=== PATIENT | male | born 1955 | race African-American/Black ===

== ENCOUNTER 2018-05-15 11:29 | Observation (INO) | payer OTHER, SELFPAY ==
--- NOTE | 2018-05-15 12:19 | RAD REPORT ---
EXAM DESCRIPTION: CT - Head C Spine Cap Wo Con - 05/15/2018 11:51 am CLINICAL HISTORY: Trauma, head and neck injury. Chest, abdomen and pelvis pain. fall from ladder, head/back/abd pain COMPARISON: No comparisons TECHNIQUE: CT head without contrast. CT cervical spine without contrast with coronal and sagittal reformatted images. CT chest, abdomen and pelvis without contrast with coronal and sagittal reformatted images of the [facility]. All CT scans are performed using dose optimization technique as appropriate and may include automated exposure control or mA/KV adjustment according to patient size. FINDINGS: CT HEAD WITHOUT CONTRAST: No intracranial hemorrhage, hydrocephalus or extra-axial fluid collection. No areas of brain edema o r midline shift. The paranasal sinuses and mastoids are clear. The calvarium is intact. Large right-sided scalp hemato ma. CT CERVICAL SPINE WITHOUT CONTRAST: No fracture or subluxation. Prominent lower cervical degenerative changes. The prevertebral soft tiss ues are normal in thickness. CT CHEST, ABDOMEN, PELVIS WITHOUT CONTRAST: NOTE: Lack of contrast is a significant limitation in the assessment of trauma related findings. Spec ifically, solid organ, vascular and bowel evaluation is significantly limited. The lungs are mildly emphysematous but clear.No pneumothorax or pericardial/pleural fluid. No evidence of intra-abdominal visceral injury, free fluid or free air is seen within the above detai led limitations. An area of diminished density is noted in the pancreatic head without evidence of ductal dilatation. The region diminished density measures 3.4 x 2.3 cm. There is a small adjacent lymph node measuring 6 mm noted. This finding warrants further assessment with contrast-enhanced CT or MR imaging of the pa ncreas. Small focal ventral hernias are seen containing portions of the anterior wall colon. Postsurgical gabe nges are present about the sigmoid colon. No fractures. Small fat containing right inguinal hernia. IMPRESSION: Negative for acute traumatic findings within the above detailed limitations. Area of diminished density is seen in the pancreatic head as detailed warranting follow-up CT or MR i maging of the pancreas with contrast. Findings were discussed Dr. Hubbard in the emergency room 12:13 p.m. 05/15/2018 by telephone.
[2018-05-15] MEDS ORDERED: MORPHINE 4 MG/ML SYR ONE (12:23)
[2018-05-15] MEDS ORDERED: TETANUS & DIPHTHERIA TOX,ADULT 0.5 ML VIAL ONE (12:23)
[2018-05-15] MEDS ORDERED: ONDANSETRON 4 MG/2 ML VIAL ONE (12:23)
[2018-05-15 12:28] LABS: Absolute Lymphocytes (CBC) 1.8 K/uL (0.7-4.9); Absolute Monocytes 0.7 K/uL (0.1-1.3); Absolute Neutrophil 2.4 K/uL (1.8-8.0); Basophils % 0.6 % (0-1.3); Eosinophils % 1.2 % (0-4.4); Lymphocytes % 36.7 % (15.3-44.8); MCH 32.2 pg (27.0-35.0); MCV 94.5 fL (80-100); MPV 10.4 fL (7.6-11.3); Monocytes % 13.6 % (3.3-12.3); RBC Red Blood Cell Count 4.66 M/uL (4.33-5.43)
[2018-05-15 12:41] LABS: Potassium 4.4 mmol/L (3.5-5.1)
--- NOTE | 2018-05-15 13:45 | RAD REPORT ---
EXAM DESCRIPTION: RAD - Femur Right - 05/15/2018 1:36 pm CLINICAL HISTORY: PAIN Trauma COMPARISON: No comparisons FINDINGS: Mild osteoarthritic changes are present involving the right hip. No acute fracture or disl ocation seen.
--- NOTE | 2018-05-15 13:46 | RAD REPORT ---
EXAM DESCRIPTION: RAD - Femur Left - 05/15/2018 1:36 pm CLINICAL HISTORY: PAIN COMPARISON: No comparisons FINDINGS: Mild osteoarthritic changes noted. No acute fracture or dislocation
[2018-05-15 14:34] LABS: Urine Blood TRACE (NEG); Urine Glucose NEGATIVE (NEG); Urine Protein NEGATIVE (NEG)
[2018-05-15] MEDS ORDERED: LIDOCAINE 1% W/EPI 1:100,000 MDV 50 ML VIAL ONE (15:16)
--- NOTE | 2018-05-15 16:15 | ER ---
Nurse's Notes [facility] Unit Name: Yash Garcia Age: 62 yrs Sex: Male : 1955 Arrival Date: 05/15/2018 Time: 11:31 Bed 4 Private MD: Diagnosis: Concussion;Laceration without foreign body of scalp;Contusion of right back wall of thorax Presentation: 05/15 11:36 Presenting complaint: EMS states: pt fell approx 7 ft off a ladder while at work, pt iw hit head on beam on the way down, +LOC, large hematoma to right occipital area, with laceration, pain to right side of chest, right flank tenderness, left thigh pain, A\T\OX3 upon arrival to ER, pressure dressing applied by ER staff. Care prior to arrival: Cervical collar in place. Placed on backboard. Mechanism of Injury: Fall from ladder approximately 7 feet. 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 11:42 Transition of care: patient was not received from another setting of care. Onset of iw symptoms was May 15, 2018. Risk Assessment: Do you want to hurt yourself or someone else? Patient reports no desire to harm self or others. Initial Sepsis Screen: Does the patient meet any 2 criteria? No. Patient's initial sepsis screen is negative. Does the patient have a suspected source of infection? No. Patient's initial sepsis screen is negative. Trauma Activation: Alert Physician: ED Physician; Name: Dr. Hubbard; Notified At: 11:21; Arrived At: 11:21 Physician: General Surgeon; Name: N/A; Notified At: 11:21; Arrived At: N/A Physician: Radiology; Name: Felipe; Notified At: 11:21; Arrived At: 11:21 Physician: Respiratory; Name: N/A; Notified At: 11:21; Arrived At: N/A Physician: Lab; Name: N/A; Notified At: 11:21; Arrived At: N/A Historical: - Allergies: 11:43 Iodinated Contrast Media - IV Dye; iw - PMHx: 11:43 Hypertension; iw - Immunization history:: Last tetanus immunization: unknown. - Family history:: not pertinent. - Ebola Screening: : Patient negative for fever greater than or equal to 101.5 degrees Fahrenheit, and additional compatible Ebola Virus Disease symptoms Patient denies exposure to infectious person Patient denies travel to an Ebola-affected area in the 21 days before illness onset No symptoms or risks identified at this time. - Social history:: Smoking status: . - Hospitalizations: : No recent hospitalization is reported. Screenin:48 Abuse screen: Denies threats or abuse. Denies injuries from another. Tuberculosis iw screening: No symptoms or risk factors identified. 12:22 Nutritional screening: No deficits noted. Fall Risk None identified. tw2 Primary Survey: 11:36 A: Airway: patent, No supplemental oxygen in use on arrival. Breathing/Chest: iw Respiratory pattern: regular, Respiratory effort: spontaneous, unlabored, Breath sounds: clear, bilaterally. Chest inspection: symmetrical rise and fall of the chest. Circulation: Cardiac rhythm: sinus rhythm Heart tones present. Pulses: palpable right radial artery, right femoral artery, left radial artery, left femoral artery, left carotid pulse and right carotid pulse. Skin color: pink, Skin temperature: dry. Disability Alert. 11:42 Reassessment Airway Airway Patent Breathing/Chest Respiratory pattern Regular iw Respiratory effort Spontaneous Unlabored Breath sounds Clear Chest inspection Symmetrical Circulation Heart rhythm Sinus rhythm Heart tones Present Pulses Palpable Color [place] Temperature Warm Dry Disability Alert. Secondary Survey: 11:42 HEENT: Head Other large hematoma to back of head, right side, bleeding moderately, iw pressure dressing applied Face No injury/deformity Eyes: No injury or deformity noted. to bilateral eyes. Ears: clear bilaterally. Nose: clear to bilateral nares. Gastrointestinal: Abdomen is soft. Musculoskeletal: Range of motion: intact in all extremities, Reports pain in right subscapular area and right mid back. Assessment: 11:36 General: Appears in no apparent distress. Behavior is calm, cooperative. Pain: iw Complains of pain in head. Pain: Complains of pain in right lateral anterior chest. Pain: Complains of pain in left quadriceps. Neuro: Level of Consciousness is awake, alert, obeys commands, Moves all extremities. Cardiovascular: Patient's skin is warm and dry. Respiratory: Airway is patent Respiratory effort is even, unlabored. GI: Abdomen is flat, non-distended. Musculoskeletal: Range of motion: intact in all extremities. Injury Description: Head injury Laceration sustained to right parietal area is full thickness, 2.6 to 7.5 cm long, was sustained moderate bleeding noted at this time. 11:41 Reassessment: pt transported to Ct via stretcher, with YUMIKO Burnette. iw 11:53 Reassessment: transported pt back from CT, pt alert during scan and transport. Pain dm5 report in right side of face and left hip. quarter sized raised hematoma noted to left hand. 12:09 Reassessment: Patient appears in no apparent distress at this time. pt c/o throbbing iw headache, VSS. 12:30 Reassessment: Patient appears in no apparent distress at this time. Patient and/or iw family updated on plan of care and expected duration. Pain level reassessed. Patient is alert, oriented x 3, equal unlabored respirations, skin warm/dry/pink. pt medicated for pain, family at bedside. 14:44 Reassessment: Patient appears in no apparent distress at this time. Patient and/or tw2 family updated on plan of care and expected duration. Pain level reassessed. Patient is alert, oriented x 3, equal unlabored respirations, skin warm/dry/pink. 15:34 Reassessment: Patient appears in no apparent distress at this time. Patient and/or tw2 family updated on plan of care and expected duration. Pain level reassessed. Patient is alert, oriented x 3, equal unlabored respirations, skin warm/dry/pink. pt tolerated sutures well. 16:40 Reassessment: Patient appears in no apparent distress at this time. Patient and/or tw2 family updated on plan of care and expected duration. Pain level reassessed. Patient is alert, oriented x 3, equal unlabored respirations, skin warm/dry/pink. pt and pts spouse and family are requesting pt stay over night for observation, explained that this is not medically necessary and insurance may or may not cover this visit, pt and family educated as to s/s of when to return to the ER or call 911, family still requesting to speak with Dr. Hubbard, provider notified. 17:15 Reassessment: Patient appears in no apparent distress at this time. No changes from tw2 previously documented assessment. Patient and/or family updated on plan of care and expected duration. Pain level reassessed. Patient is alert, oriented x 3, equal unlabored respirations, skin warm/dry/pink. 18:12 Reassessment: Patient appears in no apparent distress at this time. No changes from tw2 previously documented assessment. Patient and/or family updated on plan of care and expected duration. Pain level reassessed. Patient is alert, oriented x 3, equal unlabored respirations, skin warm/dry/pink. 18:15 Reassessment: Dr. Scruggs at bedside at this time. tw2 18:54 Reassessment: [place] 5mg 2 tabs PO given at this time per [employer] orders, the orders tw2 are not processed, nurse note in [employer] chart at this time. 19:10 General: Appears in no apparent distress. comfortable, Behavior is calm, cooperative, tl2 appropriate for age. Pain: Complains of pain in right parietal area. Neuro: Level of Consciousness is awake, alert, obeys commands. Cardiovascular: Denies chest pain. Respiratory: Airway is patent Respiratory effort is even, unlabored, Respiratory pattern is regular, symmetrical. GI: No signs and/or symptoms were reported involving the gastrointestinal system. : No signs and/or symptoms were reported regarding the genitourinary system. Derm: Skin is pink, warm \T\ dry. Injury Description: laceration to right occipital area repaired and dressing is dry and in place. Vital Signs: 11:35 BP 164 / 100; Pulse 65; Resp 16; Temp 97.5(TE); Pulse Ox 95% on R/A; Weight 113.4 kg; iw Height 6 ft. 2 in. (187.96 cm) (R); Pain 8/10; 12:14 BP 167 / 88; Pulse 64; Resp 16; Temp 97.6; Pulse Ox 96% on R/A; Pain 8/10; iw 12:31 BP 173 / 94; Pulse 62; Resp 16; Pulse Ox 97% on R/A; iw 13:35 BP 151 / 85; Pulse 58; Resp 13; Pulse Ox 95% on R/A; tw2 14:43 BP 151 / 83; Pulse 64; Resp 14; Pulse Ox 95% on R/A; tw2 15:34 BP 137 / 82; Pulse 66; Resp 12; Pulse Ox 96% on R/A; tw2 16:30 BP 150 / 88; Pulse 81; Resp 17; Pulse Ox 95% on R/A; tw2 17:13 BP 151 / 86; Pulse 58; Resp 16; Pulse Ox 99% on R/A; dh3 18:11 BP 161 / 99; Pulse 73; Resp 18; Pulse Ox 95% on R/A; tw2 19:00 BP 152 / 93; Pulse 70; Resp 11; Pulse Ox 99% on R/A; tl2 11:35 Body Mass Index 32.10 (113.40 kg, 187.96 cm) iw Jossue Coma Score: 11:35 Eye Response: spontaneous(4). Verbal Response: oriented(5). Motor Response: obeys iw commands(6). Total: 15. 13:36 Eye Response: spontaneous(4). Verbal Response: oriented(5). Motor Response: obeys tw2 commands(6). Total: 15. Trauma Score (Adult): 11:35 Eye Response: spontaneous(1); Verbal Response: oriented(1); Motor Response: obeys iw commands(2); Systolic BP: > 89 mm Hg(4); Respiratory Rate: 10 to 29 per min(4); Guston Score: 15; Trauma Score: 12 12:15 Eye Response: spontaneous(1); Verbal Response: oriented(1); Motor Response: obeys iw commands(2); Systolic BP: > 89 mm Hg(4); Respiratory Rate: 10 to 29 per min(4); Jossue Score: 15; Trauma Score: 12 12:31 Eye Response: spontaneous(1); Verbal Response: oriented(1); Motor Response: obeys iw commands(2); Systolic BP: > 89 mm Hg(4); Respiratory Rate: 10 to 29 per min(4); Jossue Score: 15; Trauma Score: 12 13:36 Eye Response: spontaneous(1); Verbal Response: oriented(1); Motor Response: obeys tw2 commands(2); Systolic BP: > 89 mm Hg(4); Respiratory Rate: 10 to 29 per min(4); Jossue Score: 15; Trauma Score: 12 ED Course: 11:31 Patient arrived in ED. bd 11:34 Rafa Hubbard MD is Attending Physician. rn 11:36 Patient has correct armband on for positive identification. Bed in low position. Side iw rails up X2. Patient maintains SpO2 saturation greater than 95% on room air. 11:38 Triage completed. iw 11:40 Arm band placed on. iw 11:42 Thermoregulation: warm blanket given to patient. iw 11:43 Missed attempt(s): 20 gauge in right upper arm. Bleeding controlled, band aid applied, dh3 catheter tip intact. 11:50 Kerry Richards RN is Primary Nurse. iw 11:51 CT Traumagram (Head C Spine CAP wo con) In Process Unspecified. EDMS 11:54 CT completed. Patient tolerated procedure well. Patient moved to CT via stretcher. Patient moved back from CT. 11:57 Missed attempt(s): 20 gauge in right hand. Bleeding controlled, band aid applied, dh3 catheter tip intact. 12:00 Missed attempt(s): 22 gauge in right hand. 24 gauge in right antecubital area. Bleeding iw controlled, band aid applied, catheter tip intact. 12:08 Inserted saline lock: 24 gauge in left wrist, using aseptic technique. Blood collected. iw IV inserted by YUMIKO Torres. 12:26 Urine collected: urinal, clear. dh3 13:05 Patient moved to radiology via stretcher. jb2 13:29 Primary Nurse role handed off by Kerry Richards RN tw2 13:29 Richelle Perkins, YUMIKO is Primary Nurse. tw2 13:35 X-ray completed. Patient tolerated procedure well. Patient moved back from radiology. jb2 13:37 XRAY Femur LEFT In Process Unspecified. EDMS 13:37 XRAY Femur RIGHT In Process Unspecified. EDMS 15:15 Assist provider with laceration repair on right parietal area using sutures. Set up tw2 tray. Performed by Rafa Hubbard MD Dressed with 4X4s, Kerlix, non adherent with 2 law wraps. 16:54 Adrian Scruggs MD is Hospitalizing Provider. rn 18:55 Report given to Kristofer RN. tw2 19:26 Primary Nurse role handed off by Richelle Perkins, YUMIKO rg2 20:00 Patient admitted, IV remains in place. tl2 Administered Medications: 12:25 Drug: morphine 4 mg Route: IVP; Site: left wrist; iw 13:07 Follow up: Response: No adverse reaction; Pain is decreased iw 12:25 Drug: Zofran 4 mg Route: IVP; Site: left wrist; iw 13:07 Follow up: Response: No adverse reaction iw 12:30 Drug: Tetanus-Diphtheria Toxoid Adult 0.5 ml {Horticultural Therapist: [employer]. Exp: iw 06/01/2020. Lot #: [id number]. } Route: IM; Site: right deltoid; 13:07 Follow up: Response: No adverse reaction iw 15:15 Drug: Lidocaine-Epinephrine -2 % (1:100,000) 10 ml {Note: 5ml administered by Dr. christiano Hubbard.} Route: Infiltration; Intake: 12:23 PO: 0ml; Total: 0ml. tw2 Outcome: 13:36 Patient's length of stay in the Emergency Department was greater than 2 hours. d/t tw2 imagingPatient's length of stay extended due to 16:13 Discharge ordered by . rn 16:55 Decision to Hospitalize by Provider. rn 19:59 Admitted to Med/surg accompanied by tech, family with patient, via wheelchair, room tl2 209, with chart, Report called to YUMIKO Sharpe 19:59 Condition: stable 19:59 Discharge instructions given to patient, family, Instructed on the need for admit. 20:02 Patient left the ED. tl2 Signatures: Dispatcher [employer] EDMS Mavis Moss [place] 2 Yomaira Willams RN RN dm5 Serafin Blevins 2 Kerry Richards RN RN Rafa Hubbard MD MD rn Warren, Shannon sw Wise, Tara, RN RN 2 Aiyana Gtz RN RN 2 Margie Lr 3 Corrections: (The following items were deleted from the chart) 11:49 11:48 HEENT: Head Other large hematoma to back of head, right side, bleeding iw moderately, pressure dressing applied Face No injury/deformity Eyes: No injury or deformity noted. to bilateral eyes. Ears: clear bilaterally. Nose: clear to bilateral nares. iw 11:49 11:48 Gastrointestinal: Abdomen is soft, iw 11:49 11:48 Musculoskeletal: Range of motion: intact in all extremities, Reports pain in iw right subscapular area and right mid back iw 11:50 11:35 BP 164 / 100; Pulse 65bpm; Resp 16bpm; Pulse Ox 95% RA; iw iw 12:11 12:08 Inserted saline lock: 24 gauge in left antecubital area, using aseptic technique. iw Blood collected. IV inserted by YUMIKO Torres iw 12:15 11:35 BP 164 / 100; Pulse 65bpm; Resp 16bpm; Pulse Ox 95% RA; Temp 97.5F Temporal; iw 99.79 kg; Height 6 ft. 1 in.; BMI: 29.0; Pain 8/10; iw
--- NOTE | 2018-05-15 16:15 | EDPHYS ---
Physician Documentation [facility] Name: Yash Garcia Age: 62 yrs Sex: Male : 1955 Arrival Date: 05/15/2018 Time: 11:31 Bed 4 Private MD: ED Physician Rafa Hubbard HPI: 05/15 11:36 This 62 yrs old Black Male presents to ER via Unassigned with complaints of Fall Injury.rn 11:36 Trauma demographics: Location of Injury: The injury occurred at work. Mechanism of rn injury: Fall:. Associated injuries: The patient sustained injury to the head, upper back injury, injury to the chest, injury to the abdomen. Onset: The symptoms/episode began/occurred just prior to arrival. The patient has not experienced similar symptoms in the past. Wet outside, on fixed ladder, approx 7-10 feet, slipped and fell onto back, hit head, thinks lost consciousness, unknown tetanus, reports head/lower chest/abd/righ flank/left thigh pain. No blood thinners.. Historical: - Allergies: 11:43 Iodinated Contrast Media - IV Dye; iw - PMHx: 11:43 Hypertension; iw - Immunization history:: Last tetanus immunization: unknown. - Family history:: not pertinent. - Ebola Screening: : Patient negative for fever greater than or equal to 101.5 degrees Fahrenheit, and additional compatible Ebola Virus Disease symptoms Patient denies exposure to infectious person Patient denies travel to an Ebola-affected area in the 21 days before illness onset No symptoms or risks identified at this time. - Social history:: Smoking status: . - Hospitalizations: : No recent hospitalization is reported. ROS: 11:36 Constitutional: Negative for fever, chills, and weight loss, Eyes: Negative for injury, rn pain, redness, and discharge, ENT: no facial injury Neck: Negative for injury, pain, and swelling, Cardiovascular: + chest pain right anterior/inferior Respiratory: Negative for shortness of breath, cough, wheezing, and pleuritic chest pain, Abdomen/GI: + mild abd pain, right sided Back: + right flank/back pain MS/Extremity: Negative for injury and deformity, Neuro: Negative for weakness, numbness, tingling, and seizure. Exam: 11:36 Constitutional: This is a well developed, well nourished patient who is awake, alert, rn and in no acute distress. Head/Face: Moderate posterior scalp hematoma with 3cm linear laceration, slow venous bleeding noted Eyes: Pupils equal round and reactive to light, extra-ocular motions intact. Lids and lashes normal. Conjunctiva and sclera are non-icteric and not injected. Cornea within normal limits. Periorbital areas with no swelling, redness, or edema. Neck: In ccollar, no midline tenderness Chest/axilla: + contusion right lateral inferior chest wall, no crepitus Cardiovascular: Regular rate and rhythm with a normal S1 and S2. No gallops, murmurs, or rubs. Normal PMI, no JVD. No pulse deficits. Respiratory: Lungs have equal breath sounds bilaterally, clear to auscultation and percussion. No rales, rhonchi or wheezes noted. No increased work of breathing, no retractions or nasal flaring. Abdomen/GI: soft, mild right lateral abd/flank tenderness, no ecchymosis Back: No spinal tenderness or stepoff, + right flank tenderness without crepitus or open wounds MS/ Extremity: Pulses equal, no cyanosis. Neurovascular intact. Full, normal range of motion. Equal circumference. Mild painful ROM left thigh/hip, + abrasions to elbows and lower extremities without lacerations Neuro: Awake and alert, GCS 15, oriented to person, place, time, and situation. Cranial nerves II-XII grossly intact. Motor strength 5/5 in all extremities. Sensory grossly intact. Vital Signs: 11:35 BP 164 / 100; Pulse 65; Resp 16; Temp 97.5(TE); Pulse Ox 95% on R/A; Weight 113.4 kg; iw Height 6 ft. 2 in. (187.96 cm) (R); Pain 8/10; 12:14 BP 167 / 88; Pulse 64; Resp 16; Temp 97.6; Pulse Ox 96% on R/A; Pain 8/10; iw 12:31 BP 173 / 94; Pulse 62; Resp 16; Pulse Ox 97% on R/A; iw 13:35 BP 151 / 85; Pulse 58; Resp 13; Pulse Ox 95% on R/A; tw2 14:43 BP 151 / 83; Pulse 64; Resp 14; Pulse Ox 95% on R/A; tw2 15:34 BP 137 / 82; Pulse 66; Resp 12; Pulse Ox 96% on R/A; tw2 16:30 BP 150 / 88; Pulse 81; Resp 17; Pulse Ox 95% on R/A; tw2 17:13 BP 151 / 86; Pulse 58; Resp 16; Pulse Ox 99% on R/A; dh3 18:11 BP 161 / 99; Pulse 73; Resp 18; Pulse Ox 95% on R/A; tw2 19:00 BP 152 / 93; Pulse 70; Resp 11; Pulse Ox 99% on R/A; tl2 11:35 Body Mass Index 32.10 (113.40 kg, 187.96 cm) iw Jossue Coma Score: 11:35 Eye Response: spontaneous(4). Verbal Response: oriented(5). Motor Response: obeys iw commands(6). Total: 15. 13:36 Eye Response: spontaneous(4). Verbal Response: oriented(5). Motor Response: obeys tw2 commands(6). Total: 15. Trauma Score (Adult): 11:35 Eye Response: spontaneous(1); Verbal Response: oriented(1); Motor Response: obeys iw commands(2); Systolic BP: > 89 mm Hg(4); Respiratory Rate: 10 to 29 per min(4); [place] Score: 15; Trauma Score: 12 12:15 Eye Response: spontaneous(1); Verbal Response: oriented(1); Motor Response: obeys iw commands(2); Systolic BP: > 89 mm Hg(4); Respiratory Rate: 10 to 29 per min(4); [place] Score: 15; Trauma Score: 12 12:31 Eye Response: spontaneous(1); Verbal Response: oriented(1); Motor Response: obeys iw commands(2); Systolic BP: > 89 mm Hg(4); Respiratory Rate: 10 to 29 per min(4); [place] Score: 15; Trauma Score: 12 13:36 Eye Response: spontaneous(1); Verbal Response: oriented(1); Motor Response: obeys tw2 commands(2); Systolic BP: > 89 mm Hg(4); Respiratory Rate: 10 to 29 per min(4); [place] Score: 15; Trauma Score: 12 MDM: 11:34 Patient medically screened. rn 12:13 ED course: Ct no acute findings per Dr. Davey, sees irregularity of pancreatic head, rn will have pt followup for repeat pancreas imaging.. 16:12 Differential diagnosis: intra-abdominal injury, closed head injury, C spine fracture, T government property inspector fracture, L spine fracture. Data reviewed: vital signs, nurses notes, lab test result(s), radiologic studies, CT scan, plain films, and as a result, I will discharge patient. Counseling: I had a detailed discussion with the patient and/or guardian regarding: the historical points, exam findings, and any diagnostic results supporting the discharge/admit diagnosis, lab results, radiology results, the need for outpatient follow up, to return to the emergency department if symptoms worsen or persist or if there are any questions or concerns that arise at home. Response to treatment: the patient's condition has returned to base line, the patient is now symptom free, and as a result, I will discharge patient. Special discussion: Based on the patient's history, exam and DX evaluation, there is no indication for emergent intervention or inpatient TX. It is understood by the patient/guardian that if the SXs persist or worsen they need to return immediately for re-evaluation. I discussed with the patient/guardian in detail that at this point there is no indication for admission to the hospital. It is understood, however, that if the symptoms persist or worsen the patient needs to return immediately for re-evaluation. 05/15 11:35 Order name: Basic Metabolic Panel; Complete Time: 13:56 rn 05/15 11:35 Order name: CBC with Diff; Complete Time: 13:56 rn 05/15 11:35 Order name: CT Traumagram (Head C Spine CAP wo con); Complete Time: 13:56 rn 05/15 11:35 Order name: Type And Screen; Complete Time: 13:56 rn 05/15 12:41 Order name: Urine Dipstick--Ancillary (enter results); Complete Time: 16:54 bd 05/15 13:18 Order name: ABO/RH no charge; Complete Time: 13:56 EDMS 05/15 11:35 Order name: Labs collected and sent; Complete Time: 12:12 rn 05/15 11:35 Order name: Urine Dipstick-Ancillary (obtain specimen); Complete Time: 12:15 rn 05/15 11:35 Order name: XRAY Femur LEFT; Complete Time: 13:56 rn 05/15 11:35 Order name: XRAY Femur RIGHT; Complete Time: 13:56 rn Administered Medications: 12:25 Drug: morphine 4 mg Route: IVP; Site: left wrist; iw 13:07 Follow up: Response: No adverse reaction; Pain is decreased iw 12:25 Drug: Zofran 4 mg Route: IVP; Site: left wrist; iw 13:07 Follow up: Response: No adverse reaction iw 12:30 Drug: Tetanus-Diphtheria Toxoid Adult 0.5 ml {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 Exp: iw 06/01/2020. Lot #: [id number]. } Route: IM; Site: right deltoid; 13:07 Follow up: Response: No adverse reaction iw 15:15 Drug: Lidocaine-Epinephrine -2 % (1:100,000) 10 ml {Note: 5ml administered by Dr. christiano Hubbard.} Route: Infiltration; Disposition: 05/15/18 16:55 Hospitalization ordered by Adrian Scruggs for Observation. Preliminary diagnosis are Concussion, Laceration without foreign body of scalp, Contusion of right back wall of thorax. - Bed requested for Telemetry/MedSurg (observation). - Status is Observation. tl2 - Condition is Stable. - Problem is new. - Symptoms have improved. UTI on Admission? No Signatures: Dispatcher [employer] EDMS Mavis Moss Irene, RN RN iw Nieto, Roman, MD MD rn Wise, Tara, RN RN 2 Aiyana Gtz RN RN tl2 Corrections: (The following items were deleted from the chart) 16:13 16:13 05/15/2018 16:13 Discharged to Home. Impression: Superficial injury of head; rn Laceration without foreign body of scalp; Contusion of right back wall of thorax. Condition is Stable. Forms are Medication Reconciliation Form, Thank You Letter, Antibiotic Education, Prescription Opioid Use. Follow up: Private Physician; When: As needed; Reason: Recheck today's complaints, Re-evaluation by your physician. Problem is new. Symptoms have improved. rn 16:54 16:13 05/15/2018 16:13 Discharged to Home. Impression: Superficial injury of head; rn Laceration without foreign body of scalp; Contusion of right back wall of thorax; Concussion. Condition is Stable. Forms are Medication Reconciliation Form, Thank You Letter, Antibiotic Education, Prescription Opioid Use. Follow up: Private Physician; When: As needed; Reason: Recheck today's complaints, Re-evaluation by your physician. Problem is new. Symptoms have improved. rn 18:03 16:55 Hospitalization Ordered by Adrian Scruggs MD for Observation. Preliminary diagnosis bd is Concussion; Laceration without foreign body of scalp; Contusion of right back wall of thorax. Bed requested for Telemetry/MedSurg (observation). Status is Observation. Condition is Stable. Problem is new. Symptoms have improved. UTI on Admission? No. rn 20:02 18:03 05/15/2018 16:55 Hospitalization Ordered by Adrian Scruggs MD for Observation. tl2 Preliminary diagnosis is Concussion; Laceration without foreign body of scalp; Contusion of right back wall of thorax. Bed requested for Telemetry/MedSurg (observation). Status is Observation. Condition is Stable. Problem is new. Symptoms have improved. UTI on Admission? No. bd
[2018-05-15] MEDS ORDERED: HYDROCODONE/APAP 5/325 MG TAB PO PRN (18:28)
[2018-05-15] MEDS ORDERED: ONDANSETRON 4 MG (ODT) TAB PO PRN (18:28)
[2018-05-15] MEDS ORDERED: HYDROCODONE/APAP 5/325 MG TAB ONE (18:56)
[2018-05-15] MEDS ORDERED: MORPHINE 4 MG/ML SYR IV PRN (19:39)
[2018-05-15] MEDS ORDERED: ONDANSETRON 4 MG/2 ML VIAL IV PRN (19:39)
[2018-05-15] MEDS ORDERED: ACETAMINOPHEN 500 MG TAB PO PRN (19:39)
[2018-05-15] MEDS: Ringers Lactate 1,000 ML IV SCH (21:25)
[2018-05-16] MEDS: Ringers Lactate 1,000 ML IV SCH ×2 (04:31→11:00)
[2018-05-16 05:44] LABS: Absolute Lymphocytes (CBC) 1.7 K/uL (0.7-4.9); Absolute Monocytes 0.9 K/uL (0.1-1.3); Basophils % 0.5 % (0-1.3); Eosinophils % 2.2 % (0-4.4); Hematocrit 37.8 % (39.6-49.0); Lymphocytes % 35.7 % (15.3-44.8); MCH 32.5 pg (27.0-35.0); MCV 94.5 fL (80-100); MPV 10.3 fL (7.6-11.3)
[2018-05-16 05:52] LABS: BUN Blood Urea Nitrogen 15 mg/dL (7-18); Bicarbonate 32 mmol/L (21-32); Glucose Level 105 mg/dL (74-106); HDL Cholesterol 29 mg/dL (40-60); LDL Cholesterol, Calculated 32 (<130); Potassium 4.1 mmol/L (3.5-5.1); Sodium Level 143 mmol/L (136-145)
[2018-05-16 06:34] LABS: Blood Morphology Comment NOT SEEN (NOT SEEN); Platelet Estimate ADEQ
== END 2018-05-16 12:20 | disposition home or self-care (01) ==
LOC: ER 11:29 → ERHOLD 17:12 → 2ND 19:19
PROVIDERS: ADMIT Surgery; ATTEND Surgery
DX: S00.03XA Contusion of scalp, initial encounter (principal); S06.9X9A Unspecified intracranial injury with loss of consciousness of unspecified duration, initial encounter; W11.XXXA Fall on and from ladder, initial encounter; I10 Essential (primary) hypertension; Y92.009 Unspecified place in unspecified non-institutional (private) residence as the place of occurrence of the external cause; Z23 Encounter for immunization
CPT/HCPCS: 36415; 70450; 71250; 72125; 80048; 80061; 81003; 85025; 86850; 86900; 86901; 90714; 96374; 96375; 99285; G0378; J2405

== ENCOUNTER 2018-05-19 10:52 | Emergency (ER) | payer SELFPAY ==
[2018-05-19 12:48] LABS: Absolute Lymphocytes (CBC) 1.7 K/uL (0.7-4.9); Absolute Monocytes 0.8 K/uL (0.1-1.3); Absolute Neutrophil 1.7 K/uL (1.8-8.0); Basophils % 0.8 % (0-1.3); Eosinophils % 1.9 % (0-4.4); Hematocrit 44.3 % (39.6-49.0); Lymphocytes % 39.6 % (15.3-44.8); MCH 32.5 pg (27.0-35.0); MCV 93.9 fL (80-100); MPV 10.6 fL (7.6-11.3); Monocytes % 18.4 % (3.3-12.3); RBC Red Blood Cell Count 4.72 M/uL (4.33-5.43)
[2018-05-19] MEDS ORDERED: NA CHLORIDE 0.9% 1,000 ML ONE (12:54)
[2018-05-19 12:55] LABS: Protime INR 0.97
--- NOTE | 2018-05-19 12:55 | RAD REPORT ---
EXAM DESCRIPTION: CT - Head Brain Wo Cont - 05/19/2018 12:44 pm CLINICAL HISTORY: Headache and dizziness status post head injury COMPARISON: 05/15/2018 TECHNIQUE: Computed axial tomography of the head was obtained. IV contrast was not requested. All CT scans are performed using dose optimization technique as appropriate and may include automated exposure control or mA/KV adjustment according to patient size. FINDINGS: Right parietal scalp hematoma is present without an underlying skull fracture An intracranial bleed is not seen . The ventricles are normal in caliber. No extra-axial fluid collection is noted. Fluid within the sinuses/ mastoids is not seen. IMPRESSION: No acute intracranial abnormality is seen. If patient's symptoms persist MRI of the bra in would be recommended.
--- NOTE | 2018-05-19 13:50 | EDPHYS ---
Physician Documentation [facility] Name: Yash Garcia Age: 62 yrs Sex: Male : 1955 Arrival Date: 05/19/2018 Time: 10:56 Bed 8 Private MD: Molina Garcia R ED Physician Hema Lares HPI: 05/19 13:43 This 62 yrs old Black Male presents to ER via Wheelchair with complaints of Headache. gabe 13:43 The patient complains of pain to the left side of the back of head and right side of gabe the back of head. The patient describes the headache as a pressure. Onset: The symptoms/episode began/occurred 5 day(s) ago. Associated signs and symptoms: The patient has no apparent associated signs or symptoms. Severity of symptoms: At its worst the pain was mild, moderate, in the emergency department the pain has improved, moderately. Headache History: Denies prior headaches. The symptoms are alleviated by quiet, remaining still, the symptoms are aggravated by lights, movement. The patient has not experienced similar symptoms in the past. Historical: - Allergies: 11:35 Iodinated Contrast Media - IV Dye; aj - Home Meds: 11:35 valsartan oral oral [Active]; aj - PMHx: 11:35 Hypertension; Diverticulitis; aj - PSHx: 11:35 colon resection; aj - Immunization history:: Adult Immunizations up to date. - Social history:: Smoking status: Patient/guardian denies using tobacco. - Ebola Screening: : Patient negative for fever greater than or equal to 101.5 degrees Fahrenheit, and additional compatible Ebola Virus Disease symptoms Patient denies exposure to infectious person Patient denies travel to an Ebola-affected area in the 21 days before illness onset No symptoms or risks identified at this time. - Family history:: not pertinent. ROS: 13:43 Constitutional: Negative for fever, chills, and weight loss, Eyes: Negative for injury, gabe pain, redness, and discharge, ENT: Negative for injury, pain, and discharge, Neck: Negative for injury, pain, and swelling, Cardiovascular: Negative for chest pain, palpitations, and edema, Respiratory: Negative for shortness of breath, cough, wheezing, and pleuritic chest pain, Abdomen/GI: Negative for abdominal pain, nausea, vomiting, diarrhea, and constipation, Back: Negative for injury and pain, : Negative for injury, bleeding, discharge, and swelling, MS/Extremity: Negative for injury and deformity, Skin: Negative for injury, rash, and discoloration, Psych: Negative for depression, anxiety, suicide ideation, homicidal ideation, and hallucinations, Allergy/Immunology: Negative for hives, rash, and allergies, Endocrine: Negative for neck swelling, polydipsia, polyuria, polyphagia, and marked weight changes, Hematologic/Lymphatic: Negative for swollen nodes, abnormal bleeding, and unusual bruising. 13:43 Neuro: Positive for headache. Exam: 13:43 Constitutional: This is a well developed, well nourished patient who is awake, alert, gabe and in no acute distress. Head/Face: Normocephalic, atraumatic. Eyes: Pupils equal round and reactive to light, extra-ocular motions intact. Lids and lashes normal. Conjunctiva and sclera are non-icteric and not injected. Cornea within normal limits. Periorbital areas with no swelling, redness, or edema. ENT: Nares patent. No nasal discharge, no septal abnormalities noted. Tympanic membranes are normal and external auditory canals are clear. Oropharynx with no redness, swelling, or masses, exudates, or evidence of obstruction, uvula midline. Mucous membranes moist. Neck: Trachea midline, no thyromegaly or masses palpated, and no cervical lymphadenopathy. Supple, full range of motion without nuchal rigidity, or vertebral point tenderness. No Meningismus. Chest/axilla: Normal chest wall appearance and motion. Nontender with no deformity. No lesions are appreciated. Cardiovascular: Regular rate and rhythm with a normal S1 and S2. No gallops, murmurs, or rubs. Normal PMI, no JVD. No pulse deficits. Respiratory: Lungs have equal breath sounds bilaterally, clear to auscultation and percussion. No rales, rhonchi or wheezes noted. No increased work of breathing, no retractions or nasal flaring. Abdomen/GI: Soft, non-tender, with normal bowel sounds. No distension or tympany. No guarding or rebound. No evidence of tenderness throughout. Back: No spinal tenderness. No costovertebral tenderness. Full range of motion. Male : Normal genitalia with no discharge or lesions. Skin: Warm, dry with normal turgor. Normal color with no rashes, no lesions, and no evidence of cellulitis. MS/ Extremity: Pulses equal, no cyanosis. Neurovascular intact. Full, normal range of motion. Neuro: Awake and alert, GCS 15, oriented to person, place, time, and situation. Cranial nerves II-XII grossly intact. Motor strength 5/5 in all extremities. Sensory grossly intact. Cerebellar exam normal. Normal gait. Psych: Awake, alert, with orientation to person, place and time. Behavior, mood, and affect are within normal limits. 13:43 Neuro: Orientation: is normal, appropriate for stated age, no acute changes, Mentation: is normal, appropriate for stated age, no acute changes, Memory: is normal, appropriate for stated age, no acute changes, Motor: is normal, Gait: not applicable Deep tendon reflexes are 2+ (normal) in the bilateral brachioradialis, bicep, tricep and patellar and Achilles tendons, seizure activity, is not displayed by the patient. Vital Signs: 11:35 BP 149 / 98; Pulse 88; Resp 17; Temp 98.3; Pulse Ox 98% on R/A; Weight 105.23 kg; aj Height 5 ft. 2 in. (157.48 cm); 12:57 BP 136 / 88; Pulse 79; Resp 15; Pulse Ox 98% on R/A; Pain 8/10; ch 13:59 BP 140 / 78; Pulse 70; Resp 14; Temp 98.3; Pulse Ox 99% on R/A; Pain 7/10; ch 14:44 BP 138 / 73; Pulse 72; Resp 14; Temp 98.6; Pulse Ox 99% on R/A; Pain 3/10; ch 11:35 Body Mass Index 42.43 (105.23 kg, 157.48 cm) aj MDM: 11:53 Patient medically screened. [facility] 13:46 Data reviewed: vital signs, nurses notes, lab test result(s), EKG, radiologic studies, [facility] CT scan, plain films. 05/19 12:42 Order name: Urine Dipstick--Ancillary (enter results) eb 05/19 12:52 Order name: CBC with Automated Diff; Complete Time: 13:21 EDMS 05/19 12:56 Order name: Protime (+INR); Complete Time: 13:21 EDMI 05/19 11:54 Order name: XRAY Chest (1 view) [facility] 05/19 11:54 Order name: CT Head Brain wo Cont [facility] 05/19 12:56 Order name: CT; Complete Time: 13:21 [facility] 05/19 12:56 Order name: PTT, Activated Partial Thromb; Complete Time: 13:21 EDMI 05/19 14:01 Order name: Urine Culture [facility] 05/19 14:01 Order name: Chest Single View [facility] 05/19 11:54 Order name: EKG; Complete Time: 13:34 [facility] 05/19 11:54 Order name: Cardiac monitoring; Complete Time: 14:01 [facility] 05/19 11:54 Order name: EKG - Nurse/Tech; Complete Time: 14:01 [facility] 05/19 11:54 Order name: IV Saline Lock; Complete Time: 14:01 [facility] 05/19 11:54 Order name: Labs collected and sent; Complete Time: 14:01 [facility] 05/19 11:54 Order name: O2 Per Protocol; Complete Time: 14:02 [facility] 05/19 11:54 Order name: O2 Sat Monitoring; Complete Time: 14:02 [facility] 05/19 11:54 Order name: Urine Dipstick-Ancillary (obtain specimen); Complete Time: 14:02 [facility] 05/19 14:01 Order name: EKG Electrocardiogram EDMS Administered Medications: 12:51 Drug: NS 0.9% 1000 ml Route: IV; Rate: 125 ml/hr; Site: right hand; [facility] 14:47 Follow up: IV Status: Order to discontinue infusion; IV Intake: 250ml 14:00 Drug: fentaNYL (PF) 25 mcg Route: IVP; Site: right hand; ch 14:46 Follow up: Response: No adverse reaction; Marked relief of symptoms 14:00 Drug: Zofran 4 mg Route: IVP; Site: right hand; ch 14:46 Follow up: Response: No adverse reaction; Marked relief of symptoms 14:20 Drug: fentaNYL (PF) 25 mcg Route: IVP; Site: right hand; ch 14:47 Follow up: Response: No adverse reaction; Marked relief of symptoms Disposition: 05/19/18 13:49 Discharged to Home. Impression: Headache, Strain of muscle, fascia and tendon at neck level. - Condition is Stable. - Discharge Instructions: Concussion, Adult, Fall Prevention in the Home, Post-Concussion Syndrome, Post-Concussion Syndrome, [id number], Fall Prevention in the Home, [id number], Concussion, Adult, [id number]. - Prescriptions for Restoril 30 mg Oral capsule - take 1 capsule by ORAL route once daily at bedtime as needed; 15 capsule. Tylenol- Codeine #3 300-30 mg Oral Tablet - take 2 tablets by ORAL route every 6 hours As needed; 20 tablet. Zofran 4 mg Oral Tablet - take 1 tablet by ORAL route every 12 hours As needed; 20 tablet. - Medication Reconciliation Form, Thank You Letter, Antibiotic Education, Prescription Opioid Use form. - Follow up: Molina Garcia MD; When: 2 - 3 days; Reason: Recheck today's complaints, Continuance of care, Re-evaluation by your physician. - Problem is new. - Symptoms are resolved. Signatures: Dispatcher [employer] EDMS Janie Jones RN RN ch Myers, Amanda, RN RN aj Anderson, Corey, MD MD cha Leal, Jahala, RN RN jlDelores Rainey Corrections: (The following items were deleted from the chart) 14:44 14:11 Labs - recollect needed ordered. [facility] 14:48 13:49 05/19/2018 13:49 Discharged to Home. Impression: Headache; Strain of muscle, ch fascia and tendon at neck level. Condition is Stable. Forms are Medication Reconciliation Form, Thank You Letter, Antibiotic Education, Prescription Opioid Use. Follow up: Molina Garcia; When: 2 - 3 days; Reason: Recheck today's complaints, Continuance of care, Re-evaluation by your physician. Problem is new. Symptoms are resolved. gabe
--- NOTE | 2018-05-19 13:50 | ER ---
Nurse's Notes [facility] Name: Yash Garcia Age: 62 yrs Sex: Male : 1955 Arrival Date: 05/19/2018 Time: 10:56 Bed 8 Private MD: Molina Garcia R Diagnosis: Headache;Strain of muscle, fascia and tendon at neck level Presentation: 05/19 11:33 Presenting complaint: Patient states: Lingering headache and dizziness when moving or aj standing since head injury on Tuesday. Transition of care: patient was not received from another setting of care. Onset of symptoms was May 14, 2018. Risk Assessment: Do you want to hurt yourself or someone else? Patient reports no desire to harm self or others. Initial Sepsis Screen: Does the patient meet any 2 criteria? No. Patient's initial sepsis screen is negative. Does the patient have a suspected source of infection? No. Patient's initial sepsis screen is negative. Care prior to arrival: None. 11:33 Method Of Arrival: Wheelchair aj 11:33 Acuity: PARISH 3 aj Triage Assessment: 11:35 Headache History: Denies prior headaches. General: Appears in no apparent distress. aj comfortable, Behavior is calm, cooperative, appropriate for age. Pain: Complains of pain in face and scalp. Neuro: Level of Consciousness is awake, alert, obeys commands, Oriented to person, place, time, situation, Appropriate for age Tricot Knitting Machine Operator are equal bilaterally Speech is normal, Reports dizziness, headache. Respiratory: Airway is patent Respiratory effort is even, unlabored, Respiratory pattern is regular, symmetrical. Derm: Skin is intact, is healthy with good turgor, Skin is pink, warm \T\ dry. normal. Historical: - Allergies: 11:35 Iodinated Contrast Media - IV Dye; aj - Home Meds: 11:35 valsartan oral oral [Active]; aj - PMHx: 11:35 Hypertension; Diverticulitis; aj - PSHx: 11:35 colon resection; aj - Immunization history:: Adult Immunizations up to date. - Social history:: Smoking status: Patient/guardian denies using tobacco. - Ebola Screening: : Patient negative for fever greater than or equal to 101.5 degrees Fahrenheit, and additional compatible Ebola Virus Disease symptoms Patient denies exposure to infectious person Patient denies travel to an Ebola-affected area in the 21 days before illness onset No symptoms or risks identified at this time. - Family history:: not pertinent. Screenin:57 Abuse screen: Denies threats or abuse. Denies injuries from another. Nutritional ch screening: No deficits noted. Tuberculosis screening: No symptoms or risk factors identified. Fall Risk None identified. Assessment: 12:57 Reassessment: I speak markell Strickland, pt renal case manager, she give approval for testing. General: Appears in no apparent distress. comfortable, Behavior is cooperative, appropriate for age. Pain: Complains of pain in right parietal area, right frontal area, right side of the back of head, right temporal area and right occipital area Pain currently is 8 out of 10 on a pain scale. Pain began gradually, on Tuesday, not improved. Neuro: Level of Consciousness is awake, alert, obeys commands, Oriented to person, place, time, situation, Tricot Knitting Machine Operator are equal bilaterally Moves all extremities. Full function Speech is normal, Facial symmetry appears normal, Facial symmetry: tongue is midline, Pupils are PERRLA, Reports dizziness, headache. Cardiovascular: Heart tones S1 S2 present Capillary refill < 3 seconds in bilateral fingers toes. Respiratory: No deficits noted. GI: Reports nausea. Derm: Skin is normal, brown. Injury Description: Laceration sustained to scalp is clean, not bleeding, sutured, well healing. laceration does have a moderate amount of swelling was sustained 5 days no active bleeding noted at this time. 13:32 Reassessment: Patient appears in no apparent distress at this time. No changes from previously documented assessment. Patient and/or family updated on plan of care and expected duration. Pain level reassessed. Patient is alert, oriented x 3, equal unlabored respirations, skin warm/dry/pink. 13:59 Reassessment: Patient appears in no apparent distress at this time. Patient and/or ch family updated on plan of care and expected duration. Pain level reassessed. Patient is alert, oriented x 3, equal unlabored respirations, skin warm/dry/pink. Patient states feeling better. 14:44 Reassessment: Patient appears in no apparent distress at this time. Patient and/or ch family updated on plan of care and expected duration. Pain level reassessed. Patient is alert, oriented x 3, equal unlabored respirations, skin warm/dry/pink. Patient states feeling better. Patient states symptoms have improved. Vital Signs: 11:35 BP 149 / 98; Pulse 88; Resp 17; Temp 98.3; Pulse Ox 98% on R/A; Weight 105.23 kg; aj Height 5 ft. 2 in. (157.48 cm); 12:57 BP 136 / 88; Pulse 79; Resp 15; Pulse Ox 98% on R/A; Pain 8/10; ch 13:59 BP 140 / 78; Pulse 70; Resp 14; Temp 98.3; Pulse Ox 99% on R/A; Pain 7/10; ch 14:44 BP 138 / 73; Pulse 72; Resp 14; Temp 98.6; Pulse Ox 99% on R/A; Pain 3/10; ch 11:35 Body Mass Index 42.43 (105.23 kg, 157.48 cm) aj ED Course: 10:56 Patient arrived in ED. mr 10:56 Molina Garcia MD is Private Physician. mr 11:35 Triage completed. aj 11:35 Arm band placed on left wrist. Patient placed in waiting room, Patient notified of wait aj time. 11:46 Janie Jones, RN is Primary Nurse. ch 11:53 Hema Lares MD is Attending Physician. gabe 12:09 EKG done, by eligibility technician. reviewed by Hema Lares MD. at1 12:57 No apparent distress. Resting quietly. ch 12:57 Patient has correct armband on for positive identification. Placed in gown. Bed in low ch position. Call light in reach. Side rails up X 1. Adult w/ patient. Pulse ox on. NIBP on. desk monitor on. Door closed. Noise minimized. Warm blanket given. 12:57 No provider procedures requiring assistance completed. Inserted saline lock: 20 gauge ch in right hand, using aseptic technique. Blood collected. 13:47 Molina Garcia MD is Referral Physician. gabe 14:01 Chest Single View In Process Unspecified. EDMS 14:04 Primary Nurse role handed off by Janie Jones, RN ch 14:43 Janie Jones, RN is Primary Nurse. ch 14:44 IV discontinued, intact, bleeding controlled, No redness/swelling at site. Pressure ch dressing applied. Administered Medications: 12:51 Drug: NS 0.9% 1000 ml Route: IV; Rate: 125 ml/hr; Site: right hand; jl7 14:47 Follow up: IV Status: Order to discontinue infusion; IV Intake: 250ml 14:00 Drug: fentaNYL (PF) 25 mcg Route: IVP; Site: right hand; 14:46 Follow up: Response: No adverse reaction; Marked relief of symptoms 14:00 Drug: Zofran 4 mg Route: IVP; Site: right hand; 14:46 Follow up: Response: No adverse reaction; Marked relief of symptoms 14:20 Drug: fentaNYL (PF) 25 mcg Route: IVP; Site: right hand; 14:47 Follow up: Response: No adverse reaction; Marked relief of symptoms ch Intake: 14:47 IV: 250ml; Total: 250ml. Outcome: 13:49 Discharge ordered by . [facility] 14:44 Discharged to home via wheelchair, with family. 14:44 Condition: stable 14:44 Discharge instructions given to patient, family, Instructed on discharge instructions, follow up and referral plans. medication usage, Demonstrated understanding of instructions, follow-up care, medications, Prescriptions given X 3. 14:48 Patient left the ED. Signatures: Dispatcher [employer] EDMS Janie Jones RN RN ch Myers, Amanda, RN Hema Nelson MD MD cha Rivera, Maria mr Gonzales, Amanda, nursery attendant EKG Tat1 Gris Nava RN RN jl7
[2018-05-19] MEDS ORDERED: FENTANYL CITR 100 MCG/2 ML ONE ×2 (13:55→14:30)
[2018-05-19] MEDS ORDERED: ONDANSETRON 4 MG/2 ML VIAL ONE (13:56)
--- NOTE | 2018-05-19 14:44 | RAD REPORT ---
EXAM DESCRIPTION: RAD - Chest Single View - 05/19/2018 1:42 pm CLINICAL HISTORY: Shortness of breath, pneumonia COMPARISON: CT trauma study May 15 TECHNIQUE: AP portable chest image was obtained 1319 hours . FINDINGS: Lungs are clear. Heart and vasculature are normal. No measurable pleural effusion and no p neumothorax. No gross bony abnormality seen. Aorta is tortuous but otherwise unremarkable. Tortuosity causes widening of the mediastinum. No mediastinal or hilar mass on the recent CT study. IMPRESSION: No acute cardiopulmonary process.
[2018-05-19 14:47] LABS: Urine Blood TRACE (NEG); Urine Glucose NEGATIVE (NEG); Urine Protein NEGATIVE (NEG); Urine Specific Gravity 1.015 (1.005-1.030)
--- NOTE | 2018-05-20 12:13 | EKG ---
Test Date: 2018-05-19 Test Time: 12:03:48 Supervisor [employer] Accounts: MYKE MEASUREMENT RESULTS: Intervals: Rate: 78 MA: 156 QRSD: 98 QT: 410 QTc: 467 Randolph: P: 47 MA: 156 QRS: -59 T: 45 INTERPRETIVE STATEMENTS: Normal sinus rhythm Incomplete right bundle branch block Left anterior fascicular block Minimal voltage criteria for LVH, may be normal variant Abnormal ECG Compared to ECG 09/17/1994 13:17:00 Incomplete right bundle-branch block now present Left anterior fascicular block now present Left ventricular hypertrophy now present Electronically Signed On 05-20-18 12:07:54 CDT by Garrison Bone
== END 2018-05-19 14:48 | disposition home or self-care (01) ==
LOC: ER 10:52
DX: S16.1XXA Strain of muscle, fascia and tendon at neck level, initial encounter (principal); W19.XXXA Unspecified fall, initial encounter; Y93.9 Activity, unspecified; Y92.009 Unspecified place in unspecified non-institutional (private) residence as the place of occurrence of the external cause; Z91.041 Radiographic dye allergy status; I10 Essential (primary) hypertension
CPT/HCPCS: 36415; 70450; 71045; 81003; 85025; 85610; 85730; 87086; 87088; 93005; 96361; 96374; 96375; 99285; J2405; J3010; J7030

== ENCOUNTER 2018-05-25 00:33 | Emergency (ER) | payer SELFPAY ==
--- NOTE | 2018-05-25 01:17 | ER ---
Nurse's Notes [facility] Name: Yash Garcia Age: 62 yrs Sex: Male : 1955 Arrival Date: 05/25/2018 Time: 00:34 Bed 17 Private MD: Molina Garcia R Diagnosis: Hematoma of scalp;Open wound of head Presentation: 05/25 00:50 Presenting complaint: Patient states: he had wound to scalp sutured Tuesday 05/15 and the bb sutures were taken out yesterday but wound has opened. Transition of care: patient was not received from another setting of care. Onset of symptoms was May 25, 2018. Risk Assessment: Do you want to hurt yourself or someone else? Patient reports no desire to harm self or others. Initial Sepsis Screen: Does the patient meet any 2 criteria? No. Patient's initial sepsis screen is negative. Does the patient have a suspected source of infection? No. Patient's initial sepsis screen is negative. Care prior to arrival: None. 00:50 Method Of Arrival: Wheelchair bb 00:50 Acuity: PARISH 5 bb Historical: - Allergies: 00:52 Iodinated Contrast Media - IV Dye; bb - Immunization history:: Adult Immunizations up to date. - Social history:: Smoking status: Patient/guardian denies using tobacco, Patient/guardian denies using alcohol, street drugs. - Ebola Screening: : No symptoms or risks identified at this time. Screenin:01 Abuse screen: Denies threats or abuse. Nutritional screening: No deficits noted. jd3 Tuberculosis screening: No symptoms or risk factors identified. Fall Risk Ambulatory Aid- Crutches/Cane/Walker (15 pts). Gait- Weak (10 pts.). Mental Status- Oriented to own ability (0 pts). Total Powell Fall Scale indicates Low Risk Score (25-44 pts). Fall prevention measures have been instituted. Side Rails Up X 2 Placed close to Nursing Station Frequent Obs/Assesments occuring Family Present and informed to notify staff if they need to leave bedside. Assessment: 00:57 General: Appears in no apparent distress. uncomfortable, Behavior is calm, cooperative, jd3 appropriate for age. Pain: Complains of pain in back of head Pain currently is 8.5 out of 10 on a pain scale. Quality of pain is described as aching. Neuro: Level of Consciousness is awake, alert, obeys commands, Oriented to person, place, time, situation, Appropriate for age. Cardiovascular: Capillary refill < 3 seconds Patient's skin is warm and dry. Respiratory: Airway is patent Respiratory effort is even, unlabored, Respiratory pattern is regular, symmetrical. GI: No signs and/or symptoms were reported involving the gastrointestinal system. : No signs and/or symptoms were reported regarding the genitourinary system. EENT: No signs and/or symptoms were reported regarding the EENT system. Derm: Skin is intact, Skin is dry, Skin is normal, Skin temperature is warm Wound noted back of head Wound is courter sized surgical wound to back of head in the healing process with scab forming. no redness or swelling noted. Musculoskeletal: Circulation, motion, and sensation intact. Range of motion: intact in all extremities. 01:49 Reassessment: Patient appears in no apparent distress at this time. Patient and/or jd3 family updated on plan of care and expected duration. Pain level reassessed. Patient is alert, oriented x 3, equal unlabored respirations, skin warm/dry/pink. Vital Signs: 00:52 BP 159 / 102; Pulse 69; Resp 16 S; Temp 98.4(O); Pulse Ox 97% on R/A; Weight 105.23 kg bb (R); Height 6 ft. 2 in. (187.96 cm) (R); Pain 9/10; 01:49 BP 123 / 93; Pulse 84; Resp 18 S; Pulse Ox 96% on R/A; jd3 00:52 Body Mass Index 29.79 (105.23 kg, 187.96 cm) bb ED Course: 00:34 Patient arrived in ED. ds1 00:34 Molina Garcia MD is Private Physician. ds1 00:51 Triage completed. bb 00:52 Arm band placed on Patient placed in an exam room, on a stretcher, on pulse oximetry. bb Family accompanied patient. 00:56 Vishnu Schuster, YUMIKO is Primary Nurse. jd3 01:01 Patient has correct armband on for positive identification. Bed in low position. Call jd3 light in reach. Side rails up X 1. Adult w/ patient. 01:08 Purvi Sorenson FNP-C [facility]. snw 01:08 Hema Lares MD is Attending Physician. snw 01:14 Molina Garcia MD is Referral Physician. snw 01:29 No provider procedures requiring assistance completed. Patient did not have IV access jd3 during this emergency room visit. 01:30 Dressings: non-adherent dressing x 1 back of head. jd3 Administered Medications: 01:21 Drug: Clindamycin 300 mg Route: PO; jd3 01:31 Follow up: Response: No adverse reaction jd3 01:21 Drug: fentaNYL (PF) 50 mcg Route: IM; Site: right deltoid; jd3 01:41 Follow up: Response: No adverse reaction jd3 01:27 Drug: Hibiclens 4 % 1 application Route: Topical; Site: wound; jd3 01:31 Follow up: Response: No adverse reaction jd3 Outcome: 01:16 Discharge ordered by MD. snw 01:48 Discharged to home via wheelchair, with family. jd3 01:48 Condition: stable 01:48 Discharge instructions given to patient, family, Instructed on discharge instructions, follow up and referral plans. medication usage, Demonstrated understanding of instructions, follow-up care, medications, Prescriptions given X 1. 01:50 Patient left the ED. jd3 Signatures: Purvi Sorenson, SCRIPT GIRL-C SCRIPT GIRL-Betty Keenan ds1 Ceci Lovelace, RN RN Vishnu Pena RN RN jd3 Corrections: (The following items were deleted from the chart) 01:01 00:57 Derm: Skin is intact, Skin is dry, Skin is normal, Skin temperature is warm Wound jd3 noted back of head jd3
--- NOTE | 2018-05-25 01:17 | EDPHYS ---
Physician Documentation [facility] Name: Yash Garcia Age: 62 yrs Sex: Male : 1955 Arrival Date: 05/25/2018 Time: 00:34 Bed 17 Private MD: Molina Garcia R ED Physician Hema Lares HPI: 05/25 01:13 This 62 yrs old Black Male presents to ER via Wheelchair with complaints of Suture snw Recheck - Re-Opened. 01:13 Patient presents to ED for recheck of: laceration. The affected area is on the right snw lateral occiput. Previous treatment: The patient was initially treated 10 day(s) ago, Previous recheck: the patient's last recheck was 5 day(s) ago. Progress: The patient reports no change in noted some chills today and area opened a little more than yesterday post cleaning.. The patient has experienced a previous episode. The patient has been recently seen by a physician: 5 day(s) ago, with similar presenting complaints. no noted fever. Historical: - Allergies: 00:52 Iodinated Contrast Media - IV Dye; bb - Immunization history:: Adult Immunizations up to date. - Social history:: Smoking status: Patient/guardian denies using tobacco, Patient/guardian denies using alcohol, street drugs. - Ebola Screening: : No symptoms or risks identified at this time. ROS: 01:12 Constitutional: Negative for fever, chills, and weight loss, Eyes: Negative for injury, snw pain, redness, and discharge, ENT: Negative for injury, pain, and discharge, Neck: Negative for injury, pain, and swelling, Cardiovascular: Negative for chest pain, palpitations, and edema, Respiratory: Negative for shortness of breath, cough, wheezing, and pleuritic chest pain, Abdomen/GI: Negative for abdominal pain, nausea, vomiting, diarrhea, and constipation, Back: Negative for injury and pain, : Negative for injury, bleeding, discharge, and swelling, MS/Extremity: Negative for injury and deformity, Neuro: Negative for headache, weakness, numbness, tingling, and seizure. 01:12 Skin: Positive for when changing dressing today pt felt wound was opening, no excess bleeding. Pt notes some chills today. Exam: 01:11 Constitutional: This is a well developed, well nourished patient who is awake, alert, snw and in no acute distress. Eyes: Pupils equal round and reactive to light, extra-ocular motions intact. Lids and lashes normal. Conjunctiva and sclera are non-icteric and not injected. Cornea within normal limits. Periorbital areas with no swelling, redness, or edema. ENT: Nares patent. No nasal discharge, no septal abnormalities noted. Tympanic membranes are normal and external auditory canals are clear. Oropharynx with no redness, swelling, or masses, exudates, or evidence of obstruction, uvula midline. Mucous membranes moist. Neck: Trachea midline, no thyromegaly or masses palpated, and no cervical lymphadenopathy. Supple, full range of motion without nuchal rigidity, or vertebral point tenderness. No Meningismus. Chest/axilla: Normal chest wall appearance and motion. Nontender with no deformity. No lesions are appreciated. Cardiovascular: Regular rate and rhythm with a normal S1 and S2. No gallops, murmurs, or rubs. Normal PMI, no JVD. No pulse deficits. Respiratory: Lungs have equal breath sounds bilaterally, clear to auscultation and percussion. No rales, rhonchi or wheezes noted. No increased work of breathing, no retractions or nasal flaring. Abdomen/GI: Soft, non-tender, with normal bowel sounds. No distension or tympany. No guarding or rebound. No evidence of tenderness throughout. Back: No spinal tenderness. No costovertebral tenderness. Full range of motion. Skin: Warm, dry with normal turgor. Normal color with no rashes, no lesions, and no evidence of cellulitis. MS/ Extremity: Pulses equal, no cyanosis. Neurovascular intact. Full, normal range of motion. Neuro: Awake and alert, GCS 15, oriented to person, place, time, and situation. Cranial nerves II-XII grossly intact. Motor strength 5/5 in all extremities. Sensory grossly intact. Cerebellar exam normal. Normal gait. 01:11 Head/face: Noted is swelling, that is moderate, starred healing wound to right lateral occiput, no active bleeding. Vital Signs: 00:52 BP 159 / 102; Pulse 69; Resp 16 S; Temp 98.4(O); Pulse Ox 97% on R/A; Weight 105.23 kg bb (R); Height 6 ft. 2 in. (187.96 cm) (R); Pain 9/10; 01:49 BP 123 / 93; Pulse 84; Resp 18 S; Pulse Ox 96% on R/A; jd3 00:52 Body Mass Index 29.79 (105.23 kg, 187.96 cm) bb MDM: 01:08 Patient medically screened. snw 01:17 Data reviewed: vital signs, nurses notes. Data interpreted: Pulse oximetry: on room air snw is 97 %. Interpretation: normal. Counseling: I had a detailed discussion with the patient and/or guardian regarding: the historical points, exam findings, and any diagnostic results supporting the discharge/admit diagnosis, the presence of at least one elevated blood pressure reading (>120/80) during this emergency department visit, the need for outpatient follow up, to return to the emergency department if symptoms worsen or persist or if there are any questions or concerns that arise at home. Special discussion: I have referred the patient to see his PCP for further evaluation of high blood pressure. I discussed in detail with the patient the higher chance of wound infection based on his presenting history. Based on the history and exam findings, there is no indication for further emergent testing or inpatient evaluation. I discussed with the patient/guardian the need to see the primary care provider for further evaluation of the symptoms. Administered Medications: 01:21 Drug: Clindamycin 300 mg Route: PO; jd3 01:31 Follow up: Response: No adverse reaction jd3 01:21 Drug: fentaNYL (PF) 50 mcg Route: IM; Site: right deltoid; jd3 01:41 Follow up: Response: No adverse reaction jd3 01:27 Drug: Hibiclens 4 % 1 application Route: Topical; Site: wound; jd3 01:31 Follow up: Response: No adverse reaction jd3 Disposition: 07:12 Co-signature as Attending Physician, Hema Lares MD I agree with the assessment and gabe plan of care. Disposition: 05/25/18 01:16 Discharged to Home. Impression: Hematoma of scalp, Open wound of head. - Condition is Stable. - Discharge Instructions: Delayed Wound Closure, Fever, Adult, Head Injury, Adult, Wound Infection. - Prescriptions for Clindamycin HCl 300 mg Oral Capsule - take 1 capsule by ORAL route every 8 hours for 10 days; 30 capsule. - Medication Reconciliation Form, Thank You Letter, Antibiotic Education, Prescription Opioid Use form. - Follow up: Molina Garcia MD; When: 2 - 3 days; Reason: Recheck today's complaints, Continuance of care, Re-evaluation by your physician. Follow up: Emergency Department; When: As needed; Reason: Worsening of condition. Signatures: Hema Lares MD MD cha Therrien, Shelly, DEDICATED OWNER OPERATOR-C DEDICATED OWNER OPERATOR-Csnw Ceci Lovelace RN RN bb Vishnu Schuster RN RN jd3 Corrections: (The following items were deleted from the chart) 01:50 01:16 05/25/2018 01:16 Discharged to Home. Impression: Hematoma of scalp; Open wound of jd3 head. Condition is Stable. Forms are Medication Reconciliation Form, Thank You Letter, Antibiotic Education, Prescription Opioid Use. Follow up: Molina Garcia; When: 2 - 3 days; Reason: Recheck today's complaints, Continuance of care, Re-evaluation by your physician. Follow up: Emergency Department; When: As needed; Reason: Worsening of condition. snw
[2018-05-25] MEDS ORDERED: CLINDAMYCIN HCL 150 MG CAP ONE (01:20)
[2018-05-25] MEDS ORDERED: FENTANYL CITR 100 MCG/2 ML ONE (01:20)
== END 2018-05-25 01:50 | disposition home or self-care (01) ==
LOC: ER 00:33
DX: S01.81XD Laceration without foreign body of other part of head, subsequent encounter (principal); Z91.041 Radiographic dye allergy status
CPT/HCPCS: 96372; 99283; J3010

== ENCOUNTER 2018-10-22 15:06 | Emergency (ER) | payer OTHER, SELFPAY ==
[2018-10-22] MEDS ORDERED: HYDROCODONE/APAP 7.5/325 MG TAB ONE (16:11)
[2018-10-22] MEDS ORDERED: KETOROLAC 30 MG/ML INJ ONE (16:11)
[2018-10-22 16:15] LABS: Urine Blood TRACE (NEG); Urine Glucose NEGATIVE (NEG); Urine Protein NEGATIVE (NEG); Urine Specific Gravity 1.015 (1.005-1.030)
[2018-10-22 16:19] LABS: Absolute Neutrophil 3.9 K/uL (1.8-8.0); Basophils % 0.5 % (0-1.3); Hematocrit 43.3 % (39.6-49.0); MPV 9.5 fL (7.6-11.3); Monocytes % 14.5 % (3.3-12.3); RBC Red Blood Cell Count 4.59 M/uL (4.33-5.43)
[2018-10-22 16:37] LABS: ALT/SGPT 40 U/L (12-78); AST/SGOT 32 U/L (15-37); Albumin 3.2 g/dL (3.4-5.0); Alkaline Phosphatase 64 U/L (45-117); BUN Blood Urea Nitrogen 14 mg/dL (7-18); Bicarbonate 29 mmol/L (21-32); Bilirubin Direct 0.3 mg/dL (0-0.2); Bilirubin Total 1.4 mg/dL (0.2-1.0); Glucose Level 95 mg/dL (74-106); Lipase 56 U/L (73-393); Protein, Total 7.2 g/dL (6.4-8.2); Sodium Level 139 mmol/L (136-145)
[2018-10-22 16:39] LABS: Urine Bacteria LOADED /HPF (NONE SEEN); Urine Culture Reflex Order REFLEXED; Urine RBC <5 /HPF (NONE SEEN)
--- NOTE | 2018-10-22 17:06 | RAD REPORT ---
EXAM DESCRIPTION: CT - Abdomen Pelvis Wo Contrast - 10/22/2018 4:40 pm CLINICAL HISTORY: Abdominal pain COMPARISON: May 2018 TECHNIQUE: Computed axial tomography of the abdomen and pelvis was obtained. IV and oral contrast we re not requested. All CT scans are performed using dose optimization technique as appropriate and may include automated exposure control or mA/KV adjustment according to patient size. FINDINGS: The evaluation of solid organs, vessels and bowel is limited secondary to the lack of con trast administration. The liver, spleen, adrenals and left kidney appear grossly normal. A 5 centimeter area of mildly diminished attenuation present within the pancreatic head and neck A 2 millimeter nonobstructing right renal calculus. The appendix is normal. Postsurgical changes involve the colon. Diverticula stem from the colon without diverticulitis. A cou ple of jejunal diverticula are suspected Prostate gland is mildly enlarged. Small inguinal hernias contain fat Small ventral hernia. 6 centimeter duodenum diverticulum. IMPRESSION: A 5 centimeter area of mildly diminished attenuation within the pancreatic head and neck is equivocally increased in size from the prior exam. MRI pancreas with contrast is recommended
[2018-10-22] MEDS ORDERED: CEFTRIAXONE/SWI 1gm 1 GM/10 ML SYR ONE (17:10)
--- NOTE | 2018-10-22 17:24 | ER ---
Nurse's Notes [facility] Name: Yash Garcia Sr Age: 63 yrs Sex: Male : 1955 Arrival Date: 10/22/2018 Time: 15:12 Bed 28 Private MD: Molina Garcia R Diagnosis: Intercostal neuropathy;Intercostal pain;Urinary tract infection, site not specified Presentation: 10/22 15:16 Presenting complaint: Patient states: I have been having right sided abd pain since la1 Tuesday. Denies vomiting/diarrhea. Transition of care: patient was not received from another setting of care. Onset of symptoms was October 22, 2018. Risk Assessment: Do you want to hurt yourself or someone else? Patient reports no desire to harm self or others. Initial Sepsis Screen: Does the patient meet any 2 criteria? No. Patient's initial sepsis screen is negative. Does the patient have a suspected source of infection? No. Patient's initial sepsis screen is negative. Care prior to arrival: None. 15:16 Acuity: PARISH 3 la1 15:16 Method Of Arrival: Ambulatory la1 Historical: - Allergies: 15:16 Iodinated Contrast Media - IV Dye; la1 - Home Meds: 15:45 valsartan Oral [Active]; mg2 - PMHx: 15:16 Diverticulitis; Hypertension; la1 - PSHx: 15:23 Hernia repair; Perforated colon; ankle, knee, jaw sx; la1 - Immunization history:: Adult Immunizations up to date. - Social history:: Smoking status: Patient/guardian denies using tobacco. - Ebola Screening: : No symptoms or risks identified at this time. Screenin:44 Abuse screen: Denies threats or abuse. Denies injuries from another. Nutritional mg2 screening: No deficits noted. Tuberculosis screening: No symptoms or risk factors identified. Fall Risk IV access (20 points). Assessment: 16:33 General: Appears in no apparent distress. comfortable, Behavior is calm, cooperative. mg2 Pain: Complains of pain in right rib area and back Pain does not radiate. Pain currently is 5 out of 10 on a pain scale. Quality of pain is described as aching, Pain began gradually, Is intermittent. Neuro: Level of Consciousness is awake, alert, obeys commands, Oriented to person, place, time, situation. Cardiovascular: Capillary refill < 3 seconds Patient's skin is warm and dry. Respiratory: Airway is patent Respiratory effort is even, unlabored, Respiratory pattern is regular, symmetrical. GI: Reports RUQ. : Urine is cloudy. EENT: No signs and/or symptoms were reported regarding the EENT system. Derm: Skin is intact, is healthy with good turgor, Skin is pink, warm \T\ dry. normal. Musculoskeletal: Circulation, motion, and sensation intact. Capillary refill < 3 seconds. 16:35 Reassessment: patient sent to ct scan via wheelchair. mg2 Vital Signs: 15:25 Pulse 80; Resp 16; Temp 97.1; Pulse Ox 98% on R/A; Weight 107.05 kg; Height 6 ft. 1 in. la1 (185.42 cm); 15:26 BP 152 / 91; la1 16:33 BP 131 / 66; Pulse 68; Resp 18; Pulse Ox 100% on R/A; mg2 17:05 BP 124 / 80; Pulse 62; Resp 18; Pulse Ox 96% on R/A; mg2 17:48 BP 130 / 78; Pulse 68; Resp 18; Pulse Ox 100% on R/A; Pain 0/10; mg2 15:25 Body Mass Index 31.14 (107.05 kg, 185.42 cm) la1 ED Course: 15:12 Patient arrived in ED. rg4 15:12 Molina Garcia MD is Private Physician. rg4 15:18 Triage completed. la1 15:18 Arm band placed on left wrist. la1 15:32 Michael Diggs PA is PHCP. jr8 15:32 Chun Russo MD is Attending Physician. jr8 15:44 Binh Daugherty, YUMIKO is Primary Nurse. mg2 15:45 Patient has correct armband on for positive identification. mg2 15:56 Pulse ox on. NIBP on. Warm blanket given. Pillow given. mg2 16:00 Urine collected: clean catch specimen, clear, ericka colored, Amount Voided: 100mL. jp3 16:10 Initial lab(s) drawn, by me, sent to lab. Inserted saline lock: 24 gauge in right hand, jp3 using aseptic technique. Blood collected. 16:17 Urine Microscopic Only Sent. jp3 16:35 No provider procedures requiring assistance completed. mg2 16:41 CT Abd/Pelvis - Without Cont In Process Unspecified. EDMS 16:46 Urine Culture Sent. mg2 16:47 CT completed. Patient tolerated procedure well. Patient moved back from CT. mw3 17:23 Molina Garcia MD is Referral Physician. jr8 17:48 IV discontinued, intact, bleeding controlled, No redness/swelling at site. Pressure mg2 dressing applied. Administered Medications: 15:58 Not Given (Physician Discretion): TORadol 60 mg IM once jr8 16:07 Drug: [place] (7.5 mg-325 mg) 1 tabs Route: PO; mg2 17:04 Follow up: Response: No adverse reaction mg2 16:14 Drug: TORadol 30 mg Route: IVP; Site: right hand; mg2 17:05 Follow up: BP 124 / 80; Pulse 62 bpm; Resp 18 bpm; Pulse Ox 96% RA mg2 17:04 Drug: Rocephin 1 grams Route: IV; Rate: calculated rate; Site: right hand; mg2 17:47 Follow up: Response: No adverse reaction; IV Status: Completed infusion mg2 Outcome: 17:23 Discharge ordered by . jr8 17:48 Discharged to home ambulatory, with family. mg2 17:48 Condition: stable 17:48 Discharge instructions given to patient, family, Instructed on discharge instructions, follow up and referral plans. medication usage, Demonstrated understanding of instructions, follow-up care, medications, Prescriptions given X 3. 17:49 Patient left the ED. mg2 Addendum: 10/25/2018 07:49 Addendum: Culture Results: Positive urine culture. No further action required. Bacteria i w sensitive to prescribed antibiotic. Signatures: Dispatcher [employer] EDMS Kerry Richards RN RN iw Roszak, Josh, PA PA jr8 Marcial Alvarez RN RN grace1 Nemo Ewing4 Binh Daugherty RN RN mg2 Kayleigh Benito mw3 Gustabo Marte jp3
--- NOTE | 2018-10-22 17:25 | EDPHYS ---
Physician Documentation [facility] Name: Yash Garcia Sr Age: 63 yrs Sex: Male : 1955 Arrival Date: 10/22/2018 Time: 15:12 Bed 28 Private MD: Molina Garcia R ED Physician Chun Russo HPI: 10/22 15:59 This 63 yrs old Black Male presents to ER via Ambulatory with complaints of Side pain. jr8 15:59 Patient stated that he started to have pain to right lower anterior ribs. Denies recent jr8 trauma but about a year ago had significant trauma from work accident. Does not know if he aggravated something or not. Denies fevers, n/v/d, or abdominal pain . Severity of symptoms: At their worst the symptoms were moderate in the emergency department the symptoms are unchanged. The patient has not experienced similar symptoms in the past. The patient has not recently seen a physician. Historical: - Allergies: 15:16 Iodinated Contrast Media - IV Dye; la1 - Home Meds: 15:45 valsartan Oral [Active]; mg2 - PMHx: 15:16 Diverticulitis; Hypertension; la1 - PSHx: 15:23 Hernia repair; Perforated colon; ankle, knee, jaw sx; la1 - Immunization history:: Adult Immunizations up to date. - Social history:: Smoking status: Patient/guardian denies using tobacco. - Ebola Screening: : No symptoms or risks identified at this time. ROS: 15:59 Eyes: Negative for injury, pain, redness, and discharge, ENT: Negative for injury, jr8 pain, and discharge, Neck: Negative for injury, pain, and swelling, Respiratory: Negative for shortness of breath, cough, wheezing, and pleuritic chest pain, Abdomen/GI: Negative for abdominal pain, nausea, vomiting, diarrhea, and constipation, Back: Negative for injury and pain, MS/Extremity: Negative for injury and deformity, Skin: Negative for injury, rash, and discoloration, Neuro: Negative for headache, weakness, numbness, tingling, and seizure. 15:59 Cardiovascular: Positive for chest pain, with movement, of the right anterior lower ribs. Exam: 15:59 Eyes: Pupils equal round and reactive to light, extra-ocular motions intact. Lids and jr8 lashes normal. Conjunctiva and sclera are non-icteric and not injected. Cornea within normal limits. Periorbital areas with no swelling, redness, or edema. ENT: Nares patent. No nasal discharge, no septal abnormalities noted. Tympanic membranes are normal and external auditory canals are clear. Oropharynx with no redness, swelling, or masses, exudates, or evidence of obstruction, uvula midline. Mucous membranes moist. Neck: Trachea midline, no thyromegaly or masses palpated, and no cervical lymphadenopathy. Supple, full range of motion without nuchal rigidity, or vertebral point tenderness. No Meningismus. Cardiovascular: Regular rate and rhythm with a normal S1 and S2. No gallops, murmurs, or rubs. Normal PMI, no JVD. No pulse deficits. Respiratory: Lungs have equal breath sounds bilaterally, clear to auscultation and percussion. No rales, rhonchi or wheezes noted. No increased work of breathing, no retractions or nasal flaring. Abdomen/GI: Soft, non-tender, with normal bowel sounds. No distension or tympany. No guarding or rebound. No evidence of tenderness throughout. Back: No spinal tenderness. No costovertebral tenderness. Full range of motion. Skin: Warm, dry with normal turgor. Normal color with no rashes, no lesions, and no evidence of cellulitis. MS/ Extremity: Pulses equal, no cyanosis. Neurovascular intact. Full, normal range of motion. Neuro: Awake and alert, GCS 15, oriented to person, place, time, and situation. Cranial nerves II-XII grossly intact. Motor strength 5/5 in all extremities. Sensory grossly intact. Cerebellar exam normal. Normal gait. 15:59 Chest/axilla: Inspection: normal, Palpation: tenderness, that is moderate, of the right anterior lower ribs over liver region, that totally reproduces the patient's complaints, Axilla: are normal, Lymph nodes: lymphadenopathy is not appreciated. Vital Signs: 15:25 Pulse 80; Resp 16; Temp 97.1; Pulse Ox 98% on R/A; Weight 107.05 kg; Height 6 ft. 1 in. la1 (185.42 cm); 15:26 BP 152 / 91; la1 16:33 BP 131 / 66; Pulse 68; Resp 18; Pulse Ox 100% on R/A; mg2 17:05 BP 124 / 80; Pulse 62; Resp 18; Pulse Ox 96% on R/A; mg2 17:48 BP 130 / 78; Pulse 68; Resp 18; Pulse Ox 100% on R/A; Pain 0/10; mg2 15:25 Body Mass Index 31.14 (107.05 kg, 185.42 cm) la1 MDM: 15:33 Patient medically screened. jr8 17:22 Data reviewed: vital signs, nurses notes, lab test result(s), radiologic studies, CT jr8 scan. Data interpreted: Pulse oximetry: on room air is 96 %. Interpretation: normal. Counseling: I had a detailed discussion with the patient and/or guardian regarding: the historical points, exam findings, and any diagnostic results supporting the discharge/admit diagnosis, lab results, radiology results, the need for outpatient follow up, a family practitioner, to return to the emergency department if symptoms worsen or persist or if there are any questions or concerns that arise at home. Response to treatment: the patient's symptoms have mildly improved after treatment. Special discussion: I discussed with the patient the need to follow-up with the PCP/specialist for the noted incidental finding on X-ray/CT scanning. 10/22 15:33 Order name: Basic Metabolic Panel; Complete Time: 16:43 10/22 15:33 Order name: CBC with Diff; Complete Time: 16:25 10/22 15:33 Order name: Creatinine for Radiology; Complete Time: 16:36 10/22 15:33 Order name: Hepatic Function; Complete Time: 16:43 10/22 15:33 Order name: Lipase; Complete Time: 16:43 10/22 15:57 Order name: Urine Microscopic Only; Complete Time: 16:43 10/22 15:58 Order name: CT Abd/Pelvis - Without Cont; Complete Time: 17:08 10/22 16:01 Order name: Urine Dipstick--Ancillary (enter results); Complete Time: 16:19 ms 10/22 16:41 Order name: Urine Culture EDMS 10/22 15:33 Order name: IV Saline Lock; Complete Time: 16:08 10/22 15:33 Order name: Labs collected and sent; Complete Time: 16:08 Administered Medications: 15:58 Not Given (Physician Discretion): TORadol 60 mg IM once jr8 16:07 Drug: [place] (7.5 mg-325 mg) 1 tabs Route: PO; mg2 17:04 Follow up: Response: No adverse reaction mg2 16:14 Drug: TORadol 30 mg Route: IVP; Site: right hand; mg2 17:05 Follow up: BP 124 / 80; Pulse 62 bpm; Resp 18 bpm; Pulse Ox 96% RA mg2 17:04 Drug: Rocephin 1 grams Route: IV; Rate: calculated rate; Site: right hand; mg2 17:47 Follow up: Response: No adverse reaction; IV Status: Completed infusion mg2 Disposition: 17:51 Co-signature as Attending Physician, Chun Russo MD. Disposition: 10/22/18 17:23 Discharged to Home. Impression: Intercostal neuropathy, Intercostal pain, Urinary tract infection, site not specified. - Condition is Stable. - Discharge Instructions: Bacteremia, Urinary Tract Infection, Adult. - Prescriptions for Cipro 500 mg Oral Tablet - take 1 tablet by ORAL route every 12 hours for 10 days; 20 tablet. Mobic 7.5 mg Oral Tablet - take 1 tablet by ORAL route once daily take with food; 20 tablet. Cyclobenzaprine 10 mg Oral Tablet - take 1 tablet by ORAL route every 8 hours As needed; 30 tablet. - Medication Reconciliation Form, Thank You Letter, Antibiotic Education, Prescription Opioid Use form. - Follow up: Molina Garcia MD; When: 2 - 3 days; Reason: Recheck today's complaints, Continuance of care, Re-evaluation by your physician. - Problem is new. - Symptoms have improved. Signatures: Dispatcher [employer] EDMI Michael Diggs PA PA jr8 Marcial Alvarez RN RN la1 Chun Russo MD MD Binh Daugherty RN RN mg2 Corrections: (The following items were deleted from the chart) 16:18 15:53 [place] Wo Con+CT.RAD.BRZ ordered. EDMI EDMI 17:49 17:23 10/22/2018 17:23 Discharged to Home. Impression: Intercostal neuropathy; mg2 Intercostal pain; Urinary tract infection, site not specified. Condition is Stable. Forms are Medication Reconciliation Form, Thank You Letter, Antibiotic Education, Prescription Opioid Use. Follow up: Molina Garcia; When: 2 - 3 days; Reason: Recheck today's complaints, Continuance of care, Re-evaluation by your physician. Problem is new. Symptoms have improved. jr8
== END 2018-10-22 17:49 | disposition home or self-care (01) ==
LOC: ER 15:06
DX: G58.0 Intercostal neuropathy (principal); N39.0 Urinary tract infection, site not specified; I10 Essential (primary) hypertension; Z91.041 Radiographic dye allergy status
CPT/HCPCS: 36415; 74176; 80048; 80076; 81003; 81015; 83690; 85025; 87077; 87086; 87088; 87186; 96365; 96375; 99284; J0696

== ENCOUNTER 2019-06-30 06:42 | Emergency (ER) | payer OTHER ==
[2019-06-30 07:30] LABS: Urine Blood 2+ (NEG); Urine Glucose NEGATIVE (NEG); Urine Protein 2+ (NEG); Urine pH 5.5 (5.0-7.0)
--- NOTE | 2019-06-30 07:55 | RAD REPORT ---
EXAM DESCRIPTION: CT - Stone Protocol - 06/30/2019 7:41 am CLINICAL HISTORY: Abdominal pain. Hematuria COMPARISON: October 2018 TECHNIQUE: Computed axial tomography of the abdomen pelvis was obtained without oral or IV contrast. Lack of IV and oral contrast limits evaluation of solid organs, bowel, and vessels. Coronal reformat mary images were obtained and reviewed. All CT scans are performed using dose optimization technique as appropriate and may include automated exposure control or mA/KV adjustment according to patient size. FINDINGS: Small nonobstructing right renal calculi. No hydronephrosis. No left renal calculus. A ure teral calculus is not seen. No bladder calculus. The liver, spleen, and adrenals appear grossly normal Approximately 5 centimeter mildly diminished density within the pancreatic head and neck. There is no evidence of diverticulitis. The appendix appears normal Postsurgical changes involve the colon. Diverticula stem from the colon without diverticulitis. A couple of jejunal diverticula are suspected Prostate gland is mildly to moderately enlarged. Small inguinal hernias contain fat Small ventral hernia. 6 centimeter duodenum diverticulum. IMPRESSION: Small nonobstructing right renal calculi Approximately 5 centimeter mildly diminished density pancreatic head and neck. MRI pancreas recommend ed for further evaluation
[2019-06-30 07:57] LABS: Absolute Lymphocytes (CBC) 0.8 K/uL (0.7-4.9); Basophils % 0.2 % (0-1.3); Hematocrit 40.7 % (39.6-49.0); Lymphocytes % 10.8 % (15.3-44.8); MPV 10.4 fL (7.6-11.3); RBC Red Blood Cell Count 4.38 M/uL (4.33-5.43)
[2019-06-30 08:02] LABS: Urine Bacteria >50 /HPF (NONE SEEN); Urine Culture Reflex Order NOT NEEDED; Urine RBC >50 /HPF (NONE SEEN)
[2019-06-30 08:19] LABS: ALT/SGPT 23 U/L (12-78); AST/SGOT 22 U/L (15-37); Albumin 3.2 g/dL (3.4-5.0); Alkaline Phosphatase 53 U/L (45-117); BUN Blood Urea Nitrogen 12 mg/dL (7-18); Bicarbonate 26 mmol/L (21-32); Bilirubin Direct 0.4 mg/dL (0-0.2); Bilirubin Total 2.2 mg/dL (0.2-1.0); Glucose Level 113 mg/dL (74-106); Lipase 49 U/L (73-393); Potassium 3.9 mmol/L (3.5-5.1); Protein, Total 7.4 g/dL (6.4-8.2); Sodium Level 134 mmol/L (136-145)
[2019-06-30] MEDS ORDERED: MEPERIDINE HCL 25 MG/0.5 ML ONE (08:25)
[2019-06-30] MEDS ORDERED: CIPROFLOXACIN 400mg IV 400 MG/200 ML BAG IV ONE (08:25)
--- NOTE | 2019-06-30 09:08 | ER ---
Nurse's Notes [facility] Name: Yash Garcia Sr Age: 63 yrs Sex: Male : 1955 Arrival Date: 06/30/2019 Time: 06:53 Bed 5 Private MD: Diagnosis: Acute prostatitis;Urinary tract infection, site not specified Presentation: 06/30 07:00 Presenting complaint: Patient states: "I've been having trouble controlling my bladder aa5 since Tuesday, sometimes I can't make it to the restroom and I just pee, sometimes a lot of pee comes out and sometimes a little comes out with some blood sometimes and it estrada". Pt also c/o lower back pain. Denies vomiting. Reports chills. Pt also states "I've also been having very small bowel movements". 07:00 Transition of care: patient was not received from another setting of care. Onset of aa5 symptoms was June 2019. Risk Assessment: Do you want to hurt yourself or someone else? Patient reports no desire to harm self or others. Initial Sepsis Screen: Does the patient meet any 2 criteria? No. Patient's initial sepsis screen is negative. Does the patient have a suspected source of infection? No. Patient's initial sepsis screen is negative. Care prior to arrival: None. 07:00 Acuity: PARISH 3 aa5 07:00 Method Of Arrival: Ambulatory bp Triage Assessment: 07:00 General: Appears in no apparent distress. uncomfortable, Behavior is cooperative, jd3 appropriate for age, anxious. Pain: Complains of pain in back. EENT: No deficits noted. Neuro: No deficits noted. Cardiovascular: No deficits noted. Respiratory: No deficits noted. GI: No signs and/or symptoms were reported involving the gastrointestinal system. : Reports burning with urination, incontinence. Derm: No deficits noted. Musculoskeletal: No deficits noted. Historical: - Allergies: 07:00 Iodinated Contrast Media - IV Dye; aa5 - PMHx: 07:00 Diverticulitis; Hypertension; aa5 - PSHx: 07:00 Hernia repair; Perforated colon; ankle, knee, jaw sx; aa5 - Immunization history:: Adult Immunizations up to date. - Family history:: not pertinent. - Ebola Screening: : No symptoms or risks identified at this time. - Social history:: Smoking status: Patient/guardian denies using tobacco. - Hospitalizations: : No recent hospitalization is reported. Screenin:39 Abuse screen: Denies threats or abuse. Denies injuries from another. Nutritional jd3 screening: No deficits noted. Tuberculosis screening: No symptoms or risk factors identified. Fall Risk None identified. Assessment: 07:00 General: SEE TRIAGE NOTE. jd3 07:30 Reassessment: PT TO CT. jd3 07:48 Reassessment: PT RETURNED FROM CT. bp 09:39 Reassessment: PT D/C HOME AMBULATORY WITH FAMILY, DX WITH PROSTATITIS. bp Vital Signs: 07:00 BP 154 / 93; Pulse 93; Resp 18 S; Temp 99.3(O); Pulse Ox 98% on R/A; aa5 07:58 BP 135 / 79; Pulse 87; Resp 16; Pulse Ox 95% ; bp 09:30 BP 131 / 75; Pulse 75; Resp 16; Temp 98.5; Pulse Ox 95% ; bp ED Course: 06:53 Patient arrived in ED. ag3 06:58 Arm band placed on. aa5 07:00 Rafa Hubbard MD is Attending Physician. rn 07:00 Vishnu Schuster RN is Primary Nurse. jd3 07:13 Triage completed. aa5 07:18 Urine collected: clean catch specimen, ericka colored, blood tinged. sg 07:20 Inserted saline lock: 22 gauge in right forearm, using aseptic technique. Blood jd3 collected. 07:30 Inserted saline lock: 22 gauge in right wrist, using aseptic technique. Blood collected.jd3 07:39 Patient has correct armband on for positive identification. Bed in low position. Call jd3 light in reach. Side rails up X2. Adult w/ patient. 07:41 CT completed. Patient tolerated procedure well. Patient moved back from CT. mw3 07:42 CT Stone Protocol In Process Unspecified. EDMS 09:07 Brianne Goss MD is Referral Physician. rn 09:39 No provider procedures requiring assistance completed. IV discontinued, intact, bp bleeding controlled, No redness/swelling at site. Pressure dressing applied. Administered Medications: 08:20 Drug: Cipro 400 mg Volume: 200 ml; Route: IVPB; Infused Over: 60 mins; Site: right bp forearm; 09:38 Follow up: IV Status: Completed infusion; IV Intake: 200ml bp 08:20 Drug: Demerol 25 mg Route: IVP; Site: right wrist; bp 09:38 Follow up: Response: Pain is decreased bp Intake: 09:38 IV: 200ml; Total: 200ml. bp Outcome: 09:07 Discharge ordered by . rn 09:39 Discharged to home ambulatory, with family. bp 09:39 Condition: stable 09:39 Discharge instructions given to patient, Instructed on discharge instructions, follow up and referral plans. medication usage, Demonstrated understanding of instructions, follow-up care, medications, Prescriptions given X 1. 09:40 Patient left the ED. bp Addendum: 07/03/2019 08:48 Addendum: Culture Results: Positive urine culture. No further action required. Bacteria s s sensitive to prescribed antibiotic. Signatures: Dispatcher [employer] EDMS Ben Fajardo, RN RN Rafa Rausch MD MD rn Calderon, Audri, RN RN aa5 Addie Perez RN RN ss Davies, Jonathon, RN RN jd3 Peltier, Brian, RN RN bp Willis, Michelle mw3 Mary Hyatt ag3 Corrections: (The following items were deleted from the chart) 06/30 07:14 07:00 Presenting complaint: Patient states: "I've been having trouble controlling my aa5 bladder since Tuesday, sometimes I can't make it to the restroom and I just pee, sometimes a lot of pee comes out and sometimes a little comes out with some blood sometimes and it estrada". Pt also c/o lower back pain. Denies vomiting. Reports chills. aa5
--- NOTE | 2019-06-30 09:08 | EDPHYS ---
Physician Documentation [facility] Name: Yash Garcia Sr Age: 63 yrs Sex: Male : 1955 Arrival Date: 06/30/2019 Time: 06:53 Bed 5 Private MD: ED Physician Rafa Hubbard HPI: 06/30 07:10 This 63 yrs old Black Male presents to ER via Unassigned with complaints of Urinary rn Problem. 07:10 The patient presents with urinary symptoms, dysuria, urinary frequency. Onset: The rn symptoms/episode began/occurred 3 day(s) ago. Modifying factors: The symptoms are alleviated by nothing, the symptoms are aggravated by urinating. Associated signs and symptoms: Pertinent positives: abdominal pain, dysuria, hematuria, Pertinent negatives: nausea, vomiting. Severity of symptoms: At their worst the symptoms were moderate, in the emergency department the symptoms are unchanged. The patient has experienced a previous episode. The patient has not recently seen a physician. Reports 3 days of "trouble controlling bladder", reports hematuria, dysuria, frequency and urgency. Also having trouble with bowel movements, reports constipation, is passing stool and gas but small amounts. Has had urinary infection before and feels similar. No recent trauma or back injury. No weakness to legs. . Historical: - Allergies: 07:00 Iodinated Contrast Media - IV Dye; aa5 - PMHx: 07:00 Diverticulitis; Hypertension; aa5 - PSHx: 07:00 Hernia repair; Perforated colon; ankle, knee, jaw sx; aa5 - Immunization history:: Adult Immunizations up to date. - Family history:: not pertinent. - Ebola Screening: : No symptoms or risks identified at this time. - Social history:: Smoking status: Patient/guardian denies using tobacco. - Hospitalizations: : No recent hospitalization is reported. ROS: 07:10 Constitutional: subjective fever and chills Eyes: Negative for injury, pain, redness, rn and discharge, ENT: Negative for injury, pain, and discharge, Neck: Negative for injury, pain, and swelling, Cardiovascular: Negative for chest pain, palpitations, and edema, Respiratory: Negative for shortness of breath, cough, wheezing, and pleuritic chest pain, Abdomen/GI: Negative for nausea, vomiting, diarrhea Back: Negative for injury and pain, : + hematuria and dysuria MS/Extremity: Negative for injury and deformity, Skin: Negative for injury, rash, and discoloration, Neuro: Negative for headache, weakness, numbness, tingling, and seizure. Exam: 07:10 Constitutional: This is a well developed, well nourished patient who is awake, alert, rn and in no acute distress. Ambulatory to bathroom without assistance or difficulty. Head/Face: Normocephalic, atraumatic. ENT: MMM Cardiovascular: Regular rate and rhythm. No pulse deficits. Respiratory: No increased work of breathing, no retractions or nasal flaring. Abdomen/GI: soft, mild bilateral lower quadrant tenderness, no rebound or masses Back: No spinal tenderness. No costovertebral tenderness. Full range of motion. MS/ Extremity: Pulses equal, no cyanosis. Neurovascular intact. Full, normal range of motion. Equal circumference. Neuro: Awake and alert, GCS 15, oriented to person, place, time, and situation. Cranial nerves II-XII grossly intact. Motor strength 5/5 in all extremities. Sensory grossly intact. Cerebellar exam normal. Normal gait. Vital Signs: 07:00 BP 154 / 93; Pulse 93; Resp 18 S; Temp 99.3(O); Pulse Ox 98% on R/A; aa5 07:58 BP 135 / 79; Pulse 87; Resp 16; Pulse Ox 95% ; bp 09:30 BP 131 / 75; Pulse 75; Resp 16; Temp 98.5; Pulse Ox 95% ; bp MDM: 07:00 Patient medically screened. rn 08:16 ED course: Discussed nonspecific pancreas finding with patient, states knows about rn finding, has had MRI to evaluate and was not mass/cancerous.. 09:06 Differential diagnosis: UTI, urinary retention, prostatitis, urethritis. Data reviewed: rn vital signs, nurses notes, lab test result(s), radiologic studies, CT scan, and as a result, I will discharge patient. Counseling: I had a detailed discussion with the patient and/or guardian regarding: the historical points, exam findings, and any diagnostic results supporting the discharge/admit diagnosis, lab results, radiology results, the need for outpatient follow up, to return to the emergency department if symptoms worsen or persist or if there are any questions or concerns that arise at home. Response to treatment: the patient's symptoms have mildly improved after treatment, and as a result, I will discharge patient. Special discussion: I discussed with the patient/guardian in detail that at this point there is no indication for admission to the hospital. It is understood, however, that if the symptoms persist or worsen the patient needs to return immediately for re-evaluation. ED course: Normal vitals/WBC/procal, will dc home with abx for UTI/prostatitis, return precautions given and understood. . 06/30 07:10 Order name: Basic Metabolic Panel; Complete Time: 08:40 06/30 07:10 Order name: CBC with Diff; Complete Time: 08:04 06/30 07:10 Order name: Creatinine for Radiology; Complete Time: 08:40 06/30 07:10 Order name: Hepatic Function; Complete Time: 08:40 06/30 07:10 Order name: Lipase; Complete Time: 08:40 06/30 07:10 Order name: Urine Culture 06/30 07:10 Order name: IV Saline Lock; Complete Time: 07:40 06/30 07:10 Order name: Urine Microscopic Only; Complete Time: 08:04 06/30 07:10 Order name: CT Stone Protocol; Complete Time: 08:04 06/30 07:10 Order name: Blood Culture Adult (2) 06/30 07:10 Order name: Procalcitonin; Complete Time: 08:40 06/30 07:21 Order name: Urine Dipstick--Ancillary (enter results); Complete Time: 08:04 la 06/30 07:10 Order name: Labs collected and sent; Complete Time: 07:40 06/30 07:10 Order name: Urine Dipstick-Ancillary (obtain specimen); Complete Time: 07:40 rn Administered Medications: 08:20 Drug: Cipro 400 mg Volume: 200 ml; Route: IVPB; Infused Over: 60 mins; Site: right bp forearm; 09:38 Follow up: IV Status: Completed infusion; IV Intake: 200ml bp 08:20 Drug: Demerol 25 mg Route: IVP; Site: right wrist; bp 09:38 Follow up: Response: Pain is decreased bp Disposition: 06/30/19 09:07 Discharged to Home. Impression: Acute prostatitis, Urinary tract infection, site not specified. - Condition is Stable. - Discharge Instructions: Prostatitis, Urinary Tract Infection, Adult. - Prescriptions for Cipro 500 mg Oral Tablet - take 1 tablet by ORAL route every 12 hours for 14 days; 28 tablet. - Medication Reconciliation Form, Thank You Letter, Antibiotic Education, Prescription Opioid Use form. - SBAR form (06/30/19 14:07). aa5 - Follow up: Brianne Goss MD; When: As needed; Reason: Recheck today's complaints, Re-evaluation by your physician. - Problem is new. - Symptoms have improved. Signatures: Dispatcher [employer] EDMS Rafa Hubbard MD MD rn Melissa Sanchez RN RN aa5 Linus Spann RN RN bp Corrections: (The following items were deleted from the chart) 09:40 09:07 06/30/2019 09:07 Discharged to Home. Impression: Acute prostatitis; Urinary tract bp infection, site not specified. Condition is Stable. Forms are Medication Reconciliation Form, Thank You Letter, Antibiotic Education, Prescription Opioid Use. Follow up: Brianne Goss; When: As needed; Reason: Recheck today's complaints, Re-evaluation by your physician. Problem is new. Symptoms have improved. rn
[2019-06-30 09:50] VITALS: O2SAT 95
[2019-06-30 09:52] VITALS: BP 131/75; TEMP 98.5
[2019-06-30] MEDS ORDERED: NA CHLORIDE 0.9% 1,000 ML ONE (11:25)
[2019-06-30] MEDS ORDERED: ACETAMINOPHEN 500 MG TAB ONE (11:25)
== END 2019-06-30 09:40 | disposition home or self-care (01) ==
LOC: ER 06:42
DX: N39.0 Urinary tract infection, site not specified (principal); N41.0 Acute prostatitis; Z91.09 Other allergy status, other than to drugs and biological substances
CPT/HCPCS: 96365; 87040 ×2; 87088; 85025; 87086; 80048; 36415; 80076; 87077; 87186; 83690; 84145; 76377; 74176; 96375; 99284; J2175; J7030; J0744; 81003; 81015

== ENCOUNTER 2019-06-30 10:58 | Emergency (ER) | payer OTHER ==
--- NOTE | 2019-06-30 11:31 | RAD REPORT ---
EXAM DESCRIPTION: CT - Head Brain Wo Cont - 06/30/2019 11:17 am CLINICAL HISTORY: Alteration of awareness/confusion COMPARISON: 2018 TECHNIQUE: Computed axial tomography of the head was obtained. IV contrast was not requested. All CT scans are performed using dose optimization technique as appropriate and may include automated exposure control or mA/KV adjustment according to patient size. FINDINGS: An intracranial bleed is not seen . The ventricles are normal in caliber. No extra-axial fluid collection is noted. Fluid within the sinuses/ mastoids is not seen. IMPRESSION: No acute intracranial abnormality is seen. If patient's symptoms persist MRI of the bra in would be recommended.
--- NOTE | 2019-06-30 12:58 | ER ---
Nurse's Notes [facility] Name: Yash Garcia Sr Age: 63 yrs Sex: Male : 1955 Arrival Date: 06/30/2019 Time: 10:59 Bed 4 Private MD: Diagnosis: Fever, unspecified;Urinary tract infection, site not specified;Altered mental status, unspecified Presentation: 06/30 11:00 Presenting complaint: EMS states: AMS AT [facility] 2 HR S/P D/C WITH ACUTE PROSTATITIS bp AND UTI. Transition of care: patient was not received from another setting of care. Onset of symptoms was June 30, 2019 at 10:00. Risk Assessment: Do you want to hurt yourself or someone else? Patient reports no desire to harm self or others. Initial Sepsis Screen: Does the patient meet any 2 criteria? No. Patient's initial sepsis screen is negative. Does the patient have a suspected source of infection? Yes: Dysuria/Frequency/Urgency/UTI. Care prior to arrival: None. 11:00 Method Of Arrival: EMS: [facility] bp 11:00 Acuity: [facility] 2 bp Triage Assessment: 11:02 General: Appears in no apparent distress. comfortable, Behavior is agitated, anxious, bp restless. Pain: Denies pain. EENT: No deficits noted. Neuro: Level of Consciousness is awake, confused, Oriented to person, Gait is unsteady. Cardiovascular: No deficits noted. Respiratory: No deficits noted. GI: No deficits noted. : Urine is cloudy, Reports burning with urination, incontinence. Derm: No deficits noted. Musculoskeletal: No deficits noted. Historical: - Allergies: 11:02 Iodinated Contrast Media - IV Dye; bp - Home Meds: 11:02 valsartan Oral [Active]; bp - PMHx: 11:02 Diverticulitis; Hypertension; bp - Immunization history:: Adult Immunizations up to date. - Social history:: Smoking status: Patient/guardian denies using tobacco. - Ebola Screening: : No symptoms or risks identified at this time. - Family history:: not pertinent. - Hospitalizations: : No recent hospitalization is reported. Screenin:07 Abuse screen: Denies threats or abuse. Denies injuries from another. Nutritional bp screening: No deficits noted. Tuberculosis screening: No symptoms or risk factors identified. Fall Risk None identified. Assessment: 11:07 Reassessment: pt assisted to restroom via wheelchair, no assistance required, pt back sg to exam room. 11:08 General: SEE TRIAGE NOTE. bp 11:15 Reassessment: Patient appears in no apparent distress at this time. pt currently aa\T\ox3 sg at this time, appropriately identified family member at bedside, family member reports his behavior and mentation is now back to baseline for pt at this time. 13:15 Reassessment: Patient appears in no apparent distress at this time. pt assisted to the sg restroom, reports a BMx1 that was normal and soft. 13:38 Reassessment: attempt to call patient report to receiving facility, instructed to sg please call back to give report. pt and pt family updated, will call back in 5-10 mins. 14:04 Reassessment: Patient appears in no apparent distress at this time. pt and pt family sg updated that report has been called, awaiting transport to receiving facility. 14:14 Pain: Denies pain. Neuro: Level of Consciousness is awake, alert, obeys commands, sg Oriented to person, place, time, situation, Digital Color Press Operator are equal bilaterally Moves all extremities. Full function Gait is steady, Speech is normal, Facial symmetry appears normal. Cardiovascular: Capillary refill is brisk in bilateral fingers Patient's skin is warm and dry. Chest pain is denied. Respiratory: Airway is patent Respiratory effort is even, unlabored, Respiratory pattern is regular, symmetrical. GI: Abdomen is flat, non-distended. : No signs and/or symptoms were reported regarding the genitourinary system. EENT: No signs and/or symptoms were reported regarding the EENT system. Derm: Skin is pink, warm \T\ dry. Musculoskeletal: Circulation, motion, and sensation intact. Range of motion: intact in all extremities. Vital Signs: 11:02 BP 139 / 108; Pulse 79; Resp 14; Temp 98; Pulse Ox 96% ; Weight 68.04 kg; bp 11:17 Temp 104.2(TE); sg 11:17 Pulse 113 MON; Resp 20 S; Pulse Ox 94% on R/A; sg 11:18 Temp 97.6(O); sg 11:30 Temp 105.8(R); sg 12:56 BP 148 / 90; Pulse 87; Resp 17; Temp 101.1; Pulse Ox 95% on R/A; sg 13:49 BP 132 / 92; Pulse 92; Resp 19; Temp 98.6; Pulse Ox 97% on R/A; sg 11:17 Sinus tachycardia sg 11:18 notified of pt variance in tempertature, orders to perform rectal temperature sg for confirmation 11:30 notified of pt rectal temp sg NIH Stroke Scale Scores: 11:02 NIHSS Score: 2 bp 11:46 NIHSS Score: 0 clinical appeals rn Course: 10:59 Patient arrived in ED. bp 11:01 Rafa Hubbard MD is Attending Physician. rn 11:01 Triage completed. bp 11:02 Arm band placed on. bp 11:07 Patient has correct armband on for positive identification. Bed in low position. Call bp light in reach. Side rails up X2. 11:[address] sg 11:16 Ben Fajardo, RN is Primary Nurse. sg 11:17 CT Head Brain wo Cont In Process Unspecified. EDMS 11:17 CT completed. Patient tolerated procedure well. Patient moved back from CT. mw3 11:20 Patient moved back from CT. sg 11:50 Missed attempt(s): 22 gauge in left antecubital area. Bleeding controlled, band aid sg applied, catheter tip intact. 12:26 Inserted saline lock: 20 gauge in right hand, using aseptic technique. Blood collected. bp 13:01 XRAY Chest (1 view) In Process Unspecified. EDMS Administered Medications: 11:35 Drug: Tylenol 1000 mg Route: PO; sg 12:26 Drug: NS 0.9% 1000 ml Route: IV; Rate: 1000 ml; Site: right hand; bp 13:35 Follow up: Response: No adverse reaction; IV Status: Completed infusion; IV Intake: sg 800ml 15:00 Drug: Demerol 25 mg Route: IVP; Site: right hand; sg Intake: 13:35 IV: 800ml; Total: 800ml. sg Outcome: 12:58 ER care complete, transfer ordered by . rn 15:14 Patient left the ED. sg NIH Stroke Scale - NIH Stroke Score Date: 06/30/2019 Time: 11:02 Total Score = 2 1a. Level of Consciousness (LOC) - 0(Alert) 1b. Level of Consciousness (LOC) (Year \T\ Age) - 1(One) 1c. LOC Commands (Open \T\ Closes Eyes/Compliance Aide) - 1(One) 2. Best Gaze (Lateral Gaze Paresis) - 0(Normal) 3. Visual Field Loss - 0(No visual loss) 4. Facial Palsy - 0(Normal) 5a. Left Arm: Motor (10-second hold) - 0(No drift) 5b. Right Arm: Motor (10-second hold) - 0(No drift) 6a. Left Leg: Motor (5-second hold - always test supine) - 0(No drift) 6b. Right Leg: Motor (5-second hold - always test supine) - 0(No drift) 7. Limb Ataxia (finger/nose \T\ heel/gonzalez - test with eyes open) - 0(Absent) 8. Sensory Loss (pinprick arms/legs/face) - 0(Normal) 9. Best Language: Aphasia (description/naming/reading) - 0(No aphasia) 10. Dysarthria (speech clarity - read or repeat words) - 0(Normal) 11. Extinction and Inattention (visual/tactile/auditory/spatial/personal) - 0(No abnormality) Initials: bp NIH Stroke Scale - NIH Stroke Score Date: 06/30/2019 Time: 11:46 Total Score = 0 1a. Level of Consciousness (LOC) - 0(Alert) 1b. Level of Consciousness (LOC) (Year \T\ Age) - 0(Both) 1c. LOC Commands (Open \T\ Closes Eyes/Compliance Aide) - 0(Both) 2. Best Gaze (Lateral Gaze Paresis) - 0(Normal) 3. Visual Field Loss - 0(No visual loss) 4. Facial Palsy - 0(Normal) 5a. Left Arm: Motor (10-second hold) - 0(No drift) 5b. Right Arm: Motor (10-second hold) - 0(No drift) 6a. Left Leg: Motor (5-second hold - always test supine) - 0(No drift) 6b. Right Leg: Motor (5-second hold - always test supine) - 0(No drift) 7. Limb Ataxia (finger/nose \T\ heel/gonzalez - test with eyes open) - 0(Absent) 8. Sensory Loss (pinprick arms/legs/face) - 0(Normal) 9. Best Language: Aphasia (description/naming/reading) - 0(No aphasia) 10. Dysarthria (speech clarity - read or repeat words) - 0(Normal) 11. Extinction and Inattention (visual/tactile/auditory/spatial/personal) - 0(No abnormality) Initials: rn Signatures: Dispatcher [employer] EDBen Valencia RN RN sg Nieto, Roman, MD MD rn Peltier, Brian, RN RN bp Willis, Michelle mw3 Corrections: (The following items were deleted from the chart) 12:26 11:07 Maintain EMS IV. Dressing intact. Good blood return noted. Site clean \T\ bp dry. Gauge \T\ site: 20 G LEFT AC. bp
--- NOTE | 2019-06-30 12:58 | EDPHYS ---
Physician Documentation [facility] Name: Yash Garcia Sr Age: 63 yrs Sex: Male : 1955 Arrival Date: 06/30/2019 Time: 10:59 Bed 4 Private MD: ED Physician Rafa Hubbard HPI: 06/30 11:24 This 63 yrs old Black Male presents to ER via EMS with complaints of Altered Mental rn Status. 11:24 The patient presents with confusion, disorientation. Onset: The symptoms/episode rn began/occurred just prior to arrival. Possible causes: unknown. Current symptoms: In the emergency department the patient's symptoms have improved. The patient has not experienced similar symptoms in the past. Just seen by me a couple of hours ago, diagnosed with prostatitis, dropped off prescription, was feeling ok, reports increased chills/rigors, states confused, kept repeating that had to drop off packages, no focal neurological complaints, confusion improved, but states increased fatigue compared to earlier. Did not fall or have syncopal episode. . Historical: - Allergies: 11:02 Iodinated Contrast Media - IV Dye; bp - Home Meds: 11:02 valsartan Oral [Active]; bp - PMHx: 11:02 Diverticulitis; Hypertension; bp - Immunization history:: Adult Immunizations up to date. - Social history:: Smoking status: Patient/guardian denies using tobacco. - Ebola Screening: : No symptoms or risks identified at this time. - Family history:: not pertinent. - Hospitalizations: : No recent hospitalization is reported. ROS: 11:24 Constitutional: + fever and chills Eyes: Negative for injury, pain, redness, and frame sample and pattern supervisor, Neck: Negative for injury, pain, and swelling, Cardiovascular: Negative for chest pain, palpitations, and edema, Respiratory: Negative for shortness of breath, cough, wheezing, and pleuritic chest pain, Abdomen/GI: Negative for abdominal pain, nausea, vomiting, diarrhea, and constipation, Back: Negative for injury and pain, MS/Extremity: Negative for injury and deformity, Skin: Negative for injury, rash, and discoloration, Neuro: Negative for headache, numbness, tingling, and seizure. Exam: 11:24 Constitutional: This is a well developed, well nourished patient who is awake, alert, rn shaking Head/Face: Normocephalic, atraumatic. ENT: dry MM Neck: Trachea midline, no thyromegaly or masses palpated, and no cervical lymphadenopathy. Supple, full range of motion without nuchal rigidity, or vertebral point tenderness. No Meningismus. Cardiovascular: Regular rate and rhythm. No pulse deficits. Respiratory: No increased work of breathing, no retractions or nasal flaring. Abdomen/GI: soft, non-tender MS/ Extremity: Pulses equal, no cyanosis. Neurovascular intact. Full, normal range of motion. Equal circumference. Neuro: Awake and alert, GCS 15, oriented to person, place, time, and situation. Cranial nerves II-XII grossly intact. Motor strength 4/5 in all extremities. Sensory grossly intact. Cerebellar exam normal. Normal gait. Vital Signs: 11:02 BP 139 / 108; Pulse 79; Resp 14; Temp 98; Pulse Ox 96% ; Weight 68.04 kg; bp 11:17 Temp 104.2(TE); sg 11:17 Pulse 113 MON; Resp 20 S; Pulse Ox 94% on R/A; sg 11:18 Temp 97.6(O); sg 11:30 Temp 105.8(R); sg 12:56 BP 148 / 90; Pulse 87; Resp 17; Temp 101.1; Pulse Ox 95% on R/A; sg 13:49 BP 132 / 92; Pulse 92; Resp 19; Temp 98.6; Pulse Ox 97% on R/A; sg 11:17 Sinus tachycardia sg 11:18 notified of pt variance in tempertature, orders to perform rectal temperature sg for confirmation 11:30 notified of pt rectal temp sg NIH Stroke Scale Scores: 11:02 NIHSS Score: 2 bp 11:46 NIHSS Score: 0 rn MDM: 11:01 Patient medically screened. rn 11:41 ED course: Consulted with Dr. Garcia, regarding confusion, he is concerned of rn intracranial insult, told him we have negative ct brain. He requests transfer for neurological consultation and we do not have neurology. Not able to get MRI today or tomorrow. . 11:46 Differential Diagnosis: CVA, electrolyte abnormality, intracranial bleed, pneumonia, rn sepsis, TIA, UTI, volume depletion. Data reviewed: vital signs, nurses notes, lab test result(s), EKG, radiologic studies, CT scan, and as a result, I will admit patient. Response to treatment: the patient's symptoms have mildly improved after treatment. 12:56 Counseling: I had a detailed discussion with the patient and/or guardian regarding: the rn historical points, exam findings, and any diagnostic results supporting the discharge/admit diagnosis, lab results, radiology results, the need to transfer to another facility, for higher level of care, [facility] does not immediately have the required specialist. ED course: Some improvement in vitals, RR and BP decreasing, feels better. [facility], and will take patient for further evaluation.. 13:12 ED course: Consulted with neurology at [facility] as well \T\ 1312. Accepted as consult. . rn 06/30 11:03 Order name: CT Head Brain wo Cont; Complete Time: 11:40 rn 06/30 11:59 Order name: XRAY Chest (1 view); Complete Time: 13:56 rn 06/30 11:06 Order name: IV Start; Complete Time: 13:51 rn Administered Medications: 11:35 Drug: Tylenol 1000 mg Route: PO; sg 12:26 Drug: NS 0.9% 1000 ml Route: IV; Rate: 1000 ml; Site: right hand; bp 13:35 Follow up: Response: No adverse reaction; IV Status: Completed infusion; IV Intake: sg 800ml 15:00 Drug: Demerol 25 mg Route: IVP; Site: right hand; sg Disposition: 06/30/19 12:58 Transfer ordered to [facility]. Diagnosis are Fever, unspecified, Urinary tract infection, site not specified, Altered mental status, unspecified. - Reason for transfer: Higher level of care. - Accepting physician is . - Condition is Stable. - Problem is new. - Symptoms have improved. NIH Stroke Scale - NIH Stroke Score Date: 06/30/2019 Time: 11:02 Total Score = 2 1a. Level of Consciousness (LOC) - 0(Alert) 1b. Level of Consciousness (LOC) (Year \T\ Age) - 1(One) 1c. LOC Commands (Open \T\ Closes Eyes/Child Life Therapist) - 1(One) 2. Best Gaze (Lateral Gaze Paresis) - 0(Normal) 3. Visual Field Loss - 0(No visual loss) 4. Facial Palsy - 0(Normal) 5a. Left Arm: Motor (10-second hold) - 0(No drift) 5b. Right Arm: Motor (10-second hold) - 0(No drift) 6a. Left Leg: Motor (5-second hold - always test supine) - 0(No drift) 6b. Right Leg: Motor (5-second hold - always test supine) - 0(No drift) 7. Limb Ataxia (finger/nose \T\ heel/gonzalez - test with eyes open) - 0(Absent) 8. Sensory Loss (pinprick arms/legs/face) - 0(Normal) 9. Best Language: Aphasia (description/naming/reading) - 0(No aphasia) 10. Dysarthria (speech clarity - read or repeat words) - 0(Normal) 11. Extinction and Inattention (visual/tactile/auditory/spatial/personal) - 0(No abnormality) Initials: bp NIH Stroke Scale - NIH Stroke Score Date: 06/30/2019 Time: 11:46 Total Score = 0 1a. Level of Consciousness (LOC) - 0(Alert) 1b. Level of Consciousness (LOC) (Year \T\ Age) - 0(Both) 1c. LOC Commands (Open \T\ Closes Eyes/Child Life Therapist) - 0(Both) 2. Best Gaze (Lateral Gaze Paresis) - 0(Normal) 3. Visual Field Loss - 0(No visual loss) 4. Facial Palsy - 0(Normal) 5a. Left Arm: Motor (10-second hold) - 0(No drift) 5b. Right Arm: Motor (10-second hold) - 0(No drift) 6a. Left Leg: Motor (5-second hold - always test supine) - 0(No drift) 6b. Right Leg: Motor (5-second hold - always test supine) - 0(No drift) 7. Limb Ataxia (finger/nose \T\ heel/gonzalez - test with eyes open) - 0(Absent) 8. Sensory Loss (pinprick arms/legs/face) - 0(Normal) 9. Best Language: Aphasia (description/naming/reading) - 0(No aphasia) 10. Dysarthria (speech clarity - read or repeat words) - 0(Normal) 11. Extinction and Inattention (visual/tactile/auditory/spatial/personal) - 0(No abnormality) Initials: rn Signatures: Dispatcher [employer] Ben Harrison RN RN sg Rafa Hubbard MD MD rn Peltier, Brian RN RN bp Corrections: (The following items were deleted from the chart) 15:14 12:58 06/30/2019 12:58 Transfer ordered to [facility]. sg Diagnosis is Fever, unspecified; Urinary tract infection, site not specified; Altered mental status, unspecified. Reason for transfer: Higher level of care. Accepting physician is . Condition is Stable. Problem is new. Symptoms have improved. rn
--- NOTE | 2019-06-30 13:50 | RAD REPORT ---
EXAM DESCRIPTION: Sarah Single View06/30/2019 1:01 pm CLINICAL HISTORY: Fever COMPARISON: 2017 FINDINGS: The lungs appear clear of acute infiltrate. The heart is mildly enlarged. Aorta is tortuous/ectatic
[2019-06-30] MEDS ORDERED: MEPERIDINE HCL 25 MG/0.5 ML ONE (15:04)
[2019-06-30 15:26] VITALS: BP 132/92; TEMP 98.6; O2SAT 97
== END 2019-06-30 15:14 | disposition short-term general hospital (02) ==
LOC: ER 10:58
DX: R41.82 Altered mental status, unspecified (principal); N39.0 Urinary tract infection, site not specified; R50.9 Fever, unspecified; I10 Essential (primary) hypertension; Z91.09 Other allergy status, other than to drugs and biological substances
CPT/HCPCS: 96361; 70450; 71045; 96374; 99284; J2175

== ENCOUNTER 2019-10-12 05:20 | Emergency (ER) | payer OTHER ==
--- OUTSIDE RECORDS SUMMARY | 2019-10-12 05:23 | XMS REPORT ---
:1955 Author Organization [facility] Address [address] [place] [address] Care Team Providers Name Role Phone SHAYANJAVON Lozano Unavailable Unavailable ASHLEY MURILLO Unavailable Unavailable Problems This patient has no known problems. Allergies, Adverse Reactions, Alerts This patient has no known allergies or adverse reactions. Medications This patient has no known medications. Results Test Description Test Time Test Comments Text Results Atomic Results Result Comments HEPATITIS C PCR, QUANTITATIVE 2019-08-21 13:16:00 Test Item Value Reference Range Comments HCV NUMERIC RESULT (BEAKER) (test vncz=8290) [id number] IU/mL <15 This test uses a Real-Time Polymerase Chain Reaction (RT-PCR) methodology and was performed using ABBY Ampliprep/ABBY TaqMan HCV test kit version 2.0 ( [employer]).Reportable range for this assay is 15 - 100,000, 000 IU per mL (1.18 - 8.00 Log IU/mL).BLOOD [id number] 02:01:00 Test Item Value Reference Range Comments CULTURE (BEAKER) (test xzbe=0643) No growth in 5 days BLOOD [id number] 02:01:00 Test Item Value Reference Range Comments CULTURE (BEAKER) (test whxe=8269) No growth in 5 days CBC W/PLT COUNT & AUTO [id number] 07:11:00 Test Item Value Reference Range Comments WHITE BLOOD CELL COUNT (BEAKER) (test yazi=578) 6.0 K/ L 3.5-10.5 RED BLOOD CELL COUNT (BEAKER) (test yjue=496) 4.00 M/ L 4.63-6.08 HEMOGLOBIN (BEAKER) (test xkpw=333) 12.3 GM/DL 13.7-17.5 HEMATOCRIT (BEAKER) (test rtby=739) 38.2 % 40.1-51.0 MEAN CORPUSCULAR VOLUME (BEAKER) (test txvj=419) 95.5 fL 79.0-92.2 MEAN CORPUSCULAR HEMOGLOBIN (BEAKER) (test 30.8 pg 25.7-32.2 ixwj=154) MEAN CORPUSCULAR HEMOGLOBIN CONC (BEAKER) (test 32.2 GM/DL 32.3-36.5 cyve=113) RED CELL DISTRIBUTION WIDTH (BEAKER) (test 12.0 % 11.6-14.4 clcw=066) PLATELET COUNT (BEAKER) (test mses=368) 163 K/CU MM 150-450 MEAN PLATELET VOLUME (BEAKER) (test dsbs=308) 11.4 fL 9.4-12.4 NUCLEATED RED BLOOD CELLS (BEAKER) (test 0 /100 WBC 0-0 futp=345) (CELLAVISION MANUAL DIFF)2019-07-04 07:11:00 Test Item Value Reference Range Comments NEUTROPHILS - REL (CELLAVISION)(BEAKER) (test 60 % uber=5450) LYMPHOCYTES - REL (CELLAVISION)(BEAKER) (test 22 % msmo=8579) MONOCYTES - REL (CELLAVISION)(BEAKER) (test 13 % yonj=7136) EOSINOPHILS - REL (CELLAVISION)(BEAKER) (test 3 % ihee=9536) METAMYELOCYTES - REL (CELLAVISION)(BEAKER) (test 1 % 0-0 lvfp=2562) BANDS - REL (CELLAVISION)(BEAKER) (test ofxa=1013) 1 % 0-10 NEUTROPHILS - ABS (CELLAVISION)(BEAKER) (test 3.60 K/ul 1.78-5.38 leai=7259) LYMPHOCYTES - ABS (CELLAVISION)(BEAKER) (test 1.32 K/ul 1.32-3.57 gmou=5247) MONOCYTES - ABS (CELLAVISION)(BEAKER) (test 0.78 K/uL 0.30-0.82 kzze=8988) EOSINOPHILS - ABS (CELLAVISION)(BEAKER) (test 0.18 K/uL 0.04-0.54 ofac=7704) METAMYELOCYTES - ABS (CELLAVISION)(BEAKER) (test 0.06 K/uL 0.00-0.00 polq=0368) BANDS - ABS (CELLAVISION)(BEAKER) (test apih=9346) 0.06 K/uL 0.00-0.80 TOTAL COUNTED (BEAKER) (test qpie=8845) 100 PLT MORPHOLOGY (BEAKER) (test wkkg=155) Normal TOXIC GRANULATION (BEAKER) (test uurt=271) Present POLYCHROMATOPHILLIC RBCS(BEAKER) (test xguz=274) 1+ few HYPOCHROMIA (BEAKER) (test oieh=304) 1+ few POIKILOCYTES (BEAKER) (test ugeb=268) 1+ few OVALOCYTES (BEAKER) (test cdrs=621) 1+ few DEBI CELLS (BEAKER) (test khkb=715) 1+ few ARTIFACT (CELLAVISION)(BEAKER) (test hwik=1376) Present PLATELET CONCENTRATION (CELLAVISION)(BEAKER) (test Adequate hqtv=7725) Received comment: User comments: Slide comments:COMPREHENSIVE METABOLIC [id number] 04:22:00 Test Item Value Reference Range Comments TOTAL PROTEIN (BEAKER) 6.8 gm/dL 6.0-8.3 Specimen slightly (test spzm=169) hemolyzed ALBUMIN (BEAKER) (test 3.2 g/dL 3.5-5.0 Specimen slightly ajng=8318) hemolyzed ALKALINE PHOSPHATASE 49 U/L 40-150 (BEAKER) (test rbck=125) BILIRUBIN TOTAL (BEAKER) 1.0 mg/dL 0.2-1.2 Specimen slightly (test odud=016) hemolyzed SODIUM (BEAKER) (test 137 meq/L 136-145 szti=733) POTASSIUM (BEAKER) (test 3.8 meq/L 3.5-5.1 Specimen slightly oopu=917) hemolyzed CHLORIDE (BEAKER) (test 108 meq/L 98-107 kblj=127) CO2 (BEAKER) (test 24 meq/L 22-29 iyam=127) BLOOD UREA NITROGEN 9 mg/dL 7-21 (BEAKER) (test fbgh=116) CREATININE (BEAKER) (test 0.86 mg/dL 0.57-1.25 Specimen slightly dqff=488) hemolyzed GLUCOSE RANDOM (BEAKER) 107 mg/dL 70-105 (test vmkh=863) CALCIUM (BEAKER) (test 8.8 mg/dL 8.4-10.2 dgdo=252) AST (SGOT) (BEAKER) (test 58 U/L 5-34 Specimen slightly nhwo=770) hemolyzed ALT (SGPT) (BEAKER) (test 43 U/L 6-55 Specimen slightly scay=265) hemolyzed EGFR (BEAKER) (test 109 mL/min/1.73 sq ESTIMATED GFR IS NOT igzy=8235) m ACCURATE CREATININE CLEARANCE IN PREDICTING GLOMERULAR FILTRATION RATE. ESTIMATED GFR IS NOT APPLICABLE FOR DIALYSIS PATIENTS. [id number] 20:02:00 Test Item Value Reference Range Comments PROSTATE SPECIFIC ANTIGEN (BEAKER) (test cwmy=845) 6.1 ng/mL 0.0-4.0 COMPREHENSIVE METABOLIC [id number] 06:52:00 Test Item Value Reference Range Comments TOTAL PROTEIN (BEAKER) 6.1 gm/dL 6.0-8.3 (test dwyh=082) ALBUMIN (BEAKER) (test 3.1 g/dL 3.5-5.0 tfuq=1272) ALKALINE PHOSPHATASE 52 U/L 40-150 (BEAKER) (test gdta=854) BILIRUBIN TOTAL (BEAKER) 1.0 mg/dL 0.2-1.2 (test mmll=125) SODIUM (BEAKER) (test 140 meq/L 136-145 tnjk=755) POTASSIUM (BEAKER) (test 4.0 meq/L 3.5-5.1 liud=261) CHLORIDE (BEAKER) (test 111 meq/L 98-107 zmow=183) CO2 (BEAKER) (test 23 meq/L 22-29 zxdx=828) BLOOD UREA NITROGEN 11 mg/dL 7-21 (BEAKER) (test fcds=785) CREATININE (BEAKER) (test 0.86 mg/dL 0.57-1.25 krhj=677) GLUCOSE RANDOM (BEAKER) 99 mg/dL 70-105 (test qnxj=762) CALCIUM (BEAKER) (test 8.7 mg/dL 8.4-10.2 nzao=571) AST (SGOT) (BEAKER) (test 72 U/L 5-34 ceyc=330) ALT (SGPT) (BEAKER) (test 48 U/L 6-55 jkdg=949) EGFR (BEAKER) (test 109 mL/min/1.73 sq ESTIMATED GFR IS NOT zygy=7048) m ACCURATE CREATININE CLEARANCE IN PREDICTING GLOMERULAR FILTRATION RATE. ESTIMATED GFR IS NOT APPLICABLE FOR DIALYSIS PATIENTS. CBC W/PLT COUNT & AUTO [id number] 05:07:00 Test Item Value Reference Range Comments WHITE BLOOD CELL COUNT (BEAKER) (test pggo=990) 8.5 K/ L 3.5-10.5 RED BLOOD CELL COUNT (BEAKER) (test fofn=318) 3.88 M/ L 4.63-6.08 HEMOGLOBIN (BEAKER) (test yvwe=648) 11.8 GM/DL 13.7-17.5 HEMATOCRIT (BEAKER) (test hjgm=997) 36.5 % 40.1-51.0 MEAN CORPUSCULAR VOLUME (BEAKER) (test hxzk=347) 94.1 fL 79.0-92.2 MEAN CORPUSCULAR HEMOGLOBIN (BEAKER) (test 30.4 pg 25.7-32.2 iclo=752) MEAN CORPUSCULAR HEMOGLOBIN CONC (BEAKER) (test 32.3 GM/DL 32.3-36.5 uheo=084) RED CELL DISTRIBUTION WIDTH (BEAKER) (test 12.0 % 11.6-14.4 zmvi=923) PLATELET COUNT (BEAKER) (test extv=235) 154 K/CU MM 150-450 MEAN PLATELET VOLUME (BEAKER) (test pued=902) 12.0 fL 9.4-12.4 NUCLEATED RED BLOOD CELLS (BEAKER) (test 0 /100 WBC 0-0 abig=963) NEUTROPHILS RELATIVE PERCENT (BEAKER) (test 64 % htfj=691) LYMPHOCYTES RELATIVE PERCENT (BEAKER) (test 18 % dnbb=204) MONOCYTES RELATIVE PERCENT (BEAKER) (test 13 % ayph=916) EOSINOPHILS RELATIVE PERCENT (BEAKER) (test 2 % empy=267) BASOPHILS RELATIVE PERCENT (BEAKER) (test 1 % ndem=082) NEUTROPHILS ABSOLUTE COUNT (BEAKER) (test 5.47 K/ L 1.78-5.38 fhjj=186) LYMPHOCYTES ABSOLUTE COUNT (BEAKER) (test 1.56 K/ L 1.32-3.57 rabw=463) MONOCYTES ABSOLUTE COUNT (BEAKER) (test 1.10 K/ L 0.30-0.82 hsxu=761) EOSINOPHILS ABSOLUTE COUNT (BEAKER) (test 0.15 K/ L 0.04-0.54 gmou=610) BASOPHILS ABSOLUTE COUNT (BEAKER) (test 0.05 K/ L 0.01-0.08 nxff=598) IMMATURE GRANULOCYTES-RELATIVE PERCENT (BEAKER) 3 % 0-1 (test ckca=2886) VANCOMYCIN LEVEL, [id number] 10:20:00 Test Item Value Reference Range Comments VANCOMYCIN TROUGH (BEAKER) (test omhm=628) 12.7 ug/mL 10.0-20.0 Draw 30 min prior to scheduled dose, HOLD if level > 20 mcg/mL, inform MD.URINALYSIS W/ REFLEX URINE [id number] 10:18:00 Test Item Value Reference Range Comments COLOR (BEAKER) (test jezd=522) Yellow CLARITY (BEAKER) (test uoob=509) Clear SPECIFIC GRAVITY UA (BEAKER) (test rrho=574) 1.011 1.001-1.035 PH UA (BEAKER) (test zrdf=942) 7.0 5.0-8.0 PROTEIN UA (BEAKER) (test yrdl=694) Negative Negative GLUCOSE UA (BEAKER) (test rrwo=019) Negative Negative KETONES UA (BEAKER) (test bhot=838) Negative Negative BILIRUBIN UA (BEAKER) (test axbd=496) Negative Negative BLOOD UA (BEAKER) (test xvvs=019) Trace Negative NITRITE UA (BEAKER) (test foev=450) Negative Negative LEUKOCYTE ESTERASE UA (BEAKER) (test ibgw=263) Negative Negative UROBILINOGEN UA (BEAKER) (test xepr=023) 0.2 mg/dL 0.2-1.0 RBC UA (BEAKER) (test bwgd=056) 1 /HPF WBC UA (BEAKER) (test nymc=317) 2 /HPF SQUAMOUS EPITHELIAL (BEAKER) (test ldqa=481) < /HPF SOURCE(BEAKER) (test nfeb=8100) CBC W/PLT COUNT & AUTO [id number] 09:25:00 Test Item Value Reference Range Comments WHITE BLOOD CELL COUNT (BEAKER) (test myxc=574) 15.2 K/ L 3.5-10.5 RED BLOOD CELL COUNT (BEAKER) (test chqf=567) 3.80 M/ L 4.63-6.08 HEMOGLOBIN (BEAKER) (test ipxg=162) 11.6 GM/DL 13.7-17.5 HEMATOCRIT (BEAKER) (test qsjb=048) 37.0 % 40.1-51.0 MEAN CORPUSCULAR VOLUME (BEAKER) (test vouj=079) 97.4 fL 79.0-92.2 MEAN CORPUSCULAR HEMOGLOBIN (BEAKER) (test 30.5 pg 25.7-32.2 jhix=648) MEAN CORPUSCULAR HEMOGLOBIN CONC (BEAKER) (test 31.4 GM/DL 32.3-36.5 rvtl=636) RED CELL DISTRIBUTION WIDTH (BEAKER) (test 11.9 % 11.6-14.4 xjyg=423) PLATELET COUNT (BEAKER) (test aauz=910) 126 K/CU MM 150-450 MEAN PLATELET VOLUME (BEAKER) (test qqul=674) 12.3 fL 9.4-12.4 NUCLEATED RED BLOOD CELLS (BEAKER) (test 0 /100 WBC 0-0 tktp=701) (CELLAVISION MANUAL DIFF)2019-07-02 09:25:00 Test Item Value Reference Range Comments NEUTROPHILS - REL (CELLAVISION)(BEAKER) (test 81 % dlms=4793) LYMPHOCYTES - REL (CELLAVISION)(BEAKER) (test 7 % qscc=1444) MONOCYTES - REL (CELLAVISION)(BEAKER) (test 8 % emdf=1129) BANDS - REL (CELLAVISION)(BEAKER) (test 3 % 0-10 uejz=0747) ATYPICAL LYMPHOCYTES - REL (CELLAVISION)(BEAKER) 1 % 0-0 (test bcqb=7067) NEUTROPHILS - ABS (CELLAVISION)(BEAKER) (test 12.31 K/ul 1.78-5.38 nbmc=6940) LYMPHOCYTES - ABS (CELLAVISION)(BEAKER) (test 1.06 K/ul 1.32-3.57 kdrq=6527) MONOCYTES - ABS (CELLAVISION)(BEAKER) (test 1.22 K/uL 0.30-0.82 mnjw=3936) BANDS - ABS (CELLAVISION)(BEAKER) (test 0.46 K/uL 0.00-0.80 wknq=8503) ATYPICAL LYMPHOCYTES - ABS (CELLAVISION)(BEAKER) 0.15 K/uL 0.00-0.00 (test jher=2577) TOTAL COUNTED (BEAKER) (test dydn=2850) 100 RBC MORPHOLOGY (BEAKER) (test dccb=249) Normal WBC MORPHOLOGY (BEAKER) (test khpk=874) Normal PLT MORPHOLOGY (BEAKER) (test zgmc=674) Normal ARTIFACT (CELLAVISION)(BEAKER) (test yamz=2894) Present PLATELET CONCENTRATION (CELLAVISION)(BEAKER) Decreased (test ttwr=4933) Received comment: User comments: Slide comments:COMPREHENSIVE METABOLIC [id number] 06:30:00 Test Item Value Reference Range Comments TOTAL PROTEIN (BEAKER) 6.2 gm/dL 6.0-8.3 Specimen slightly (test gkqy=749) hemolyzed ALBUMIN (BEAKER) (test 2.9 g/dL 3.5-5.0 Specimen slightly bdcc=0676) hemolyzed ALKALINE PHOSPHATASE 71 U/L 40-150 (BEAKER) (test yzhr=985) BILIRUBIN TOTAL (BEAKER) 1.2 mg/dL 0.2-1.2 Specimen slightly (test rouy=792) hemolyzed SODIUM (BEAKER) (test 138 meq/L 136-145 usye=770) POTASSIUM (BEAKER) (test 4.9 meq/L 3.5-5.1 Specimen slightly wrkd=706) hemolyzed CHLORIDE (BEAKER) (test 111 meq/L 98-107 iwfx=900) CO2 (BEAKER) (test 21 meq/L 22-29 mgdk=065) BLOOD UREA NITROGEN 20 mg/dL 7-21 (BEAKER) (test yoxm=533) CREATININE (BEAKER) (test 0.98 mg/dL 0.57-1.25 Specimen slightly gwpd=466) hemolyzed GLUCOSE RANDOM (BEAKER) 95 mg/dL 70-105 (test guhs=064) CALCIUM (BEAKER) (test 8.3 mg/dL 8.4-10.2 fnhb=900) AST (SGOT) (BEAKER) (test 108 U/L 5-34 Specimen slightly nxfa=028) hemolyzed ALT (SGPT) (BEAKER) (test 55 U/L 6-55 Specimen slightly sxsf=659) hemolyzed EGFR (BEAKER) (test 93 mL/min/1.73 sq m ESTIMATED GFR IS NOT ezfm=5151) ACCURATE CREATININE CLEARANCE IN PREDICTING GLOMERULAR FILTRATION RATE. ESTIMATED GFR IS NOT APPLICABLE FOR DIALYSIS PATIENTS. LACTIC ACID, [id number] 04:40:00 Test Item Value Reference Range Comments LACTATE BLOOD VENOUS (2) 0.8 mmol/L 0.5-2.2 Specimen moderately hemolyzed (BEAKER) (test eowv=4414) U/S, RENAL, [id number] 01:19:00REFERRING MD: CORINA Covington for exam:->pyelonephritisFINAL REPORT U/S, RENAL, COMPLETE CLINICAL INDICATION: pyelonephritis COMPARISON: None TECHNIQUE: The kidneys and urinary bladder were evaluated using real time nixon scale and color Doppler sonography. FINDINGS:Right kidney: Size: 12.3 x 5.2 x 5.1 cm. Parenchyma: Normal echogenicity. No cysts. No stones. Hydronephrosis: None. Left kidney: Size: 12.0 x 5.8 x 4.2 cm. Parenchyma: Normal echogenicity. No cysts. No stones. Hydronephrosis: None. Renal Vasculature: Doppler interrogation reveals preserved vascular flow in the main renal arteries and veins bilaterally. Urinary bladder: Unremarkable. Ureteric jets were demonstrated bilaterally. Additional findings: None. IMPRESSION: Unremarkable renal ultrasound. Signed: [facility] Verified Date/Time: 07/02/2019 01:19:40 URINALYSIS W/ REFLEX URINE [id number] 15:47:00 Test Item Value Reference Range Comments COLOR (BEAKER) (test ctvc=330) Yellow CLARITY (BEAKER) (test tgvl=232) Clear SPECIFIC GRAVITY UA (BEAKER) (test qecr=447) 1.008 1.001-1.035 PH UA (BEAKER) (test yyit=789) 6.5 5.0-8.0 PROTEIN UA (BEAKER) (test hxoq=605) Negative Negative GLUCOSE UA (BEAKER) (test kssd=672) Negative Negative KETONES UA (BEAKER) (test rptu=810) Negative Negative BILIRUBIN UA (BEAKER) (test kfkm=178) Negative Negative BLOOD UA (BEAKER) (test ydff=641) Small Negative NITRITE UA (BEAKER) (test gqea=252) Negative Negative LEUKOCYTE ESTERASE UA (BEAKER) (test thyc=405) Trace Negative UROBILINOGEN UA (BEAKER) (test mzok=937) 3.0 mg/dL 0.2-1.0 RBC UA (BEAKER) (test mthl=321) 9 /HPF WBC UA (BEAKER) (test sfgu=443) 5 /HPF BACTERIA (BEAKER) (test ngrk=197) Occasional MUCUS (BEAKER) (test asit=7443) Rare SQUAMOUS EPITHELIAL (BEAKER) (test kvni=995) < /HPF SOURCE(BEAKER) (test nddp=1567) VITAMIN B12 AND [id number] 10:01:00 Test Item Value Reference Range Comments VITAMIN B12 (BEAKER) (test gdch=528) 202 pg/mL 213-816 FOLATE (BEAKER) (test xowp=501) 9.7 ng/mL >=7.0 CBC W/PLT COUNT & AUTO [id number] 07:08:00 Test Item Value Reference Range Comments WHITE BLOOD CELL COUNT (BEAKER) (test phcd=658) 16.1 K/ L 3.5-10.5 RED BLOOD CELL COUNT (BEAKER) (test naha=582) 3.99 M/ L 4.63-6.08 HEMOGLOBIN (BEAKER) (test rxdu=305) 12.4 GM/DL 13.7-17.5 HEMATOCRIT (BEAKER) (test txkv=017) 38.8 % 40.1-51.0 MEAN CORPUSCULAR VOLUME (BEAKER) (test cjwv=821) 97.2 fL 79.0-92.2 MEAN CORPUSCULAR HEMOGLOBIN (BEAKER) (test 31.1 pg 25.7-32.2 wiqy=033) MEAN CORPUSCULAR HEMOGLOBIN CONC (BEAKER) (test 32.0 GM/DL 32.3-36.5 rmzs=348) RED CELL DISTRIBUTION WIDTH (BEAKER) (test 11.8 % 11.6-14.4 leds=348) PLATELET COUNT (BEAKER) (test srjk=394) 122 K/CU MM 150-450 MEAN PLATELET VOLUME (BEAKER) (test xlnd=246) 12.1 fL 9.4-12.4 NUCLEATED RED BLOOD CELLS (BEAKER) (test 0 /100 WBC 0-0 dyhh=208) (CELLAVISION MANUAL DIFF)2019-07-01 07:08:00 Test Item Value Reference Range Comments NEUTROPHILS - REL (CELLAVISION)(BEAKER) (test 63 % paav=1100) LYMPHOCYTES - REL (CELLAVISION)(BEAKER) (test 8 % wsqu=5083) MONOCYTES - REL (CELLAVISION)(BEAKER) (test 4 % neqf=6688) METAMYELOCYTES - REL (CELLAVISION)(BEAKER) (test 3 % 0-0 kvvt=2383) MYELOCYTES - REL (CELLAVISION)(BEAKER) (test 1 % 0-0 jalz=4862) BANDS - REL (CELLAVISION)(BEAKER) (test 21 % 0-10 zqez=0871) NEUTROPHILS - ABS (CELLAVISION)(BEAKER) (test 10.14 K/ul 1.78-5.38 acuk=9793) LYMPHOCYTES - ABS (CELLAVISION)(BEAKER) (test 1.29 K/ul 1.32-3.57 qqdu=8537) MONOCYTES - ABS (CELLAVISION)(BEAKER) (test 0.64 K/uL 0.30-0.82 aaum=8580) METAMYELOCYTES - ABS (CELLAVISION)(BEAKER) (test 0.48 K/uL 0.00-0.00 qmdf=7857) MYELOCYTES-ABS (CELLAVISION)(BEAKER) (test 0.16 K/uL 0.00-0.00 isve=8808) BANDS - ABS (CELLAVISION)(BEAKER) (test 3.38 K/uL 0.00-0.80 ahey=6175) TOTAL COUNTED (BEAKER) (test jnpc=6475) 100 SMUDGE CELLS (BEAKER) (test qpkk=7687) Present GIANT PLATELETS (BEAKER) (test pjfv=114) Present POIKILOCYTES (BEAKER) (test lpce=935) 3+ many DEBI CELLS (BEAKER) (test wofn=148) 1+ few ARTIFACT (CELLAVISION)(BEAKER) (test tkbg=0532) Present PLATELET CONCENTRATION (CELLAVISION)(BEAKER) Decreased (test hcmj=0868) Received comment: User comments: Slide comments:TSH/FREE T4 IF [id number] 05:51:00 Test Item Value Reference Range Comments THYROID STIMULATING HORMONE (BEAKER) (test 2.11 uIU/mL 0.35-4.94 yazm=831) LACTIC ACID, [id number] 03:48:00 Test Item Value Reference Range Comments LACTATE BLOOD VENOUS (2) (BEAKER) (test 2.3 mmol/L 0.5-2.2 aihl=5984) Specimen slightly [id number] 03:39:00 Test Item Value Reference Range Comments AMMONIA (BEAKER) (test rowh=760) 38 mol/L 18-72 LACTIC ACID, [id number] 22:38:00 Test Item Value Reference Range Comments LACTATE BLOOD VENOUS (2) (BEAKER) (test 3.5 mmol/L 0.5-2.2 unum=9104) CT, BRAIN, WITHOUT [id number] 21:52:00REFERRING MD: CORINA BELTRAN REPORT CT, BRAIN, WITHOUT CONTRAST CLINICAL INDICATION: EncephalopathyCOMPARISON: None TECHNIQUE: Noncontrast axial CT imaging of the brain and skull. Coronal and sagittal reformats obtained. DOSE REDUCTION: Dose modulation, iterative reconstruction, and/or weight-basedadjustment of the mA/kV was utilized to reduce the radiation dose to as low as reasonably achievable. FINDINGS:Cerebral parenchyma: No mass, acute intracranial hemorrhage or acute cortical infarct.Cerebellum and brainstem : No acute findings.Ventricles: Ventricular size is commensurate with parenchymalvolume loss.Extra-axial spaces: Unremarkable. Calvarium and skull base: Intact.Paranasal sinuses andmastoid air cells: Imaged chambers are without acute abnormality.Orbital contents: Included portionsunremarkable. Additional findings: None. IMPRESSION: No acute intracranial abnormality. If there ispersistent clinical concern for intracranial pathology, MR examination is recommended for further characterization. Signed: [place] [facility] Verified Date/Time: 06/30/2019 21:52:13 LACTIC ACID, [id number] 20: 57:00 Test Item Value Reference Range Comments LACTATE BLOOD VENOUS (2) 3.0 mmol/L 0.5-2.2 Specimen slightly hemolyzed (BEAKER) (test gous=9952) [id number] 19:33:00 Test Item Value Reference Range Comments PROCALCITONIN (BEAKER) (test gots=8646) 60.70 ng/mL <0.05 SEPSIS RISK (ng/mL)Low: 0.05-0.50Intermediate: 0.51-2.00High: & gt;=2.01COMPREHENSIVE METABOLIC [id number] 19:20:00 Test Item Value Reference Range Comments TOTAL PROTEIN (BEAKER) 6.4 gm/dL 6.0-8.3 (test beaa=631) ALBUMIN (BEAKER) (test 3.2 g/dL 3.5-5.0 spmp=4957) ALKALINE PHOSPHATASE 68 U/L 40-150 (BEAKER) (test rfbi=442) BILIRUBIN TOTAL (BEAKER) 2.7 mg/dL 0.2-1.2 (test eens=543) SODIUM (BEAKER) (test 133 meq/L 136-145 gctx=212) POTASSIUM (BEAKER) (test 4.0 meq/L 3.5-5.1 boue=786) CHLORIDE (BEAKER) (test 99 meq/L 98-107 nmxn=424) CO2 (BEAKER) (test 22 meq/L 22-29 yfxp=087) BLOOD UREA NITROGEN 18 mg/dL 7-21 (BEAKER) (test mopm=775) CREATININE (BEAKER) (test 1.23 mg/dL 0.57-1.25 jykq=293) GLUCOSE RANDOM (BEAKER) 95 mg/dL 70-105 (test aqsl=256) CALCIUM (BEAKER) (test 8.4 mg/dL 8.4-10.2 layd=170) AST (SGOT) (BEAKER) (test 39 U/L 5-34 eqgg=247) ALT (SGPT) (BEAKER) (test 22 U/L 6-55 pxzn=298) EGFR (BEAKER) (test 72 mL/min/1.73 sq m ESTIMATED GFR IS NOT ombf=6731) ACCURATE CREATININE CLEARANCE IN PREDICTING GLOMERULAR FILTRATION RATE. ESTIMATED GFR IS NOT APPLICABLE FOR DIALYSIS PATIENTS. Specimen slightly ictericLACTIC ACID, [id number] 19:15:00 Test Item Value Reference Range Comments LACTATE BLOOD VENOUS (2) (BEAKER) (test 4.9 mmol/L 0.5-2.2 oxvs=5614) Specimen slightly ictericURINALYSIS W/ REFLEX URINE [id number] 18:07:00 Test Item Value Reference Range Comments COLOR (BEAKER) (test uuda=206) Brown CLARITY (BEAKER) (test lttx=714) Hazy SPECIFIC GRAVITY UA (BEAKER) (test qpsh=151) 1.021 1.001-1.035 PH UA (BEAKER) (test poby=362) 5.5 5.0-8.0 PROTEIN UA (BEAKER) (test gyva=420) 70 mg/dL Negative GLUCOSE UA (BEAKER) (test xgmh=343) Negative Negative KETONES UA (BEAKER) (test yhhl=072) 10 mg/dL Negative BILIRUBIN UA (BEAKER) (test xjgx=940) Positive Negative BLOOD UA (BEAKER) (test shug=663) Large Negative NITRITE UA (BEAKER) (test fene=997) Negative Negative LEUKOCYTE ESTERASE UA (BEAKER) (test tegl=314) Large Negative UROBILINOGEN UA (BEAKER) (test vkda=206) 3.0 mg/dL 0.2-1.0 RBC UA (BEAKER) (test rvyg=255) 372 /HPF WBC UA (BEAKER) (test gcig=790) 64 /HPF MUCUS (BEAKER) (test efvg=5921) Few SQUAMOUS EPITHELIAL (BEAKER) (test laks=546) < /HPF AMORPHOUS CRYSTALS (BEAKER) (test zjoq=8155) Rare SOURCE(BEAKER) (test yzgx=3440) HEPATITIS B PCR, [id number] 09:45:00 Test Item Value Reference Range Comments HBV RESULT COMPONENT (BEAKER) HBV DNA not detected HBV DNA not detected (test told=7584) This test uses a Real-Time Polymerase Chain Reaction (RT-PCR) methodology and was performed using [employer] TaqMan HBV Test, v2.0 ([employer]Reportable range for this assay is 20 - 170,000,000 IU per mL (1.30 - 8.23 Log IU/mL).This test uses a Real-Time Polymerase Chain Reaction (RT-PCR) methodology and was performed using [employer] Ampli[employer]AB[employer] TaqMan HBV Test, v2.0 ([employer]Reportable range for this assay is 20 - 170,000,000 IU per mL (1.30 - 8.23 Log IU/mL).MR, ABDOMEN, [id number] 18:00:00REFERRING MD: CORINA BELTRAN REPORT TECHNIQUE: MRI of the abdomen WITHOUT and WITH intravenous contrast. INDICATION: 63-year-old man with chronic hepatitis C. COMPARISON: None. FINDINGS: LOWER THORAX:Unremarkable. LIVER: No overt cirrhosis or hepatic steatosis. No suspicious hepatic lesions. Few scattered subcentimeter arterially enhancing foci in the liver without corresponding washout or pseudocapsule.BILIARY: Gallbladder is unremarkable. No biliary ductal dilatation or filling defect.SPLEEN: Nosplenomegaly.PANCREAS: No focal masses or ductal dilatation. ADRENALS: No adrenal nodules.KIDNEYS/URETERS: No hydronephrosis or solid mass lesions. Subcentimeter right renal cyst. PERITONEUM /RETROPERITONEUM: No free fluid.LYMPH NODES: No lymphadenopathy.VESSELS: Unremarkable. GI TRACT: No distention or wall thickening. Duodenal diverticulum measures 5.4 x 5.1 cm. BONES AND SOFT TISSUES: Degenerative changes of the visualized spine. Soft tissues are unremarkable. IMPRESSION:No overt cirrhosis or hepatic steatosis. No suspicious liver lesions. Few subcentimeter arterially enhancing foci are indeterminate and may be shunts. RECOMMENDATION:Follow-up abdomen MRI with and without intravenous contrast (liver protocol) may be obtained in 6 months for reassessment. Signed: Demetrius Velascoeport Verified Date/Time: 02/12/2019 18:00:30 Reading Location: [facility] C013Y CT Body Reading Room Electronically signed by: DEMETRIUS VELASCO MD on 2018 06:00 [id number] 17:27:00 Test Item Value Reference Range Comments FERRITIN (BEAKER) (test otdh=614) 675 ng/mL 5-275 HEPATITIS B SURFACE [id number] 15:21:00 Test Item Value Reference Range Comments HEPATITIS B SURFACE ANTIBODY (BEAKER) (test < mIU/mL <8.0 xrmt=594) HEPATITIS B CORE ANTIBODY, [id number] 15:21:00 Test Item Value Reference Range Comments HEPATITIS B CORE TOTAL ANTIBODY (BEAKER) (test Reactive Nonreactive kyph=792) [id number] 14:21:00 Test Item Value Reference Range Comments THYROID STIMULATING HORMONE (BEAKER) (test 1.29 uIU/mL 0.35-4.94 tfkd=064) HIV-1 ANTIGEN WITH HIV-1/2 [id number] 14:21:00 Test Item Value Reference Range Comments HIV-1 ANTIGEN WITH HIV 1\T\2 ANTIBODY (2) Nonreactive Nonreactive (BEAKER) (test gxzt=8212) HEPATITIS B SURFACE [id number] 14:20:00 Test Item Value Reference Range Comments HEPATITIS B SURFACE ANTIGEN (2) (BEAKER) (test Nonreactive Nonreactive byuu=3479) HEPATITIS A ANTIBODY, [id number] 14:20:00 Test Item Value Reference Range Comments HEPATITIS A IGG ANTIBODY (BEAKER) (test Nonreactive Nonreactive jqxl=8435) [id number] 14:16:00 Test Item Value Reference Range Comments POC-CREATININE (BEAKER) 0.9 mg/dL 0.6-1.3 TESTED AT [facility] [address] (test feqs=0581) [facility] [address] POC-EGFR (BEAKER) (test 103 mL/min/1.73M2 oaro=5933) CBC W/PLT COUNT & AUTO [id number] 14:16:00 Test Item Value Reference Range Comments WHITE BLOOD CELL COUNT (BEAKER) (test ykzt=777) 4.1 K/ L 3.5-10.5 RED BLOOD CELL COUNT (BEAKER) (test rayh=602) 4.88 M/ L 4.63-6.08 HEMOGLOBIN (BEAKER) (test grsr=665) 15.4 GM/DL 13.7-17.5 HEMATOCRIT (BEAKER) (test vomp=839) 47.8 % 40.1-51.0 MEAN CORPUSCULAR VOLUME (BEAKER) (test heqe=784) 98.0 fL 79.0-92.2 MEAN CORPUSCULAR HEMOGLOBIN (BEAKER) (test 31.6 pg 25.7-32.2 jthb=337) MEAN CORPUSCULAR HEMOGLOBIN CONC (BEAKER) (test 32.2 GM/DL 32.3-36.5 eypy=678) RED CELL DISTRIBUTION WIDTH (BEAKER) (test 11.6 % 11.6-14.4 dabc=839) PLATELET COUNT (BEAKER) (test znjp=048) 221 K/CU MM 150-450 MEAN PLATELET VOLUME (BEAKER) (test blor=555) 11.6 fL 9.4-12.4 NUCLEATED RED BLOOD CELLS (BEAKER) (test 0 /100 WBC 0-0 uvcw=193) NEUTROPHILS RELATIVE PERCENT (BEAKER) (test 40 % yruv=408) LYMPHOCYTES RELATIVE PERCENT (BEAKER) (test 42 % zzsi=360) MONOCYTES RELATIVE PERCENT (BEAKER) (test 16 % etrd=938) EOSINOPHILS RELATIVE PERCENT (BEAKER) (test 1 % vwip=247) BASOPHILS RELATIVE PERCENT (BEAKER) (test 1 % trqs=680) NEUTROPHILS ABSOLUTE COUNT (BEAKER) (test 1.62 K/ L 1.78-5.38 vpju=176) LYMPHOCYTES ABSOLUTE COUNT (BEAKER) (test 1.74 K/ L 1.32-3.57 yaxa=020) MONOCYTES ABSOLUTE COUNT (BEAKER) (test 0.67 K/ L 0.30-0.82 qzkp=733) EOSINOPHILS ABSOLUTE COUNT (BEAKER) (test 0.04 K/ L 0.04-0.54 fqwx=558) BASOPHILS ABSOLUTE COUNT (BEAKER) (test 0.03 K/ L 0.01-0.08 xsld=647) IRON, TIBC, % SAT. (WITHOUT FERRITIN)2019-02-12 14:14:00 Test Item Value Reference Range Comments IRON (BEAKER) (test ahxu=463) 139.0 ug/dL 40.0-160.0 TOTAL IRON BINDING CAPACITY (BEAKER) (test 368 ug/dL 250-450 xhnu=081) IRON % SATURATION (2) (BEAKER) (test ahwz=5266) 38 % 20-55 COMPREHENSIVE METABOLIC [id number] 14:10:00 Test Item Value Reference Range Comments TOTAL PROTEIN (BEAKER) 7.8 gm/dL 6.0-8.3 Specimen slightly (test vnno=784) hemolyzed ALBUMIN (BEAKER) (test 4.0 g/dL 3.5-5.0 Specimen slightly qzfi=1694) hemolyzed ALKALINE PHOSPHATASE 51 U/L 40-150 (BEAKER) (test ddhj=148) BILIRUBIN TOTAL (BEAKER) 2.3 mg/dL 0.2-1.2 Specimen slightly (test kjla=218) hemolyzed SODIUM (BEAKER) (test 138 meq/L 136-145 ngle=296) POTASSIUM (BEAKER) (test 4.8 meq/L 3.5-5.1 Specimen slightly quti=770) hemolyzed CHLORIDE (BEAKER) (test 102 meq/L 98-107 wcct=075) CO2 (BEAKER) (test 28 meq/L 22-29 jjqy=110) BLOOD UREA NITROGEN 13 mg/dL 7-21 (BEAKER) (test qouz=787) CREATININE (BEAKER) (test 0.84 mg/dL 0.57-1.25 Specimen slightly feoy=801) hemolyzed GLUCOSE RANDOM (BEAKER) 100 mg/dL 70-105 (test dhwt=801) CALCIUM (BEAKER) (test 9.4 mg/dL 8.4-10.2 wdyh=102) AST (SGOT) (BEAKER) (test 41 U/L 5-34 Specimen slightly miom=836) hemolyzed ALT (SGPT) (BEAKER) (test 41 U/L 6-55 Specimen slightly lgkw=283) hemolyzed EGFR (BEAKER) (test 111 mL/min/1.73 sq ESTIMATED GFR IS NOT mhck=7112) m ACCURATE CREATININE CLEARANCE IN PREDICTING GLOMERULAR FILTRATION RATE. ESTIMATED GFR IS NOT APPLICABLE FOR DIALYSIS PATIENTS. Specimen slightly ictericPROTHROMBIN TIME/[id number] 13:30:00 Test Item Value Reference Range Comments PROTIME (BEAKER) (test epfa=652) 12.8 seconds 11.9-14.2 INR (BEAKER) (test pqgi=801) 1.0 <=5.9 Effective 01/31/2019: PT Reference Range ChangeNew: 11.9-14.2 Previous: 11.7- 14.7RECOMMENDED COUMADIN/WARFARIN INR THERAPY RANGESSTANDARD DOSE: 2.0-3.0 Includes: PROPHYLAXIS for venous thrombosis, systemic embolization; TREATMENT for venous thrombosis and/or pulmonary embolus.HIGH RISK: Target INR is2.5-3.5 for patients wiht mechanical heart valves.
[2019-10-12] MEDS ORDERED: NA CHLORIDE 0.9% 1,000 ML ONE (06:29)
[2019-10-12] MEDS ORDERED: FENTANYL CITR 100 MCG/2 ML ONE (07:08)
[2019-10-12 07:28] LABS: Absolute Lymphocytes (CBC) 1.6 K/uL (0.7-4.9); Basophils % 0.5 % (0-1.3); Hematocrit 47.9 % (39.6-49.0); Lymphocytes % 23.7 % (15.3-44.8); MPV 10.3 fL (7.6-11.3); RBC Red Blood Cell Count 5.09 M/uL (4.33-5.43)
[2019-10-12 07:47] LABS: ALT/SGPT 25 U/L (12-78); AST/SGOT 26 U/L (15-37); Albumin 3.8 g/dL (3.4-5.0); Alkaline Phosphatase 60 U/L (45-117); BUN Blood Urea Nitrogen 12 mg/dL (7-18); Bicarbonate 30 mmol/L (21-32); Bilirubin Direct 0.2 mg/dL (0-0.2); Bilirubin Total 1.3 mg/dL (0.2-1.0); Glucose Level 129 mg/dL (74-106); Potassium 4.1 mmol/L (3.5-5.1); Protein, Total 8.2 g/dL (6.4-8.2); Sodium Level 138 mmol/L (136-145)
[2019-10-12 08:00] LABS: Urine Bacteria <20 /HPF (NONE SEEN); Urine Culture Reflex Order NOT NEEDED
[2019-10-12] MEDS ORDERED: DIAZEPAM 2 MG TABLET ONE (08:36)
[2019-10-12 08:55] LABS: Urine Blood 1+ (NEG); Urine Glucose NEGATIVE (NEG); Urine Protein TRACE (NEG); Urine pH 5.5 (5.0-7.0)
--- NOTE | 2019-10-12 08:55 | RAD REPORT ---
EXAM DESCRIPTION: CT - Stone Protocol - 10/12/2019 8:21 am CLINICAL HISTORY: back pain;Abd pain;Flank pain, history of colon surgery and hernia repair COMPARISON: Stone Protocol dated 06/30/2019; Abdomen Pelvis Wo Contrast dated 10/22/2018; Head C Sp ine Cap Wo Con dated 05/15/2018 TECHNIQUE: Axial 5 mm thick images were obtained without oral or IV contrast. The [id number]-mk-mfok span s the entirety of the system including uppermost abdomen and lung bases. All CT scans are performed using dose optimization technique as appropriate and may include automated exposure control or mA/KV adjustment according to patient size. FINDINGS: No hydronephrosis present. There is a 5 mm calcification within the parenchyma of the post erior lower right kidney similar to the comparison. There does appear to be a 1 millimeter or less si zed calcification near the right UPJ. No left-sided obstructing or nonobstructing calculi seen. Parti ally filled urinary bladder shows no calcification. No bladder wall thickening or mass. Prostate glan d is prominent in size. No suspicious renal masses. Isodense masses and pyelonephritis are not exclud ed on a stone protocol CT scan. No significant adrenal finding. The liver and spleen show no suspicious findings on noncontrast imaging. In the head of the pancreas there is an area of diminished density when compared to the body and tail attenuation. This is not sh arply demarcated. This is approximately 3 cm in size. Finding was detailed on the May 2018 stud y and has not clearly changed in size. No adjacent abnormal lymphadenopathy. No gallbladder or biliar y tree abnormality identified. No dilated bowel loops or bowel wall thickening. Moderately large stool volume is present. Sigmoid re gion anastomotic site shows no wall thickening or mass. Patient has numerous large small bowel divert icula with fecalized bowel content. No wall thickening or edema. This is a stable presentation. Patie nt has diverticulosis pattern is stable. No mass or bulky lymphadenopathy. No omental thickening. Postsurgical changes are present at the righ t inguinal canal. These findings are stable. Patient has a small fat only left inguinal hernia also u nchanged from prior imaging. No free air, free fluid or inflammatory stranding. No significant bony abnormality. Disc and bony degenerative changes are present. Central canal detail is inherently limited. No gross abnormality seen. IMPRESSION: Punctate 1 millimeter sized right UPJ calcification without dilatation. No other acute G U finding identifiable. Isodense masses and pyelonephritis are not excluded on stone protocol technique. Approximately 3 centimeter low-density area in the head of the pancreas is not clearly changed from S eptember 2018 but is unusual in appearance. Lack of growth would favor a benign etiology. Follow-up o utpatient contrast MRI study would be recommended for further evaluation.
--- NOTE | 2019-10-12 09:29 | ER ---
Nurse's Notes [facility] Name: Yash Garcia Sr Age: 64 yrs Sex: Male : 1955 Arrival Date: 10/12/2019 Time: 05:22 Bed 13 Private MD: Diagnosis: Unspecified renal colic;Diverticulosis of intestine, part unspecified, without perforation or abscess without bleeding;Lower abdominal pain, unspecified;Constipation;Radiculopathy, lumbar region Presentation: 10/12 06:11 Presenting complaint: Patient states: C/O RLQ pain that radiates to lower back and wh right leg that started 2 days ago. Pt states sharp, burning pain but denies urinary symptoms. Transition of care: patient was not received from another setting of care. Onset of symptoms was October 12, 2019. Risk Assessment: Do you want to hurt yourself or someone else? Patient reports no desire to harm self or others. Initial Sepsis Screen: Does the patient meet any 2 criteria? No. Patient's initial sepsis screen is negative. Does the patient have a suspected source of infection? No. Patient's initial sepsis screen is negative. Care prior to arrival: None. 06:11 Method Of Arrival: Ambulatory 06:11 Acuity: PARISH 3 Historical: - Allergies: 06:13 Iodinated Contrast Media - IV Dye; - PMHx: 06:13 Diverticulitis; Hypertension; - PSHx: 06:13 Hernia repair; Colon Surgery; Knee surgery; - Immunization history:: Adult Immunizations not up to date. - Coronavirus screen:: The patient has NOT traveled to [place], [place], or [place] in the past 14 days. - Social history:: Smoking status: Patient/guardian denies using. - Ebola Screening: : Patient negative for fever greater than or equal to 101.5 degrees Fahrenheit, and additional compatible Ebola Virus Disease symptoms Patient denies exposure to infectious person. Screenin:16 Abuse screen: Denies threats or abuse. Denies injuries from another. Nutritional screening: No deficits noted. Tuberculosis screening: No symptoms or risk factors identified. Fall Risk None identified. Assessment: 06:15 General: Appears in no apparent distress. Behavior is calm, cooperative, appropriate for age. Pain: Complains of pain in right lower quadrant Pain radiates to back and right leg Pain currently is 9 out of 10 on a pain scale. Quality of pain is described as burning, sharp, Pain began 2-3 days ago. Neuro: Level of Consciousness is awake, alert, obeys commands, Oriented to person, place, time, situation, Appropriate for age. Cardiovascular: Capillary refill < 3 seconds. Respiratory: Airway is patent Respiratory effort is even, unlabored, Respiratory pattern is regular, symmetrical. GI: Abdomen is flat, non-distended, Abd is soft and non tender X 4 quads. : No signs and/or symptoms were reported regarding the genitourinary system. EENT: No signs and/or symptoms were reported regarding the EENT system. Derm: Skin is intact, is healthy with good turgor, Skin is pink, warm \T\ dry. normal. Musculoskeletal: Circulation, motion, and sensation intact. 07:16 Reassessment: Patient appears in no apparent distress at this time. No changes from previously documented assessment. Patient and/or family updated on plan of care and expected duration. Pain level reassessed. Patient is alert, oriented x 3, equal unlabored respirations, skin warm/dry/pink. Vital Signs: 06:14 BP 175 / 99; Pulse 85; Resp 18; Temp 98.4; Pulse Ox 99% ; Weight 106.59 kg; Height 6 wh ft. 2 in. (187.96 cm); Pain 9/10; 07:15 BP 173 / 93; Pulse 77; Resp 18; Pulse Ox 96% on R/A; wh 06:14 Body Mass Index 30.17 (106.59 kg, 187.96 cm) ED Course: 05:22 Patient arrived in ED. cl3 06:02 Purvi Sorenson FNP-C [facility]. snw 06:02 Hema Lares MD is Attending Physician. snw 06:10 Dell Acuna is Primary Nurse. 06:12 Triage completed. 06:16 Arm band placed on left wrist. 06:16 Patient has correct armband on for positive identification. Bed in low position. Call light in reach. Side rails up X 1. Pulse ox on. NIBP on. 06:50 Initial lab(s) drawn, by nm, sent to lab. First set of blood cultures drawn by nm. bb Inserted saline lock: 20 gauge in right antecubital area, using aseptic technique. Blood collected. 07:05 Second set of blood cultures drawn. bb 08:28 CT Stone Protocol In Process Unspecified. EDMS 09:40 No provider procedures requiring assistance completed. IV discontinued, intact, sg bleeding controlled, No redness/swelling at site. Pressure dressing applied. Administered Medications: 07:15 Drug: fentaNYL (PF) 25 mcg Route: IVP; Site: right upper arm; 07:15 Drug: NS 0.9% 1000 ml Route: IV; Rate: 125 ml/hr; Site: right upper arm; 08:30 Drug: Valium 2 mg Route: PO; sg Outcome: 09:27 Discharge ordered by MD. snw 09:40 Discharged to home ambulatory, with family. sg 09:40 Condition: good 09:40 Discharge instructions given to patient, Instructed on discharge instructions, follow up and referral plans. medication usage, safety practices, Demonstrated understanding of instructions, follow-up care, medications, Prescriptions given X 2. 09:41 Patient left the ED. eb Signatures: Dispatcher [employer] EDMS Ben Fajardo, RN RN Purvi Yancey, BAG MAKING MACHINE TENDER-C BAG MAKING MACHINE TENDER-Csnw Ceci Lovelace, RN RN Dell Yao Delores Tipton Charde cl3
--- NOTE | 2019-10-12 09:29 | EDPHYS ---
Physician Documentation [facility] Name: Yash Garcia Sr Age: 64 yrs Sex: Male : 1955 Arrival Date: 10/12/2019 Time: 05:22 Bed 13 Private MD: DANA Physician Hema Lares HPI: 10/12 09:31 This 64 yrs old Black Male presents to ER via Ambulatory with complaints of Low Back snw Pain. 09:31 The patient presents with pain that is acute, with no known mechanism of injury. The snw symptoms are located in the low back, with radiation to right lateral hip and right lower quad. The pain radiates. The problem was sustained from unknown cause. Onset: The symptoms/episode began/occurred suddenly, 3 day(s) ago, and became persistent. Severity of symptoms: At their worst the symptoms were moderate. It is unknown whether or not the patient has had similar symptoms in the past. It is unknown whether or not the patient has recently seen a physician. Historical: - Allergies: 06:13 Iodinated Contrast Media - IV Dye; wh - PMHx: 06:13 Diverticulitis; Hypertension; - PSHx: 06:13 Hernia repair; Colon Surgery; Knee surgery; wh - Immunization history:: Adult Immunizations not up to date. - Coronavirus screen:: The patient has NOT traveled to [place], [place], or [place] in the past 14 days. - Social history:: Smoking status: Patient/guardian denies using. - Ebola Screening: : Patient negative for fever greater than or equal to 101.5 degrees Fahrenheit, and additional compatible Ebola Virus Disease symptoms Patient denies exposure to infectious person. ROS: 09:30 Constitutional: Negative for fever, chills, and weight loss, Eyes: Negative for injury, snw pain, redness, and discharge, ENT: Negative for injury, pain, and discharge, Neck: Negative for injury, pain, and swelling, Cardiovascular: Negative for chest pain, palpitations, and edema, Respiratory: Negative for shortness of breath, cough, wheezing, and pleuritic chest pain, : Negative for injury, bleeding, discharge, and swelling, MS/Extremity: Negative for injury and deformity, Skin: Negative for injury, rash, and discoloration, Neuro: Negative for headache, weakness, numbness, tingling, and seizure, Psych: Negative for depression, anxiety, suicide ideation, homicidal ideation, and hallucinations. 09:30 Abdomen/GI: Positive for abdominal pain, of the right lower quadrant. 09:30 Back: Positive for pain at rest, radiated pain, of the right low back with radiation to right lateral hip. Exam: 06:57 Constitutional: This is a well developed, well nourished patient who is awake, alert, snw and in no acute distress. Head/Face: Normocephalic, atraumatic. Eyes: Pupils equal round and reactive to light, extra-ocular motions intact. Lids and lashes normal. Conjunctiva and sclera are non-icteric and not injected. Cornea within normal limits. Periorbital areas with no swelling, redness, or edema. ENT: Nares patent. No nasal discharge, no septal abnormalities noted. Tympanic membranes are normal and external auditory canals are clear. Oropharynx with no redness, swelling, or masses, exudates, or evidence of obstruction, uvula midline. Mucous membranes moist. Neck: Trachea midline, no thyromegaly or masses palpated, and no cervical lymphadenopathy. Supple, full range of motion without nuchal rigidity, or vertebral point tenderness. No Meningismus. Chest/axilla: Normal chest wall appearance and motion. Nontender with no deformity. No lesions are appreciated. Cardiovascular: Regular rate and rhythm with a normal S1 and S2. No gallops, murmurs, or rubs. Normal PMI, no JVD. No pulse deficits. Respiratory: Lungs have equal breath sounds bilaterally, clear to auscultation and percussion. No rales, rhonchi or wheezes noted. No increased work of breathing, no retractions or nasal flaring. Back: No spinal tenderness. No costovertebral tenderness. Full range of motion. Skin: Warm, dry with normal turgor. Normal color with no rashes, no lesions, and no evidence of cellulitis. MS/ Extremity: Pulses equal, no cyanosis. Neurovascular intact. Full, normal range of motion. Neuro: Awake and alert, GCS 15, oriented to person, place, time, and situation. Cranial nerves II-XII grossly intact. Motor strength 5/5 in all extremities. Sensory grossly intact. Cerebellar exam normal. Normal gait. Psych: Awake, alert, with orientation to person, place and time. Behavior, mood, and affect are within normal limits. 06:57 Abdomen/GI: Inspection: scar(s), are noted in the midline , Bowel sounds: normal, Palpation: mild abdominal tenderness, in the posterior aspect of right lateral abdomen and right lower quadrant. Vital Signs: 06:14 BP 175 / 99; Pulse 85; Resp 18; Temp 98.4; Pulse Ox 99% ; Weight 106.59 kg; Height 6 wh ft. 2 in. (187.96 cm); Pain 9/10; 07:15 BP 173 / 93; Pulse 77; Resp 18; Pulse Ox 96% on R/A; wh 06:14 Body Mass Index 30.17 (106.59 kg, 187.96 cm) wh MDM: 06:02 Patient medically screened. snw 09:29 Data reviewed: vital signs, nurses notes. Data interpreted: Pulse oximetry: on room air snw is 96 %. Interpretation: acceptable. Counseling: I had a detailed discussion with the patient and/or guardian regarding: the historical points, exam findings, and any diagnostic results supporting the discharge/admit diagnosis, the presence of at least one elevated blood pressure reading (>120/80) during this emergency department visit, lab results, radiology results, the need for outpatient follow up, to return to the emergency department if symptoms worsen or persist or if there are any questions or concerns that arise at home. Special discussion: Based on the patient's Hx, exam, and Dx evaluation, there is no indication for emergent surgery or inpatient Tx. It is understood by the patient/guardian that if the Sx's persist or worsen they need to return immediately for re-evaluation. I have referred the patient to see his PCP for further evaluation of high blood pressure. Based on the history and exam findings, there is no indication for further emergent testing or inpatient evaluation. I discussed with the patient/guardian the need to see the primary care provider for further evaluation of the symptoms. 09:32 Special discussion: I discussed with the patient the need to follow-up with the [facility] PCP/specialist for the noted incidental finding on X-ray/CT scanning. pt knows of irregularity of pancreas and has had an MRI per report. Encouraged to f/u PCP. 10/12 06:19 Order name: Basic Metabolic Panel; Complete Time: 07:51 snw 10/12 06:19 Order name: CBC with Diff 10/12 06:19 Order name: Hepatic Function; Complete Time: 07:51 10/12 06:19 Order name: Blood Culture* 10/12 06:19 Order name: Urine Culture 10/12 06:19 Order name: Urine Microscopic Only; Complete Time: 08:12 10/12 06:19 Order name: CT Stone Protocol; Complete Time: 09:08 [facility] 10/12 06:19 Order name: IV Saline Lock; Complete Time: 07:05 [facility] 10/12 06:19 Order name: Labs collected and sent; Complete Time: 07:05 10/12 06:19 Order name: Urine Dipstick-Ancillary (obtain specimen); Complete Time: 07:05 [facility] 10/12 06:39 Order name: Urine Dipstick--Ancillary (enter results); Complete Time: 09:08 eb Administered Medications: 07:15 Drug: fentaNYL (PF) 25 mcg Route: IVP; Site: right upper arm; 07:15 Drug: NS 0.9% 1000 ml Route: IV; Rate: 125 ml/hr; Site: right upper arm; 08:30 Drug: Valium 2 mg Route: PO; sg Disposition: 15:58 Co-signature as Attending Physician, Hema Lares MD I agree with the assessment and gabe plan of care. Disposition: 10/12/19 09:27 Discharged to Home. Impression: Unspecified renal colic, Diverticulosis of intestine, part unspecified, without perforation or abscess without bleeding, Lower abdominal pain, unspecified, Constipation, Radiculopathy, lumbar region. - Condition is Stable. - Discharge Instructions: Abdominal Pain, Adult, Back Pain, Adult, Constipation, Adult, High-Fiber Diet, Diverticulosis, Hypertension, Kidney Stones, Dietary Guidelines to Help Prevent Kidney Stones, Rehydration, Adult. - Prescriptions for orphenadrine citrate 100 mg Oral Tablet Sustained Release - take 1 tablet by ORAL route 2 times per day As needed; 20 tablet. Miralax 17 gram/dose Oral - take 1 packet by ORAL route once daily dilute powder in 8 ounces of water or juice; 1 box. - Medication Reconciliation Form, Thank You Letter, Antibiotic Education, Prescription Opioid Use form. - Follow up: Emergency Department; When: As needed; Reason: Worsening of condition. Follow up: Private Physician; When: 2 - 3 days; Reason: Recheck today's complaints, Continuance of care, Re-evaluation by your physician. Signatures: Dispatcher [employer] Ben Harrison RN RN sg Anderson, Corey, MD MD cha Therrien, Shelly, SUPERVISOR HOME [employer]ORATION [employer]ICE-C SUPERVISOR HOME RESTORATION SERVICE-Csnw Dell Acuna Elizabeth eb Corrections: (The following items were deleted from the chart) 09:41 09:27 10/12/2019 09:27 Discharged to Home. Impression: Unspecified renal colic; eb Diverticulosis of intestine, part unspecified, without perforation or abscess without bleeding; Lower abdominal pain, unspecified; Constipation; Radiculopathy, lumbar region. Condition is Stable. Forms are Medication Reconciliation Form, Thank You Letter, Antibiotic Education, Prescription Opioid Use. Follow up: Emergency Department; When: As needed; Reason: Worsening of condition. Follow up: Private Physician; When: 2 - 3 days; Reason: Recheck today's complaints, Continuance of care, Re-evaluation by your physician. snw
[2019-10-12 09:47] VITALS: TEMP 98.4
[2019-10-12 09:48] VITALS: BP 173/93; O2SAT 96
== END 2019-10-12 09:41 | disposition home or self-care (01) ==
LOC: ER 05:20
DX: K57.90 Diverticulosis of intestine, part unspecified, without perforation or abscess without bleeding (principal); N23 Unspecified renal colic; K59.00 Constipation, unspecified; M54.16 Radiculopathy, lumbar region
CPT/HCPCS: 87040 ×2; 87088; 85025; 80048; 36415; 80076; 76377; 74176; 96374; 99284; J3010; J7030; 81003; 81015; 87086

== ENCOUNTER 2023-04-13 02:03 | Inpatient (IN) | payer OTHER ==
--- OUTSIDE RECORDS SUMMARY | 2023-04-13 02:09 | XMS REPORT | Continuity of Care Document ---
:1955 Author Organization [facility] t Address [address] [facility] [address] [place] [address] Care Team Providers Name Role Phone MOLINA HENDRICKSON Primary Care Physician Unavailable Cristobal Najera Attending Clinician Unavailable Jaycob Yang Attending Clinician Unavailable CRISTOBAL NAJERA Attending Clinician Unavailable LAB90 Attending Clinician Unavailable EDWARD DUPREE Attending Clinician Unavailable VLADIMIR HEATON Attending Clinician Unavailable Radiology Attending Clinician Unavailable RADIOLOGY Attending Clinician Unavailable UNKNOWN Attending Clinician Unavailable JAVON DOWNEY Attending Clinician Unavailable ASHLEY MURILLO Attending Clinician Unavailable Molina Hendrickson Admitting Clinician Unavailable JAYCOB YANG I Admitting Clinician Unavailable REGGIE ULLOA Admitting Clinician Unavailable Payers Payer Name Policy Type Policy Number Effective Date Expiration Date Wander avila KCDesi RAMPART HMO 7 [id number] 2021 00:00:00 MEDICARE PART A [id number] 2019 \T\ B 00:00:00 Problems Condition Condition Condition Status Onset Resolution Last Treating Co mments Source Name Details Category Date Date Treatment Clinician Date Well adult Well adult Disease Active K elsey exam exam 5-16 Seybold 00:00: - 00 Externa l Benign Benign Disease Active Priscilla prostatic prostatic 5-16 Seyb old hyperplasi hyperplasi 00:00: - a with a with 00 Externa weak weak l urinary urinary stream stream Elevated Elevated Disease Active Kelse y PSA PSA 5-16 Seybold 00:00: - 00 Externa l Class 1 Class 1 Disease Active Priscilla obesity obesity 3-07 Seybold due to due to 00:00: - excess excess 00 Externa calories calories l with with serious serious comorbidit comorbidit y and body y and body mass index mass index (BMI) of (BMI) of 32.0 to 32.0 to 32.9 in 32.9 in adult adult Other male Other male Disease Active K elsey erectile erectile 3-07 Seybol d dysfunctio dysfunctio 00:00: - n n 00 Externa l Primary Primary Disease Active Priscilla hypertensi hypertensi 3-07 Se ybold on on 00:00: - 00 Externa l Liver Liver Disease Active [facility] Sepsis Sepsis Disease Recurre 2018-[address] [facility] [address] nce 0-26 [facility] Center UTI UTI Disease Active 2018-[address] [facility] (urinary (urinary 0-26 [facility] tract tract 00:00: Medical infection) infection) 00 Ce nter Hepatitis Hepatitis Disease Active [facility] B core B core 8-08 [facility] antibody antibody 00:00: Medica l positive positive 00 Center Abnormal Abnormal Disease Active [facility] liver liver 6[facility]10 [facility] enzymes enzymes 00:00: t & Plan: Medic al 00 [facility] g of this note might be different from the original. The patient's liver test abnormali ties are likely related to chronic hepatitis Cinfectio n. . However, we also ordered comprehen sive testing for metabolic , viral, genetic, and autoimmun e liver diseases to detect alternati ve etiologie s and all comorbid condition s affecting hepatic function. Obesity Obesity Disease Active Last [facility] 00:00: t & Plan: [facility] g of this note might be different from the original. The patient's current BMI is 32. Obesity is an establish ed risk factor for vascular complicat ions (ie coronary artery disease, cerebrova scular disease, periphera l vascular disease), osteoarth ritis, pulmonary disease, as well as the developme nt of non-alcoh olic fatty liver disease and the risk for non-alcoh olic steatohep atitis. We discussed a diet and exercise for weight loss Hypertensi Hypertensi Disease Active Last [facility] on on 02-12 Assesslucia Zamora 00:00: t & Plan: Medical [address] [place] [address] g of this note might be different from the original. He is on blood pressure medicatio n well controlle d continue to follow with primary care physician Screening Screening Disease [facility], 00:00: t & Plan: Medical metabolic metabolic 00 Formattin enter and and g of this immunity immunity note disorder disorder might be different from the original. Serologic al tests will be completed to determine the presence of immunity to hepatitis A and B. If the patient does not have adequate immunity, we would recommend administr ation of appropria te vaccinati on as per CDC guideline s by the primary care provider. Abnormal Abnormal Disease Active [facility] & Plan: Medical [address] [place] [address] g of this note might be different from the original. On the CT scan revealed abnormal area of enhanceme nt in the pancreati c head and pancreas. Which needs to be further studied. I would recommend MRI of abdomen Chronic Chronic Disease Recurre Last [facility] hepatitis hepatitis nce 02-12 Assessmen L ukes C C 00:00: t & Plan: Medical [address] [place] [address] g of this note might be different from the original. Hepatitis C The patient presents with risk factors for HCV infection . He was recently noted to have positive serologie s for anti-HCV and HCV RNA positive Although we do not have histologi c proof, the combinati on of clinical findings, laborator y parameter s, and imaging do not indicate evidence of advanced fibrosis. We discussed briefly the treatment options for Hepatitis C and will be addressed more comprehen sively during follow up visit Allergies, Adverse Reactions, Alerts Allergy Allergy Status Severity Reaction(s) Onset Inactive Treating Comm ents Source Name Type Date Date Clinician Iodine Drug Active Swelling 2021-09 Priscilla Intolera 2-14 Seybold nce 00:00: - 00 Externa l iodine DA Active [facility] 02-10 [place] 00:[facility]: [facility] [address] iodine DA Active SV [facility] 02-10 [place] TONGUE 00:00: Healthc SWELLING, 00 are THROAT [facility] [facility] IODINE Allergy Active [facility] AND 6-10 [facility] IODIDE 00:00: Medical CONTAINI 00 Center NG PRODUCTS Iodine Propensi Active [facility] And ty to 6-10 [facility] Iodide adverse 00:00: Medical Containi reaction 00 Center ng s Products NO KNOWN Drug Active Univers ALLERGIE Class ity of S [facility] Family History Family Member Diagnosis Comments Start Date Stop Date Source Natural mother Dementia [facility] Natural sister Diabetes [facility] Social History Social Habit Start Date Stop Date Quantity Comments Source Gender identity Priscilla blair - External Sexual orientation Priscilla Patrick - External Exposure to Not sure University of SARS-CoV-2 (event) [facility] Education 2022-11-09 2022-11-09 16 Priscilla Paulaold - 00:00:00 00:00:00 External History of Social 2022-11-09 2022-11-09 Priscilla Patrick - function 00:00:00 00:00:00 External Tobacco use and 2022-08-18 2022-08-18 Smokeless Priscilla Maurice ybold - exposure 00:00:00 00:00:00 tobacco non-user External Alcohol intake 2019-05-17 2019-05-[address] [facility]00 non-drinker of Medical Ce nter alcohol (finding) Sex Assigned At [birth year] [facility] [address] Fatemeh kes 00:00:00 00:00:00 [facility] Smoking Status Start Date Stop Date Source Unknown if ever smoked [facility] Never smoked tobacco Priscilla Paula old - External Medications Ordered Filled Start Stop Current Ordering Indication Dosage Frequency Signature Comments Components Source Medication Medication Date Date Medication? Clinician (SIG) Name Name Irbesartan- 2022- No irbesartan Priscilla hydroCHLORO 5-16 05-16 300 Seybold thiazide 14:11: 00:00 mg-hydroch - 300-12.5 MG 58 :00 lorothiazi Ex terna oral Tablet de 12.5 mg l tablet TAKE 1 TABLET BY MOUTH EVERY MORNING Tamsulosin 0 Yes .4mg Take 1 Kelse y HCl 0.4 MG 5-16 capsule Seybol d oral 14:00: (0.4 mg - Capsule 09 total) by Externa mouth l every night at bedtime Irbesartan- 0 Yes [id number] 1{tbl} Take 1 Priscilla hydroCHLORO 5-16 tablet by Sey bold thiazide 00:00: mouth - 300-12.5 MG 00 daily Externa oral Tablet l Amlodipine Yes [id number] 10mg Take 1 K elsey Besylate 10 5-16 tablet (10 Se ybold MG oral 00:00: mg total) - Tablet 00 by mouth Externa every l morning Irbesartan- Yes irbesartan Priscilla hydroCHLORO 3-07 300 Seybold thiazide 13:21: mg-hydroch - 300-12.5 MG 10 lorothiazi Ex terna oral Tablet de 12.5 mg l tablet TAKE 1 TABLET BY MOUTH EVERY MORNING Irbesartan 2022- No irbesartan Priscilla 300 MG oral 3- 03-07 300 mg Seybo ld Tablet 13:21: 00:00 tablet - 01 :00 Externa l Ibuprofen 0 2022- No 800mg Take 800 Ke lsey 800 MG oral 3- 03-07 mg by Seybol d Tablet 13:20: 00:00 mouth - 58 :00 Externa l Ibuprofen-F 0 2022- No Duexis 800 Priscilla amotidine 3- 03-07 mg-26.6 mg Sey bold 800-26.6 MG 13:20: 00:00 tablet - oral Tablet 55 :00 Externa l HYDROcodone 2022- No hydrocodon Priscilla -Acetaminop 3- 03-07 e 10 Seybold hen 10-325 13:20: 00:00 mg-acetami - MG oral 46 :00 nophen 325 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 mg tablet l guaiFENesin 2022- No codeine 10 Priscilla -Codeine 3- 03-07 mg-guaifen Seyb old 100-10 13:20: 00:00 esin 100 - MG/5ML oral 43 :00 mg/5 mL Exter na Syrup oral l liquid Cyclobenzap 2022- No cyclobenza Priscilla rine HCl 10 11-09 luna 10 Sey bold MG oral 13:20: 00:00 mg tablet - Tablet 40 :00 TAKE 1 Externa TABLET BY l MOUTH 3 TIMES A DAY NEEDED Ciprofloxac 2022- No ciprofloxa Priscilla in HCl 500 11-09 faiza 500 mg Se ybold MG oral 13:20: 00:00 tablet - Tablet 37 :00 Externa l Amoxicillin 2022- No amoxicilli Priscilla -Pot 11-09 n 875 Seybold Clavulanate 13:20: 00:00 mg-potassi - 875-125 MG 27 :00 um Externa oral Tablet clavulanat l e 125 mg tablet ACETAMINOPH 2022- No 1{tbl} Q.25D Take 1 Priscilla EN-CAFF-BUT 11-09 tablet by Se ybold ALBITAL 13:20: 00:00 mouth - 50-325-40 24 :00 every 6 Externa MG oral hours as l Tablet needed levoFLOXaci 2022- No TAKE 1 Toni sey n 750 MG 10-2607 TABLET Seybold oral Tablet 00:00: 00:00 ORALLY - 00 :00 DAILY FOR Externa 10 DAYS l FOR URINARY TRACT INFECTION Amlodipine Yes 10mg Take 10 mg K elsey Besylate 10 2-15 by mouth Seyb old MG oral 00:00: every - Tablet 00 morning Externa l Amlodipine 2022- No 10mg Take 1 Vane ey Besylate 10 2-15 05-16 tablet (10 S eybold MG oral 00:00: 00:00 mg total) - Tablet 00 :00 by mouth Externa every l morning Amoxicillin 2021-09 Yes amoxicilli Priscilla -Pot 2-14 n 875 Seybold Clavulanate 11:34: mg-potassi - 875-125 MG 40 um Externa oral Tablet clavulanat l e 125 mg tablet ACETAMINOPH 2021-09 Yes 1{tbl} Q.25D Take 1 K elsey EN-CAFF-BUT 2-14 tablet by Sey bold ALBITAL 11:34: mouth - 50-325-40 40 every 6 Externa MG oral hours as l Tablet needed Ciprofloxac 2021-09 Yes ciprofloxa Priscilla in HCl 500 2-14 faiza 500 mg Sey bold MG oral 11:34: tablet - Tablet 40 Externa l Cyclobenzap 2021-09 Yes cyclobenza Priscilla rine HCl 10 2-14 luna 10 Seyb old MG oral 11:34: mg tablet - Tablet 40 TAKE 1 Externa TABLET BY l MOUTH 3 TIMES A DAY NEEDED guaiFENesin 2021-09 Yes codeine 10 Priscilla -Codeine 2-14 mg-guaifen Seybo ld 100-10 11:34: esin 100 - MG/5ML oral 40 mg/5 mL Exter na Syrup oral l liquid HYDROcodone 2021-09 Yes hydrocodon Priscilla -Acetaminop 2-14 e 10 Seybold hen 10-325 11:34: mg-acetami - MG oral 40 nophen 325 [employer] 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 mg tablet l Ibuprofen 2021-09 Yes 800mg Take 800 Toni sey 800 MG oral 2-14 mg by Seybold Tablet 11:34: mouth - 40 Externa l Ibuprofen-F 2021-09 Yes Duexis 800 Priscilla amotidine 2-14 mg-26.6 mg Seyb old 800-26.6 MG 11:34: tablet - oral Tablet 40 Externa l Irbesartan 2021-09 Yes irbesartan K elsey 300 MG oral 2-14 300 mg Seybol d Tablet 11:34: tablet - 40 Externa l Irbesartan- 2021-09 Yes irbesartan Priscilla hydroCHLORO 2-14 300 Seybold thiazide 11:34: mg-hydroch - 300-12.5 MG 40 lorothiazi Ex terna oral Tablet de 12.5 mg l tablet TAKE 1 TABLET BY MOUTH EVERY MORNING Azithromyci 2021-09 Yes 1 TABLET Ke lsey n 500 MG 1-28 ORALLY Seybold oral Tablet 00:00: DAILY FOR - 00 7 DAYS. Externa TAKE WITH l FOOD Cetirizine 2021-09 Yes TAKE 1 Kelse y 10 MG oral 1-28 TABLET BY Seyb old Tablet 00:00: MOUTH - 00 TWICE A Externa DAY FOR 14 l DAYS Azithromyci 2021-09- No 1 TABLET K elsey n 500 MG 10-02 ORALLY Seybold oral Tablet 00:00: 00:00 DAILY FOR - 00 :00 7 DAYS. Externa TAKE WITH l FOOD Cetirizine 2021-09- No TAKE 1 Vane ey 10 MG oral 10-02 TABLET BY Sey bold Tablet 00:00: 00:00 MOUTH - 00 :00 TWICE A Externa DAY FOR 14 l DAYS Modern2021-09 Yes Priscilla COVID-09-24 Seybold Bival 00:00: - Booster 50 00 Externa MCG/0.5ML l intramuscul ar Suspension Moderna 2021-09- No Priscilla BARAJASID-19 -11-09 Seybold Bival 00:00: 00:00 - Booster 50 00 :00 Externa MCG/0.5ML l intramuscul ar Suspension acetaminoph 2019- Yes Abdominal 1{tbl} Take [address] [facility] [facility] en-codeine 8-25 pain, tablet by Carter es (TYLENOL-CO 12:16: unspecified mouth Medical DEINE #3) 02 abdominal every 4 Ce nter 300-30 mg location (four) per tablet hours as needed for Pain. butalbital- Yes Abdominal 1{tbl} Take [address] acetaminoph 8-25 pain, tablet by Fatemeh kes en-caffeine 12:16: unspecified mouth Medical (FIORICET, 02 abdominal every 6 C enter ESGIC) location (six) 50-325-40 hours as mg per needed for tablet Headaches. traMADol Yes Abdominal 50mg Take [address] [facility] (ULTRAM) 50 8-25 pain, by mouth Carter es mg tablet 12:16: unspecified every 6 Medical 02 abdominal (six) Center location hours as needed for Pain. HARVONI Yes [facility] 90-400 mg 7-25 [facility] Tab 00:00: Medical 00 Center amLODIPine 2018- Yes 10mg QD Take [address] (NORVASC) 6-08 by mouth [facility] 10 MG 00:00: daily . Medical tablet 00 Center DUEXIS 2019-[address] [facility] 800-26.6 mg 6-06 pain, [facility] Tab 00:00: unspecified Medica l 00 abdominal Center location Vital Signs Vital Name Observation Time Observation Value Comments Source Systolic blood 2023-01-18 18:52:00 130 mm[Hg] Priscilla Seybold - pressure External Diastolic blood 2023-01-18 18:52:00 75 mm[Hg] Kelse y Seybold - pressure External Heart rate 2023-01-18 18:52:00 79 /min Priscilla S eybold - External Body temperature 2023-01-18 18:52:00 36.78 Mckenzie Vane ey Seybold - External Respiratory rate 2023-01-18 18:52:00 16 /min Vane ey Seybold - External Body height 2023-01-18 18:52:00 185.4 cm Priscilla S eybold - External Body weight 2023-01-18 18:52:00 112.038 kg Priscilla S eybold - External BMI 2023-01-18 18:52:00 32.59 kg/m2 Priscilla S eybold - External Oxygen saturation in 2023-01-18 18:52:00 99 /min Priscilla Mauriceybold - Arterial blood by External Pulse oximetry Systolic blood 2022-11-09 19:18:00 133 mm[Hg] Priscilla Seybold - pressure External Diastolic blood 2022-11-09 19:18:00 78 mm[Hg] Tonise y Seybold - pressure External Heart rate 2022-11-09 19:18:00 76 /min Priscilla S eybold - External Body temperature 2022-11-09 19:18:00 37 Mckenzie Vane ey Seybold - External Respiratory rate 2022-11-09 19:18:00 14 /min Vane ey Seybold - External Body height 2022-11-09 19:18:00 185.4 cm Priscilla S eybold - External Body weight 2022-11-09 19:18:00 105.688 kg Priscilla S eybold - External BMI 2022-11-09 19:18:00 30.74 kg/m2 Priscilla S eybold - External Oxygen saturation in 2022-11-09 19:18:00 99 /min Priscilla Seybold - Arterial blood by External Pulse oximetry Procedures Procedure Date / Time Performing Clinician Source Performed MR LUMBAR SPINE WO 2020-12-23 18:59:31 [facility]SENT[facility]REFUSAL FOR 2020-12-23 17:56:36 Doctor Unassigned, [facility] DIAGNOSIS AND TREATMENT [facility] ASSIGNMENT OF BENEFITS 2020-12-23 17:56:08 Doctor Unassigned, Un [facility] MR LUMBAR SPINE WO 2020-01-10 20:28:09 Requisition[facility] MR CERVICAL SPINE WO 2020-01-10 20:00:55 [facility] NOTICE OF BILLING 2020-01-10 18:53:05 Doctor Unassigned, [facility] PRACTICES FOR MEDICARE [facility] PATIENTS [facility] PATIENT FINANCIAL 2020-01-10 18:51:43 Doctor Unassigned, Un [facility] POLICY [facility] NO SHOW OR MISSED 2020-01-10 18:50:49 Doctor Unassigned, [facility] APPOINTMENT POLICY [facility] ACKNOWLEDGEMENT NOTICE OF PRIVACY 2020-01-10 18:50:17 Doctor Unassigned, [facility] PRACTICES [facility] CONSENT/REFUSAL FOR 2020-01-10 18:49:52 Doctor Unassigned, [facility] DIAGNOSIS AND TREATMENT [facility] ASSIGNMENT OF BENEFITS 2020-01-10 18:49:22 Doctor Unassigned, [facility] Plan of Care Planned Activity Planned Date Details Comments Source Future Scheduled 2023-05-06 Influenza Vaccine (#1) [facility] 00:00:00 [code = Influenza Medical Ce nter Vaccine (#1)] Future Scheduled 2022-09-[address] [facility] Test 00:00:00 (12+) [code = Medical Center DEPRESSION SCREENING (12+)] Future Scheduled 2022-09-05 FALLS RISK SCREENING [facility] Test 00:00:00 [code = FALLS RISK Medical C enter SCREENING] Future Scheduled 2019 PNEUMOCOCCAL 65+ YRS ([address] [facility] Test 00:00:00 - PCV) [code = Medical Cente r PNEUMOCOCCAL 65+ YRS (1 - PCV)] Future Scheduled 2004 SHINGLES VACCINES ([address] [facility] Test 00:00:00 2) [code = [facility] VACCINES (1 of 2)] Future Scheduled 1973 DTAP/TDAP/TD VACCINES [facility] 00:00:00 (1 - Tdap) [code = Medical C enter DTAP/TDAP/TD VACCINES (1 - Tdap)] Future Scheduled [address] [facility] Test 00:00:00 Counseling and Medical Cente r Screening (12+) [code = Tobacco Cessation Counseling and Screening (12+)] Future Scheduled 1956-02-14 COVID-19 VACCINE (#1) [facility] 00:00:00 [code = COVID-[address] VACCINE (#1)] Future Scheduled 1954 CT Colonography (combo) [facility] Test 00:00:00 [code = CT Colonography [facility] (combo)] Future Scheduled 1954 Screening for malignant [facility] Test 00:00:00 neoplasm of colon Medical Ce nter (procedure) [code = 011395474] Future Scheduled 1954 Screening for malignant [facility] Test 00:00:00 neoplasm of colon Medical Ce nter (procedure) [code = 789639051] Future Scheduled 1954 Screening for malignant [facility] Test 00:00:00 neoplasm of colon Medical Ce nter (procedure) [code = 363032734] Future Scheduled 1954 Screening for malignant [facility] Test 00:00:00 neoplasm of colon Medical Ce nter (procedure) [code = 550440236] Future Scheduled 1955 Sigmoidoscopy [code = [facility] 00:00:00 Sigmoidoscopy] Medical Cente r Encounters Start End Encounter Admission Attending Care Care Encounter Source Date/Time Date/Time Type Type Clinicians Facility Department ID 2022-12-22 [facility] [id number] Common 15:29:00 Cristobal [id number] [facility] 2022-11-09 Outpatient Vickeywander [facility] [id number] Common 14:33:01 Cristobal [id number] [facility] 2020-02-13 Inpatient Trey, [facility] DAYS [id number] [facility] 08:30:00 Jaycob Brand [facility] 2023-07-21 2023-07-21 Outpatient PRISCILLA NAJERA [id number] Priscilla 10:15:00 10:15:00 CRISTOBAL Seybol d 2023-01-18 2023-01-18 Outpatient LAB90 PRISCILLA CLAYTON [id number] Priscilla 14:45:00 14:45:00 Seybol d 2023-01-18 2023-01-18 Outpatient PREZASPRISCILLA [id number] Priscilla 13:45:00 13:45:00 CRISTOBAL Seybol d 2022-12-07 2022-12-07 Outpatient PREZAPRISCILLA Kerr [id number] Priscilla 09:45:00 09:45:00 CRISTOBAL Seybol d 2022-11-25 2022-11-25 Outpatient DUPREE, PRISCILLA CLAYTON [id number] Priscilla 00:00:00 00:00:00 LASUNDRA Seybo ld 2022-11-09 2022-11-09 Outpatient PREZAS, PRISCILLA CLAYTON [id number] Priscilla 13:45:00 13:45:00 CRISTOBAL Seybol d 2022-11-09 2022-11-09 Outpatient PREZASPRISCILLA [id number] Priscilla 00:00:00 00:00:00 CRISTOBAL Seybol d 2022-08-18 2022-08-18 Outpatient HEATONPRISCILLA YATES [id number] Priscilla 11:20:00 11:20:00 VLADIMIR Seybo ld 2020-12-23 2020-12-23 Hospital Radiology [facility] [id number] Univers 12:56:41 23:59:00 Nicholas Hassan [id number] ity [place] [id number] [facility] [id number] [facility] Branch 2020-12-23 2020-12-23 Outpatient R RADIOLOGY [facility] [id number] Univers 00:00:00 00:00:00 ity of [facility] 2020-04-29 2020-04-29 Outpatient [facility] [id number] [facility] 00:00:00 00:00:00 [id number] 2020-04-29 2020-04-29 Outpatient EL [facility] [id number] [facility] 00:00:00 00:00:00 2020-02-11 2020-02-11 Outpatient UNKNOWN HCACL LABO [id number] [facility] 08:57:00 08:57:00 21 [facility] 2020-02-11 2020-02-11 Outpatient Esses, HCANW REF [id number] [facility] 08:53:00 08:53:00 Jaycob Blair [facility] are [facility] 2020-01-10 2020-01-10 Hospital Radiology [facility] [id number] Univers 13:54:00 23:59:00 Encounter [place] [id number] ity of [place] [id number] [facility] [id number] [address] 2020-01-10 2020-01-10 [facility] Radiology [facility] [id number] 13:54:00 23:59:00 Encounter [place] [id number] [place] [id number] [place] [id number] 2020-01-10 2020-01-10 Outpatient R RADIOLOGY [facility] [id number] Univers 13:53:51 13:53:00 ity of [facility] 2020-01-10 2020-01-10 [facility] Radiology [facility] [id number] Univers 13:53:00 13:53:00 Encounter [place] [id number] ity of [place] [id number] [facility] [id number] [address] 2020-01-10 2020-01-10 [facility] Radiology [facility] [id number] 13:53:00 13:53:00 Encounter [place] [id number] [place] [id number] [place] [id number] 2019-11-27 2019-11-27 Outpatient SLEH [facility] [id number] [facility] 00:00:00 00:00:00 [id number] Results Test Test Test Results Result Source Description Time Comments Comments MR LUMBAR SPINE 2020-12- HISTORY: Two-year history [facility] 20 of back pain after a fall [facility] 19:08:34 with right leg pain. Bran ch TECHNIQUE: Sagittal T2 FRFSE, T1, STIR and axial T2 FRFSE T1 studies oflumbar spines are obtained. Additional coronal T2 FRFSE study is alsoobtained. FINDINGS: Comparison has been made with previous MRI study of 01/10/2020. No acute compression fracture or aggressive lesions of the bones detected.Spinal canal appears to be of adequate size and normal conus/cauda equinaare found at the level of T12. Visualized retroperitoneum is unremarkablefor aortic aneurysm or enlarged lymph nodes or hydronephrosis. T12-L1: Degenerative disc disease with prominent Schmorl's node in theanterior lower corner of T12 surrounded by degenerative marrow noted. Discspace is narrowed by up to 50-60% with diffuse bulging of the disc causingmild thecal sac compression. No significant foraminal encroachment. L1-L2: Degenerative disc disease with 2 60-70% narrowing of the disc space,prominent disc osteophyte complex along the ventral vertebral margins,degenerative marrow signal in the anterior corners of the vertebral bodies,prominent diffuse bulging of the disc noted causing thecal sac compression.Small right posterior disc herniation suspected causing slightly more focalthecal sac compression. There is minimal interval improvement in thefindings since 2019 study. L2-L3: Degenerative disc disease with small disc osteophyte complex alongthe ventral vertebral margins, small disc osteophyte complex encroachingthroughout the spinal canal with additional encroachment by slightlythickened ligamentum flavum noted causing mild circumferential thecal saccompression. Foraminal encroachment is not significant. L3-L4: Degenerative disc disease with up to 60-70% narrowing of the discspace, small disc osteophyte complex along the ventral vertebral margins,diffuse bulging of the disc and throughout the spinal canal with additionalminimal encroachment by thickened ligamentum flavum secondary to facetarthritis causing mild thecal sac compression. Small disc fragment is seenprolapsed in the migrated cephalad leak behind the left side of L3 causingslightly more focal thecal sac compression. Findings show slight intervalimprovement since 2019 study. L4-L5: Degenerative disc disease with prominent disc osteophyte complexalong the ventral vertebral margins, Schmorl's nodes in the vertebralendplates, diffuse bulging of the disc and slightly thickened ligamentumflavum from facet arthritis causing mild thecal sac compression. Foraminalencroachment noted on both sides without significant nerve rootcompression. Small amount of fluid is seen in both facet joints. L5-S1: Minimal disc desiccation without bulging of the disc. Lateral facetarthritis is noted with small amount of fluid in both facet joints andalong the inferior edge of the left facet joint, a 7 mm synovial cyst isseen protruding into the extraspinal soft tissues CONCLUSIONS:1. Degenerative disc disease at affecting all lumbar discs and T12-L1 withdisc osteophyte complex causing thecal sac compression at all the levels.2. Interval improvement in focal disc herniation into the right lateralrecess at L1-L2 as well as in the small disc fragment migrated behind leftside of L3 when compared with January 2020 study. [facility], Radiant Results Inft User - 12/23/2020 2:09 PM CDTHISTORY: Two-year history of back pain after a fall with right leg pain.TECHNIQUE: Sagittal T2 FRFSE, T1, STIR and axial T2 FRFSE T1 studies oflumbar spines are obtained. Additional coronal T2 FRFSE study is alsoobtained.FINDINGS: Comparison has been made with previous MRI study of 01/10/2020.No acute compression fracture or aggressive lesions of the bones detected.Spinal canal appears to be of adequate size and normal conus/cauda equinaare found at the level of T12. Visualized retroperitoneum is unremarkablefor aortic aneurysm or enlarged lymph nodes or hydronephrosis.T12-L1: Degenerative disc disease with prominent Schmorl's node in theanterior lower corner of T12 surrounded by degenerative marrow noted. Discspace is narrowed by up to 50-60% with diffuse bulging of the disc causingmild thecal sac compression. No significant foraminal encroachment.L1-L2: Degenerative disc disease with 2 60-70% narrowing of the disc space,prominent disc osteophyte complex along the ventral vertebral margins,degenerative marrow signal in the anterior corners of the vertebral bodies,prominent diffuse bulging of the disc noted causing thecal sac compression.Small right posterior disc herniation suspected causing slightly more focalthecal sac compression. There is minimal interval improvement in thefindings since 2019 study.L2-L3: Degenerative disc disease with small disc osteophyte complex alongthe ventral vertebral margins, small disc osteophyte complex encroachingthroughout the spinal canal with additional encroachment by slightlythickened ligamentum flavum noted causing mild circumferential thecal saccompression. Foraminal encroachment is not significant.L3-L4: Degenerative disc disease with up to 60-70% narrowing of the discspace, small disc osteophyte complex along the ventral vertebral margins,diffuse bulging of the disc and throughout the spinal canal with additionalminimal encroachment by thickened ligamentum flavum secondary to facetarthritis causing mild thecal sac compression. Small disc fragment is seenprolapsed in the migrated cephalad leak behind the left side of L3 causingslightly more focal thecal sac compression. Findings show slight intervalimprovement since 2019 study.L4-L5: Degenerative disc disease with prominent disc osteophyte complexalong the ventral vertebral margins, Schmorl's nodes in the vertebralendplates, diffuse bulging of the disc and slightly thickened ligamentumflavum from facet arthritis causing mild thecal sac compression. Foraminalencroachment noted on both sides without significant nerve rootcompression. Small amount of fluid is seen in both facet joints.L5-S1: Minimal disc desiccation without bulging of the disc. Lateral facetarthritis is noted with small amount of fluid in both facet joints andalong the inferior edge of the left facet joint, a 7 mm synovial cyst isseen protruding into the extraspinal soft tissuesCONCLUSIONS:1. Degenerative disc disease at affecting all lumbar discs and T12-L1 withdisc osteophyte complex causing thecal sac compression at all the levels.2. Interval improvement in focal disc herniation into the right lateralrecess at L1-L2 as well as in the small disc fragment migrated behind leftside of L3 when compared with January 2020 study. - XR 2020-02- Patient Name: DIAS,CECE FLUOROSCOPY 10 HO Unit No: 0-60 MIN 14:48:00 [id number] EXAMS: CPT CODE: [id number] XR FLUOROSCOPY 0-60 MIN [id number] FLUOROSCOPY LOCATION: A1 HISTORY: Cervical spine surgery. Findings: Fluoroscopic imaging was provided during cervical spine surgery. I was not present for the exam. Total Fluoroscopy time was 1 second and a radiation dose of 1 mGy was administered. FINDINGS: Submitted images show orthopedic hardware from C5 through C7 in good position. IMPRESSION: Fluoroscopic imaging during cervical spine surgery. at 0679 Reported and signed by: Jose Marai Rhodes Jr, MD CC: Jaycob Yang MD; Molina Hendrickson MD Technologist: BUCK LOVE RT(R) Fluoro Time: DAP (Gy m2): Air Kerma (mGy): Trscr Dt/Tm: 02/13/2020 (7516) by:Valerio Printed Date/Time: 02/13/2020 (2697) Name: CECE DIAS HO [facility] Phys: Jaycob Black MD [address] : 1955 Age: 64 Sex: M [place] [id number] Loc: P.SRG Exam Date: 02/13/2020 Status: [facility] [place] PH: FAX: PAGE 1 Signed Report Novel Coronavirus 2019 Inhouse 2020-02-12 07:53:00 Test Item Value Reference Range Interpretation Comme nts Novel Coronavirus 2019 Inhouse (test code = COVNONPUI) Negative Negative Testing Criteria: Preprocedure ScreeningNovel Coronavirus 2019 [id number] 07:52:00 Test Item Value Reference Range Interpretation Comments Novel Coronavirus 2019 Inhouse (test Negative Negative code = COVNONPUI) Testing Criteria: Preprocedure ScreeningCOMPREHENSIVE METABOLIC [id number] 09:44:00 Test Item Value Reference Range Interpretation Comments SODIUM (test code = 137 MMOL/L 136-143 N NA) POTASSIUM (test 4.2 MMOL/L 3.5-5.1 N code = K) CHLORIDE (test code 99 MMOL/L 98-107 N = CL) CARBON DIOXIDE 27 mmol/L 24-31 N (test code = CO2) GLUCOSE (test code 103 mg/dL 70-104 N = GLU) BLOOD UREA NITROGEN 16.0 MG/DL 7.0-21.0 N (test code = BUN) GLOMERULAR >=60 max >60 The estimated FILTRATION RATE estimate glomerular (test code = GFR) filtration rate is computed usingpatient ra ce, age (>18), sex, and serum creatinin e. If anyof the ne eded data elements a re missing the Laboratory yamilex ot compute an estimation of t he glomerular filtration rate . CREATININE (test 0.9 mg/dL 0.8-1.5 N code = CREAT) TOTAL PROTEIN (test 7.6 g/dL 6.3-8.3 N code = PROT) ALBUMIN (test code 4.3 G/DL 3.5-5.0 N = ALB) CALCIUM (test code 9.1 mg/dL 8.8-10.2 N = CA) BILIRUBIN TOTAL 1.3 mg/dL 0.2-1.0 H (test code = BILT) SGOT/AST (test code 23 IU/L 10-34 N = AST) SGPT/ALT (test code 21 U/L 10-44 N = ALT) ALKALINE 54 U/L 45-120 N PHOSPHATASE (test code = ALKP) - XR CHEST 1 [id number] 09:43:00Patient Name: CECE DIAS Unit No: [id number] EXAMS: CPT CODE: [id number] XR CHEST 1 V 12146 Single View Chest. Location: W1 Clinical Indication: 64-year-old for preoperative assessment Comparison: None Findings: 1.3 cm nodular opacity projects over the right upper lobe and a right posterior rib. Lungs are otherwise clear. Heart size is normal. No pneumothorax or pleural effusion. No acute osseous abnormality. Impression: 1.3 cm nodule projecting over the right upper lobe and a right posteriorrib. CT chest is recommended for further evaluation. at 0943 Reported and signed by: Christopher Whitt MD CC: Jaycob Yang MD; Molina Hendrickson MD Technologist: Jared Angeles Time: DAP (Gy m2): Air Kerma (mGy): Trscr Dt/Tm: 02/11/2020 (7443) by:[email or web address] Printed Date/Time: 02/11/2020 (2429) Name: CECE DIAS [facility] Phys: Jaycob Black MD [address] : 1955 Age: 64 Sex: [place] [id number] [id number] Loc: P.SRG Exam Date: 02/11/2020 Status: PRE SDC PH: FAX: PAGE 1 Signed ReportPROTHROMBIN TIME 2020-02-11 09:12:00 Test Item Value Reference Range Interpretation Comments PROTHROMBIN TIME 11.1 SECONDS 10.3-12.9 N PATIENT (test code = PTP) INTERNATIONAL 0.98 INR UNIT 0.9-1.11 N The INR is us eful only NORMAL RATIO (test for monit oring code = INR) anticoagulant therapy.It may be unreliable in t he initial phase o f antigoagulation and in unstable patien ts. Indication for Anticoagulation Recommended INR 1. Prevention of v enous thomboembolism 2.0-3.0in high- risk patients; treat ment of venousthrombosi s and pulmonary embol ism aftera course o f heparin; preven tion of systemicembolis m in a variety of cond itions, including atria l fibrillation an d prothetic tissu e heart valves, 2. Pros thetic mechanical hear t valves; 2.5-3.5recurren t systemic emboli sm. THROMBOPLASTIN TIME [id number] 09:12:00 Test Item Value Reference Range Interpretation Comments THROMBOPLASTIN TIME 29.6 SECONDS 26.0-35.9 N INTERPRE TATIVE PARTIAL (test code = DATA:Th erapeutic PTT) range: Unfractionated heparin:47 - 71 seconds Argatroban:1.5 to 3 times the basel ine PTT CBC W/AUTO [id number] 09:07:00 Test Item Value Reference Range Interpretation Comments WHITE BLOOD CELL (test code = 4.8 x10 3/uL 4.8-10.8 N WBC) RED BLOOD CELL (test code = 4.70 x10 6/uL 4.70-6.10 N RBC) HEMOGLOBIN (test code = HGB) 14.6 g/dL 14.5-20 N HEMATOCRIT (test code = HCT) 45.6 % 42.0-52.0 N MEAN CELL VOLUME (test code = 97.0 fL 80.0-94.0 H MCV) MEAN CELL HGB (test code = MCH) 31.1 pg 27-31 H MEAN CELL HGB CONCENTRATION 32.0 G/DL 33-36.5 L (test code = MCHC) RED CELL DISTRIBUTION WIDTH 11.6 % 12.9-16.9 L (test code = RDW) PLATELET COUNT (test code = 200 150-440 N PLT) MEAN PLATELET VOLUME (test code 11.6 fL 8.9-12.4 N = MPV) NEUTROPHIL % (test code = NT%) 43.2 % 42.2-75.2 N LYMPHOCYTE % (test code = LY%) 41.5 % 20.5-51.1 N MONOCYTE % (test code = MO%) 13.1 % 1.7-9.3 H EOSINOPHIL % (test code = EO%) 1.2 % 0.0-7.0 N BASOPHIL % (test code = BA%) 0.8 % 0-2.5 N NEUTROPHIL # (test code = NT#) 2.08 x10 3/uL 1.80-7.70 N LYMPHOCYTE # (test code = LY#) 2.00 x10 3/uL 1.00-4.80 N MONOCYTE # (test code = MO#) 0.63 x10 3/uL 0.00-0.80 N EOSINOPHIL # (test code = EO#) 0.06 x10 3/uL 0.00-0.45 N BASOPHIL # (test code = BA#) 0.04 x10 3/uL 0.0-0.20 N MR LUMBAR SPINE WO [id number] 20:41:20HISTORY: History of fall in 2018. Complaining of lower back pain andbilateral leg pain. TECHNIQUE: Sagittal T2 FRFSE, T1, STIR and axial T2 FRFSE T1 studies oflumbar spines are obtained. Additional coronal T2 FRFSE study is alsoobtained. FINDINGS: No acute compression fracture or aggressive lesions ofthe bonesdetected. Spinal canal appears to be of adequate size and normalconus/cauda equina are found at the level of T12. Visualizedretroperitoneum is unremarkable for aortic aneurysm or enlarged lymph nodesor hydronephrosis. T12-L1: Degenerative disc disease with prominent Schmorl's node in theanterior inferior corner of T12 surrounded by degenerative marrow, likelysecondary to remote trauma. Prominent osteophytes are seen along theventral vertebral margins. Smaller osteophytes/bulging disc complex notedminimally encroaching into the spinal canal with minimal thecal saccompression. No significantforaminal encroachment. L1-L2: Degenerative disc disease with prominent disc osteophyte complexalongthe ventral vertebral margins, degenerative marrow in the upperanterior corner of the L2 vertebral sarah dy, minimal retrolisthesis of L1 L1L2, prominent bulging of the disc with mild thecal sac compression. Small,focal disc herniation is suspected encroaching by 3 mm into right lateralrecess region causing more focal thecal sac compression and probableminimal nerve root compression. L2-L3: Degenerative disc disease, vacuum phenomenon in the disc material,small disc osteophyte complex along the ventral vertebral margins, diffusebulging of the disc along with small osteophytes into the spinal canal withmild thecal sac compression. Mild bilateral facet arthritis noted. Nosignificant foraminal encroachment. L3-L4: Degenerative disc disease with vacuum phenomenon in the discmaterial, osteophytes and bulging disc on the ventral vertebral margins.Minimal bulging of the disc throughout spinal canal, slightly more into theleft side with mild thecal sac compression. A small 3 to 4 mm size fragmentof disc appears to have extruded, migrated upward behind left side of [id number] focal thecal sac compression.Mild bilateral facet arthritis noted with minimal fluid in both facetjoints. L4-L5: Prominent disc osteophyte complex along the ventral vertebralmargins, degenerative marrow in the anterosuperior corner of L4 and L5,likely secondary to remote trauma, minimal retrolisthesis of L4 over L5,prominent bulgingof the disc and thickened ligaments secondary to facetarthritis is noted with minimal fluid in both facet joints. Minimal thecalsac compression noted. Bulging disc is more prominent into the rightlatera l recess causing lateral recess and foraminal encroachment withthecal sac and probably mild right nerve root compression. L5-S1: Minimal disc desiccation without bulging disc. Bilateral facetarthritis with thickened ligaments and small amount of fluid noted in bothfacet joints. No significant thecal sac compression or foraminalencroachment. Abnormal marrow signal in the right anterior portion of the lower [id number] benign and could be a lipoma or a small hemangioma. CONCLUSIONS: 1. Degenerative discdisease at T12- L1, L1-L2, L2-L3, L3-L4, L4-L5 withbulging disc/osteophyte complex and thickened ligaments from facetarthritis causing mild thecal sac compression at all of these levels.2. Focal disc herniation encroaching by 3 mm into the right lateral recessat L1-L2 causing focal thecal sac and possibly minimal right nerve rootcompression.3. A small 3 to 4 mm size fragment of disc has herniated, extruded at L3-L4and has migrated upward behind the left side of L3 causing focal thecal sacand possibly minimal left and nerve root compression.4. More prominent disc osteophyte complex encroaching into the rightlateral recess neural neural foramen at L4-L5 possibly causing mild rightnerve root compression. [facility], Radiant Results Inft User - 01/10/2020 3:42 PM CDTHISTORY: History of fall in 2018. Complaining of lower back pain andbilateral leg pain.TECHNIQUE: Sagittal T2 FRFSE, T1, STIR and axial T2 FRFSE T1 studies oflumbar spines are obtained. Additional coronal T2 FRFSE study is alsoobtained.FINDINGS: No acute compression fracture or aggressive lesions of the bonesdetected. Spinal canal appears bird of adequate size and normalconus/cauda equina are found at the level of T12. Visualizedretroperitoneum is unremarkable for aortic aneurysm or enlarged lymph nodesor hydronephrosis.T12-L1: Degenerative disc disease with prominent Schmorl's node in theanterior inferior corner of T12 surrounded by degenerative marrow, likelysecondary to remote trauma. Prominent osteophytes are seen along theventral vertebral margins. Smaller osteophytes/bulging disc complex notedminimally encroaching into the spinalcanal with minimal thecal saccompression. No significant foraminal encroachment.L1-L2: Degenerative disc disease with prominent disc osteophyte complexalong the ventral vertebral margins, degenerative marrow in the upperanterior corner of the L2 vertebral body, minimal retrolisthesis of L1 L1L2, prominent bulging of the disc with mild thecal sac compression. Small,focal disc herniation is suspected encroaching by 3 mm into right lateralrecess region causing more focal thecal sac compression and probableminimal nerve root compression. L2-L3: Degenerative disc disease, vacuum phenomenon in the disc material,small disc osteophyte complex along the ventral vertebral margins, diffusebulging of the discalong with small osteophytes into the spinal canal withmild thecal sac compression. Mild bilateral facet arthritis noted. Nosignificant foraminal encroachment.L3-L4: Degenerative disc disease with vacuum phenomenon in the discmaterial, osteophytes and bulging disc on the ventral vertebral margins.Minimal bulging of the disc throughout spinal canal, slightly more into theleft side with mild thecal saccompression. A small 3 to 4 mm size fragmentof disc appears to have extruded, migrated upward behindleft side of [id number] focal thecal sac compression.Mild bilateral facet arthritis noted with minimal fluid in both facetjoints.L4-L5: Prominent disc osteophyte complex along the ventral vertebralmargins, degenerative marrow in the anterosuperior corner of L4 and L5,likely secondary to remote trauma, minimal retrolisthesis of L4 over L5,prominent bulging of the disc and thickened ligaments secondary to facetarthritis is noted with minimal fluid in both facet joints. Minimal thecalsac compression noted. Bulging disc is more prominent into the rightlateral recess causing lateral recess and foraminal encroachment withthecal sac and probably mild right nerve root compression.L5-S1: Minimal disc desicca tion without bulging disc. Bilateral facetarthritis with thickened ligaments and small amount of fluid noted in bothfacet joints. No significant thecal sac compression or foraminalencroachment.Abnormalmarrow signal in the right anterior portion of the lower [id number] benign and could be a lipoma or asmall hemangioma.CONCLUSIONS: 1. Degenerative disc disease at T12- L1, L1-L2, L2-L3, L3-L4, L4-L5 withbulging disc/osteophyte complex and thickened ligaments from facetarthritis causing mild thecal saccompression at all of these levels.2. Focal disc herniation encroaching by 3 mm into the right lateral recessat L1-L2 causing focal thecal sac and possibly minimal right nerve rootcompression.3. A small 3 to 4 mm size fragment of disc has herniated, extruded at L3-L4and has migrated upward behind the left side of L3 causing focal thecal sacand possibly minimal left and nerve root compression.4. More prominent disc osteophyte complex encroaching into the rightlateral recess neural neural foramen at L4-L5 possibly causing mild rightnerve root compression.[facility] CERVICAL SPINE WO [id number] 20:12:35HISTORY: History of fall in 2018. Patient complaining of neck and lowerback pain radiating down intoboth arms and both legs. TECHNIQUE: T1/T2/STIR sagittal and T1/T2 FRFSE/2D MERGE axial studies ofcervical spines were obtained. FINDINGS: No compression fracture or abnormal marrow changes of the bonesdetected. Spinal canal is of adequate size and no intrinsic cervical cordpathology detected. The anatomy of the craniocervical junction appearsnormal. C2-C3: Probably partially fused right facet joint with mild arthritis. C3-C4: Prominent bulging of the disc in the midline and slightly to theleft the midline indenting the ventral surface of the spinal cord withoutcausing significant compression or displacement of the spinal cord.Bilateral facet arthritis, slightly more left sided hypertrophic facetart hropathy with small amount of fluid in the facet joint. Foraminalencroachment noted on the left sideby uncovertebral osteophytes and facetdisease, however, minimal left nerve root compression suspected. C4-C5: Mild degenerative disc disease with small osteophytes along theventral vertebral margins, minimal disc bulge into the spinal canal withoutcord compression. Bilateral facet arthritis with minimal foraminalencroachment without significant nerve root compression. C5-C6: Moderate degenerative disc disease with narrowing of the disc spaceby more than 50%, shallow Schmorl's nodes in the vertebral endplatessurrounded by degenerative marrow. Prominent osteophytes along the ventralvertebral margins, prominent disc osteophyte complex dorsally encroachingthroughout the spinal canal, more into right side causing right lateralrecess/foraminal narrowing causing right nerve root compression. C6-C7: Moderate degenerative disc disease with narrowing of the disc spaceby more than 50%, reactive degenerative marrow changes in the vertebralendplates, prominent disc osteophyte complex along the ventral and dorsalvertebral margins encroaching throughout the spinal canal causing mildspinal stenosis without cord compression. Uncovertebral osteophytes arecausing mild bilateral foraminal narrowing slightly moreon the left sidewithout significant nerve root compression. C7-T1, T1-T2, T2-T3, T3-T4: Unremarkableexcept for mild facet arthritis. CONCLUSIONS:1. Degenerative disc disease at C5-C6 and C6-C7 with prominent discosteophyte complex causing mild diffuse spinal stenosis at C6-C7 andright-sided lateral recess stenosis at C5-C6 without significant cordcompression.2. Multilevel facet arthritis with more left sided hypertrophic facetarthropathy at C3-C4.3. Uncovertebral osteophytes and/or facet arthritis causing foraminalencroachment with minimal left nerve root compression suspected at C3-C4and right nerve root compression at C5-C6. [facility], Radiant Results Inft User - 01/10/2020 3:13 PM CDTHISTORY: History of fall in 2018. Patient complaining of neck and lowerback pain radiating down into both arms and both legs.TECHNIQUE: T1/T2/STIR sagittal and T1/T2 FRFSE/2D MERGE axial studies ofcervical spines were obtained.FINDINGS: No compression fracture or abnormal marrow changes of the bonesdetected. Spinal canal is of adequate size and no intrinsic cervical cordpathology detected. The anatomy of the cranioc ervical junction appearsnormal.C2-C3: Probably partially fused right facet joint with mild arthritis.C3-C4: Prominent bulging of the disc in the midline and slightly to theleft the midline indenting the ventral surface of the spinal cord withoutcausing significant compression or displacement of the spinal cord.Bilateral facet arthritis, slightly more left sided hypertrophic facetarthropathy with small amount of fluid in the facet joint. Foraminalencroachment noted on the left side by uncovertebral osteophytes and facetdisease, however, minimal left nerve root compression suspected.C4-C5: Mild degenerative disc disease with small osteophytes along theventral vertebral margins, minimal disc bulge into the spinal canal withoutcord compression. Bilateral facet arthritis with minimal foraminalencroachment without significant nerve root compression.C5-C6: Moderate degenerative disc disease with narrowing of the disc spaceby more than 50%, shallow Schmorl's nodes in the vertebral endplatessurrounded by degenerative marrow. Prominent osteophytes along the ventralvertebral margins, prominent disc osteophyte complex dorsally encroachingthroughout the spinal canal, more into right side causing right late ralrecess/foraminal narrowing causing right nerve root compression.C6-C7: Moderate degenerative discdisease with narrowing of the disc spaceby more than 50%, reactive degenerative marrow changes in the vertebralendplates, prominent disc osteophyte complex along the ventral and dorsalvertebral marginsencroaching throughout the spinal canal causing mildspinal stenosis without cord compression. Uncovertebral osteophytes arecausing mild bilateral foraminal narrowing slightly more on the left sidewithout significant nerve root compression.C7-T1, T1-T2, T2-T3, T3-T4: Unremarkable except for mild facet a rthritis. CONCLUSIONS:1. Degenerative disc disease at C5-C6 and C6-C7 with prominent discosteophyte complex causing mild diffuse spinal stenosis at C6-C7 andright-sided lateral recess stenosis at C5-H4pmecstr significant cordcompression.2. Multilevel facet arthritis with more left sided hypertrophic facetarthropathy at C3-C4.3. Uncovertebral osteophytes and/or facet arthritis causing foraminalencroachment with minimal left nerve root compression suspected at C3-C4and right nerve root compression atC5-C6.[facility], [id number] 13:16:00 Test Item Value Reference Range Interpretation Comments HCV NUMERIC RESULT (BEAKER) [id number] IU/mL <15 H (test code = 2700) This test uses a Real-Time Polymerase Chain Reaction (RT-PCR) methodology and was performed using [employer]BB[employer] Ampliprep/ABBY TaqMan HCV test kit version 2.0 ([employer]Reportable range for this assay is 15 - 100,000,000 IU per mL (1.18 - 8.00 Log IU/mL).BLOOD [id number] 02:01:00 Test Item Value Reference Range Interpretation Comments CULTURE (BEAKER) (test No growth in 5 days code = 1095) BLOOD [id number] 02:01:00 Test Item Value Reference Range Interpretation Comments CULTURE (BEAKER) (test No growth in 5 days code = 1095) CBC W/PLT COUNT & AUTO [id number] 07:11:00 Test Item Value Reference Range Interpretation Comments WHITE BLOOD CELL COUNT (BEAKER) 6.0 K/ L 3.5-10.5 (test code = 775) RED BLOOD CELL COUNT (BEAKER) 4.00 M/ L 4.63-6.08 L (test code = 761) HEMOGLOBIN (BEAKER) (test code = 12.3 GM/DL 13.7-17.5 L 410) HEMATOCRIT (BEAKER) (test code = 38.2 % 40.1-51.0 L 411) MEAN CORPUSCULAR VOLUME (BEAKER) 95.5 fL 79.0-92.2 H (test code = 753) MEAN CORPUSCULAR HEMOGLOBIN 30.8 pg 25.7-32.2 (BEAKER) (test code = 751) MEAN CORPUSCULAR HEMOGLOBIN CONC 32.2 GM/DL 32.3-36.5 L (BEAKER) (test code = 752) RED CELL DISTRIBUTION WIDTH 12.0 % 11.6-14.4 (BEAKER) (test code = 412) PLATELET COUNT (BEAKER) (test 163 K/CU MM 150-450 code = 756) MEAN PLATELET VOLUME (BEAKER) 11.4 fL 9.4-12.4 (test code = 754) NUCLEATED RED BLOOD CELLS 0 /100 WBC 0-0 (BEAKER) (test code = 413) (CELLAVISION MANUAL DIFF)2019-07-04 07:11:00 Test Item Value Reference Range Interpretation Comments NEUTROPHILS - REL 60 % (CELLAVISION)(BEAKER) (test code = 2816) LYMPHOCYTES - REL 22 % (CELLAVISION)(BEAKER) (test code = 2817) MONOCYTES - REL 13 % (CELLAVISION)(BEAKER) (test code = 2818) EOSINOPHILS - REL 3 % (CELLAVISION)(BEAKER) (test code = 2819) METAMYELOCYTES - REL 1 % 0-0 H (CELLAVISION)(BEAKER) (test code = 2821) BANDS - REL (CELLAVISION)(BEAKER) 1 % 0-10 (test code = 2826) NEUTROPHILS - ABS 3.60 K/ul 1.78-5.38 (CELLAVISION)(BEAKER) (test code = 2830) LYMPHOCYTES - ABS 1.32 K/ul 1.32-3.57 (CELLAVISION)(BEAKER) (test code = 2831) MONOCYTES - ABS 0.78 K/uL 0.30-0.82 (CELLAVISION)(BEAKER) (test code = 2832) EOSINOPHILS - ABS 0.18 K/uL 0.04-0.54 (CELLAVISION)(BEAKER) (test code = 2834) METAMYELOCYTES - ABS 0.06 K/uL 0.00-0.00 H (CELLAVISION)(BEAKER) (test code = 2836) BANDS - ABS (CELLAVISION)(BEAKER) 0.06 K/uL 0.00-0.80 (test code = 2840) TOTAL COUNTED (BEAKER) (test code = 100 1351) PLT MORPHOLOGY (BEAKER) (test code Normal = 486) TOXIC GRANULATION (BEAKER) (test Present code = 771) POLYCHROMATOPHILLIC RBCS(BEAKER) 1+ few (test code = 478) HYPOCHROMIA (BEAKER) (test code = 1+ few 963) POIKILOCYTES (BEAKER) (test code = 1+ few 966) OVALOCYTES (BEAKER) (test code = 1+ few 477) DEBI CELLS (BEAKER) (test code = 1+ few 474) ARTIFACT (CELLAVISION)(BEAKER) Present (test code = 3432) PLATELET CONCENTRATION Adequate (CELLAVISION)(BEAKER) (test code = 3438) Received comment: User comments: Slide comments:COMPREHENSIVE METABOLIC PANEL 2019-07-04 04:22:00 Test Item Value Reference Range Interpretation Comments TOTAL PROTEIN 6.8 gm/dL 6.0-8.3 Specimen sligh tly (BEAKER) (test code = hemoly zed 770) ALBUMIN (BEAKER) 3.2 g/dL 3.5-5.0 L Specimen sl ightly (test code = 1145) hemolyzed ALKALINE PHOSPHATASE 49 U/L 40-150 (BEAKER) (test code = 346) BILIRUBIN TOTAL 1.0 mg/dL 0.2-1.2 Specimen sli ghtly (BEAKER) (test code = hemoly zed 377) SODIUM (BEAKER) (test 137 meq/L 136-145 code = 381) POTASSIUM (BEAKER) 3.8 meq/L 3.5-5.1 Specimen slightly (test code = 379) hemolyzed CHLORIDE (BEAKER) 108 meq/L 98-107 H (test code = 382) CO2 (BEAKER) (test 24 meq/L 22-29 code = 355) BLOOD UREA NITROGEN 9 mg/dL 7-21 (BEAKER) (test code = 354) CREATININE (BEAKER) 0.86 mg/dL 0.57-1.25 Specimen slightly (test code = 358) hemolyzed GLUCOSE RANDOM 107 mg/dL 70-105 H (BEAKER) (test code = 652) CALCIUM (BEAKER) 8.8 mg/dL 8.4-10.2 (test code = 697) AST (SGOT) (BEAKER) 58 U/L 5-34 H Specimen slightly (test code = 353) hemolyzed ALT (SGPT) (BEAKER) 43 U/L 6-55 Specimen slightly (test code = 347) hemolyzed EGFR (BEAKER) (test 109 ESTIMATE D GFR IS code = 1092) mL/min/1.73 sq NOT ACCURA TE m CREATININE CLEARANCE IN PREDICTING GLOMERULAR FILTRATION RATE . ESTIMATED GFR I S NOT APPLICABLE FOR DIALYSIS PATIEN TS. [id number] 20:02:00 Test Item Value Reference Range Interpretation Comments PROSTATE SPECIFIC ANTIGEN (BEAKER) 6.1 ng/mL 0.0-4.0 H (test code = 844) COMPREHENSIVE METABOLIC [id number] 06:52:00 Test Item Value Reference Range Interpretation Comments TOTAL PROTEIN 6.1 gm/dL 6.0-8.3 (BEAKER) (test code = 770) ALBUMIN (BEAKER) 3.1 g/dL 3.5-5.0 L (test code = 1145) ALKALINE PHOSPHATASE 52 U/L 40-150 (BEAKER) (test code = 346) BILIRUBIN TOTAL 1.0 mg/dL 0.2-1.2 (BEAKER) (test code = 377) SODIUM (BEAKER) (test 140 meq/L 136-145 code = 381) POTASSIUM (BEAKER) 4.0 meq/L 3.5-5.1 (test code = 379) CHLORIDE (BEAKER) 111 meq/L 98-107 H (test code = 382) CO2 (BEAKER) (test 23 meq/L 22-29 code = 355) BLOOD UREA NITROGEN 11 mg/dL 7-21 (BEAKER) (test code = 354) CREATININE (BEAKER) 0.86 mg/dL 0.57-1.25 (test code = 358) GLUCOSE RANDOM 99 mg/dL 70-105 (BEAKER) (test code = 652) CALCIUM (BEAKER) 8.7 mg/dL 8.4-10.2 (test code = 697) AST (SGOT) (BEAKER) 72 U/L 5-34 H (test code = 353) ALT (SGPT) (BEAKER) 48 U/L 6-55 (test code = 347) EGFR (BEAKER) (test 109 ESTIMATE D GFR IS code = 1092) mL/min/1.73 sq NOT ACCURA TE m CREATININE CLEARANCE IN PREDICTING GLOMERULAR FILTRATION RATE . ESTIMATED GFR I S NOT APPLICABLE FOR DIALYSIS PATIEN TS. CBC W/PLT COUNT & AUTO [id number] 05:07:00 Test Item Value Reference Range Interpretation Comments WHITE BLOOD CELL COUNT (BEAKER) 8.5 K/ L 3.5-10.5 (test code = 775) RED BLOOD CELL COUNT (BEAKER) 3.88 M/ L 4.63-6.08 L (test code = 761) HEMOGLOBIN (BEAKER) (test code = 11.8 GM/DL 13.7-17.5 L 410) HEMATOCRIT (BEAKER) (test code = 36.5 % 40.1-51.0 L 411) MEAN CORPUSCULAR VOLUME (BEAKER) 94.1 fL 79.0-92.2 H (test code = 753) MEAN CORPUSCULAR HEMOGLOBIN 30.4 pg 25.7-32.2 (BEAKER) (test code = 751) MEAN CORPUSCULAR HEMOGLOBIN CONC 32.3 GM/DL 32.3-36.5 (BEAKER) (test code = 752) RED CELL DISTRIBUTION WIDTH 12.0 % 11.6-14.4 (BEAKER) (test code = 412) PLATELET COUNT (BEAKER) (test 154 K/CU MM 150-450 code = 756) MEAN PLATELET VOLUME (BEAKER) 12.0 fL 9.4-12.4 (test code = 754) NUCLEATED RED BLOOD CELLS 0 /100 WBC 0-0 (BEAKER) (test code = 413) NEUTROPHILS RELATIVE PERCENT 64 % (BEAKER) (test code = 429) LYMPHOCYTES RELATIVE PERCENT 18 % (BEAKER) (test code = 430) MONOCYTES RELATIVE PERCENT 13 % (BEAKER) (test code = 431) EOSINOPHILS RELATIVE PERCENT 2 % (BEAKER) (test code = 432) BASOPHILS RELATIVE PERCENT 1 % (BEAKER) (test code = 437) NEUTROPHILS ABSOLUTE COUNT 5.47 K/ L 1.78-5.38 H (BEAKER) (test code = 670) LYMPHOCYTES ABSOLUTE COUNT 1.56 K/ L 1.32-3.57 (BEAKER) (test code = 414) MONOCYTES ABSOLUTE COUNT (BEAKER) 1.10 K/ L 0.30-0.82 H (test code = 415) EOSINOPHILS ABSOLUTE COUNT 0.15 K/ L 0.04-0.54 (BEAKER) (test code = 416) BASOPHILS ABSOLUTE COUNT (BEAKER) 0.05 K/ L 0.01-0.08 (test code = 417) IMMATURE GRANULOCYTES-RELATIVE 3 % 0-1 H PERCENT (BEAKER) (test code = 2801) VANCOMYCIN LEVEL, [id number] 10:20:00 Test Item Value Reference Range Interpretation Comments VANCOMYCIN TROUGH (BEAKER) (test 12.7 ug/mL 10.0-20.0 code = 522) Draw 30 min prior to scheduled dose, HOLD if level > 20 mcg/mL, inform MD. URINALYSIS W/ REFLEX URINE [id number] 10:18:00 Test Item Value Reference Range Interpretation Comments COLOR (BEAKER) (test code = 470) Yellow CLARITY (BEAKER) (test code = 469) Clear SPECIFIC GRAVITY UA (BEAKER) (test 1.011 1.001-1.035 code = 468) PH UA (BEAKER) (test code = 467) 7.0 5.0-8.0 PROTEIN UA (BEAKER) (test code = Negative Negative 464) GLUCOSE UA (BEAKER) (test code = Negative Negative 365) KETONES UA (BEAKER) (test code = Negative Negative 371) BILIRUBIN UA (BEAKER) (test code = Negative Negative 462) BLOOD UA (BEAKER) (test code = 461) Trace Negative A NITRITE UA (BEAKER) (test code = Negative Negative 465) LEUKOCYTE ESTERASE UA (BEAKER) Negative Negative (test code = 466) UROBILINOGEN UA (BEAKER) (test code 0.2 mg/dL 0.2-1.0 = 463) RBC UA (BEAKER) (test code = 519) 1 /HPF WBC UA (BEAKER) (test code = 520) 2 /HPF SQUAMOUS EPITHELIAL (BEAKER) (test < /HPF code = 516) SOURCE(BEAKER) (test code = 2795) CBC W/PLT COUNT & AUTO [id number] 09:25:00 Test Item Value Reference Range Interpretation Comments WHITE BLOOD CELL COUNT (BEAKER) 15.2 K/ L 3.5-10.5 H (test code = 775) RED BLOOD CELL COUNT (BEAKER) 3.80 M/ L 4.63-6.08 L (test code = 761) HEMOGLOBIN (BEAKER) (test code = 11.6 GM/DL 13.7-17.5 L 410) HEMATOCRIT (BEAKER) (test code = 37.0 % 40.1-51.0 L 411) MEAN CORPUSCULAR VOLUME (BEAKER) 97.4 fL 79.0-92.2 H (test code = 753) MEAN CORPUSCULAR HEMOGLOBIN 30.5 pg 25.7-32.2 (BEAKER) (test code = 751) MEAN CORPUSCULAR HEMOGLOBIN CONC 31.4 GM/DL 32.3-36.5 L (BEAKER) (test code = 752) RED CELL DISTRIBUTION WIDTH 11.9 % 11.6-14.4 (BEAKER) (test code = 412) PLATELET COUNT (BEAKER) (test 126 K/CU MM 150-450 L code = 756) MEAN PLATELET VOLUME (BEAKER) 12.3 fL 9.4-12.4 (test code = 754) NUCLEATED RED BLOOD CELLS 0 /100 WBC 0-0 (BEAKER) (test code = 413) (CELLAVISION MANUAL DIFF)2019-07-02 09:25:00 Test Item Value Reference Range Interpretation Comments NEUTROPHILS - REL 81 % (CELLAVISION)(BEAKER) (test code = 2816) LYMPHOCYTES - REL 7 % (CELLAVISION)(BEAKER) (test code = 2817) MONOCYTES - REL 8 % (CELLAVISION)(BEAKER) (test code = 2818) BANDS - REL (CELLAVISION)(BEAKER) 3 % 0-10 (test code = 2826) ATYPICAL LYMPHOCYTES - REL 1 % 0-0 H (CELLAVISION)(BEAKER) (test code = 2829) NEUTROPHILS - ABS 12.31 K/ul 1.78-5.38 H (CELLAVISION)(BEAKER) (test code = 2830) LYMPHOCYTES - ABS 1.06 K/ul 1.32-3.57 L (CELLAVISION)(BEAKER) (test code = 2831) MONOCYTES - ABS 1.22 K/uL 0.30-0.82 H (CELLAVISION)(BEAKER) (test code = 2832) BANDS - ABS (CELLAVISION)(BEAKER) 0.46 K/uL 0.00-0.80 (test code = 2840) ATYPICAL LYMPHOCYTES - ABS 0.15 K/uL 0.00-0.00 H (CELLAVISION)(BEAKER) (test code = 2858) TOTAL COUNTED (BEAKER) (test code 100 = 1351) RBC MORPHOLOGY (BEAKER) (test code Normal = 762) WBC MORPHOLOGY (BEAKER) (test code Normal = 487) PLT MORPHOLOGY (BEAKER) (test code Normal = 486) ARTIFACT (CELLAVISION)(BEAKER) Present (test code = 3432) PLATELET CONCENTRATION Decreased (CELLAVISION)(BEAKER) (test code = 3438) Received comment: User comments: Slide comments:COMPREHENSIVE METABOLIC PANEL 2019-07-02 06:30:00 Test Item Value Reference Range Interpretation Comments TOTAL PROTEIN 6.2 gm/dL 6.0-8.3 Specimen sligh tly (BEAKER) (test code = hemoly zed 770) ALBUMIN (BEAKER) 2.9 g/dL 3.5-5.0 L Specimen sl ightly (test code = 1145) hemolyzed ALKALINE PHOSPHATASE 71 U/L 40-150 (BEAKER) (test code = 346) BILIRUBIN TOTAL 1.2 mg/dL 0.2-1.2 Specimen sli ghtly (BEAKER) (test code = hemoly zed 377) SODIUM (BEAKER) (test 138 meq/L 136-145 code = 381) POTASSIUM (BEAKER) 4.9 meq/L 3.5-5.1 Specimen slightly (test code = 379) hemolyzed CHLORIDE (BEAKER) 111 meq/L 98-107 H (test code = 382) CO2 (BEAKER) (test 21 meq/L 22-29 L code = 355) BLOOD UREA NITROGEN 20 mg/dL 7-21 (BEAKER) (test code = 354) CREATININE (BEAKER) 0.98 mg/dL 0.57-1.25 Specimen slightly (test code = 358) hemolyzed GLUCOSE RANDOM 95 mg/dL 70-105 (BEAKER) (test code = 652) CALCIUM (BEAKER) 8.3 mg/dL 8.4-10.2 L (test code = 697) AST (SGOT) (BEAKER) 108 U/L 5-34 H Specimen slightly (test code = 353) hemolyzed ALT (SGPT) (BEAKER) 55 U/L 6-55 Specimen slightly (test code = 347) hemolyzed EGFR (BEAKER) (test 93 mL/min/1.73 ESTIMA LESVIA GFR IS code = 1092) sq m NOT ACCURATE CREATININE CLEARANCE IN PREDICTING GLOMERULAR FILTRATION RATE . ESTIMATED GFR I S NOT APPLICABLE FOR DIALYSIS PATIEN TS. LACTIC ACID, [id number] 04:40:00 Test Item Value Reference Range Interpretation Comments LACTATE BLOOD VENOUS 0.8 mmol/L 0.5-2.2 Specime n moderately (2) (BEAKER) (test hemolyzed code = 2872) U/S, RENAL, [id number] 01:19:00REFERRING MD: MOLINA KWOKeasloretta for exam:->pyelonephritisFINAL REPORT U/S, RENAL, COMPLETE CLINICAL [...] findings: None. IMPRESSION: Unremarkable renal ultrasound. Signed: Shaeffer, Thomas MDReport Verified Date/Time: 07/02/2019 01:19:40 ALYSIS W/ REFLEX URINE [id number] 15:47:00 Test Item Value Reference Range Interpretation Comments COLOR (BEAKER) (test code = 470) Yellow CLARITY (BEAKER) (test code = 469) Clear SPECIFIC GRAVITY UA (BEAKER) (test 1.008 1.001-1.035 code = 468) PH UA (BEAKER) (test code = 467) 6.5 5.0-8.0 PROTEIN UA (BEAKER) (test code = Negative Negative 464) GLUCOSE UA (BEAKER) (test code = Negative Negative 365) KETONES UA (BEAKER) (test code = Negative Negative 371) BILIRUBIN UA (BEAKER) (test code = Negative Negative 462) BLOOD UA (BEAKER) (test code = Small Negative A 461) NITRITE UA (BEAKER) (test code = Negative Negative 465) LEUKOCYTE ESTERASE UA (BEAKER) Trace Negative A (test code = 466) UROBILINOGEN UA (BEAKER) (test 3.0 mg/dL 0.2-1.0 H code = 463) RBC UA (BEAKER) (test code = 519) 9 /HPF WBC UA (BEAKER) (test code = 520) 5 /HPF BACTERIA (BEAKER) (test code = Occasional 517) MUCUS (BEAKER) (test code = 1574) Rare SQUAMOUS EPITHELIAL (BEAKER) (test < /HPF code = 516) SOURCE(BEAKER) (test code = 2795) VITAMIN B12 AND [id number] 10:01:00 Test Item Value Reference Range Interpretation Comments VITAMIN B12 (BEAKER) (test code = 202 pg/mL 213-816 L 774) FOLATE (BEAKER) (test code = 362) 9.7 ng/mL >=7.0 CBC W/PLT COUNT & AUTO [id number] 07:08:00 Test Item Value Reference Range Interpretation Comments WHITE BLOOD CELL COUNT (BEAKER) 16.1 K/ L 3.5-10.5 H (test code = 775) RED BLOOD CELL COUNT (BEAKER) 3.99 M/ L 4.63-6.08 L (test code = 761) HEMOGLOBIN (BEAKER) (test code = 12.4 GM/DL 13.7-17.5 L 410) HEMATOCRIT (BEAKER) (test code = 38.8 % 40.1-51.0 L 411) MEAN CORPUSCULAR VOLUME (BEAKER) 97.2 fL 79.0-92.2 H (test code = 753) MEAN CORPUSCULAR HEMOGLOBIN 31.1 pg 25.7-32.2 (BEAKER) (test code = 751) MEAN CORPUSCULAR HEMOGLOBIN CONC 32.0 GM/DL 32.3-36.5 L (BEAKER) (test code = 752) RED CELL DISTRIBUTION WIDTH 11.8 % 11.6-14.4 (BEAKER) (test code = 412) PLATELET COUNT (BEAKER) (test 122 K/CU MM 150-450 L code = 756) MEAN PLATELET VOLUME (BEAKER) 12.1 fL 9.4-12.4 (test code = 754) NUCLEATED RED BLOOD CELLS 0 /100 WBC 0-0 (BEAKER) (test code = 413) (CELLAVISION MANUAL DIFF)2019-07-01 07:08:00 Test Item Value Reference Range Interpretation Comments NEUTROPHILS - REL 63 % (CELLAVISION)(BEAKER) (test code = 2816) LYMPHOCYTES - REL 8 % (CELLAVISION)(BEAKER) (test code = 2817) MONOCYTES - REL 4 % (CELLAVISION)(BEAKER) (test code = 2818) METAMYELOCYTES - REL 3 % 0-0 H (CELLAVISION)(BEAKER) (test code = 2821) MYELOCYTES - REL 1 % 0-0 H (CELLAVISION)(BEAKER) (test code = 2822) BANDS - REL (CELLAVISION)(BEAKER) 21 % 0-10 H (test code = 2826) NEUTROPHILS - ABS 10.14 K/ul 1.78-5.38 H (CELLAVISION)(BEAKER) (test code = 2830) LYMPHOCYTES - ABS 1.29 K/ul 1.32-3.57 L (CELLAVISION)(BEAKER) (test code = 2831) MONOCYTES - ABS 0.64 K/uL 0.30-0.82 (CELLAVISION)(BEAKER) (test code = 2832) METAMYELOCYTES - ABS 0.48 K/uL 0.00-0.00 H (CELLAVISION)(BEAKER) (test code = 2836) MYELOCYTES-ABS 0.16 K/uL 0.00-0.00 H (CELLAVISION)(BEAKER) (test code = 2837) BANDS - ABS (CELLAVISION)(BEAKER) 3.38 K/uL 0.00-0.80 H (test code = 2840) TOTAL COUNTED (BEAKER) (test code 100 = 1351) SMUDGE CELLS (BEAKER) (test code = Present 1371) GIANT PLATELETS (BEAKER) (test Present code = 313) POIKILOCYTES (BEAKER) (test code = 3+ many 966) DEBI CELLS (BEAKER) (test code = 1+ few 474) ARTIFACT (CELLAVISION)(BEAKER) Present (test code = 3432) PLATELET CONCENTRATION Decreased (CELLAVISION)(BEAKER) (test code = 3438) Received comment: User comments: Slide comments:TSH/FREE T4 IF INDICATED 2019-07-01 05:51:00 Test Item Value Reference Range Interpretation Comments THYROID STIMULATING HORMONE 2.11 uIU/mL 0.35-4.94 (BEAKER) (test code = 772) LACTIC ACID, [id number] 03:48:00 Test Item Value Reference Range Interpretation Comments LACTATE BLOOD VENOUS (2) (BEAKER) 2.3 mmol/L 0.5-2.2 H (test code = 2872) Specimen slightly [id number] 03:39:00 Test Item Value Reference Range Interpretation Comments AMMONIA (BEAKER) (test code = 348) 38 mol/L 18-72 LACTIC ACID, [id number] 22:38:00 Test Item Value Reference Range Interpretation Comments LACTATE BLOOD VENOUS (2) (BEAKER) 3.5 mmol/L 0.5-2.2 H (test code = 2872) CT, BRAIN, WITHOUT [id number] 21:52:00REFERRING MD: MOLINA HENDRICKSON FINAL REPORT CT, BRAIN, WITHOUT CONTRAST CLINICAL INDICATION: Encephalopathy COMPARISON: None TECHNIQUE: Noncontrast axial CT imaging of the brain and skull. Coronal and sagittal reformats obtained. DOSE REDUCTION: Dose modulation, iterative reconstruction, and/or weight-based adju stment of the mA/kV was utilized to reduce the radiation dose to as low as reasonably achievable. FINDINGS:Cerebral parenchyma: No mass, acute intracranial hemorrhage or acute cortical infarct.Cerebellum and brainstem: No acute findings.Ventricles: Ventricular size is commensurate with parenchymal volume loss.Extra-axial spaces: Unremarkable. Calvarium and skull base: Intact.Paranasal sinuses and mastoid air cells: Imaged chambers are without acute abnormality.Orbital contents: Included portions unremarkable. Additional findings: None. IMPRESSION: No acute intracranial abnormality. If there is pers istent clinical concern for intracranial pathology, MR examination is recommended for further characterization. Signed: Sung Monte MDReport Verified Date/Time: 06/30/2019 21:52:13 LACTIC ACID, [id number] 20:57:00 Test Item Value Reference Range Interpretation Comments LACTATE BLOOD VENOUS 3.0 mmol/L 0.5-2.2 H Specime n slightly (2) (BEAKER) (test hemolyzed code = 2872) [id number] 19:33:00 Test Item Value Reference Range Interpretation Comments PROCALCITONIN (BEAKER) (test code 60.70 ng/mL <0.05 HH = 3036) SEPSIS RISK (ng/mL)Low: 0.05-0.50Intermediate: 0.51-2.00High: >=2.01 COMPREHENSIVE METABOLIC [id number] 19:20:00 Test Item Value Reference Range Interpretation Comments TOTAL PROTEIN 6.4 gm/dL 6.0-8.3 (BEAKER) (test code = 770) ALBUMIN (BEAKER) 3.2 g/dL 3.5-5.0 L (test code = 1145) ALKALINE PHOSPHATASE 68 U/L 40-150 (BEAKER) (test code = 346) BILIRUBIN TOTAL 2.7 mg/dL 0.2-1.2 H (BEAKER) (test code = 377) SODIUM (BEAKER) (test 133 meq/L 136-145 L code = 381) POTASSIUM (BEAKER) 4.0 meq/L 3.5-5.1 (test code = 379) CHLORIDE (BEAKER) 99 meq/L 98-107 (test code = 382) CO2 (BEAKER) (test 22 meq/L 22-29 code = 355) BLOOD UREA NITROGEN 18 mg/dL 7-21 (BEAKER) (test code = 354) CREATININE (BEAKER) 1.23 mg/dL 0.57-1.25 (test code = 358) GLUCOSE RANDOM 95 mg/dL 70-105 (BEAKER) (test code = 652) CALCIUM (BEAKER) 8.4 mg/dL 8.4-10.2 (test code = 697) AST (SGOT) (BEAKER) 39 U/L 5-34 H (test code = 353) ALT (SGPT) (BEAKER) 22 U/L 6-55 (test code = 347) EGFR (BEAKER) (test 72 mL/min/1.73 ESTIMA LESVIA GFR IS code = 1092) sq m NOT ACCURATE CREATININE CLEARANCE IN PREDICTING GLOMERULAR FILTRATION RATE . ESTIMATED GFR I S NOT APPLICABLE FOR DIALYSIS PATIEN TS. Specimen slightly ictericLACTIC ACID, [id number] 19:15:00 Test Item Value Reference Range Interpretation Comments LACTATE BLOOD VENOUS (2) (BEAKER) 4.9 mmol/L 0.5-2.2 H (test code = 3512) Specimen slightly ictericURINALYSIS W/ REFLEX URINE [id number] 18:07:00 Test Item Value Reference Range Interpretation Comments COLOR (BEAKER) (test code = 470) Brown CLARITY (BEAKER) (test code = 469) Hazy SPECIFIC GRAVITY UA (BEAKER) (test 1.021 1.001-1.035 code = 468) PH UA (BEAKER) (test code = 467) 5.5 5.0-8.0 PROTEIN UA (BEAKER) (test code = 70 mg/dL Negative A 464) GLUCOSE UA (BEAKER) (test code = Negative Negative 365) KETONES UA (BEAKER) (test code = 10 mg/dL Negative A 371) BILIRUBIN UA (BEAKER) (test code = Positive Negative A 462) BLOOD UA (BEAKER) (test code = 461) Large Negative A NITRITE UA (BEAKER) (test code = Negative Negative 465) LEUKOCYTE ESTERASE UA (BEAKER) Large Negative A (test code = 466) UROBILINOGEN UA (BEAKER) (test code 3.0 mg/dL 0.2-1.0 H = 463) RBC UA (BEAKER) (test code = 519) 372 /HPF WBC UA (BEAKER) (test code = 520) 64 /HPF MUCUS (BEAKER) (test code = 1574) Few SQUAMOUS EPITHELIAL (BEAKER) (test < /HPF code = 516) AMORPHOUS CRYSTALS (BEAKER) (test Rare code = 1584) SOURCE(BEAKER) (test code = 2795) HEPATITIS B PCR, [id number] 09:45:00 Test Item Value Reference Range Interpretation Comments HBV RESULT COMPONENT HBV DNA not detected HBV DNA not detected (BEAKER) (test code = 2701) This test uses a Real-Time Polymerase Chain Reaction (RT-PCR) methodology and was performed using [employer] TaqMan HBV Test, v2.0 ([employer]Reportable range for this assay is 20 - 170,000,000 IU per mL (1.30 - 8.23 Log IU/mL).This test uses a Real-Time Polymerase Chain Reaction (RT-PCR) methodology and was performed using [employer] TaqMan HBV Test, v2.0 ([employer]Reportable range for this assay is 20 - 170,000,000 IU per mL (1.30 - 8.23 Log IU/mL).MR, ABDOMEN, [id number] 18:00:00REFERRING MD: MOLINA BELTRAN REPORT TECHNIQUE: MRI of the abdomen WITHOUT and WITH intravenous contrast. INDICATION: 63-year-old man with chronic hepatitis C. COMPARISON: None. FINDINGS: LOWER THORAX: Unremarkable. LIVER: No overt cirrhosis or hepatic steatosis. No suspicious hepatic lesions. Few scattered subcentimeter arterially enhancing foci in the liver without corresponding washout or pseudocapsule.BILIARY: Gallbladder is unremarkable. No biliary ductal dilatation or filling defect.SPLEEN: No splenomegaly.PANCREAS: No focal masses or ductal dilatation. ADRENALS: No adrenal nodules.KIDNEYS/URETERS: No hydronephrosis or solid mass lesions. Subcentimeter right renal cyst. PERITONEUM/RETROPERITONEUM: No free fluid.LYMPH NODES: No lymphadenopathy.VESSELS: Unremarkable. GI TRACT: No distention or wall thickening. Duodenal diverticulum measures 5.4 x 5.1 cm. BONES AND SOFT TISSUES: Degenerative changes of the visualized spine. Soft tissues are unremarkable. IMPRESSION:No overt cirrhosis or hepaticsteatosis. No suspicious liver lesions. Few subcentimeter arterially enhancing foci are indeterminate and may be shunts. RECOMMENDATION:Follow-up abdomen MRI with and without intravenous contrast (liver protocol) may be obtained in 6 months for reassessment. Signed: Demetrius Vines MDReport Verified Date/Time: 02/12/2019 18:00:30 Reading Location: [facility] [place] B1 C013Y CT Body Reading Room [id number] 17:27:00 Test Item Value Reference Range Interpretation Comments FERRITIN (BEAKER) (test code = 361) 675 ng/mL 5-275 H HEPATITIS B SURFACE [id number] 15:21:00 Test Item Value Reference Range Interpretation Comments HEPATITIS B SURFACE ANTIBODY < mIU/mL <8.0 (BEAKER) (test code = 647) HEPATITIS B CORE ANTIBODY, [id number] 15:21:00 Test Item Value Reference Range Interpretation Comments HEPATITIS B CORE TOTAL ANTIBODY Reactive Nonreactive A (BEAKER) (test code = 497) [id number] 14:21:00 Test Item Value Reference Range Interpretation Comments THYROID STIMULATING HORMONE 1.29 uIU/mL 0.35-4.94 (BEAKER) (test code = 772) HIV-1 ANTIGEN WITH HIV-1/2 [id number] 14:21:00 Test Item Value Reference Range Interpretation Comments HIV-1 ANTIGEN WITH HIV 1\T\2 Nonreactive Nonreactive ANTIBODY (2) (BEAKER) (test code = 2586) HEPATITIS B SURFACE [id number] 14:20:00 Test Item Value Reference Range Interpretation Comments HEPATITIS B SURFACE ANTIGEN (2) Nonreactive Nonreactive (BEAKER) (test code = 2585) HEPATITIS A ANTIBODY, [id number] 14:20:00 Test Item Value Reference Range Interpretation Comments HEPATITIS A IGG ANTIBODY (BEAKER) Nonreactive Nonreactive (test code = 2797) [id number] 14:16:00 Test Item Value Reference Range Interpretation Comments POC-CREATININE 0.9 mg/dL 0.6-1.3 TESTED AT [facility] 6720 (BEAKER) (test [place] code = 1859) [address] POC-EGFR (BEAKER) 103 mL/min/1.73M2 (test code = 1860) CBC W/PLT COUNT & AUTO [id number] 14:16:00 Test Item Value Reference Range Interpretation Comments WHITE BLOOD CELL COUNT (BEAKER) 4.1 K/ L 3.5-10.5 (test code = 775) RED BLOOD CELL COUNT (BEAKER) 4.88 M/ L 4.63-6.08 (test code = 761) HEMOGLOBIN (BEAKER) (test code = 15.4 GM/DL 13.7-17.5 410) HEMATOCRIT (BEAKER) (test code = 47.8 % 40.1-51.0 411) MEAN CORPUSCULAR VOLUME (BEAKER) 98.0 fL 79.0-92.2 H (test code = 753) MEAN CORPUSCULAR HEMOGLOBIN 31.6 pg 25.7-32.2 (BEAKER) (test code = 751) MEAN CORPUSCULAR HEMOGLOBIN CONC 32.2 GM/DL 32.3-36.5 L (BEAKER) (test code = 752) RED CELL DISTRIBUTION WIDTH 11.6 % 11.6-14.4 (BEAKER) (test code = 412) PLATELET COUNT (BEAKER) (test 221 K/CU MM 150-450 code = 756) MEAN PLATELET VOLUME (BEAKER) 11.6 fL 9.4-12.4 (test code = 754) NUCLEATED RED BLOOD CELLS 0 /100 WBC 0-0 (BEAKER) (test code = 413) NEUTROPHILS RELATIVE PERCENT 40 % (BEAKER) (test code = 429) LYMPHOCYTES RELATIVE PERCENT 42 % (BEAKER) (test code = 430) MONOCYTES RELATIVE PERCENT 16 % (BEAKER) (test code = 431) EOSINOPHILS RELATIVE PERCENT 1 % (BEAKER) (test code = 432) BASOPHILS RELATIVE PERCENT 1 % (BEAKER) (test code = 437) NEUTROPHILS ABSOLUTE COUNT 1.62 K/ L 1.78-5.38 L (BEAKER) (test code = 670) LYMPHOCYTES ABSOLUTE COUNT 1.74 K/ L 1.32-3.57 (BEAKER) (test code = 414) MONOCYTES ABSOLUTE COUNT (BEAKER) 0.67 K/ L 0.30-0.82 (test code = 415) EOSINOPHILS ABSOLUTE COUNT 0.04 K/ L 0.04-0.54 (BEAKER) (test code = 416) BASOPHILS ABSOLUTE COUNT (BEAKER) 0.03 K/ L 0.01-0.08 (test code = 417) IRON, TIBC, % SAT. (WITHOUT FERRITIN)2019-02-12 14:14:00 Test Item Value Reference Range Interpretation Comments IRON (BEAKER) (test code = 547) 139.0 ug/dL 40.0-160.0 TOTAL IRON BINDING CAPACITY 368 ug/dL 250-450 (BEAKER) (test code = 769) IRON % SATURATION (2) (BEAKER) 38 % 20-55 (test code = 2590) COMPREHENSIVE METABOLIC [id number] 14:10:00 Test Item Value Reference Range Interpretation Comments TOTAL PROTEIN 7.8 gm/dL 6.0-8.3 Specimen sligh tly (BEAKER) (test code = hemoly zed 770) ALBUMIN (BEAKER) 4.0 g/dL 3.5-5.0 Specimen sl ightly (test code = 1145) hemolyzed ALKALINE PHOSPHATASE 51 U/L 40-150 (BEAKER) (test code = 346) BILIRUBIN TOTAL 2.3 mg/dL 0.2-1.2 H Specimen sli ghtly (BEAKER) (test code = hemoly zed 377) SODIUM (BEAKER) (test 138 meq/L 136-145 code = 381) POTASSIUM (BEAKER) 4.8 meq/L 3.5-5.1 Specimen slightly (test code = 379) hemolyzed CHLORIDE (BEAKER) 102 meq/L 98-107 (test code = 382) CO2 (BEAKER) (test 28 meq/L 22-29 code = 355) BLOOD UREA NITROGEN 13 mg/dL 7-21 (BEAKER) (test code = 354) CREATININE (BEAKER) 0.84 mg/dL 0.57-1.25 Specimen slightly (test code = 358) hemolyzed GLUCOSE RANDOM 100 mg/dL 70-105 (BEAKER) (test code = 652) CALCIUM (BEAKER) 9.4 mg/dL 8.4-10.2 (test code = 697) AST (SGOT) (BEAKER) 41 U/L 5-34 H Specimen slightly (test code = 353) hemolyzed ALT (SGPT) (BEAKER) 41 U/L 6-55 Specimen slightly (test code = 347) hemolyzed EGFR (BEAKER) (test 111 ESTIMATE D GFR IS code = 1092) mL/min/1.73 sq NOT ACCURA TE m CREATININE CLEARANCE IN PREDICTING GLOMERULAR FILTRATION RATE . ESTIMATED GFR I S NOT APPLICABLE FOR DIALYSIS PATIEN TS. Specimen slightly ictericPROTHROMBIN [id number] 13:30:00 Test Item Value Reference Range Interpretation Comments PROTIME (BEAKER) (test code = 12.8 seconds 11.9-14.2 759) INR (BEAKER) (test code = 370) 1.0 <=5.9 Effective 01/31/2019: PT Reference Range ChangeNew: 11.9-14.2 Previous: 11.7- 14.7RECOMMENDED COUMADIN/WARFARIN INR THERAPY RANGESSTANDARD DOSE: 2.0-3.0 Includes: PROPHYLAXIS for venous thrombosis, systemic embolization; TREATMENT for venous thrombosis and/or pulmonary embolus.HIGH RISK: Target INR is 2.5-3.5 for patients wiht mechanical heart valves. Notes Date/Time Note Provider Source 2020-02-13 08:15:00-00:00 [id number] [facility] [address] [place] [address] PATIENT NAME: CECE DIAS ADMIT DATE: 06/24 ACCOUNT NO: [id number] ROOM NO: AGE: 64 REPORT TYPE: OPERATIVE REPORT SEX: M ADMITTING PHYSICIAN: ATTENDING PHYSICIAN:Jaycob Yang MD OPERATION DATE: 02/13/2020 SURGEON: Jaycob Yang MD. REHEAT FURNACE OPERATOR: Claus Aviles. PREOPERATIVE DIAGNOSES: Herniated nucleus pulpos us C5-C6, herniated nucleus pulposus C6-C7, cervical radiculopathy. POSTOPERATIVE DIAGNOSES: Herniated nucleus pulpo selene C5-C6, herniated nucleus pulposus C6-C7, cervical radiculopathy. PROCEDURE: Anterior C5-C6 diskectomy, an terior C6-C7 diskectomy, decompression of neural elements C5-C6, decompression of neura l elements C6-C7, anterior interbody fusion C5-C6, ante rior interbody fusion C6-C7, use of locally obtained bone with demineralized bone matrix, PEEK interb julio cesar device, C5-C6, PEEK interbody device C6-C7, anterior Zavatio n plating with screw fixation, C5, C6, C7. ANESTHESIA: INDICATIONS: This patient presented with an increasing history of neck and arm pain. He failed nonoperative management. He had been demonstrated to have marked disk osteophyte complexes at C5-C6 and C6 -C7. He now wished to proceed with surgery. PROCEDURE IN DETAIL: With th e patient in supine, general anesthesia was induced and endotracheal intubation performed. Neck was prepped and draped. Time-out was undertaken. All participants concurr ed. Standard oblique incision was made on the left side of neck. Platysma was incised. Sternomastoid was retracted laterally and trachea and esophagus medially. I came down on prevertebral fascia. Needle markers were placed. Correct leve ls were identified. I now carried out anterior diskect omies at C5-C6 and C6-C7. At both levels, there was a very large disk osteophyte complexes. There wa s clear neural compression. Thorough decompression was accomplished. I now carried out a interbody fusion. I used a PEEK interbody device at both levels. T hese were filled with locally obtained bone and demineralized bone mat shaka. They were countersunk into place. I then selected an anterior Zavation plate. This allowed excellent screw fixation at C5, C6, and C7. Excellent position w as noted intraoperatively and on x-ray. Wound was irrigated. Final x-rays look ed excellent. There had been no change in monitoring. Blood loss was minimal. Wound was now irrigated and closed in layers. The patient was extubated and returned to recovery room in good condition. PATIENT NAME: CECE DIAS ACCOUNT #: [id number] Dictated By: Jaycob Yang MD WT: OP:PVIKA/MARLO/ALFONSO Conf#: [id number]/DID#: [id number] Authenticated by Jaycob Yang MD On 2019 08:11:22 AM at 0811 PATIENT NAME: CECE DIAS ACCOUNT #: [id number] 2020-02-11 08:51:00-00:00 [id number] [facility] [address] [place] [id number] PATIENT NAME: CECE DIAS ADMIT DATE: ACCOUNT NO: [id number] ROOM NO: AGE: 64 REPORT TYPE: eELECTROCARDIOGRAM SEX: M ADMITTING PHYSICIAN: ATTENDING PHYSICIAN: Jaycob Yang MD Order: [id number] Test Reason : SDS Test Date/Time Stamp: TueFeb 11 2020 08:51:36 Blood Pressure : / mmHG Vent. Rate : 066 BPM Atrial Rate : 066 BPM P-R Int : 178 ms QRS Dur : 096 ms QT Int : 416 ms P-R-T Axes : 042 -44 027 degree s QTc Int : 436 ms Normal sinus rhythm with sinus arrhythmia Left axis deviation Abnormal ECG No previous ECGs available Confirmed by BRITTANY LOPEZ MD ([id number]) on 02/11/2020 1:36:03 PM Referred By: Jaycob Yang Confirmed by:BRITTANY WEIR MD Electronically Signed by Brittany Lopez MD on 04/24 at 1336 PATIENT NAME: CECE DIAS ACCOUNT #: [id number]
[2023-04-13] MEDS ORDERED: ACETAMINOPHEN 325 MG TABLET ONE ×2 (05:20→11:27)
[2023-04-13] MEDS ORDERED: METRONIDAZOLE 500mg IVPB 500 MG/100 ML BAG IV ONE (05:21)
[2023-04-13] MEDS ORDERED: ONDANSETRON 4 MG/2 ML VIAL ONE (05:21)
[2023-04-13] MEDS ORDERED: MORPHINE 4 MG/ML SYR ONE (05:21)
[2023-04-13] MEDS ORDERED: CEFTRIAXONE 1000 MG/VIAL ONE (05:21)
[2023-04-13] MEDS ORDERED: KETOROLAC 30 MG/ML INJ ONE (05:21)
[2023-04-13] MEDS ORDERED: NA CHLORIDE 0.9% 2,000 ML ONE (05:22)
[2023-04-13 05:25] LABS: Renal Epithelial <5 /HPF (None Seen); Specific Gravity 1.023 (1.005-1.030); Urine Bacteria 20-50 /HPF (<20); Urine Bilirubin NEGATIVE (Negative); Urine Blood 2+ (Negative); Urine Clarity Extremely Turbid (Clear); Urine Color Yellow (Yellow); Urine Glucose NEGATIVE (Negative); Urine Mucus Slight /HPF (None Seen); Urine Protein 1+ (Negative); Urine Urobilinogen Normal (Normal); Urine pH 5.5 (5.0-7.0)
[2023-04-13 06:00] LABS: Absolute Lymphocytes (CBC) 0.7 K/uL (0.7-4.9); Hematocrit 38.2 % (39.6-49.0); Lymphocytes % 5.7 % (15.3-44.8); MCV 94.4 fL (80-100); MPV 9.4 fL (7.6-11.3); Platelets 206 thou/uL (152-406); RBC Red Blood Cell Count 4.04 M/uL (4.33-5.43)
[2023-04-13 06:10] LABS: Albumin 3.1 g/dL (3.4-5.0); Bilirubin Total 1.8 mg/dL (0.2-1.0); Potassium 4.2 mEq/L (3.5-5.1); Protein, Total 7.4 g/dL (6.4-8.2)
--- NOTE | 2023-04-13 06:31 | ER ---
Nurse's Notes [facility] Name: Yash Garcia Sr Age: 67 yrs Sex: Male : 1955 Arrival Date: 04/13/2023 Time: 02:03 Bed 20 Private MD: Diagnosis: Pyelonephritis acute Presentation: 04/13 02:11 Chief complaint: Patient states: urinary frequency with chills with lower back pain of pf1 8,onset Tuesday and bilateral hand pain,onset 1 year, worse in since Tuesday. Patient stated has been lifting weights recently. Coronavirus screen: Vaccine status: Patient reports receiving the 2nd dose of the covid vaccine. 3 doses of Moderna Client denies travel out of the [place] in the last 14 days. At this time, the client does not indicate any symptoms associated with coronavirus-19. Ebola Screen: Patient negative for fever greater than or equal to 101.5 degrees Fahrenheit, and additional compatible Ebola Virus Disease symptoms. Initial Sepsis Screen: Does the patient meet any 2 criteria? HR > 90 bpm. No. Patient's initial sepsis screen is negative. Does the patient have a suspected source of infection? No. Patient's initial sepsis screen is negative. Risk Assessment: Do you want to hurt yourself or someone else? Patient reports no desire to harm self or others. 02:11 Method Of Arrival: Ambulatory pf1 02:11 Acuity: PARISH 3 pf1 Historical: - Allergies: 02:27 Iodinated Contrast Media - IV Dye; pf1 - PMHx: 02:27 Diverticulitis; Hypertension; heard of hearing; pf1 - PSHx: 02:27 neck surgery; colon surgery from diverticulitis; right ankle surgery; right jaw; pf1 - Immunization history:: Adult Immunizations up to date, Client reports receiving the 2nd dose of the Covid vaccine, Last tetanus immunization: > 10 years ago Flu vaccine is not up to date. - Social history:: Smoking status: Patient denies any tobacco usage or history of. Patient/guardian denies using alcohol, street drugs. - Family history:: not pertinent. Screenin:30 [facility] ED Fall Risk Assessment (Adult) History of falling in the last 3 months, ha1 including since admission No falls in past 3 months (0 pts) Confusion or Disorientation No (0 pts) Intoxicated or Sedated No (0 pts) Impaired Gait No (0 pts) Mobility Assist Device Used No (0 pt) Altered Elimination No (0 pt). Abuse screen: Denies threats or abuse. Denies injuries from another. Nutritional screening: No deficits noted. Tuberculosis screening: No symptoms or risk factors identified. Assessment: 04:50 General: Appears uncomfortable, Behavior is calm, cooperative. Pain: Complains of pain ha1 in back Pain does not radiate. Pain currently is 10 out of 10 on a pain scale. Neuro: Level of Consciousness is awake, alert, obeys commands, Oriented to person, place, time. Cardiovascular: Patient's skin is warm and dry. Respiratory: Airway is patent Respiratory effort is even, unlabored, Respiratory pattern is regular, symmetrical. GI: Abdomen is round Bowel sounds present X 4 quads. Abdomen is tender to palpation in umbilical area. Musculoskeletal: Circulation, motion, and sensation intact. 05:50 Reassessment: Patient and/or family updated on plan of care and expected duration. Pain ha1 level reassessed. Patient is alert, oriented x 3, equal unlabored respirations, skin warm/dry/pink. 06:35 Reassessment: Patient and/or family updated on plan of care and expected duration. Pain ha1 level reassessed. Patient is alert, oriented x 3, equal unlabored respirations, skin warm/dry/pink. pain 7/10 Patient states feeling better. Patient states symptoms have improved. 07:00 Reassessment: Patient appears in no apparent distress at this time. Patient and/or kc6 family updated on plan of care and expected duration. Pain level reassessed. Patient is alert, oriented x 3, equal unlabored respirations, skin warm/dry/pink. 07:27 Reassessment: pt reports sudden onset chest pain. pt appears to be diaphoretic. [facility] and given to Dr. Guadarrama oral temp = 97.7. 08:27 Reassessment: Patient appears in no apparent distress at this time. Patient and/or kc6 family updated on plan of care and expected duration. Pain level reassessed. Patient is alert, oriented x 3, equal unlabored respirations, skin warm/dry/pink. Patient denies pain at this time. Patient states feeling better. Patient states symptoms have improved. 09:27 Reassessment: Patient appears in no apparent distress at this time. Patient and/or kc6 family updated on plan of care and expected duration. Pain level reassessed. Patient is alert, oriented x 3, equal unlabored respirations, skin warm/dry/pink. 10:36 Reassessment: Patient is alert/active/playful, equal unlabored respirations, skin kc6 warm/dry/pink. attempted to call report to 4th floor. nurse yanira unavailable at this time. Vital Signs: 02:11 BP 119 / 82; Pulse 102; Resp 18; Temp 98.4; Pulse Ox 97% on R/A; Weight 109.32 kg; pf1 Height 6 ft. 2 in. ; Pain 8/10; 05:30 BP 114 / 95; Pulse 102; Resp 20 S; Pulse Ox 96% ; ha1 06:35 BP 114 / 60; Pulse 98; Resp 18 S; Temp 99.9; Pulse Ox 94% on R/A; ha1 07:56 BP 125 / 69; Pulse 92; Resp 20 S; Pulse Ox 92% on R/A; kc6 09:38 BP 110 / 74; Pulse 80; Resp 21 S; Pulse Ox 96% on R/A; kc6 02:11 Body Mass Index 30.94 (109.32 kg, 187.96 cm) pf1 02:11 Pain Scale: Adult pf1 ED Course: 02:09 Patient arrived in ED. jj6 02:27 Triage completed. pf1 02:30 Arm band placed on right wrist. ha1 02:30 Patient has correct armband on for positive identification. Placed in gown. Bed in low ha1 position. Call light in reach. Side rails up X 1. 02:32 Eduardo Connors MD is Attending Physician. sp4 03:58 CT Abd/Pelvis - Without Contrast In Process Unspecified. EDMS 05:30 Inserted saline lock: 20 gauge in left antecubital area, using aseptic technique. Blood ha1 collected. IV inserted by Dr. Guadarrama 06:23 Blood Culture Adult (2) Sent. ha1 06:30 Harsha Lynch is Hospitalizing Provider. sp4 06:35 Urine Culture Sent. ha1 07:00 Report received from Leana Schaefr RN. kc6 10:50 No provider procedures requiring assistance completed. Patient admitted, IV remains in kc6 place. Administered Medications: 05:12 Drug: Ondansetron IVP 4 mg Route: IVP; Site: left antecubital; ha1 07:57 Follow up: Response: No adverse reaction kc6 05:15 Drug: morphine IVP or IV 4 mg Route: IVP; Infused Over: 4 mins; Site: left antecubital; ha1 07:57 Follow up: Response: No adverse reaction kc6 05:24 Drug: Acetaminophen PO 650 mg Route: PO; ha1 07:58 Follow up: Response: No adverse reaction; Temperature is decreased kc6 05:25 Drug: NS 0.9% IV 1000 ml Route: IV; Rate: 1 bolus; Site: left antecubital; ha1 07:57 Follow up: Response: No adverse reaction; IV Status: Completed infusion; IV Intake: kc6 1000ml 05:25 Drug: NS 0.9% IV 1000 ml Route: IV; Rate: 1 bolus; Site: left antecubital; ha1 07:58 Follow up: Response: No adverse reaction; IV Status: Completed infusion; IV Intake: kc6 1000ml 05:35 Drug: Ketorolac IVP 30 mg Route: IVP; Site: left antecubital; ha1 07:57 Follow up: Response: No adverse reaction kc6 05:50 Drug: Rocephin - Rocephin (cefTRIAXone) IVPB 1 grams Route: IVPB; Infused Over: 30 ha1 mins; Site: left antecubital; 07:57 Follow up: Response: No adverse reaction; IV Status: Completed infusion; IV Intake: 51moel0 06:20 Drug: metroNIDAZOLE IVPB 500 mg Volume: 100 ml; Route: IVPB; Rate: 200 ml/hr; Infused ha1 Over: 30 mins; Site: left antecubital; 07:58 Follow up: Response: No adverse reaction; IV Status: Completed infusion; IV Intake: kc6 100ml Medication: 10:50 VIS not applicable for this client. kc6 Intake: 07:57 IV: 50ml; Total: 50ml. kc6 07:57 IV: 1000ml; Total: 1050ml. kc6 07:58 IV: 1000ml; Total: 2050ml. kc6 07:58 IV: 100ml; Total: 2150ml. kc6 Outcome: 06:30 Decision to Hospitalize by Provider. sp4 10:50 Admitted to Med/surg accompanied by tech, via wheelchair, room 429, with chart, Report gypsy6 called to [place] 10:50 Condition: improved 10:50 Instructed on the need for admit. 12:02 Patient left the ED. kc6 Signatures: Dispatcher [employer] EDMS Cindy Ribeiro Leana Galo RN RN ha1 Jaqueline Marte RN RN kc6 Elba Mensah RN RN pf1 Eduardo Connors MD MD sp4 Corrections: (The following items were deleted from the chart) 06:40 06:35 BP 114 / 60; Pulse 98bpm; Resp 18bpm; Spontaneous; Pulse Ox 94% RA; ha1 ha1 06:58 04:50 General: Appears comfortable, Behavior is calm, cooperative, ha1 ha1
--- NOTE | 2023-04-13 06:31 | EDPHYS ---
Physician Documentation [facility] Name: Yash Garcia Sr Age: 67 yrs Sex: Male : 1955 Arrival Date: 04/13/2023 Time: 02:03 Bed 20 Private MD: ED Physician Eduardo Connors HPI: 04/13 02:32 This 67 yrs old Black Male presents to ER via Ambulatory with complaints of Urinary sp4 Incontinence, Low Back Pain, Fever, Constipation, General Weakness. 04:16 Very pleasant 67-year-old male with history of prior urinary tract infection, history sp4 of hypertension and diverticulitis, presents with acute onset of pain and burning with urination, associated with low back pain chills and reported fever at home. On presentation patient is shaking and having acute chills. Historical: - Allergies: 02:27 Iodinated Contrast Media - IV Dye; pf1 - PMHx: 02:27 Diverticulitis; Hypertension; heard of hearing; pf1 - PSHx: 02:27 neck surgery; colon surgery from diverticulitis; right ankle surgery; right jaw; pf1 - Immunization history:: Adult Immunizations up to date, Client reports receiving the 2nd dose of the Covid vaccine, Last tetanus immunization: > 10 years ago Flu vaccine is not up to date. - Social history:: Smoking status: Patient denies any tobacco usage or history of. Patient/guardian denies using alcohol, street drugs. - Family history:: not pertinent. ROS: 04:16 Constitutional: Negative for and weight loss, positive fever and chills Abdomen/GI: sp4 Negative for abdominal pain, nausea, vomiting, diarrhea, and constipation, Back: Positive for lower back pain, negative for injury : Negative for injury, bleeding, discharge, and swelling, positive for pain and burning on urination, positive for cloudy urine 04:16 All other systems are negative. Exam: 04:16 Constitutional: This is a well developed, well nourished patient who is awake, alert, sp4 ill-appearing male, acute chills, tremulous, uncomfortable appearing but nontoxic Head/Face: Normocephalic, atraumatic. Eyes: Pupils equal round and reactive to light, extra-ocular motions intact. Lids and lashes normal. Conjunctiva and sclera are not injected. Cornea within normal limits. Periorbital areas with no swelling, redness, or edema. ENT: Nares patent. No nasal discharge, no septal abnormalities noted. Tympanic membranes are normal and external auditory canals are clear. Oropharynx with no redness, swelling, or masses, exudates, or evidence of obstruction, uvula midline. Mucous membranes moist. Neck: Trachea midline, no thyromegaly or masses palpated, and no cervical lymphadenopathy. Supple, full range of motion without nuchal rigidity, or vertebral point tenderness. Chest/axilla: Normal chest wall appearance and motion. Nontender with no deformity. No lesions are appreciated. Cardiovascular: Regular rate and rhythm with a normal S1 and S2. No gallops, murmurs, or rubs. Normal PMI, no JVD. No pulse deficits. Respiratory: Lungs have equal breath sounds bilaterally, clear to auscultation and percussion. No rales, rhonchi or wheezes noted. No increased work of breathing, no retractions or nasal flaring. Abdomen/GI: Soft, non-tender, with normal bowel sounds. No distension or tympany. No guarding or rebound. No evidence of tenderness throughout. Back: No spinal tenderness. No costovertebral tenderness. Male : Normal genitalia with no discharge or lesions. Patient is uncircumcised male, no inguinal hernias, no urethral discharge, no irritation or lesions, Skin: Warm, dry with normal turgor. Normal color with no rashes, no lesions, and no evidence of cellulitis. MS/ Extremity: Pulses equal, no cyanosis. Neurovascular intact. Full, normal range of motion. Neuro: Awake and alert, GCS 15, oriented to person, place, time, and situation. Cranial nerves II-XII grossly intact. Motor strength 5/5 in all extremities. Sensory grossly intact. Psych: Awake, alert, with orientation to person, place and time. Behavior, mood, and affect are within normal limits 07:30 ECG was reviewed by the Attending Physician. EKG time 0 715 there is normal sinus sp4 rhythm at the rate of 87, incomplete right bundle branch block, no ST elevation or depression, respiratory motion artifact. Vital Signs: 02:11 BP 119 / 82; Pulse 102; Resp 18; Temp 98.4; Pulse Ox 97% on R/A; Weight 109.32 kg; pf1 Height 6 ft. 2 in. ; Pain 8/10; 05:30 BP 114 / 95; Pulse 102; Resp 20 S; Pulse Ox 96% ; ha1 06:35 BP 114 / 60; Pulse 98; Resp 18 S; Temp 99.9; Pulse Ox 94% on R/A; ha1 07:56 BP 125 / 69; Pulse 92; Resp 20 S; Pulse Ox 92% on R/A; kc6 09:38 BP 110 / 74; Pulse 80; Resp 21 S; Pulse Ox 96% on R/A; kc6 02:11 Body Mass Index 30.94 (109.32 kg, 187.96 cm) pf1 02:11 Pain Scale: Adult pf1 MDM: 02:34 Patient medically screened. sp4 04:16 Differential diagnosis: arthritis, strain, fracture, sciatica, contusion, Herniated sp4 disc UTI. Data reviewed: vital signs, nurses notes, old medical records, lab test result(s), radiologic studies, CT scan. 06:27 ED course: TECHNIQUE: Non contrast CT of the abdomen and pelvis with coronal and sp4 sagittal reformats. All CT scans at this facility use dose modulation, iterative reconstruction, and/or weight based dosing when appropriate to reduce radiation dose to as low as reasonably achievable. COMPARISON: 10/12/2019 FINDINGS: Lower chest: No focal consolidation. Liver: Unremarkable. Gallbladder: No calcified stone. Pancreas: Unchanged 3 cm low-density area in the head of the pancreas. Spleen: Within normal limits. Kidney: A 2 mm nonobstructing stone in the right kidney. Adrenal glands: Within normal limits. Vascular structures: Mild atherosclerosis of the aorta and its major branches. Bowel: Supraumbilical hernia containing small portion of the anterior wall of the transverse colon without associated bowel obstruction or inflammatory changes. Postsurgical changes in the rectum. No bowel distention. Appendix: Normal. Peritoneum: No free fluid or free air. Lymph Nodes: No lymphadenopathy. Reproductive: Unremarkable. Urinary bladder: Decompressed with diffuse wall thickening. Osseous structures: Multilevel degenerative changes. Lytic sclerotic focus in the right femoral head is unchanged. Soft tissues: Unremarkable. IMPRESSION: 1. Supraumbilical hernia containing small portion of the anterior wall of the transverse colon without associated bowel obstruction or inflammatory changes. 2. A 2 mm nonobstructing stone in the right kidney. 3. A 3 cm area of hypodensity in the pancreatic head, unchanged. Recommend multiphasic CT or MRI of the liver for further evaluation. 4. Mild diffuse urinary bladder wall thickening which is probably due to under distention, however cystitis not completely excluded. 5. Mixed lytic sclerotic changes in the right femoral head suggesting a vascular necrosis, unchanged. . 06:29 Consideration of Admission/Observation Patient was admitted/placed on observation. sp4 Escalation of care including admission/observation considered. Management of patient was discussed with the following: Hospitalist: Admitting hospitalist . 06:31 ED course: CT revealed - IMPRESSION: 1. Supraumbilical hernia containing small portion sp4 of the anterior wall of the transverse colon without associated bowel obstruction or inflammatory changes. 2. A 2 mm nonobstructing stone in the right kidney. 3. A 3 cm area of hypodensity in the pancreatic head, unchanged. Recommend multiphasic CT or MRI of the liver for further evaluation. 4. Mild diffuse urinary bladder wall thickening which is probably due to under distention, however cystitis not completely excluded. 5. Mixed lytic sclerotic changes in the right femoral head suggesting a vascular necrosis, unchanged. . ED course: Patient warrants admission for management of acute pyelonephritis associated with leukocytosis.. . 08 02:34 Order name: CBC with Diff; Complete Time: 06:26 sp4 04/13 02:34 Order name: CMP; Complete Time: 06:26 sp4 04/13 02:34 Order name: Lipase; Complete Time: 06:26 sp4 04/13 02:34 Order name: Urinalysis w/ reflexes; Complete Time: 05:28 sp4 04/13 05:05 Order name: Blood Culture Adult (2) sp4 04/13 05:05 Order name: Lactate w/ 2H reflex if indic.; Complete Time: 06:26 sp4 04/13 05:05 Order name: Procalcitonin; Complete Time: 06:55 sp4 04/13 05:13 Order name: C-Reactive Protein; Complete Time: 06:26 EDMS 04/13 05:29 Order name: Urine Culture EDKS 04/13 09:45 Order name: Hemoglobin A1c EDKS 04/13 09:45 Order name: Lipid Profile EDKS 04/13 09:45 Order name: Lipid Profile EDKS 04/13 09:49 Order name: Magnesium EDKS 04/13 09:49 Order name: Phosphorus EDMS 04/13 09:49 Order name: T4 Free EDMS 04/13 09:49 Order name: Thyroid Stimulating Hormone EDMS 04/13 09:49 Order name: Urinalysis w/ reflexes EDMS 04/13 09:49 Order name: Basic Metabolic Panel EDMS 04/13 09:49 Order name: Basic Metabolic Panel EDMS 04/13 09:49 Order name: CBC with Automated Diff EDMS 04/13 09:49 Order name: CBC with Automated Diff EDMS 04/13 03:21 Order name: CT Abd/Pelvis - Without Contrast sp4 04/13 10:02 Order name: Abdomen Wo Cont EDMS 04/13 09:49 Order name: Heart Healthy EDMS 04/13 02:34 Order name: IV Saline Lock; Complete Time: 06:44 sp4 04/13 02:34 Order name: Labs collected and sent; Complete Time: 06:44 sp4 04/13 05:21 Order name: Misc. Order: RECOLLECT ALL LABS; Complete Time: 06:44 rv1 EC:30 Rate is 87 beats/min. Rhythm is regular, Normal Sinus Rhythm. QRS Orient is Normal. CT sp4 interval is prolonged. QRS interval is normal. QT interval is normal. T waves are Normal. No ST changes noted. Clinical impression: No evidence of ischemia. Interpreted by me. Administered Medications: 05:12 Drug: Ondansetron IVP 4 mg Route: IVP; Site: left antecubital; ha1 07:57 Follow up: Response: No adverse reaction kc6 05:15 Drug: morphine IVP or IV 4 mg Route: IVP; Infused Over: 4 mins; Site: left antecubital; ha1 07:57 Follow up: Response: No adverse reaction kc6 05:24 Drug: Acetaminophen PO 650 mg Route: PO; ha1 07:58 Follow up: Response: No adverse reaction; Temperature is decreased kc6 05:25 Drug: NS 0.9% IV 1000 ml Route: IV; Rate: 1 bolus; Site: left antecubital; ha1 07:57 Follow up: Response: No adverse reaction; IV Status: Completed infusion; IV Intake: kc6 1000ml 05:25 Drug: NS 0.9% IV 1000 ml Route: IV; Rate: 1 bolus; Site: left antecubital; ha1 07:58 Follow up: Response: No adverse reaction; IV Status: Completed infusion; IV Intake: kc6 1000ml 05:35 Drug: Ketorolac IVP 30 mg Route: IVP; Site: left antecubital; ha1 07:57 Follow up: Response: No adverse reaction kc6 05:50 Drug: Rocephin - Rocephin (cefTRIAXone) IVPB 1 grams Route: IVPB; Infused Over: 30 ha1 mins; Site: left antecubital; 07:57 Follow up: Response: No adverse reaction; IV Status: Completed infusion; IV Intake: [id number] 06:20 Drug: metroNIDAZOLE IVPB 500 mg Volume: 100 ml; Route: IVPB; Rate: 200 ml/hr; Infused ha1 Over: 30 mins; Site: left antecubital; 07:58 Follow up: Response: No adverse reaction; IV Status: Completed infusion; IV Intake: kc6 100ml Disposition Summary: 04/13/23 06:30 Hospitalization Ordered Hospitalization Status: Inpatient Admission sp4 Provider: Harsha Lynch [facility] Condition: Fair sp4 Problem: new sp4 Symptoms: have improved sp4 Bed/Room Type: Standard sp4 Room Assignment: 429(04/13/23 10:28) dw Diagnosis - Pyelonephritis acute sp4 Forms: - Medication Reconciliation Form sp4 - SBAR form sp4 Signatures: Dispatcher [employer] EDMS Toyin Banks RN RN dw Leana Schafer RN RN ha1 Elba Mensah RN RN Puja Milton Eduardo Small MD MD sp4 Jaqueline Marte RN kc6 Corrections: (The following items were deleted from the chart) 03:25 03:20 Abdomen Pelvis W Con+CT.RAD.BRZ ordered. EDMS EDMS 05:13 05:06 C-REACTIVE PROTEIN+C.LAB.BRZ ordered. EDMS EDMS 10:28 06:30 sp4 dw
[2023-04-13] MEDS ORDERED: LABETALOL 20 MG/4ML SYRINGE IV PRN (09:43)
[2023-04-13] MEDS ORDERED: ONDANSETRON 4 MG/2 ML VIAL IV PRN (09:47)
--- NOTE | 2023-04-13 10:03 | P.HP ---
Certification for Inpatient Patient admitted to: Inpatient With expected LOS: >2 Midnights Patient will require the following post-hospital care: None Practitioner: I am a practitioner with admitting privileges, knowledge of patient current condition, hospital course, and medical plan of care. Services: Services provided to patient in accordance with Admission requirements found in Title 42 Section 412.3 of the Code of Federal Regulations Patient History Date of Service: 04/13/23 Reason for admission: Urinary frequency, urinary incontinence, fever and chills History of Present Illness: Patient is a 67-year-old male with a past medical history significant for hypertension, diverticulitis, hard of hearing, chronic back pain who presents wi th complaint of urinary frequency, urinary incontinence, fever and chills .that has been ongoing for the past 3 days. Patient also reports pain located in the substernal chest onset while he was in the ER. Patient rated pain as 8/10 in severity and described pain as aching in quality. Patient also reports that he has had minimal bowel movement in the last 2 days. Patient reported associated signs and symptoms of dizziness, headache, fatigue, chills and generalized weakness. Patient denies any other signs and symptoms. Symptoms are aggravated or relieved by nothing. Patient decided to present to the hospital due to worsening symptoms. Allergies Iodinated Contrast Media [Iodinated Contrast Media - IV Dye] Allergy (Verified 05/15/18 21:18) Anaphylaxis Home Medications: Amlodipine Besylate [Norvasc] 10 mg PO DAILY WITH BREAKFAST 09/29/16 Valsartan 320 mg PO DAILY 05/15/18 - Past Medical/Surgical History Diabetic: No -: HTN -: Diverticulitis -: Chronic back pain -: Hard of hearing -: Neck surgery -: Colon surgery from diverticulitis -: Right ankle surgery -: Right Jaw Surgery - Family History Father -: Cancer Mother -: Other (see notes) (Dementia) - Social History Smoking Status: Never smoker Alcohol use: No CD- Drugs: No Caffeine use: Yes Place of Residence: Home Review of Systems General: Fever, Chills, Weakness, Other (Fatigue) Eyes: Unremarkable ENT: Other (Hard of hearing) Respiratory: Unremarkable Cardiovascular: Chest Pain Gastrointestinal: Unremarkable Genitourinary: Frequency, Incontinence Musculoskeletal: Back Pain Integumentary: Unremarkable Neurological: Weakness, Other (Dizziness, headache) Lymphatics: Unremarkable Physical Examination - Physical Exam General: Alert, In no apparent distress, Oriented x3, Cooperative HEENT: Atraumatic, PERRLA, Mucous membr. moist/pink, EOMI, Sclerae nonicteric Neck: Supple, 2+ carotid pulse no bruit, No LAD, Without JVD or thyroid abnormality Respiratory: Clear to auscultation bilaterally, Normal air movement Cardiovascular: No edema, Regular rate/rhythm, Normal S1 S2 Capillary refill: <2 Seconds Gastrointestinal: Normal bowel sounds, Soft and benign, No tenderness Musculoskeletal: No clubbing, No swelling, No tenderness Integumentary: No rashes, No significant lesion Neurological: Normal speech, Normal tone, Normal affect Lymphatics: No axilla or inguinal lymphadenopathy - Studies Laboratory Data (last 24 hrs) 04/13/23 04/13/23 05:40 05:40 WBC 12.60 H Hgb 12.2 L Hct 38.2 L Plt Count 206 Sodium 133 L Potassium 4.2 BUN 16 Creatinine 1.31 H Glucose 138 H Total Bilirubin 1.8 H AST 23 ALT 21 Alkaline Phosphatase 55 Lipase 13 Assessment and Plan - Plan --Sepsis POA. Likely secondary to UTI. Blood cultures pending. Continue antibiotics. --UTI POA. Continue antibiotics. Urine cultures pending. --Chest pain. Likely atypical. Will trend serial troponins. Echocardiogram pending to assess cardiac structures and function. Telemetry to monitor for any malignant arrhythmia. Continue supportive care. -- Hypertension. Stable. Continue home medication. --Class I obesity. Likely secondary to excess calories intake. Patient counseled on weight reduction, diet and exercise therapy. --Chronic back pain. Continue current pain medication regimen. -Leukocytosis. Likely secondary to UTI.-Continue antibiotics. We will continue to monitor WBC levels. --Anemia of chronic disease. H&H stable. Will continue to monitor hemoglobin and transfuse if less than 7.0. --Constipation. Patient placed on laxatives. --Urinary incontinence. Patient has a history of mildly enlarged prostate. Incontinence likely secondary to UTI. Patient placed on Flomax. --Hard of hearing. Continue supportive care. --DVT prophylaxis with Lovenox subQ. Discharge Plan: Home Plan to discharge in: Greater than 2 days - Advance Directives Does patient have a Living Will: No Does patient have a Durable POA for Healthcare: No - Code Status/Comfort Care Code Status Assessed: Yes Physician Review: Patient Assessed, Agree with Above Assessment and Plan Critical Care: No
[2023-04-13] MEDS: POLYETHYL GLY 3350 17 GM/DOSE PO SCH (10:30)
[2023-04-13] MEDS: SENOSIDES 8.6 MG TAB PO SCH ×2 (10:30→19:25)
[2023-04-13] MEDS: HYDROCODONE/APAP 10/325 TAB PO PRN ×2 (11:05→17:51)
[2023-04-13] MEDS ORDERED: HYDROCODONE/APAP 10/325 TAB ONE (11:13)
[2023-04-13] MEDS ORDERED: NA CHLORIDE 0.9% 1,000 ML IV ONE (11:15)
[2023-04-13] MEDS: ACETAMINOPHEN 325 MG TABLET PO PRN (11:21)
[2023-04-13] MEDS ORDERED: NA CHLORIDE 0.9% 1,000 ML ONE (11:29)
[2023-04-13 12:28] LABS: Magnesium 1.8 mg/dL (1.6-2.4); Phosphorus 1.6 mg/dL (2.5-4.9); Thyroid Stimulating Hormone 1.25 uIU/mL (0.358-3.740)
--- NOTE | 2023-04-13 14:12 | RAD REPORT ---
EXAM DESCRIPTION: CT - Abdomen Pelvis Wo Contrast - 04/13/2023 7:06 am CLINICAL HISTORY: 67 years Male ABD PAIN TECHNIQUE: Non contrast CT of the abdomen and pelvis with coronal and sagittal reformats. All CT sca ns at this facility use dose modulation, iterative reconstruction, and/or weight based dosing when ap propriate to reduce radiation dose to as low as reasonably achievable. COMPARISON: 10/12/2019 FINDINGS: Lower chest: No focal consolidation. Liver: Unremarkable. Gallbladder: No calcified stone. Pancreas: Unchanged 3 cm low-density area in the head of the pancreas. Spleen: Within normal limits. Kidney: A 2 mm nonobstructing stone in the right kidney. Adrenal glands: Within normal limits. Vascular structures: Mild atherosclerosis of the aorta and its major branches. Bowel: Supraumbilical hernia containing small portion of the anterior wall of the transverse colon wi thout associated bowel obstruction or inflammatory changes. Postsurgical changes in the rectum. No sarah wel distention. Appendix: Normal. Peritoneum: No free fluid or free air. Lymph Nodes: No lymphadenopathy. Reproductive: Unremarkable. Urinary bladder: Decompressed with diffuse wall thickening. Osseous structures: Multilevel degenerative changes. Lytic sclerotic focus in the right femoral head is unchanged. Soft tissues: Unremarkable. IMPRESSION: 1. Supraumbilical hernia containing small portion of the anterior wall of the transverse colon without associated bowel obstruction or inflammatory changes. 2. A 2 mm nonobstructing stone in the right kidney. 3. A 3 cm area of hypodensity in the pancreatic head, unchanged. Recommend multiphasic CT or MRI of t he liver for further evaluation. 4. Mild diffuse urinary bladder wall thickening which is probably due to under distention, however cy stitis not completely excluded. 5. Mixed lytic sclerotic changes in the right femoral head suggesting a vascular necrosis, unchanged. Electronically signed by: Yves Orellana MD 04/13/2023 4:52 AM CDT Due to temporary technical issues with the PACS/Fluency reporting system, reports are being signed by the in house radiologist without review as a courtesy to ensure prompt reporting. The interpreting r adiologist is fully responsible for the content of the report.
[2023-04-13] MEDS: CEFEPIME 1 GM in NA CHLORIDE 0.9% 100 ML IV SCH (17:00)
[2023-04-13] MEDS: TAMSULOSIN 0.4 MG SR CAP PO SCH (19:25)
--- NOTE | 2023-04-13 19:45 | RAD REPORT ---
EXAM DESCRIPTION: MRI - Abdomen WWo Cont - 04/13/2023 6:21 pm CLINICAL HISTORY: Hypodensity in the Pancreatic Head COMPARISON: Abdomen Pelvis Wo Contrast dated 04/13/2023; Stone Protocol dated 10/12/2019; Head C Spine Cap Wo Con dated 05/15/2018 TECHNIQUE: MRI of the abdomen was obtained with without contrast using the pancreas protocol. FINDINGS: No suspicious pancreatic lesions identified. No pancreatic ductal dilatation. The area of hypoattenuation in the pancreatic head on prior CTs is favored to represent the pancreas with possibl y some increased fatty infiltration. The finding is unchanged since 2018. . There is a large duodenum diverticulum noted. No intra or extrahepatic biliary duct dilatation. No moore spicious liver masses. Benign right renal cyst noted. The spleen is unremarkable. The bowel is unrema rkable. The stomach is unremarkable. No adrenal lesions. IMPRESSION: The abnormality at the pancreatic head probably represents the patient's pancreas, perha ps with some increased fatty infiltration simulating the presence of a mass. The finding has been sta ble since 2018. No pancreatic ductal dilatation. A clinically significant pancreatic mass should have increased in size and/or led to pancreatic ductal obstruction, neither of which is seen. A large duo denal diverticulum is noted in the vicinity of the abnormality. Continued follow-up is unneccessary.
[2023-04-14] MEDS: ACETAMINOPHEN 325 MG TABLET PO PRN ×3 (00:05→17:13)
[2023-04-14] MEDS: CEFEPIME 1 GM in NA CHLORIDE 0.9% 100 ML IV SCH ×3 (00:05→17:13)
[2023-04-14 07:08] LABS: Absolute Lymphocytes (CBC) 0.3 K/uL (0.7-4.9); Lymphocytes % 3.5 % (15.3-44.8); MCV 94.5 fL (80-100); MPV 9.3 fL (7.6-11.3); Platelets 155 thou/uL (152-406); RBC Red Blood Cell Count 3.81 M/uL (4.33-5.43)
[2023-04-14 07:22] LABS: Potassium 4.1 mEq/L (3.5-5.1)
[2023-04-14 07:25] LABS: Troponin High Sensitivity 531.3 pg/mL (<58.9)
[2023-04-14] MEDS: POLYETHYL GLY 3350 17 GM/DOSE PO SCH (08:59)
[2023-04-14] MEDS: SENOSIDES 8.6 MG TAB PO SCH ×2 (08:59→21:00)
[2023-04-14] MEDS: ASPIRIN 81 MG CHEWABLE TABLET PO SCH (09:00)
[2023-04-14] MEDS ORDERED: ENOXAPARIN 40 MG/0.4 ML SQ SCH (09:00)
--- NOTE | 2023-04-14 10:32 | P.CNS ---
Date of Consult: 04/14/23 Reason for Consult: UTI and Bacteremia, Gram neg rods Chief Complaint: Urinary frequency, urinary incontinence, fever and chills History of Present Illness: Patient is a 67 yo male with a PMH of hypertension, diverticulitis and chronic back pain who presented to the ED with complaints of urinary frequency/incontinence, fever and chills. Urine and blood cultures preliminary results with gram negative rods. ID was consulted. Allergies Iodinated Contrast Media [Iodinated Contrast Media - IV Dye] Allergy (Verified 05/15/18 21:18) Anaphylaxis Home medications list reviewed: Yes Home Medications: Amlodipine Besylate [Norvasc] 10 mg PO DAILY WITH BREAKFAST 09/29/16 Valsartan 320 mg PO DAILY 05/15/18 - Past Medical/Surgical History Diabetic: No -: HTN -: Diverticulitis -: Chronic back pain -: Hard of hearing -: Neck surgery -: Colon surgery from diverticulitis -: Right ankle surgery -: Right Jaw Surgery -: hernia - Family History Father Medical History: Cancer Mother Medical History: Other (see notes) (Dementia) - Social History Alcohol use: No CD- Drugs: No Caffeine use: Yes Place of Residence: Home Review of Systems 10-point ROS is otherwise unremarkable General: Weakness Genitourinary: Incontinence Musculoskeletal: Back Pain Physical Examination Temp Pulse Resp BP Pulse Ox 102.0 F H 116 H 18 116/62 94 04/14/23 08:59 04/14/23 08:00 04/14/23 08:00 04/14/23 08:00 04/14/23 08:00 General: Alert, In no apparent distress, Oriented x3 HEENT: Atraumatic Neck: Supple, JVD not distended Respiratory: Clear to auscultation bilaterally, Normal air movement Cardiovascular: Normal pulses, Regular rate/rhythm Gastrointestinal: Normal bowel sounds, No tenderness Musculoskeletal: No clubbing, No swelling Integumentary: No rashes, No breakdown Neurological: Normal speech, Normal tone, Normal affect Laboratory Data - reviewed Microbiology Data - Reviewed Imagings Data: -- MRI abdomen 04/13: "The abnormality at the pancreatic head probably represents the patient's pancreas, perhaps with some increased fatty infiltration simulating the presence of a mass. The finding has been stable since 2018. No pancreatic ductal dilatation. A clinically significant pancreatic mass should have increased in size and/or led to pancreatic ductal obstruction, neither of which is seen. A large duodenal diverticulum is noted in the vicinity of the abnormality. Continued follow-up is unneccessary" -- CT abdomen pelvis 04/13: "1. Supraumbilical hernia containing small portion of the anterior wall of the transverse colon without associated bowel obstruction or inflammatory changes. 2. A 2 mm nonobstructing stone in the right kidney. 3. A 3 cm area of hypodensity in the pancreatic head, unchanged. Recommend multiphasic CT or MRI of the liver for further evaluation. 4. Mild diffuse urinary bladder wall thickening which is probably due to under distention, however cystitis not completely excluded. 5. 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 - Bacteremia: patient will require 14 days of antibiotics. - Monitor WBC and fever trends. Tylenol PRN. Case discussed with Lenin Tierney
--- NOTE | 2023-04-14 16:21 | CON ---
Date of Consultation: 04/14/2023 Reason For Consultation: Elevated troponin. History Of Present Illness: This is a 67-year-old male, who was admitted with significant urinary tr act infection. He has a past medical history of hypertension, diverticulitis, and chronic back pain. He also reported substernal chest pain while he was in the ER, / in the severity, but at this pr esent time, he has no further chest pain episodes. Past Medical History: As outlined above in the HPI. Medications: Refer to reconciliation sheet for detailed list. Allergies: IODINE. Family History: No premature coronary artery disease or cancer. Social History: He does not smoke or drink. Does not use any drugs. Review of Systems: All systems reviewed and they were negative except what mentioned in HPI. Physical Examination: Vital Signs: Reviewed. Head and Neck: Pupils are equal, reactive to light. Intact eye movements. No JVD. No cervical lym phadenopathy. Neck is supple. Thyroid is not enlarged. Lungs: Clear to auscultation bilaterally. No rhonchi, wheezing, or crackles. No accessory muscle u se. Heart: Regular rate and rhythm. No extra sounds. Abdomen: Soft, nontender. Bowel sounds positive. No organomegaly. No masses or hernia. No rigidi ty or rebound. Extremities: No edema, clubbing, or cyanosis. Intact pulses. Skin: No rash. Neurologic: Alert, awake, oriented x3. No acute focal deficits appreciated. Investigations: BUN 19, creatinine 1.23. Troponin so far at 531, hemoglobin is 11.6, and urine show ing more than 50 white blood cells and high leukocyte esterase. Assessment And Recommendations: 1.Chest pain with elevated troponin. This could be non-ST elevation myocardial infarction. I agree with full anticoagulation at the present time with Lovenox 1 mg/kg subcu q.12 hours, baby aspirin 81 mg daily, and trend troponins further. There are no acute changes on the EKG. Obtain an echo and b ased on the further troponin trend, if it is still in the mild range, then plan for a stress test lat er on once the urinary tract infection is completely cleared. If the troponin substantially goes up, then we will plan for coronary angiogram during this hospital stay. Further recommendations will fo llow based on his progress. 2.Hypertension. Blood pressure is controlled. Continue current management. 3.Urinary tract infection causing sepsis. He is febrile. Wide-spectrum antibiotics is recommended and the patient will definitely need further cardiac workup, which we will plan on doing while he is in the hospital. If blood pressure allows to start low-dose beta-amy, I will recommend metoprolo l 25 mg twice a day. SR/MODL Voice ID: [id number] Report ID: [id number]
--- NOTE | 2023-04-14 17:50 | P.PN ---
Subjective Date of Service: 04/14/23 Chief Complaint: Urinary frequency, urinary incontinence, fever and chills Patient reports urinary frequency, no dysuria. He denies any chest pain. His troponin trended up. Physical Examination - Vital Signs Temperature: 102.0 F Blood Pressure: 150/71 Pulse: 109 Respirations: 20 Pulse Ox (%): 92 - Studies Microbiology Data (last 24 hrs): 04/13/23 05:15 Blood - Blood Blood Culture Gram Stain - Final 04/13/23 05:15 Blood - Blood Gram Stain - Final 04/13/23 05:20 Blood - Blood Blood Culture Gram Stain - Final 04/13/23 05:20 Blood - Blood Gram Stain - Final Assessment And Plan - Plan Physical Exam General: Alert, In no apparent distress, Oriented x3, Cooperative HEENT: Atraumatic, PERRLA, Mucous membr. moist/pink, EOMI, Sclerae nonicteric Neck: Supple, no elevated JVD. Respiratory: Clear to auscultation bilaterally, Normal air movement Cardiovascular: No edema, Regular rate/rhythm, Normal S1 S2 Gastrointestinal: Normal bowel sounds, Soft and benign, No tenderness Musculoskeletal: No clubbing, No swelling, No tenderness Integumentary: No rashes, No significant lesion Neurological: Normal speech, Normal tone, Normal affect Plan Sepsis/UTI. Patient reports prior intermittent difficulty with urination and incontinence. Sepsis secondary to UTI. Blood cultures pending. Urine culture growing gram-negative rods. Continue antibiotics. Follow cultures. Added Flomax for possible BPH related urinary symptoms. Chest pain/elevated troponin. Troponin trended up. Echocardiogram is pending. Patient started on full dose lovenox, ASA. Cardiology consult. Hypertension: Stable. Continue home medication. Chronic back pain: Continue current pain medication regimen. Constipation: Patient placed on laxatives. DVT prophylaxis: Lovenox subQ. Discharge Plan: Home
[2023-04-14] MEDS: Enoxaparin 120 MG/0.8 ML SYR SQ SCH (21:01)
[2023-04-14] MEDS: TAMSULOSIN 0.4 MG SR CAP PO SCH (21:01)
[2023-04-15] MEDS: ACETAMINOPHEN 325 MG TABLET PO PRN ×2 (00:12→16:36)
[2023-04-15] MEDS: CEFEPIME 1 GM in NA CHLORIDE 0.9% 100 ML IV SCH ×2 (00:13→09:17)
[2023-04-15] MEDS: ZOLPIDEM TARTRATE 5 MG TABLET PO PRN ×2 (02:49→22:02)
[2023-04-15 06:41] LABS: Absolute Lymphocytes (CBC) 0.6 K/uL (0.7-4.9); Hematocrit 33.2 % (39.6-49.0); Lymphocytes % 7.4 % (15.3-44.8); MCV 93.6 fL (80-100); MPV 9.1 fL (7.6-11.3); Platelets 161 thou/uL (152-406); RBC Red Blood Cell Count 3.55 M/uL (4.33-5.43)
[2023-04-15] MEDS ORDERED: AMLODIPINE 10 MG TAB PO SCH (08:00)
[2023-04-15] MEDS: SENOSIDES 8.6 MG TAB PO SCH ×2 (09:00→21:00)
[2023-04-15] MEDS: POLYETHYL GLY 3350 17 GM/DOSE PO SCH (09:00)
[2023-04-15] MEDS: ASPIRIN 81 MG CHEWABLE TABLET PO SCH (09:16)
[2023-04-15] MEDS: Enoxaparin 120 MG/0.8 ML SYR SQ SCH ×2 (09:16→22:01)
--- NOTE | 2023-04-15 09:47 | P.PN ---
Date of Service: 04/15/23 Chief Complaint: Urinary frequency, urinary incontinence, fever and chills Subjective: Patient seen and examined at bedside. Reports he is feeling better. Denies any new or worsening complaints. No acute events reported overnight. Physical Examination Temp Pulse Resp BP Pulse Ox 99.3 F 92 H 22 H 149/79 H 94 04/15/23 04:00 04/15/23 04:00 04/15/23 04:00 04/15/23 04:00 04/15/23 04:00 General: Alert, In no apparent distress, Oriented x3 HEENT: Atraumatic Neck: Supple, JVD not distended Respiratory: Clear to auscultation bilaterally, Normal air movement Cardiovascular: Normal pulses, Regular rate/rhythm Gastrointestinal: Normal bowel sounds, No tenderness Musculoskeletal: No clubbing, No swelling Integumentary: No rashes, No breakdown Neurological: Normal speech, Normal tone, Normal affect Laboratory Data - reviewed Microbiology Data - Reviewed Imagings Data: -- MRI abdomen 04/13: "The abnormality at the pancreatic head probably represents the patient's pancreas, perhaps with some increased fatty infiltration simulating the presence of a mass. The finding has been stable since 2018. No pancreatic ductal dilatation. A clinically significant pancreatic mass should have increased in size and/or led to pancreatic ductal obstruction, neither of which is seen. A large duodenal diverticulum is noted in the vicinity of the abnormality. Continued follow-up is unneccessary" -- CT abdomen pelvis 04/13: "1. Supraumbilical hernia containing small portion of the anterior wall of the transverse colon without associated bowel obstruction or inflammatory changes. 2. A 2 mm nonobstructing stone in the right kidney. 3. A 3 cm area of hypodensity in the pancreatic head, unchanged. Recommend multiphasic CT or MRI of the liver for further evaluation. 4. Mild diffuse urinary bladder wall thickening which is probably due to under distention, however cystitis not completely excluded. 5. 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 - Continue antibiotic therapy x 14 days. Follow up with final urine and blood culture reports and adjust abx as needed. - Monitor WBC and fever trends. Tylenol PRN. Case discussed with Lenin Tierney
[2023-04-15 11:18] VITALS: BMI 30.7
[2023-04-15] MEDS: CEFTRIAXONE 2,000 MG in NA CHLORIDE 0.9% 100 ML IV SCH (16:29)
--- NOTE | 2023-04-15 18:58 | P.PN ---
Subjective Date of Service: 04/15/23 Chief Complaint: Urinary frequency, urinary incontinence, fever and chills Patient continues to experience intermittent fever and urinary frequency. He denies any chest pain. Physical Examination - Vital Signs Temperature: 100.0 F Blood Pressure: 129/61 Pulse: 97 Respirations: 16 Pulse Ox (%): 94 - Studies Microbiology Data (last 24 hrs): 04/13/23 04:40 Clean Catch Urine [place] Count - Final >100,000 CFU/ML. 04/13/23 04:40 Clean Catch Urine - Final Escherichia Coli Gram Neg [place] 04/13/23 05:20 Blood - Blood Blood Culture Gram Stain - Final 04/13/23 05:20 Blood - Blood Gram Stain - Final 04/13/23 05:15 Blood - Blood Blood Culture Gram Stain - Final 04/13/23 05:15 Blood - Blood Gram Stain - Final Assessment And Plan - Plan Physical Exam General: Alert, In no apparent distress, Oriented x3, Cooperative HEENT: Atraumatic, PERRLA, Mucous membr. moist/pink, EOMI, Sclerae nonicteric Neck: Supple, no elevated JVD. Respiratory: Clear to auscultation bilaterally, Normal air movement Cardiovascular: No edema, Regular rate/rhythm, Normal S1 S2 Gastrointestinal: Normal bowel sounds, Soft and benign, No tenderness Musculoskeletal: No clubbing, No swelling, No tenderness Integumentary: No rashes, No significant lesion Neurological: Normal speech, Normal tone, Normal affect Plan Sepsis/UTI/gram-negative bacteremia Patient reports prior intermittent difficulty with urination and incontinence. Sepsis secondary to UTI. Blood cultures: GNR in 4 bottles. Urine culture growing E. coli sensitive to multiple antibiotics including cephalosporin. Continue IV cefepime. Consider adding gentamicin for synergy if patient continues to experience intermittent fever. Repeat blood cultures Continue Flomax for possible BPH related urinary symptoms. Chest pain/NSTEMI Troponin trended up. Echocardiogram is pending. Cardiology input appreciated Continue full dose lovenox, ASA. Stress test once clinically stable. Hypertension: Stable. Hold home antihypertensive given sepsis and risk for h ypotension. Chronic back pain: Continue current pain medication regimen. Constipation: Patient placed on laxatives. DVT prophylaxis: Lovenox subQ. Discharge Plan: Home
[2023-04-15] MEDS: TAMSULOSIN 0.4 MG SR CAP PO SCH (22:02)
[2023-04-16] MEDS: ACETAMINOPHEN 325 MG TABLET PO PRN (00:32)
[2023-04-16] MEDS: HYDROCODONE/APAP 10/325 TAB PO PRN ×2 (06:38→12:39)
[2023-04-16] MEDS: Enoxaparin 120 MG/0.8 ML SYR SQ SCH ×2 (08:33→21:03)
[2023-04-16] MEDS: ASPIRIN 81 MG CHEWABLE TABLET PO SCH (08:33)
[2023-04-16] MEDS: POLYETHYL GLY 3350 17 GM/DOSE PO SCH (08:33)
[2023-04-16] MEDS: SENOSIDES 8.6 MG TAB PO SCH ×2 (08:35→21:00)
--- NOTE | 2023-04-16 11:51 | P.PN ---
Subjective Date of Service: 04/16/23 Chief Complaint: Urinary frequency, urinary incontinence, fever and chills Patient states he feels much better today. He states the urinary frequency is slowing down. He had intermittent low-grade fever yesterday. No fever since this morning. Physical Examination - Vital Signs Temperature: 99 F Blood Pressure: 137/73 Pulse: 83 Respirations: 18 Pulse Ox (%): 94 - Studies Microbiology Data (last 24 hrs): 04/13/23 05:20 Blood - Blood Aerobic Blood Culture - Final Gram Neg [place] Escherichia Coli 04/13/23 05:20 Blood - Blood Blood Culture Gram Stain - Final 04/13/23 05:20 Blood - Blood Anaerobic Blood Culture - Final Gram Neg [place] Escherichia Coli 04/13/23 05:20 Blood - Blood Gram Stain - Final 04/13/23 05:15 Blood - Blood Aerobic Blood Culture - Final Gram Neg [place] Escherichia Coli 04/13/23 05:15 Blood - Blood Blood Culture Gram Stain - Final 04/13/23 05:15 Blood - Blood Anaerobic Blood Culture - Final Gram Neg [place] Escherichia Coli 04/13/23 05:15 Blood - Blood Gram Stain - Final 04/13/23 04:40 Clean Catch Urine [place] Count - Final >100,000 CFU/ML. 04/13/23 04:40 Clean Catch Urine - Final Escherichia Coli Gram Neg [place] Assessment And Plan - Plan Physical Exam General: Alert, In no apparent distress, Oriented x3, Cooperative Neck: Supple, no elevated JVD. Respiratory: Clear to auscultation bilaterally, Normal air movement Cardiovascular: No edema, Regular rate/rhythm, Normal S1 S2 Gastrointestinal: Normal bowel sounds, Soft and benign, No tenderness Musculoskeletal: No swelling, No tenderness Integumentary: No rashes. Neurological: Normal speech, no focal motor deficit. Plan Sepsis/UTI/gram-negative bacteremia Patient reports prior intermittent difficulty with urination and incontinence. Urinary frequency is improving. Sepsis secondary to UTI. Blood cultures: E. coli. Urine culture growing E. coli sensitive to multiple antibiotics including cephalosporin. Continue IV cefepime. Consider adding gentamicin for synergy if patient continues to experience intermittent fever. Repeat blood cultures pending Continue Flomax for possible BPH related urinary symptoms. Chest pain/NSTEMI Troponin trended up. Echocardiogram is pending. Cardiology input appreciated Continue full dose lovenox, ASA. Stress test once clinically stable. Hypertension: Stable. Patient requested for his home antihypertensives. Resume antihypertensives. Chronic back pain: Continue current pain medication regimen. Constipation: Patient placed on laxatives. DVT prophylaxis: Lovenox subQ. Discharge Plan: Home
[2023-04-16] MEDS: AMLODIPINE 10 MG TAB PO SCH (12:30)
[2023-04-16] MEDS: HYDROCHLOROTHIAZIDE PO SCH (12:40)
[2023-04-16] MEDS: IRBESARTAN PO SCH (12:40)
[2023-04-16] MEDS ORDERED: VALSARTAN 160 MG TAB PO SCH (13:00)
[2023-04-16] MEDS ORDERED: hydroCHLOROthiazide 12.5 MG CAP PO SCH (13:00)
--- NOTE | 2023-04-16 14:38 | PN ---
Date of Progress Note: 04/16/2023 Subjective: Seen by bedside. Denies having any further chest pain. No nausea, vomiting, diarrhea. No dysuria, polyuria, or urinary urgency. All other systems reviewed, they were negative. Physical Examination: Vital Signs: Reviewed. Head and Neck: Pupils are equal, reactive to light. Intact eye movements. No JVD. No cervical lym phadenopathy. Neck: Supple. Thyroid is not enlarged. Lungs: Clear to auscultation bilaterally. No rhonchi, rales, or crackles. No accessory muscle use. Heart: Regular in rate and rhythm. No extra sounds. Abdomen: Soft, nontender. Bowel sounds positive. No organomegaly. No masses or hernia. No rigidi ty or rebound. Extremities: No edema, clubbing, or cyanosis. Intact pulses. Skin: No rashes noted. Neurologic: Alert and awake. No acute focal deficits appreciated. Investigations: Troponin peaked at 675, BUN 13, creatinine 0.89, and hemoglobin is 10.8. Assessment And Recommendation: 1.Chest pain with elevated troponin. The patient presented with urinary tract infection, but he had definitely a chest pain episode with the ER. This is likely [id number] myocardial infarction. Continue Lovenox, aspirin high-dose statin, and once condition is stable, we will plan for coronary angiogram. 2.Urinary tract infection and sepsis, on antibiotics. 3.Hypertension. Continue current management and we will obtain an echo. 4.Urinary tract infection and sepsis, on wide-spectrum antibiotics. Await when this condition is cleared. We will proceed with the cardiac workup and management. /NGOZI Voice ID: [id number] Report ID: [id number]
[2023-04-16] MEDS: CEFTRIAXONE 2,000 MG in NA CHLORIDE 0.9% 100 ML IV SCH (17:12)
[2023-04-16] MEDS: TAMSULOSIN 0.4 MG SR CAP PO SCH (21:03)
[2023-04-16] MEDS: ZOLPIDEM TARTRATE 5 MG TABLET PO PRN (22:20)
[2023-04-17] MEDS: HYDROCODONE/APAP 10/325 TAB PO PRN (02:35)
[2023-04-17] MEDS: Enoxaparin 120 MG/0.8 ML SYR SQ SCH ×2 (08:03→21:01)
[2023-04-17] MEDS: IRBESARTAN PO SCH (08:04)
[2023-04-17] MEDS: ASPIRIN 81 MG CHEWABLE TABLET PO SCH (08:04)
[2023-04-17] MEDS: AMLODIPINE 10 MG TAB PO SCH (08:04)
[2023-04-17] MEDS: HYDROCHLOROTHIAZIDE PO SCH (08:04)
[2023-04-17] MEDS: POLYETHYL GLY 3350 17 GM/DOSE PO SCH (08:04)
[2023-04-17] MEDS: SENOSIDES 8.6 MG TAB PO SCH ×2 (08:05→21:01)
[2023-04-17] MEDS ORDERED: NA CHLORIDE 0.9% 250 ML ONE (08:53)
[2023-04-17] MEDS ORDERED: HOME MED 1 EA UNK (Irbesartan/Hydrochlorothiazide [Avalide 300-12.5 Mg Tablet] 1 EACH Tabl PO SCH (09:00)
--- NOTE | 2023-04-17 15:40 | EKG ---
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
--- NOTE | 2023-04-17 15:40 | P.PN ---
Subjective Date of Service: 04/17/23 Chief Complaint: Urinary frequency, urinary incontinence, fever and chills Patient states he continues to feel better. No fever over the past 24 hours. He states the urinary frequency has significantly decreased. Physical Examination - Vital Signs Temperature: 97.9 F Blood Pressure: 133/76 Pulse: 84 Respirations: 18 Pulse Ox (%): 94 Assessment And Plan - Plan Physical Exam General: Alert, In no apparent distress, Oriented x3, Cooperative Neck: Supple, no elevated JVD. Respiratory: Clear to auscultation bilaterally, Normal air movement Cardiovascular: No edema, Regular rate/rhythm, Normal S1 S2 Gastrointestinal: Normal bowel sounds, Soft and benign, No tenderness Musculoskeletal: No swelling, No tenderness Integumentary: No rashes. Neurological: Normal speech, no focal motor deficit. Plan Sepsis/UTI/gram-negative bacteremia Patient reports prior intermittent difficulty with urination and incontinence. Urinary frequency has significantly decreased. Sepsis secondary to UTI. Blood cultures: E. coli. Urine culture growing E. coli sensitive to multiple antibiotics including cephalosporin. Continue IV cefepime. Repeat blood cultures shows no growth. Infectious disease to follow. Continue Flomax for possible BPH related urinary symptoms. Chest pain/NSTEMI Troponin trended up. Echocardiogram is pending. Seen by cardiology Continue full dose lovenox, ASA. Stress test once clinically stable. Hypertension: Stable. Patient requested for his home antihypertensives. Resume antihypertensives. Chronic back pain: Continue current pain medication regimen. Constipation: Patient placed on laxatives. DVT prophylaxis: Lovenox subQ. Discharge Plan: Home
--- NOTE | 2023-04-17 16:06 | PN ---
Date of Progress Note: 04/17/2023 Subjective: Seen by bedside. No further chest pain. Review of Systems: No further chest pain, nausea, vomiting, and diarrhea. No abdominal pain. No dysuria, polyuria, or urinary urgency. No skin rash, headache. All other systems reviewed and they were negative. Physical Examination: Vital Signs: Reviewed. Temperature is 97.9, pulse 84, breathing at 18, blood pressure 133/76, satur ating 94%. General: Pleasant middle-aged male, in no apparent distress. Head and Neck: Pupils are equal, reactive to light. Intact eye movements. No JVD. No cervical lym phadenopathy. Neck is supple. Thyroid is not enlarged. Lungs: Clear to auscultation bilaterally. No rhonchi, wheezing, or crackles. No accessory muscle u se. Heart: Regular rate and rhythm. No extra sounds. Abdomen: Soft, nontender. Bowel sounds positive. No organomegaly. No masses or hernia. No rigidi ty or rebound. Extremities: No edema, clubbing, or cyanosis. Intact pulses. Skin: No rash. Neurologic: Alert, awake, oriented x3. No acute focal deficits appreciated. Investigations: BUN is 13, creatinine 0.89, troponin peaked at 675, and hemoglobin is 10.8. Assessment And Recommendations: 1.Non-ST elevation myocardial infarction. Keep n.p.o. past midnight, plan for coronary angiogram to [place], and in the interim continue Lovenox. After tonight's dose, Lovenox to be held in anticipatio n for doing coronary angiogram tomorrow and continue baby aspirin. 2.Severe sepsis due to urinary tract infection. Appears to be controlled on ceftriaxone. 3.Hypertension. Blood pressure is controlled. Continue current medications. SR/MODL Voice ID: [id number] Report ID: [id number]
[2023-04-17] MEDS: CEFTRIAXONE 2,000 MG in NA CHLORIDE 0.9% 100 ML IV SCH (16:31)
--- NOTE | 2023-04-17 17:38 | RAD REPORT ---
EXAM DESCRIPTION: CT - Head Brain Wo Cont - 04/17/2023 5:28 pm CLINICAL HISTORY: Dizziness COMPARISON: 2019 TECHNIQUE: Computed axial tomography of the head was obtained. IV contrast was not requested. All CT scans are performed using dose optimization technique as appropriate and may include automated exposure control or mA/KV adjustment according to patient size. FINDINGS: Artifact limits evaluation portions of right cerebellum. An intracranial bleed is not seen The ventricles are normal in caliber No significant hypodense areas within the brain visualized No extra-axial fluid collection is noted. Fluid within the sinuses/ mastoids is not seen IMPRESSION: No acute intracranial abnormality is seen If patient's symptoms persist MRI of the brain would be recommended
[2023-04-17] MEDS: TAMSULOSIN 0.4 MG SR CAP PO SCH (21:01)
[2023-04-17] MEDS: ZOLPIDEM TARTRATE 5 MG TABLET PO PRN (23:13)
[2023-04-18 07:20] LABS: Potassium 3.7 mEq/L (3.5-5.1)
[2023-04-18 07:24] LABS: Absolute Lymphocytes (CBC) 1.2 K/uL (0.7-4.9); Hematocrit 35.2 % (39.6-49.0); Lymphocytes % 16.1 % (15.3-44.8); MCV 92.8 fL (80-100); MPV 8.5 fL (7.6-11.3); Platelets 257 thou/uL (152-406); RBC Red Blood Cell Count 3.79 M/uL (4.33-5.43)
--- NOTE | 2023-04-18 09:25 | P.PN ---
Date of Service: 04/18/23 Chief Complaint: Urinary frequency, urinary incontinence, fever and chills Subjective: Patient lying in bed, at bedside. Denies any new or worsening complaints. No acute events reported overnight. Physical Examination Temp Pulse Resp BP Pulse Ox 97.8 F 78 18 138/79 94 04/18/23 08:00 04/18/23 08:00 04/18/23 08:00 04/18/23 08:00 04/18/23 08:00 General: Alert, In no apparent distress, Oriented x3 HEENT: Atraumatic Neck: Supple, JVD not distended Respiratory: Clear to auscultation bilaterally, Normal air movement Cardiovascular: Normal pulses, Regular rate/rhythm Gastrointestinal: Normal bowel sounds, No tenderness Musculoskeletal: No clubbing, No swelling Integumentary: No rashes, No breakdown Neurological: Normal speech, Normal tone, Normal affect Laboratory Data - reviewed Microbiology Data - Reviewed Imagings Data: -- MRI abdomen 04/13: "The abnormality at the pancreatic head probably represents the patient's pancreas, perhaps with some increased fatty infiltration simulating the presence of a mass. The finding has been stable since 2018. No pancreatic ductal dilatation. A clinically significant pancreatic mass should have increased in size and/or led to pancreatic ductal obstruction, neither of which is seen. A large duodenal diverticulum is noted in the vicinity of the abnormality. Continued follow-up is unneccessary" -- CT abdomen pelvis 04/13: "1. Supraumbilical hernia containing small portion of the anterior wall of the transverse colon without associated bowel obstruction or inflammatory changes. 2. A 2 mm nonobstructing stone in the right kidney. 3. A 3 cm area of hypodensity in the pancreatic head, unchanged. Recommend multiphasic CT or MRI of the liver for further evaluation. 4. Mild diffuse urinary bladder wall thickening which is probably due to under distention, however cystitis not completely excluded. 5. 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 Afebrile. QTc = 462 Recommendations - UTI/Bacteremia: Continue antibiotic therapy x 14 days. Currently on Rocephin IV. - upon discharge, consider switch to Ciprofloxacin PO to complete 14 day course of antibiotics (started 04/13) - NSTEMI: cardiology following. pending heart cath. - Monitor WBC and fever trends. Tylenol PRN. Case discussed with Lenin Tierney
[2023-04-18] MEDS: POLYETHYL GLY 3350 17 GM/DOSE PO SCH (09:29)
[2023-04-18] MEDS: SENOSIDES 8.6 MG TAB PO SCH ×2 (09:30→21:46)
[2023-04-18] MEDS: AMLODIPINE 10 MG TAB PO SCH (09:30)
[2023-04-18] MEDS: HYDROCHLOROTHIAZIDE PO SCH (09:31)
[2023-04-18] MEDS: ASPIRIN 81 MG CHEWABLE TABLET PO SCH (09:31)
[2023-04-18] MEDS: IRBESARTAN PO SCH (09:31)
[2023-04-18] MEDS: Enoxaparin 120 MG/0.8 ML SYR SQ SCH ×2 (09:31→21:47)
[2023-04-18] MEDS ORDERED: POTASSIUM 25 MEQ EFFERV TAB PO ONE (09:49)
--- NOTE | 2023-04-18 15:32 | P.PN ---
Subjective Date of Service: 04/18/23 Chief Complaint: Urinary frequency, urinary incontinence, fever and chills No major changes from yesterday. Patient has been afebrile. He states she feels much better. He also states he has been ambulatory. Physical Examination - Vital Signs Temperature: 97.8 F Blood Pressure: 138/79 Pulse: 78 Respirations: 18 Pulse Ox (%): 94 Assessment And Plan - Plan Physical Exam General: Alert, In no apparent distress, Oriented x3. Respiratory: Clear to auscultation bilaterally, Normal air movement Cardiovascular: No edema, Regular rate/rhythm, Normal S1 S2 Gastrointestinal: Normal bowel sounds, Soft and benign, No tenderness Musculoskeletal: No swelling, No tenderness Integumentary: No rashes. Neurological: Normal speech, no focal motor deficit. Plan Sepsis/UTI/gram-negative bacteremia Patient was experiencing intermittent difficulty with urination and incontinence. Urinary symptoms have improved. Blood cultures: E. coli. Urine culture growing E. coli sensitive to multiple antibiotics including cephalosporin. Continue IV Rocephin Repeat blood cultures shows no growth. Infectious is following. Dr. Piña is considering oral antibiotics on discharge Continue Flomax for possible BPH related urinary symptoms. Chest pain/NSTEMI Troponin trended up. Echocardiogram is pending. Seen by cardiology Continue full dose lovenox, ASA. Dr. Max is planning cardiac catheterization. Hypertension: Stable. Continue home antihypertensives. Chronic back pain: Continue current pain medication regimen. Constipation: Patient placed on laxatives. DVT prophylaxis: Lovenox subQ. Discharge Plan: Home
[2023-04-18] MEDS: CEFTRIAXONE 2,000 MG in NA CHLORIDE 0.9% 100 ML IV SCH (16:27)
--- NOTE | 2023-04-18 19:36 | PN ---
Date of Progress Note: 04/18/2023 Subjective: Seen by bedside. No chest pain. We are planning to do a coronary angiogram on him toda y; however, he wanted a second opinion, so I decided to cancel the procedure. Review of Systems: No chest pain, shortness of breath, orthopnea, cough. No nausea, and diarrhea. All other systems re viewed and they were negative. Physical Examination: Vital Signs: Reviewed. Head and Neck: Pupils are equal, reactive to light. Intact eye movements. No JVD. No cervical lym phadenopathy. Neck is supple. Thyroid is not enlarged. Lungs: Clear to auscultation bilaterally. No rhonchi, wheezing, or crackles. No accessory muscle u se. Heart: Regular rate and rhythm. No extra sounds. Abdomen: Soft, nontender. Bowel sounds positive. No organomegaly. No masses or hernia. No rigidi ty or rebound. Extremities: No edema, clubbing, or cyanosis. Intact pulses. Skin: No rash. Neurologic: Alert, awake, oriented x3. No acute focal deficits appreciated. Investigations: Troponin peaked at 675. BUN 11, creatinine 0.8, and hemoglobin is 11. Assessment And Recommendations: 1.Non-ST elevation myocardial infarction. The patient had a chest pain with elevated troponin. Lik glenda, this is a true non-ST segment elevation myocardial infarction. Continue Lovenox. I had a long discussion with him, and his came in the afternoon and I had discussion with her, and they decid ed to proceed with angiogram. We will plan to do it tomorrow afternoon after tonight's dose of Loven ox to hold it and keep n.p.o. past midnight. 2.Acute renal failure due to sepsis, resolved. 3.Hypertension. Blood pressure is controlled. Continue current medications. SR/MODL Voice ID: [id number] Report ID: [id number]
[2023-04-18] MEDS: TAMSULOSIN 0.4 MG SR CAP PO SCH (21:47)
--- NOTE | 2023-04-19 07:29 | P.PN ---
Date of Service: 04/19/23 Subjective: ~3 episodes of diarrhea yesterday otherwise no new / worsening problems - no chest pain awaiting cath today afebrile ROS: 10 point ROS as noted above, otherwise negative Physical Exam: GEN: Alert, oriented, NAD HEENT: Normal conjunctiva, sclera anicteric CV: Regular rate and rhythm, no edema Pulm: Nonlabored respirations on room air ABD: Soft, nontender, nondistended Neuro: Normal speech, normal affect vitals reviewed Problem List: Sepsis secondary to UTI/gram-negative bacteremia NSTEMI Hypertension Chronic back pain Constipation Sepsis secondary to UTI/gram-negative bacteremia Patient was experiencing intermittent difficulty with urination and incontinence. Urinary symptoms have improved / resolved Blood cultures: E. coli. Urine culture: E. coli Repeat blood cultures: NGTD ID consulted Previously on Cefepime (04/13-04/15). Continue IV Rocephin (04/15-04/27) x2 weeks total antibiotics consider switch to Ciprofloxacin PO on DC per ID Continue Flomax for possible BPH related urinary symptoms. NSTEMI Troponin elevated x3 - peak 675 Echo (04/17): 56% EF, grade I diastolic dysfunction, mild TR, mild-mod aortic insufficiency, dilated ascending aorta at 4.6 cm Cardiology consulted NPO for tentative cardiac cath today Continue full dose lovenox (held this AM for cath), ASA. Hypertension: Stable. Continue home antihypertensives. Chronic back pain: Continue current pain medication regimen. Constipation: Patient placed on laxatives. VTE: Lovenox Code: Full Dispo: ~1 day Pending heart cath, remains afebrile, diarrhea improved
--- NOTE | 2023-04-19 08:31 | ECHO ---
HEIGHT: 6 ft 2 in WEIGHT: 239 lb 0 oz DATE OF STUDY: 04/18/[address]: Nicola García 2-DIMENSIONAL: YES M.MODE: YES DOPPLER: YES COLOR FLOW: YES TDS: PORTABLE: YES DEFINITY: BUBBLE STUDY: DIAGNOSIS: CHEST PAIN CARDIAC HISTORY: CATHERIZATION: SURGERY: PROSTHETIC VALVE: PACEMAKER: MEASUREMENTS (cm) DIASTOLIC (NORMALS) SYSTOLIC (NORMALS) IVSd 1.0 (0.6-1.2) LA Diam (1.9-4.0) LVEF 56% LVIDd 4.9 (3.5-5.7) LVIDs 3.4 (2.0-3.5) %FS 29% LVPWd 1.1 (0.6-1.2) Ao Diam 3.7 (2.0-3.7) 2 DIMENSIONAL ASSESSMENT: RIGHT ATRIUM: NORMAL LEFT ATRIUM: NORMAL RIGHT VENTRICLE: NORMAL LEFT VENTRICLE: NORMAL TRICUSPID VALVE: MILD TRICUSPID REGURGITATION MITRAL VALVE: NORMAL PULMONIC VALVE: NORMAL AORTIC VALVE: MILD AORTIC INSUFFICIENCY PERICARDIAL EFFUSION: NONE AORTIC ROOT: DILATED LEFT VENTRICULAR WALL MOTION: NORMAL DOPPLER/COLOR FLOW: 1. MILD TRICUSPID REGURGITATION 2. MILD TO MODERATE AORTIC INSUFFICIENCY COMMENTS: 1. NORMAL LEFT VENTRICULAR EJECTION FRACTION 55-60% WITH NORMAL WALL MOTION 2. GRADE I DIASTOLIC DYSFUNCTION 3. MILD TRICUSPID REGURGITATION 4. MILD TO MODERATE AORTIC INSUFFICIENCY 5. DILATED ASCENDING AORTA AT 4.6 [employer] TECHNOLOGIST: NENA RAYMOND
[2023-04-19] MEDS: HYDROCHLOROTHIAZIDE PO SCH (09:00)
[2023-04-19] MEDS: AMLODIPINE 10 MG TAB PO SCH (09:00)
[2023-04-19] MEDS: SENOSIDES 8.6 MG TAB PO SCH ×2 (09:00→20:12)
[2023-04-19] MEDS: POLYETHYL GLY 3350 17 GM/DOSE PO SCH (09:00)
[2023-04-19] MEDS: IRBESARTAN PO SCH (09:00)
[2023-04-19 09:27] LABS: Potassium 3.8 mEq/L (3.5-5.1)
[2023-04-19] MEDS: ASPIRIN 81 MG CHEWABLE TABLET PO SCH (10:04)
--- NOTE | 2023-04-19 10:23 | P.PN ---
Date of Service: 04/19/23 Chief Complaint: Urinary frequency, urinary incontinence, fever and chills Subjective: Patient seen and examined at bedside. Resting comfortably in bed, in no apparent distress, breathing comfortably on room air. Denies any chest pain or abdominal pain. No nausea, vomiting or diarrhea. No shortness of breath or cough. No acute events reported overnight. Physical Examination Temp Pulse Resp BP Pulse Ox 97.6 F 77 15 119/66 95 04/19/23 08:00 04/19/23 08:00 04/19/23 08:00 04/19/23 08:00 04/19/23 08:00 General: Alert, In no apparent distress, Oriented x3 HEENT: Atraumatic Neck: Supple, JVD not distended Respiratory: Clear to auscultation bilaterally, Normal air movement Cardiovascular: Normal pulses, Regular rate/rhythm Gastrointestinal: Normal bowel sounds, No tenderness Musculoskeletal: No clubbing, No swelling Integumentary: No rashes, No breakdown Neurological: Normal speech, Normal tone, Normal affect Laboratory Data - reviewed Microbiology Data - Reviewed Imagings Data: -- MRI abdomen 04/13: "The abnormality at the pancreatic head probably represents the patient's pancreas, perhaps with some increased fatty infiltration simulating the presence of a mass. The finding has been stable since 2018. No pancreatic ductal dilatation. A clinically significant pancreatic mass should have increased in size and/or led to pancreatic ductal obstruction, neither of which is seen. A large duodenal diverticulum is noted in the vicinity of the abnormality. Continued follow-up is unneccessary" -- CT abdomen pelvis 04/13: "1. Supraumbilical hernia containing small portion of the anterior wall of the transverse colon without associated bowel obstruction or inflammatory changes. 2. A 2 mm nonobstructing stone in the right kidney. 3. A 3 cm area of hypodensity in the pancreatic head, unchanged. Recommend multiphasic CT or MRI of the liver for further evaluation. 4. Mild diffuse urinary bladder wall thickening which is probably due to under distention, however cystitis not completely excluded. 5. 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 Afebrile. QTc = 462 Recommendations - UTI/Bacteremia: Continue antibiotic therapy x 14 days (04/13-04/27) - Currently on Rocephin IV. - upon discharge, consider switch to Ciprofloxacin PO to complete duration of antibiotics - NSTEMI: cardiology following. pending heart cath. - Monitor WBC and fever trends. Tylenol PRN. Case discussed with Lenin Tierney
[2023-04-19 11:26] LABS: Protime INR 1.04
[2023-04-19] MEDS ORDERED: HEPA 1000U/500MLS 2,000 UNIT/1,000 ML BAG IV ONE (11:27)
[2023-04-19] MEDS ORDERED: LIDOCAINE 1% 20 ML MDV ONE (11:27)
[2023-04-19] MEDS ORDERED: MIDAZOLAM HCL 2 MG/2 ML INJ ONE (15:03)
[2023-04-19] MEDS ORDERED: HEPARIN 5000 UNIT/ML 1 ML VIAL ONE (15:03)
[2023-04-19] MEDS ORDERED: FENTANYL CITR 100 MCG/2 ML ONE (15:03)
[2023-04-19] MEDS ORDERED: VERAPAMIL HCL 10 MG/4 ML VIAL IV ONE (15:04)
[2023-04-19] MEDS ORDERED: CLOPIDOGREL 75 MG TABLET ONE (15:04)
[2023-04-19] MEDS ORDERED: ASPIRIN 325 MG TAB ONE (15:04)
[2023-04-19] MEDS ORDERED: HEPARIN 10,000 UNIT/10 ML VIAL IV ONE (15:05)
[2023-04-19] MEDS ORDERED: TICAGRELOR 90 MG TABLET PO ONE (15:05)
[2023-04-19] MEDS ORDERED: ATROPINE SULF 1 MG/10 ML SYR IV ONE (15:05)
[2023-04-19] MEDS ORDERED: NA CHLORIDE 0.9% 500 ML ONE (15:10)
[2023-04-19] MEDS ORDERED: DIPHENHYDRAMINE 50 MG/ML VIAL ONE (15:35)
[2023-04-19] MEDS ORDERED: METHYLPREDNISOLONE 125 MG INJ ONE (15:36)
[2023-04-19] MEDS ORDERED: EPINEPHrine 1 MG/10 ML SYR ONE (16:31)
[2023-04-19] MEDS: CEFTRIAXONE 2,000 MG in NA CHLORIDE 0.9% 100 ML IV SCH (17:07)
--- NOTE | 2023-04-19 18:02 | PN ---
Date of Progress Note: 04/19/2023 Subjective: Seen by bedside. Review of Systems: There is no chest pain or shortness of breath, orthopnea, or cough. No nausea, vomiting, diarrhea. All other systems reviewed and they were negative. Physical Examination: Vital Signs: Reviewed. Head and Neck: Pupils are equal, reactive to light. Intact eye movements. No JVD. No cervical lym phadenopathy. Neck is supple. Thyroid is not enlarged. Lungs: Clear to auscultation bilaterally. No rhonchi, wheezing, or crackles. No accessory muscle u se. Heart: Regular rate and rhythm. No extra sounds. Abdomen: Soft, nontender. Bowel sounds positive. No organomegaly. No masses or hernia. No rigidi ty or rebound. Extremities: No edema, clubbing, or cyanosis. Intact pulses. Skin: No rash. Neurologic: Alert, awake, oriented x3. No acute focal deficits appreciated. Investigations: Labs were reviewed. Assessment And Recommendations: 1.Non-ST elevation myocardial infarction. Initially, we planned to do a left heart catheterization on him today and the fact he was brought into the cardiac catheterization laboratory, but apparently the patient is allergic to iodine and further history gathering revealed that last time he had iodine , he had an anaphylactic shock and coded despite the steroids and the Benadryl. Discussed with his w sangeetha and she confirmed. As such, the plan will be modified to cancel the cardiac catheterization and to do a Lexiscan nuclear stress test tomorrow. If there is a significant area of concern, then I ranjit l transfer him to medical center to do an angiogram using other material than the iodine. 2.Sepsis, urinary tract infection. This is resolved. SR/MODL Voice ID: [id number] Report ID: [id number]
[2023-04-19] MEDS: BENZONATATE 100 MG CAP PO PRN (20:12)
[2023-04-19] MEDS: TAMSULOSIN 0.4 MG SR CAP PO SCH (20:12)
[2023-04-20 00:01] VITALS: O2SAT 94
[2023-04-20] MEDS: BENZONATATE 100 MG CAP PO PRN (06:03)
[2023-04-20] MEDS ORDERED: REGADENOSON 0.4 MG/5 ML SYR IV ONE (07:45)
--- NOTE | 2023-04-20 07:54 | P.PN ---
Date of Service: 04/20/23 Subjective: ROS: 10 point ROS as noted above, otherwise negative Physical Exam: GEN: Alert, oriented, NAD HEENT: Normal conjunctiva, sclera anicteric CV: Regular rate and rhythm, no edema Pulm: Nonlabored respirations on room air ABD: Soft, nontender, nondistended Neuro: Normal speech, normal affect vitals reviewed Problem List: Sepsis secondary to UTI/gram-negative bacteremia NSTEMI Hypertension Chronic back pain Constipation Hyponatremia Sepsis secondary to UTI/gram-negative bacteremia Patient was experiencing intermittent difficulty with urination and incontinence. Urinary symptoms have improved / resolved Blood cultures: E. coli. Urine culture: E. coli Repeat blood cultures: NGTD ID consulted Previously on Cefepime (04/13-04/15). Continue IV Rocephin (04/15-04/27) x2 weeks total antibiotics consider switch to Ciprofloxacin PO on DC per ID Continue Flomax for possible BPH related urinary symptoms. NSTEMI Troponin elevated x3 - peak 675 Echo (04/17): 56% EF, grade I diastolic dysfunction, mild TR, mild-mod aortic insufficiency, dilated ascending aorta at 4.6 cm Cardiology consulted NPO for tentative cardiac cath today Continue full dose lovenox (held this AM for cath), ASA. Hypertension: Stable. Continue home antihypertensives. Chronic back pain: Continue current pain medication regimen. Constipation: Patient placed on laxatives. VTE: Lovenox Code: Full Dispo: ~1 day Pending heart cath, remains afebrile, diarrhea improved
--- NOTE | 2023-04-20 08:35 | RAD REPORT ---
EXAM DESCRIPTION: NM - Rest Stress Cardiac Imaging - 04/20/2023 8:24 am CLINICAL HISTORY: CP COMPARISON: Rest Stress Cardiac Imaging dated 10/31/2019 TECHNIQUE: The patient was administered approximately 10.8mCi of Tc 99m Sestamibi prior to resting S PECT imaging of the heart. The patient was then administered approximately 31.8 mCi of Tc 99m Sestami bi following exercise or pharmacologic stress. Multiplanar SPECT images were reviewed. FINDINGS: No stress induced ischemic defect is seen to suggest stress induced ischemia. Small fixed defect noted along the lateral wall apical segment, suggesting a remote infarct. The end diastolic volume is 149 ml, the end systolic volume is 66 ml, and the ejection fraction is 55 %. IMPRESSION: No evidence of stress-induced myocardial ischemia. Small fixed defect along the lateral wall apical segment suggesting a remote infarct.
[2023-04-20] MEDS: SENOSIDES 8.6 MG TAB PO SCH (09:00)
[2023-04-20] MEDS: POLYETHYL GLY 3350 17 GM/DOSE PO SCH (09:00)
[2023-04-20] MEDS: HYDROCHLOROTHIAZIDE PO SCH (09:47)
[2023-04-20] MEDS: ASPIRIN 81 MG CHEWABLE TABLET PO SCH (09:47)
[2023-04-20] MEDS: IRBESARTAN PO SCH (09:47)
[2023-04-20] MEDS: AMLODIPINE 10 MG TAB PO SCH (09:47)
[2023-04-20] MEDS ORDERED: HYDROCODONE/APAP 7.5/325 MG TAB PO PRN (10:14)
[2023-04-20 12:13] VITALS: BP 103/57; TEMP 97.8
--- NOTE | 2023-04-20 14:44 | P.DS ---
Admission Date: 04/13/23 Discharge Date: 04/20/23 Disposition: ROUTINE DISCHARGE Discharge Condition: GOOD Reason for Admission: Urinary frequency, urinary incontinence, fever and chills Consultations: Cardiology - Dr. Max Infectious Disease - Dr. Piña Brief History of Present Illness: 67 yo M, PMH: hypertension, diverticulitis, hard of hearing, chronic back pain Patient presents with complaint of urinary frequency, urinary incontinence, fever and chills .that has been ongoing for the past 3 days. Patient also reports pain located in the substernal chest onset while he was in the ER. Patient rated pain as 8/10 in severity and described pain as aching in quality. Patient also reports that he has had minimal bowel movement in the last 2 days. Patient reported associated signs and symptoms of dizziness, headache, fatigue, chills and generalized weakness. Patient denies any other signs and symptoms. Symptoms are aggravated or relieved by nothing. Hospital Course: Problem List: Sepsis secondary to UTI/gram-negative bacteremia NSTEMI Hypertension Chronic back pain Constipation Hyponatremia Patient presented with fever, difficulty urinating, chest pain. He was found to have a UTI growing pansenstive E. coli seen in both urine and blood cultures ID was consulted. Patient was initially given cefepime (04/13-04/15) and transitioned to IV Rocephin following culture results. Patient remained afebrile for > 48 hours and leukocytosis resolved. ID recommended patient to finish 2 week course of antibiotics with Ciprofloxacin PO on discharge. Patient was also found to have an NSTEMI. Cardiology was consulted for chest pain, elevated troponins (peak 675). Echo done 04/17 reported an 56% EF, grade I diastolic dysfunction, mild TR, mild-mod aortic insufficiency, dilated ascending aorta at 4.[address] Max recommended Cardiac cath however patient was noted to have an iodine allergy (patient had anaphylactic shock and coded last time given iodine) so it was deferred at this time, stress test was done instead. Stress test reported a small fixed defect along the lateral wall apical segment suggesting a remote infarct. No evidence of stress induced ischemia. Patient was deemed stable for discharge home. Continue home medications as previously prescribed. New medications Ciprofloxacin (To finish ~04/27) Follow up: PCP 3-5 days Cardiology in ~2-4 weeks. Physical Exam: GEN: Alert, oriented, NAD HEENT: Normal conjunctiva, sclera anicteric CV: Regular rate and rhythm, no edema Pulm: Nonlabored respirations on room air ABD: Soft, nontender, nondistended Neuro: Normal speech, normal affect Vital Signs/Physical Exam: Temp Pulse Resp BP Pulse Ox 97.8 F 82 16 103/57 L 97 04/20/23 12:00 04/20/23 12:00 04/20/23 12:00 04/20/23 12:00 04/20/23 12:00 Laboratory Data at Discharge: WBC 7.70 thou/uL (4.3-10.9) 04/18/23 06:44 Hgb 11.6 g/dL (13.6-17.9) L 04/18/23 06:44 Hct 35.2 % (39.6-49.0) L 04/18/23 06:44 Plt Count 257 thou/uL (152-406) 04/18/23 06:44 PT 11.4 SECONDS (9.5-12.5) 04/19/23 10:50 INR 1.04 04/19/23 10:50 APTT 27.6 SECONDS (24.3-36.9) 04/19/23 10:50 Sodium 137 mEq/L (136-145) 04/19/23 08:06 Potassium 3.8 mEq/L (3.5-5.1) 04/19/23 08:06 BUN 13 mg/dL (7-18) 04/19/23 08:06 Creatinine 0.97 mg/dL (0.70-1.30) 04/19/23 08:06 Glucose 126 mg/dL (74-106) H 04/19/23 08:06 Phosphorus 1.6 mg/dL (2.5-4.9) L 04/13/23 05:40 Magnesium 1.8 mg/dL (1.6-2.4) 04/13/23 05:40 Total Bilirubin 1.8 mg/dL (0.2-1.0) H 04/13/23 05:40 AST 23 U/L (15-37) 04/13/23 05:40 ALT 21 U/L (16-61) 04/13/23 05:40 Alkaline Phosphatase 55 U/L (45-117) 04/13/23 05:40 Triglycerides 82 mg/dL (<150) 04/14/23 06:39 Cholesterol 64 mg/dL (<200) 04/14/23 06:39 HDL Cholesterol 25 mg/dL (40-60) L 04/14/23 06:39 Cholesterol/HDL Ratio 2.56 04/14/23 06:39 Lipase 13 U/L (13-75) 04/13/23 05:40 Home Medications: Amlodipine Besylate [Norvasc] 10 mg PO DAILY WITH BREAKFAST 09/29/16 Irbesartan/Hydrochlorothiazide [Avalide 300-12.5 mg Tablet] 1 tab PO DAILY 04/14/23 Ciprofloxacin HCl 500 mg PO BID 8 Days #16 tab 04/20/23 New Medications: Ciprofloxacin HCl 500 mg PO BID 8 Days #16 tab Physician Discharge Instructions: Patient presented with fever, difficulty urinating, chest pain. He was found to have a UTI growing pansenstive E. coli seen in both urine and blood cultures ID was consulted. Patient was initially given cefepime (04/13-04/15) and transitioned to IV Rocephin following culture results. Patient remained afebrile for > 48 hours and leukocytosis resolved. ID recommended patient to finish 2 week course of antibiotics with Ciprofloxacin PO on discharge. Patient was also found to have an NSTEMI. Cardiology was consulted for chest pain, elevated troponins (peak 675). Echo done 04/17 reported an 56% EF, grade I diastolic dysfunction, mild TR, mild-mod aortic insufficiency, dilated ascending aorta at 4.[address] Max recommended Cardiac cath however patient was noted to have an iodine allergy (patient had anaphylactic shock and coded last time given iodine) so it was deferred at this time, stress test was done instead. Stress test reported a small fixed defect along the lateral wall apical segment suggesting a remote infarct. No evidence of stress induced ischemia. Patient was deemed stable for discharge home. Continue home medications as previously prescribed. New medications Ciprofloxacin (To finish ~04/27) Follow up: PCP 3-5 days Cardiology in ~2-4 weeks. Followup: Germán Najera DO [Primary Care Provider] - Time spent managing pt's care (in minutes): 45
--- NOTE | 2023-04-20 16:01 | P.PN ---
Date of Service: 04/20/23 Chief Complaint: Urinary frequency, urinary incontinence, fever and chills Subjective: Patient seen and examined at bedside. In no apparent distress. Denies any new or worsening complaints. at bedside. Physical Examination Temp Pulse Resp BP Pulse Ox 97.8 F 82 16 103/57 L 97 04/20/23 12:00 04/20/23 12:00 04/20/23 12:00 04/20/23 12:00 04/20/23 12:00 General: Alert, In no apparent distress, Oriented x3 HEENT: Atraumatic Neck: Supple, JVD not distended Respiratory: Clear to auscultation bilaterally, Normal air movement. on room air. Cardiovascular: Normal pulses, Regular rate/rhythm Gastrointestinal: Normal bowel sounds, No tenderness. Musculoskeletal: No clubbing, No swelling. Integumentary: No rashes, No breakdown Neurological: Normal speech, Normal tone, Normal affect Laboratory Data - reviewed Microbiology Data - Reviewed Imagings Data: -- MRI abdomen 04/13: "The abnormality at the pancreatic head probably represents the patient's pancreas, perhaps with some increased fatty infiltration simulating the presence of a mass. The finding has been stable since 2018. No pancreatic ductal dilatation. A clinically significant pancreatic mass should have increased in size and/or led to pancreatic ductal obstruction, neither of which is seen. A large duodenal diverticulum is noted in the vicinity of the abnormality. Continued follow-up is unneccessary" -- CT abdomen pelvis 04/13: "1. Supraumbilical hernia containing small portion of the anterior wall of the transverse colon without associated bowel obstruction or inflammatory changes. 2. A 2 mm nonobstructing stone in the right kidney. 3. A 3 cm area of hypodensity in the pancreatic head, unchanged. Recommend multiphasic CT or MRI of the liver for further evaluation. 4. Mild diffuse urinary bladder wall thickening which is probably due to under distention, however cystitis not completely excluded. 5. 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 Afebrile. NSTEMI: cardiology following Recommendations - UTI/Bacteremia: Continue antibiotic therapy x 14 days (04/13-04/27) - Currently on Rocephin IV. - upon discharge, consider switch to Ciprofloxacin PO to complete duration of antibiotic therapy - Follow up with PCP in 1-2 weeks Case discussed with Lenin Tierney
--- NOTE | 2023-04-21 07:15 | TREADPHA ---
DX: CHEST PAIN, ELEVATED TROPONIN Date of Study: 04/20/2023 Ht: 6' 2 " Wt: 239 lb 0 oz Consulting Physician: BOSSMAN MEDICATIONS: TYLENOL, NORVASC, ASPIRIN, LOVENOX, TRANDATE, ZOFRAN, GLYCOLAX, SENOKOT, AMBIEN HISTORY: HYPERTENSION PHYSICIAL EXAMINATION: RESTING B.P.: 110/77 RESTING H.R.: 86 RESTING EKG: NORMAL SINUS RHYTHM PROTOCOL: PHARMACOLOGIC EXERCISE TIME: 3:30 B.P. AT PEAK STRESS: 102/56 IMPRESSION: LEXISCAN STRESS TEST PERFORMED. CARDIOLITE INJECTED PER PROTOCOL (SEE NUCLEAR MEDICINE REPORT). NO SUPRAVENTRICULAR TACHYCARDIA, VENTRICULAR TACHYCARDIA OR ARRHYTHMIAS NOTED. NO CHEST PAINN OR SHORTNESS OF BREATH NOTED. PATIENT STATED CHEST DISCOMFORT BEFORE PROCEDURE, LEFT SIDED RATED AT A FOUR. PATIENT STATED CHEST DISCOMFORT SUBSIDED AFTER PROCEDURE, RATED AT A ONE. NO OTHER CONCERNS/ COMPLICATIONS. NO ELECTROCARDIOGRAM CHANGES OF ISCHEMIA WITH LEXISCAN.
== END 2023-04-20 15:31 | disposition home or self-care (01) | DRG 871 ==
LOC: ER 02:03 → ERHOLD 10:39 → 4TH 10:41
PROVIDERS: ADMIT Internal Medicine; ATTEND Hospitalist
PROC: 3E043XZ Introduction of Vasopressor into Central Vein, Percutaneous Approach (ICD-10-PCS; principal; 2023-04-19)
DX: A41.51 Sepsis due to Escherichia coli [E. coli] (principal); I21.4 Non-ST elevation (NSTEMI) myocardial infarction; N10 Acute pyelonephritis; N17.9 Acute kidney failure, unspecified; E44.1 Mild protein-calorie malnutrition; E87.1 Hypo-osmolality and hyponatremia; K59.00 Constipation, unspecified; I10 Essential (primary) hypertension; H91.90 Unspecified hearing loss, unspecified ear; G89.29 Other chronic pain; M54.9 Dorsalgia, unspecified; E66.09 Other obesity due to excess calories; R65.20 Severe sepsis without septic shock; Z71.3 Dietary counseling and surveillance; Z68.30 Body mass index [BMI] 30.0-30.9, adult; Z91.041 Radiographic dye allergy status; Z79.899 Other long term (current) drug therapy
CPT/HCPCS: 36415; 70450; 74176; 74183; 78452; 80048; 80053; 80061; 81001; 83036; 83605; 83690; 83735; 84100; 84145; 84439; 84443; 84484; 85025; 85610; 85730; 86140; 87040; 87077; 87086; 87088; 87186; 87205; 93005; 93017; 93306; 96365; 96375; 99285; A9500; A9577; J0171; J0461; J0692; J0696; J1200; J1644; J1650; J2001; J2250; J2405; J2785; J2930; J3010; J7030; J7040; J7050

== ENCOUNTER 2025-05-23 19:18 | Inpatient (IN) | payer MEDICAID ==
[2025-05-23] MEDS ORDERED: ONDANSETRON 4 MG/2 ML VIAL ONE (20:08)
[2025-05-23] MEDS ORDERED: FENTANYL CITR 100 MCG/2 ML ONE ×3 (20:08→23:23)
[2025-05-23] MEDS ORDERED: NA CHLORIDE 0.9% 500 ML ONE ×2 (20:09→22:45)
[2025-05-23 20:43] LABS: Absolute Lymphocytes (CBC) 0.6 K/uL (0.7-4.9); Hematocrit 36.7 % (39.6-49.0); Hemoglobin 12.1 g/dL (13.6-17.9); MCH 30.1 pg (27.0-35.0); MCHC 32.9 g/dL (32.0-36.0); MCV 91.7 fL (80-100); MPV 9.2 fL (7.6-11.3); Nucleated RBC Absolute Count 0.0 (0-0); Nucleated Red Blood Cells % 0.0 % (0-0); RBC Red Blood Cell Count 4.00 M/uL (4.33-5.43); White Blood Count 8.20 thou/uL (4.3-10.9)
[2025-05-23 20:51] LABS: ALT/SGPT 22.0 U/L (16-61); AST/SGOT 20.0 U/L (15-37); Albumin 3.1 g/dL (3.4-5.0); Albumin/Globulin Ratio 0.8 (1.1-1.8); Alkaline Phosphatase 64.0 U/L (45-117); Anion Gap 8.6 mEq/L (5.0-15.0); BUN Blood Urea Nitrogen 13.0 mg/dL (7-18); Globulin 3.8 g/dL (2.3-3.5); Glucose Level 138.0 mg/dL (74-106); Lipase 9.0 U/L (13-75); Magnesium 1.7 mg/dL (1.6-2.4); Potassium 3.6 mEq/L (3.5-5.1)
--- NOTE | 2025-05-23 21:02 | RAD REPORT ---
EXAMINATION: Abdomen Pelvis Wo Contrast CLINICAL INDICATION: Male, 69 years old.ABD PAIN TECHNIQUE: CT abdomen and pelvis was performed, without IV contrast, as per department protocol. Axia l, sagittal and coronal reconstructions were obtained. One or more of the following dose reduction techniques were used: Automated exposure control, adjustment of the mA and/or kV according to the pat ient size, and/or iterative reconstruction. Unless otherwise specified, incidental findings do not require dedicated imaging follow-up. [id number]. IV CONTRAST: Not administered. COMPARISON: 04/13/23 FINDINGS: The lack of intravenous contrast limits the sensitivity of this exam for evaluation of solid visceral organs, vascular structures, and retroperitoneum. LOWER CHEST: 5No significant pericardial effusion. Basilar scarring. Aortic valve calcifications. UPPER GI: Duodenal diverticulum. LIVER: Benign appearing low density liver lesions. No suspicious mass. GALLBLADDER/BILE DUCTS: No biliary ductal dilatation.? PANCREAS: No mass, ductal dilation, or dong-pancreatic fluid. SPLEEN: Unremarkable. ADRENALS: No adrenal masses. KIDNEYS AND URETERS: No hydronephrosis.3 mm stone in the lower pole right kidney. ABDOMINAL AORTA AND OTHER VESSELS: Normal caliber aorta and IVC. PERITONEUM: No abnormal free fluid. No free air. LYMPH NODES: No pathologic lymphadenopathy. ABDOMINAL WALL: Small fat containing umbilical hernia. SMALL BOWEL/COLON: Significant inflammatory changes and wall thickening at the hepatic flexure with m ultiple enlarged and inflamed diverticula. Possible microperforation..Normal appendix. Alvarado hernia without complicating features at the transverse colona normal appendix. There is some free flu id at the right para colic gutter but no abscess. URINARY BLADDER: Underdistended but grossly unremarkable. REPRODUCTIVE ORGANS: No changes at the prostate. MUSCULOSKELETAL: Multilevel degenerative changes in the spine. No acute fracture. ADDITIONAL FINDINGS: None. IMPRESSION: Pronounced inflammatory changes at the hepatic flexure with enlarged diverticula. This could reflect diverticulitis with possible tiny microperforation. No abscess identified. Consider follow-up colonoscopy if none has been recently performed.
--- NOTE | 2025-05-23 21:18 | RAD REPORT ---
Abdomen Exam Limited: 05/23/2025 9:03 PM CLINICAL HISTORY: gallbladder STUDY: Limited right upper quadrant ultrasound of abdomen. COMPARISON: None. FINDINGS: Liver: Within normal limits. Bile ducts: No intrahepatic or extrahepatic biliary ductal dilatation. Common bile duct measures 3 mm. Gallbladder: Normal. IMPRESSION: Unremarkable exam.
[2025-05-23 21:22] LABS: Sqamous Epithelial <5 /HPF (None Seen); Urine Culture Reflex Order NOT NEEDED; Urine Microscopic Reflex YN ORDER UMIC
--- NOTE | 2025-05-23 21:35 | RAD REPORT ---
EXAM: Chest Single View HISTORY: 69 years Male upper abdomen pain COMPARISON: 06/30/2019 FINDINGS: LUNGS/PLEURA: The lungs are clear. No pleural effusions or pneumothorax. No pulmonary edema. CARDIAC/MEDIASTINUM: Stable size and configuration. Possible thoracic aortic aneurysm. UPPER ABDOMEN: No significant abnormality. BONES: No acute abnormality. ACDF in the cervical spine. LINES/TUBES/OTHER: N/A IMPRESSION: No evidence of acute cardiopulmonary disease. Suspected thoracic aortic aneurysm. The patient had an ascending thoracic aneurysm on the CT from 2018 and may have enlarged since then. Consider dedicated chest CT.
[2025-05-23] MEDS ORDERED: NA CHLORIDE 0.9% 100 ML ONE (22:04)
[2025-05-23] MEDS ORDERED: PIPERACIL/TAZO 3.375 GM VIAL IV ONE (22:05)
--- NOTE | 2025-05-23 22:33 | RAD REPORT ---
EXAMINATION: Thorax Wo Con CLINICAL INDICATION: Male, 69 years old. pain TECHNIQUE: Routine CT scan of the chest without intravenous contrast. One or more of the following do se reduction techniques were used: Automated exposure control, adjustment of the mA and/or kV according to patient size, and/or iterative reconstruction. Unless otherwise specified, incidental fi ndings do not require dedicated imaging follow-up. [id number]. COMPARISON: 05/15/2018 FINDINGS: LOWER NECK: Visualized thyroid gland and soft tissues are normal. MEDIASTINUM AND LYMPH NODES: No mediastinal mass or fluid collection. Normal size mediastinal, hilar, and axillary lymph nodes. THORACIC AORTA: Ascending thoracic aortic aneurysm measuring up to 4.6 cm. This is not significantly changed compared with 05/15/2018. PULMONARY ARTERIES: Caliber is within normal limits. Unable to assess for pulmonary emboli without IV contrast. HEART: Mild cardiomegaly. Mild coronary artery calcifications.Trace pericardial effusion. LUNGS AND AIRWAYS: Solid nodule in the right upper lobe with adjacent calcification measuring 9 mm pr eviously measured 7 mm in 2018. This is benign. Mild centrilobular and paraseptal emphysema. Linear scarring in the lung bases. No suspicious and/or stable pulmonary nodules. PLEURA: No pleural effusions. No pneumothorax. OSSEOUS STRUCTURES AND CHEST WALL: Multilevel degenerative changes. No acute fracture. UPPER ABDOMEN: No acute abnormalities.Benign appearing low density liver lesions. Diverticulosis. IMPRESSION: Ascending thoracic aortic aneurysm measuring 4.6 cm which is not simply changed compared 05/15/2018. C onsider two-year follow-up chest CT.
--- NOTE | 2025-05-23 22:58 | EDPHYS ---
Physician Documentation [facility] Name: Yash Garcia Sr Age: 69 yrs Sex: Male : 1955 Arrival Date: 05/23/2025 Time: 19:18 Bed 6 Private MD: ED Physician Hema Lares HPI: 05/23 20:05 This 69 yrs old Black Male presents to ER via Ambulatory with complaints of Abdominal cp Cramping, Flank Pain. 20:05 The patient presents with abdominal pain mid and upper. cp 20:05 Onset: The symptoms/episode began/occurred last night. Associated signs and symptoms: cp Pertinent positives: diarrhea, nausea, Pertinent negatives: blood in stools, chest pain, fever, testicular pain. The symptoms are described as constant. 20:05 Severity of pain: in the emergency department the pain is unchanged despite home cp interventions. Historical: - Allergies: 19:39 Iodinated Contrast Media - IV Dye; dd2 - PMHx: 19:39 Diverticulitis; heard of hearing; Hypertension; PROSTATE CA (Hypertension); dd2 - PSHx: 19:39 colon surgery from diverticulitis; neck surgery; right ankle surgery; right jaw; dd2 - Immunization history:: Adult Immunizations up to date. - Infectious Disease History:: Denies. - Social history:: Smoking status: Patient denies any tobacco usage or history of. ROS: 20:10 Constitutional: Negative for body aches, chills, fever, poor PO intake, cp 20:10 Eyes: Negative for injury, pain, redness, and discharge, cp 20:10 ENT: Negative for drainage from ear(s), ear pain, difficulty swallowing, difficulty handling secretions, 20:10 Cardiovascular: Negative for chest pain, edema, 20:10 Respiratory: Negative for cough, shortness of breath, wheezing, 20:10 Abdomen/GI: Positive for abdominal pain, nausea, Negative for diarrhea, constipation, black/tarry stool, rectal bleeding, 20:10 Neuro: Negative for altered mental status, dizziness, headache, numbness, weakness, 20:10 All other systems are negative, Exam: 20:15 Constitutional: The patient appears in no acute distress, alert, awake, cp non-diaphoretic, non-toxic, well developed, well nourished, uncomfortable, 20:15 Head/Face: Normocephalic, atraumatic. cp 20:15 Eyes: Periorbital structures: appear normal, Conjunctiva: normal, no exudate, no injection, Sclera: no appreciated abnormality, Lids and lashes: appear normal, bilaterally, 20:15 ENT: External ear(s): are unremarkable, Nose: is normal, Mouth: Lips: moist, Oral mucosa: moist, Posterior pharynx: Airway: no evidence of obstruction, patent, erythema, is not appreciated, exudate, is not appreciated, 20:15 Neck: ROM/movement: is normal, is supple, without pain, no range of motions limitations, 20:15 Chest/axilla: Inspection: normal, 20:15 Cardiovascular: Rate: tachycardic, Rhythm: regular, Edema: is not appreciated, JVD: is not appreciated, 20:15 Respiratory: the patient does not display signs of respiratory distress, Respirations: normal, no use of accessory muscles, no retractions, labored breathing, is not present, Breath sounds: are clear throughout, no decreased breath sounds, no stridor, no wheezing, 20:15 Abdomen/GI: Inspection: distension, is not seen, Bowel sounds: active, all quadrants, Palpation: soft, in all quadrants, severe abdominal tenderness, in the right upper quadrant and left upper quadrant, rebound tenderness, is not appreciated, voluntary guarding, is elicited in the right upper quadrant and left upper quadrant, Hernia: noted in the paraumbilical area, tenderness, that is mild, 20:15 Back: CVA tenderness, is absent, 20:15 Skin: no rash present. 20:15 Neuro: Orientation: to person, place \T\ time. Mentation: is normal, Motor: moves all fours, strength is normal, Sensation: is normal, Vital Signs: 19:37 BP 124 / 80; Pulse 109; Resp 18; Temp 98.1; Pulse Ox 97% on R/A; Weight 107.05 kg; dd2 Height 6 ft. 2 in. ; Pain 9/10; 19:57 BP 128 / 81; Pulse 100; Resp 17; Pulse Ox 96% on R/A; Weight 107.05 kg; Height 6 ft. 2 tb4 in. ; Pain 10/10; 20:59 BP 122 / 66; Pulse 76; Resp 19; Pulse Ox 99% ; Pain 7/10; tb4 22:08 BP 106 / 62; Pulse 72; Resp 19; Pulse Ox 96% on R/A; Pain 5/10; tb4 23:00 BP 98 / 82; Pulse 69; Resp 18; Pulse Ox 97% on R/A; Pain 6/10; tb4 05/24 00:32 BP 115 / 61; Pulse 72; Resp 19; Pulse Ox 97% on R/A; Pain 3/10; tb4 01:08 BP 109 / 77; Pulse 69; Resp 19; Pulse Ox 99% on R/A; tb4 05/23 19:57 Body Mass Index 30.30 (107.05 kg, 187.96 cm) tb4 05/23 19:37 Pain Scale: Adult dd2 19:57 Pain Scale: Adult tb4 20:59 Pain Scale: Adult tb4 22:08 Pain Scale: Adult tb4 23:00 Pain Scale: Adult tb4 05/24 00:32 Pain Scale: Adult tb4 MDM: 05/23 19:28 Medical Screening Exam initiated cp 22:00 Differential diagnosis: bowel obstruction, Cholelithiasis, diverticulitis, gastritis, cp non-specific abd pain, pancreatitis, Peptic Ulcer Disease, Perf. Duodenal Ulcer, Perf. Gastric Ulcer. 05/24 23:00 Data reviewed: vital signs, nurses notes, lab test result(s), radiologic studies, CT cp scan, plain films, and as a result, I will admit patient. 23:00 Management of patient was discussed with the following: Consumer Electronics Merchandiser: DR Scruggs will cp consult after discussion. I considered the following discharge prescriptions or medication management in the emergency department Medications were administered in the Emergency Department. See MAR. Care significantly affected by the following chronic conditions: Hypertension. Counseling: I had a detailed discussion with the patient and/or guardian regarding the historical points, exam findings, and any diagnostic results supporting the discharge/admit diagnosis, lab results, radiology results, the need for further work-up and treatment in the hospital. Response to treatment: the patient's symptoms have mildly improved after treatment. ED course: consultation with hospitalist DR Vera who will admit after discussion. Discussed thoracic aneurysm stable and no change in size from 2018 CT. 05/23 20:03 Order name: CBC with Diff; Complete Time: 21:38 cp 05/23 21:39 Interpretation: Normal except: RBC 4.00; HGB 12.1; HCT 36.7; ANJUM% 81.3; LYM% 7.3; LYMA cp 0.6. 05/23 20:03 Order name: CMP; Complete Time: 21:38 05/23 21:39 Interpretation: Normal except: GLUC 138; GFR 84; BILIT 2.2; ALB 3.1; GLOB 3.8; A/G 0.8. 05/23 20:03 Order name: Lipase; Complete Time: 21:38 05/23 21:39 Interpretation: Reviewed. 05/23 20:03 Order name: Magnesium; Complete Time: 21:38 05/23 20:03 Order name: UA Rfx Ramiro Cult if indicated; Complete Time: 21:38 05/23 21:40 Interpretation: UBLD 1+; UUROB 1+; URBC 11-20. 05/23 23:41 Order name: Lactate w/ 2H reflex if indic. EDPA 05/23 23:41 Order name: Blood Culture EDPA 05/23 20:03 Order name: XRAY Chest (1 view); Complete Time: 21:38 05/23 21:43 Interpretation: Report review. 05/23 20:03 Order name: US Abdomen Limited; Complete Time: 21:38 05/23 20:29 Order name: Abdomen ; Complete Time: 21:38 EDPA 05/23 21:45 Interpretation: Report reviewed. 05/23 22:09 Order name: Thorax Wo Con; Complete Time: 22:44 EDPA 05/23 22:44 Interpretation: Report reviewed. 05/23 20:03 Order name: IV Saline Lock; Complete Time: 20:21 05/23 20:03 Order name: Labs collected and sent; Complete Time: 20:21 05/23 20:03 Order name: NPO; Complete Time: 20:19 cp Administered Medications: 05/23 20:18 Drug: fentaNYL (PF) IVP 25 mcg IVP once Route: IVP; Site: right hand; tb4 21:03 Follow up: Response: No adverse reaction; Pain is decreased; RASS: Alert and Calm (0) tb4 20:19 Drug: Ondansetron IVP 4 mg IVP once; over 2 minutes Route: IVP; Site: right hand; tb4 20:28 Follow up: Response: No adverse reaction tb4 20:19 Drug: NS 0.9% IV 500 ml 500 ml IV at 1 bolus once; to be given as a bolus over 60 tb4 minutes Volume: 500 ml; Route: IV; Rate: 1 bolus; Site: right hand; 22:03 Follow up: Response: No adverse reaction; IV Status: Completed infusion tb4 21:12 Drug: fentaNYL (PF) IVP 25 mcg IVP once Route: IVP; Site: right hand; tb4 22:03 Follow up: Response: No adverse reaction; Pain is decreased; RASS: Alert and Calm (0) tb4 23:25 Drug: NS 0.9% IV 500 ml 500 ml IV at 1 bolus once; to be given as a bolus over 60 tb4 minutes Volume: 500 ml; Route: IV; Rate: 1 bolus; Site: right hand; 05/24 01:13 Follow up: Response: No adverse reaction; IV Status: Completed infusion tb4 05/23 23:32 Drug: fentaNYL (PF) IVP 50 mcg IVP once Route: IVP; Site: right hand; tb4 05/24 01:13 Follow up: Response: No adverse reaction; Pain is decreased; RASS: Drowsy (-1) tb4 05/23 23:36 Drug: Piperacillin-Tazobactam IVPB 3.375 grams IVPB once over 60 mins; (mix in NS 100 tb4 mL) Route: IVPB; Infused Over: 60 mins; Site: right hand; 05/24 01:13 Follow up: Response: No adverse reaction; IV Status: Completed infusion tb4 Disposition Summary: 05/23/25 22:57 Hospitalization Ordered Notes: Hospitalization Status: Inpatient Admission cp Provider: Drew Vera [facility] cp Condition: Stable cp Problem: new cp Symptoms: have improved cp Bed/Room Type: Standard Room Assignment: 215(05/24/25 00:10) kl Diagnosis - Diverticulitis of large intestine with perforation and abscess cp Forms: - Medication Reconciliation Form cp - SBAR form cp - Leadership Thank You Letter cp Addendum: 05/27/2025 11:36 Co-signature as Attending Physician, Hema Lares MD I agree with the assessment and c fisher plan of care. Signatures: Dispatcher [employer] Orly Yang RN RN kl Anderson, Corey, MD MD gabe Page, Hema, PA-C PADREA OCAMPO cp, RN RN dd2 Erica Coker RN RN tb4 Corrections: (The following items were deleted from the chart) 05/23 20:29 20:03 Abdomen Pelvis W Con+CT.RAD.BRZ ordered. EDMS EDMS 21:54 21:54 Thorax Wo Con+CT.RAD.BRZ ordered. EDMS EDMS 21:54 21:54 LACTATE+C.LAB.BRZ ordered. EDMS EDMS 21:54 21:54 BLOOD CULTURE*+BA.LAB.BRZ ordered. EDMS EDMS 05/24 00:10 05/23 22:57 xavier alston
--- NOTE | 2025-05-23 22:58 | ER ---
Nurse's Notes [facility] Name: Yash Garcia Sr Age: 69 yrs Sex: Male : 1955 Arrival Date: 05/23/2025 Time: 19:18 Bed 6 Private MD: Diagnosis: Diverticulitis of large intestine with perforation and abscess Presentation: 05/23 19:37 Chief complaint: Patient states: STOMACH THAT BEGAN LAST NIGHT. PT REPORTS DIARRHEA dd2 LAST NIGHT AND NAUSEA TODAY. Coronavirus screen: At this time, the client does not indicate any symptoms associated with coronavirus-19. Ebola Screen: No symptoms or risks identified at this time. Initial Sepsis Screen: Does the patient meet any 2 criteria? No. Patient's initial sepsis screen is negative. Does the patient have a suspected source of infection? No. Patient's initial sepsis screen is negative. Risk Assessment: Do you want to hurt yourself or someone else? Patient reports no desire to harm self or others. Onset of symptoms was May 22, 2025. 19:37 Method Of Arrival: Ambulatory dd2 19:37 Acuity: PARISH 3 dd2 Triage Assessment: 19:39 General: Appears uncomfortable, Behavior is calm, cooperative, appropriate for age. dd2 Pain: Complains of pain in umbilical area, right upper quadrant and right lower quadrant. GI: Reports lower abdominal pain, upper abdominal pain, cramping, diarrhea, nausea. Historical: - Allergies: 19:39 Iodinated Contrast Media - IV Dye; dd2 - PMHx: 19:39 Diverticulitis; heard of hearing; Hypertension; PROSTATE CA (Hypertension); dd2 - PSHx: 19:39 colon surgery from diverticulitis; neck surgery; right ankle surgery; right jaw; dd2 - Immunization history:: Adult Immunizations up to date. - Infectious Disease History:: Denies. - Social history:: Smoking status: Patient denies any tobacco usage or history of. Screenin:22 [facility] ED Fall Risk Assessment (Adult) History of falling in the last 3 months, tb4 including since admission No falls in past 3 months (0 pts) Confusion or Disorientation No (0 pts) Intoxicated or Sedated No (0 pts) Impaired Gait No (0 pts) Mobility Assist Device Used No (0 pt) Altered Elimination No (0 pt) Score/Fall Risk Level 0 - 2 = Low Risk Maintained a safe environment. Abuse screen: Denies threats or abuse. Denies injuries from another. Nutritional screening: No deficits noted. Tuberculosis screening: No symptoms or risk factors identified. Assessment: 20:22 General: Appears uncomfortable, Behavior is cooperative. Pain: Complains of pain in tb4 abdomen Pain does not radiate. Pain currently is 10 out of 10 on a pain scale. Quality of pain is described as pressure, sharp, Pain began suddenly, Is continuous. Neuro: Level of Consciousness is awake, alert, obeys commands, Oriented to person, place, time, situation, Moves all extremities. Full function Gait is steady, Speech is normal, Facial symmetry appears normal. Respiratory: Airway is patent Respiratory effort is even, unlabored, Respiratory pattern is regular, symmetrical. GI: Abdomen is round Bowel sounds present X 4 quads. Abd is soft Abdomen is tender to palpation X 4 quads. : No signs and/or symptoms were reported regarding the genitourinary system. EENT: No signs and/or symptoms were reported regarding the EENT system. Derm: No signs and/or symptoms reported regarding the dermatologic system. Skin is intact, is healthy with good turgor, Skin is normal, Skin temperature is warm. Musculoskeletal: No signs and/or symptoms reported regarding the musculoskeletal system. Circulation, motion, and sensation intact. Capillary refill < 3 seconds, is brisk, in bilateral fingers. Range of motion: intact in all extremities. Vital Signs: 19:37 BP 124 / 80; Pulse 109; Resp 18; Temp 98.1; Pulse Ox 97% on R/A; Weight 107.05 kg; dd2 Height 6 ft. 2 in. ; Pain 9/10; 19:57 BP 128 / 81; Pulse 100; Resp 17; Pulse Ox 96% on R/A; Weight 107.05 kg; Height 6 ft. 2 tb4 in. ; Pain 10/10; 20:59 BP 122 / 66; Pulse 76; Resp 19; Pulse Ox 99% ; Pain 7/10; tb4 22:08 BP 106 / 62; Pulse 72; Resp 19; Pulse Ox 96% on R/A; Pain 5/10; tb4 23:00 BP 98 / 82; Pulse 69; Resp 18; Pulse Ox 97% on R/A; Pain 6/10; tb4 05/24 00:32 BP 115 / 61; Pulse 72; Resp 19; Pulse Ox 97% on R/A; Pain 3/10; tb4 01:08 BP 109 / 77; Pulse 69; Resp 19; Pulse Ox 99% on R/A; tb4 18 19:57 Body Mass Index 30.30 (107.05 kg, 187.96 cm) tb4 05/23 19:37 Pain Scale: Adult dd2 19:57 Pain Scale: Adult tb4 20:59 Pain Scale: Adult tb4 22:08 Pain Scale: Adult tb4 23:00 Pain Scale: Adult tb4 05/24 00:32 Pain Scale: Adult tb4 ED Course: 05/23 19:24 Patient arrived in ED. mr 19:28 Hema Lucas PA-C [facility]. cp 19:28 Hema Lares MD is Attending Physician. cp 19:39 Triage completed. dd2 19:39 Arm band placed on right wrist. dd2 20:17 Inserted saline lock: 22 gauge in right hand, using aseptic technique. Blood collected. tb4 Flushed with 10 mL NS. 20:22 Radiology exam delayed due to lab results not completed at this time. (BUN/Creatinine) iv IV insertion attempt and/or patient not having appropriate IV at this time. 20:22 Patient has correct armband on for positive identification. Placed in gown. Bed in low tb4 position. Call light in reach. Side rails up X 1. Client placed on continuous cardiac and pulse oximetry monitoring. NIBP monitoring applied. Door closed. Lights dimmed. 20:25 Initial lab(s) drawn, by label cutter, sent to lab. ts3 20:38 Abdomen In Process Unspecified. EDMS 21:06 US Abdomen Limited In Process Unspecified. EDMS 21:13 XRAY Chest (1 view) In Process Unspecified. EDMS 22:20 Thorax Wo Con In Process Unspecified. EDMS 22:56 Drew Vera MD is Hospitalizing Provider. cp 23:37 Inserted saline lock: 22 gauge in right ,using aseptic technique. index finger. tb4 05/24 00:38 No provider procedures requiring assistance completed. tb4 Administered Medications: 05/23 20:18 Drug: fentaNYL (PF) IVP 25 mcg IVP once Route: IVP; Site: right hand; tb4 21:03 Follow up: Response: No adverse reaction; Pain is decreased; RASS: Alert and Calm (0) tb4 20:19 Drug: Ondansetron IVP 4 mg IVP once; over 2 minutes Route: IVP; Site: right hand; tb4 20:28 Follow up: Response: No adverse reaction tb4 20:19 Drug: NS 0.9% IV 500 ml 500 ml IV at 1 bolus once; to be given as a bolus over 60 tb4 minutes Volume: 500 ml; Route: IV; Rate: 1 bolus; Site: right hand; 22:03 Follow up: Response: No adverse reaction; IV Status: Completed infusion tb4 21:12 Drug: fentaNYL (PF) IVP 25 mcg IVP once Route: IVP; Site: right hand; tb4 22:03 Follow up: Response: No adverse reaction; Pain is decreased; RASS: Alert and Calm (0) tb4 23:25 Drug: NS 0.9% IV 500 ml 500 ml IV at 1 bolus once; to be given as a bolus over 60 tb4 minutes Volume: 500 ml; Route: IV; Rate: 1 bolus; Site: right hand; 05/24 01:13 Follow up: Response: No adverse reaction; IV Status: Completed infusion tb4 05/23 23:32 Drug: fentaNYL (PF) IVP 50 mcg IVP once Route: IVP; Site: right hand; tb4 05/24 01:13 Follow up: Response: No adverse reaction; Pain is decreased; RASS: Drowsy (-1) tb4 05/23 23:36 Drug: Piperacillin-Tazobactam IVPB 3.375 grams IVPB once over 60 mins; (mix in NS 100 tb4 mL) Route: IVPB; Infused Over: 60 mins; Site: right hand; 05/24 01:13 Follow up: Response: No adverse reaction; IV Status: Completed infusion tb4 Medication: 05/23 20:22 VIS not applicable for this client. tb4 Outcome: 22:57 Decision to Hospitalize by Provider. 05/24 01:18 Patient left the ED. tb4 Signatures: Dispatcher [employer] EDOR CristianMarguerite, Frederick Reg mr Hema Lucas, PA-C PA-C cp Kerry Barker iv, DIANA, RN RN dd2 Erica Coker RN RN tb4 Chantal Delgado ts3
[2025-05-23] MEDS ORDERED: ONDANSETRON 4 MG/2 ML VIAL IV PRN (23:39)
[2025-05-23] MEDS ORDERED: ACETAMINOPHEN 325 MG TABLET PO PRN (23:39)
--- NOTE | 2025-05-23 23:44 | P.HP ---
Certification for Inpatient Patient admitted to: Inpatient With expected LOS: >2 Midnights Practitioner: I am a practitioner with admitting privileges, knowledge of patient current condition, hospital course, and medical plan of care. Services: Services provided to patient in accordance with Admission requirements found in Title 42 Section 412.3 of the Code of Federal Regulations Patient History Date of Service: 05/24/25 Reason for admission: Diverticulitis History of Present Illness: 69-year-old male with a past medical history of hypertension, hyperlipidemia, history of diverticulosis, history of prostate cancer, who was brought to ER with abdominal pain which has been going on for the last 3 to 4 days and has been progressively getting worse and was brought to ER. Patient denies any fever or chills. No nausea vomiting or diarrhea. Pain is located in right upper quadrant and lower quadrant , sharp, intermittent 8 out of 10 in severity. No radiation. Denies any chest pain or shortness of breath. Patient was assessed in the ER and had a CT which was consistent with diverticulitis with microperforation at the hepatic flexure and surgery was consulted and was admitted for further management. Allergies Iodinated Contrast Media [Iodinated Contrast Media - IV Dye] Allergy (Verified 05/15/18 21:18) Anaphylaxis Home medications list reviewed: Yes Home Medications: Amlodipine Besylate [Norvasc] 10 mg PO DAILY WITH BREAKFAST 09/29/16 Irbesartan/Hydrochlorothiazide [Avalide 300-12.5 mg Tablet] 1 tab PO DAILY 04/14/23 Ciprofloxacin HCl 500 mg PO BID 8 Days #16 tab 04/20/23 - Past Medical/Surgical History Diabetic: No Past Medical History: Reviewed- Non-Contributory -: HTN -: Diverticulitis -: Chronic back pain -: Hard of hearing Past Surgical History: Reviewed- Non-Contributory -: Neck surgery -: Colon surgery from diverticulitis -: Right ankle surgery -: Right Jaw Surgery -: hernia - Family History Family History: Reviewed- Non-Contributory - Family History Father -: Cancer Mother -: Other (see notes) (Dementia) - Social History Smoking Status: Never smoker Alcohol use: No CD- Drugs: No Caffeine use: Yes Review of Systems 10-point ROS is otherwise unremarkable Physical Examination - Vital Signs Temperature: 98.1 F Blood Pressure: 124/80 Pulse: 109 Respirations: 18 Pulse Ox (%): 94 - Physical Exam General: Alert, Oriented x3, Mild distress HEENT: Atraumatic, Normocephalic Neck: Supple Respiratory: Clear to auscultation bilaterally, Normal air movement Cardiovascular: Regular rate/rhythm, Normal S1 S2 Capillary refill: <2 Seconds Gastrointestinal: W/out hepatosplenomegaly, Tenderness Musculoskeletal: No clubbing Integumentary: No rashes Neurological: Other (Alert awake nonfocal) Lymphatics: No axilla or inguinal lymphadenopathy - Studies Laboratory Data (last 24 hrs) 05/23/25 05/23/25 20:21 20:21 WBC 8.20 Hgb 12.1 L Hct 36.7 L Plt Count 173 Sodium 137 Potassium 3.6 BUN 13 Creatinine 0.97 Glucose 138 H Magnesium 1.7 Total Bilirubin 2.2 H AST 20 ALT 22 Alkaline Phosphatase 64 Lipase 9 L Assessment and Plan - Plan Diverticulitis with microperforation CT findings noted Monitor closely on telemetry Started on IV antibiotics Pain control Surgical consult Keep n.p.o. for now IV Hydration Hypertension Antihypertensives titrated Continue home medications and titrate as needed Hyperlipidemia Continue statin Chronic back pain Continue pain medication GI/DVT prophylaxis Advanced directive full code Discharge Plan: Home Plan to discharge in: 48 Hours - Advance Directives Does patient have a Living Will: No Does patient have a Durable POA for Healthcare: No - Code Status/Comfort Care Code Status: Full Code Time Spent Managing Pts Care (In Minutes): 48
[2025-05-24 01:33] VITALS: O2SAT 99
[2025-05-24] MEDS: NA CHLORIDE 0.9% 1,000 ML ONE (01:34)
[2025-05-24] MEDS: NA CHLORIDE 0.9% 1,000 ML IV SCH ×2 (01:56→09:07)
[2025-05-24] MEDS: MORPHINE 2 MG/ML SYR IV PRN (02:01)
[2025-05-24 02:09] VITALS: BMI 29.5
[2025-05-24] MEDS: KETOROLAC 30 MG/ML INJ IV ONE (03:36)
[2025-05-24 05:58] LABS: Absolute Lymphocytes (CBC) 0.7 K/uL (0.7-4.9); Hematocrit 35.0 % (39.6-49.0); Hemoglobin 11.4 g/dL (13.6-17.9); MCH 30.2 pg (27.0-35.0); MCHC 32.6 g/dL (32.0-36.0); MCV 92.6 fL (80-100); MPV 9.0 fL (7.6-11.3); Nucleated RBC Absolute Count 0.0 (0-0); Nucleated Red Blood Cells % 0.0 % (0-0); RBC Red Blood Cell Count 3.78 M/uL (4.33-5.43); White Blood Count 8.30 thou/uL (4.3-10.9)
[2025-05-24 06:11] LABS: ALT/SGPT 22.0 U/L (16-61); AST/SGOT 20.0 U/L (15-37); Albumin 3.0 g/dL (3.4-5.0); Albumin/Globulin Ratio 0.9 (1.1-1.8); Alkaline Phosphatase 53.0 U/L (45-117); Anion Gap 9.8 mEq/L (5.0-15.0); BUN Blood Urea Nitrogen 17.0 mg/dL (7-18); Globulin 3.4 g/dL (2.3-3.5); Glucose Level 146.0 mg/dL (74-106); Potassium 3.8 mEq/L (3.5-5.1)
[2025-05-24] MEDS ORDERED: HYDRALAZINE HCL 20 MG/ML VIAL IV PRN (09:06)
[2025-05-24] MEDS ORDERED: SODIUM CHLORIDE 0.9% 10ML INJ IV PRN (09:06)
--- NOTE | 2025-05-24 09:06 | P.PN ---
Subjective Date of Service: 05/24/25 Chief Complaint: Diverticulitis Subjective: Improving (Patient continues to have abdominal pain but somewhat improved. He is allowing people to palpate his abdomen. Currently having flatus.) Physical Examination - Vital Signs Temperature: 97.8 F Blood Pressure: 125/65 Pulse: 71 Respirations: 23 Pulse Ox (%): 91 - Physical Exam General: Acute distress, Obese HEENT: Atraumatic, Normocephalic Respiratory: Clear to auscultation bilaterally, Normal air movement Cardiovascular: No edema, Normal pulses, Regular rate/rhythm, Normal S1 S2 Gastrointestinal: Distended, Tenderness Neurological: Normal speech - Studies Laboratory Data (last 24 hrs) 05/23/25 05/23/25 20:21 20:21 WBC 8.20 Hgb 12.1 L Hct 36.7 L Plt Count 173 Sodium 137 Potassium 3.6 BUN 13 Creatinine 0.97 Glucose 138 H Magnesium 1.7 Total Bilirubin 2.2 H AST 20 ALT 22 Alkaline Phosphatase 64 Lipase 9 L Assessment And Plan - Plan Assessment Patient is a 69-year-old -[place] male with known history of diverticulitis and prostate cancer. He was admitted with another episodes of diverticulitis with evidence of microperforation at the hepatic flexure as per CT scan. Patient is responding to medical management. Recurrent diverticulitis Ascending Thoracic Aorta aneurysm - 4.6 cm, stable since 05/15/2018 Hypertension Hyperlipidemia Chronic back pain History of prostate cancer Plan: Will continue n.p.o. for bowel rest IV fluid infusion and IV antibiotics. He is currently on Zosyn GI prophylaxis Pain control Surgery has been consulted, Dr. Scruggs Blood pressure control with as needed IV hydralazine
[2025-05-24] MEDS: KCL 20 MEQ/100 mL IVPB 20 MEQ/100 ML BAG IV SCH (09:52)
[2025-05-24] MEDS: PANTOPRAZOLE 40 MG INJ IVP SCH (09:52)
[2025-05-25 05:14] LABS: Absolute Lymphocytes (CBC) 0.6 K/uL (0.7-4.9); Hematocrit 33.8 % (39.6-49.0); Hemoglobin 11.0 g/dL (13.6-17.9); MCH 30.2 pg (27.0-35.0); MCHC 32.7 g/dL (32.0-36.0); MCV 92.6 fL (80-100); MPV 8.9 fL (7.6-11.3); Nucleated RBC Absolute Count 0.0 (0-0); Nucleated Red Blood Cells % 0.0 % (0-0); RBC Red Blood Cell Count 3.65 M/uL (4.33-5.43); White Blood Count 6.00 thou/uL (4.3-10.9)
[2025-05-25 05:36] LABS: Anion Gap 8.7 mEq/L (5.0-15.0); BUN Blood Urea Nitrogen 14.0 mg/dL (7-18); Glucose Level 92.0 mg/dL (74-106); Magnesium 1.8 mg/dL (1.6-2.4); Potassium 3.7 mEq/L (3.5-5.1)
[2025-05-25] MEDS: PIPER TAZO 3.375 GM in NA CHLORIDE 0.9% 100 ML IV SCH (08:11)
--- NOTE | 2025-05-25 10:13 | P.PN ---
Subjective Date of Service: 05/25/25 Chief Complaint: Diverticulitis Subjective: Improving (Patient's pain is controlled at this time. He is still n.p.o. and on supportive care. Abdominal pain has significantly subsided.) Physical Examination - Vital Signs Temperature: 97.9 F Blood Pressure: 139/70 Pulse: 77 Respirations: 16 Pulse Ox (%): 93 - Physical Exam General: Alert, In no apparent distress, Cooperative, Obese HEENT: Atraumatic, Normocephalic Respiratory: Clear to auscultation bilaterally, Normal air movement Cardiovascular: No edema, Normal pulses, Regular rate/rhythm, Normal S1 S2 Gastrointestinal: Soft and benign, Non-distended, Tenderness Neurological: Normal speech Assessment And Plan - Plan Assessment Patient is a 69-year-old -[place] male with known history of diverticulitis and prostate cancer. He was admitted with another episodes of diverticulitis with evidence of microperforation at the hepatic flexure as per CT scan. Patient is responding to medical management. Recurrent diverticulitis Ascending Thoracic aortic aneurysm - 4.6 cm, stable since 05/15/2018 Hypertension Hyperlipidemia Chronic back pain History of prostate cancer Plan: Patient has had diverticulitis in the past that was surgically manage Currently with another episode of diverticulitis with microperforation N.p.o. for bowel rest Is responding to IV fluid infusion and Zosyn Cautiously advance diet. Will defer to surgery. Dr. Queen is on board GI prophylaxis Pain control Blood pressure control due to history of ascending thoracic aortic aneurysm
[2025-05-26 05:16] LABS: Absolute Lymphocytes (CBC) 0.3 K/uL (0.7-4.9); Hematocrit 33.5 % (39.6-49.0); Hemoglobin 11.0 g/dL (13.6-17.9); MCH 29.9 pg (27.0-35.0); MCHC 32.7 g/dL (32.0-36.0); MCV 91.4 fL (80-100); MPV 8.8 fL (7.6-11.3); Nucleated RBC Absolute Count 0.0 (0-0); Nucleated Red Blood Cells % 0.1 % (0-0); RBC Red Blood Cell Count 3.67 M/uL (4.33-5.43); White Blood Count 3.20 thou/uL (4.3-10.9)
[2025-05-26 05:33] LABS: Anion Gap 8.5 mEq/L (5.0-15.0); BUN Blood Urea Nitrogen 10.0 mg/dL (7-18); Glucose Level 101.0 mg/dL (74-106); Magnesium 2.0 mg/dL (1.6-2.4); Potassium 3.5 mEq/L (3.5-5.1)
[2025-05-26] MEDS: POTASSIUM CL SA 10 MEQ TAB PO ONE (08:55)
--- NOTE | 2025-05-26 13:29 | P.PN ---
Subjective Date of Service: 05/26/25 Chief Complaint: Diverticulitis Patient reports significant improvement in his abdominal pain. He denies any diarrhea, no nausea or vomiting. No recorded fever. Physical Examination - Vital Signs Temperature: 98.1 F Blood Pressure: 133/73 Pulse: 72 Respirations: 20 Pulse Ox (%): 92 Assessment And Plan - Plan Physical examination General: Alert and oriented x 3, NAD, HEENT: Anicteric sclera Neck: Supple, no elevated JVD Heart: Heart sounds 1 and 2 normal, regular rhythm, normal rate, no pedal edema Lungs: Clear to auscultation bilaterally, adequate breath sounds bilaterally, no rhonchi or crackles. Abdomen: Soft, nondistended, right lower quadrant and periumbilical, no guarding, normal bowel sounds. Extremities: No tenderness, no deformity Skin: Normal skin turgor, no rash, no nodules or ulcers. Neuro: No focal motor deficit. Normal speech. Psychiatry: Normal mood, no agitation. Diagnosis Recurrent diverticulitis Ascending Thoracic aortic aneurysm - 4.6 cm, stable since 05/15/2018 Hypertension Hyperlipidemia Chronic back pain History of prostate cancer Plan: History of bowel resection secondary to diverticulitis Patient with recurrent diverticulitis. Continue IV Zosyn Supportive measures with IV hydration General Surgery Dr. Scruggs input appreciated. Diet advanced to soft diet today. Serial abdominal examination Analgesics as needed Patient reports his last colonoscopy was several years ago. He may need repeat colonoscopy along the line. Aggressive blood pressure control due to history of ascending thoracic aortic aneurysm
[2025-05-27 04:27] LABS: Absolute Lymphocytes (CBC) 0.6 K/uL (0.7-4.9); Hematocrit 32.4 % (39.6-49.0); Hemoglobin 10.8 g/dL (13.6-17.9); MCH 30.2 pg (27.0-35.0); MCHC 33.3 g/dL (32.0-36.0); MCV 90.8 fL (80-100); MPV 8.2 fL (7.6-11.3); Nucleated RBC Absolute Count 0.0 (0-0); Nucleated Red Blood Cells % 0.1 % (0-0); RBC Red Blood Cell Count 3.57 M/uL (4.33-5.43); White Blood Count 2.70 thou/uL (4.3-10.9)
[2025-05-27 04:43] LABS: Anion Gap 7.5 mEq/L (5.0-15.0); BUN Blood Urea Nitrogen 8.0 mg/dL (7-18); Glucose Level 114.0 mg/dL (74-106); Magnesium 2.1 mg/dL (1.6-2.4); Potassium 3.5 mEq/L (3.5-5.1)
[2025-05-27 05:11] LABS: Differential Total Cells Count 100; Segmented Neutrophils 51 % (40-80)
[2025-05-27 05:12] LABS: Blood Morphology Comment NOTED (NOT SEEN); Hypochromasia 2+
[2025-05-27] MEDS: POTASSIUM CL SA 10 MEQ TAB PO ONE (08:26)
--- NOTE | 2025-05-27 14:54 | P.PN ---
Subjective Date of Service: 05/27/25 Chief Complaint: Diverticulitis Patient denies any new complaint. He is tolerating soft diet. He denies any diarrhea, no nausea or vomiting. No recorded fever. Physical Examination - Vital Signs Temperature: 97.6 F Blood Pressure: 137/63 Pulse: 73 Respirations: 20 Pulse Ox (%): 94 Assessment And Plan - Plan Physical examination General: Alert and oriented x 3, NAD, Heart: Heart sounds 1 and 2 normal, regular rhythm, normal rate, no pedal edema Lungs: Clear to auscultation bilaterally, adequate breath sounds bilaterally, no rhonchi or crackles. Abdomen: Soft, nondistended, mild right lower quadrant and periumbilical tenderness, no guarding, normal bowel sounds. Extremities: No tenderness, no deformity Skin: Normal skin turgor, no rash, no nodules or ulcers. Neuro: No focal motor deficit. Normal speech. Psychiatry: Normal mood, no agitation. Diagnosis Recurrent diverticulitis Ascending Thoracic aortic aneurysm - 4.6 cm, stable since 05/15/2018 Hypertension Hyperlipidemia Chronic back pain History of prostate cancer Leukopenia Plan: History of bowel resection secondary to diverticulitis Patient with recurrent diverticulitis. Patient with associated leukopenia. Continue IV Zosyn General Surgery Dr. Scruggs input appreciated. Patient is tolerating soft diet Serial abdominal examination Analgesics as needed Aggressive blood pressure control due to history of ascending thoracic aortic aneurysm DVT prophylaxis: Lovenox CODE STATUS: Full code
[2025-05-28 04:40] LABS: Absolute Lymphocytes (CBC) 0.7 K/uL (0.7-4.9); Hematocrit 33.3 % (39.6-49.0); Hemoglobin 11.1 g/dL (13.6-17.9); MCH 30.4 pg (27.0-35.0); MCHC 33.4 g/dL (32.0-36.0); MCV 90.9 fL (80-100); MPV 8.1 fL (7.6-11.3); Nucleated RBC Absolute Count 0.0 (0-0); Nucleated Red Blood Cells % 0.2 % (0-0); RBC Red Blood Cell Count 3.66 M/uL (4.33-5.43)
[2025-05-28 04:43] LABS: White Blood Count 2.80 thou/uL (4.3-10.9)
[2025-05-28 04:51] LABS: Anion Gap 9.5 mEq/L (5.0-15.0); BUN Blood Urea Nitrogen 6.0 mg/dL (7-18); Glucose Level 87.0 mg/dL (74-106); Potassium 3.5 mEq/L (3.5-5.1)
[2025-05-28] MEDS: POTASSIUM CL SA 10 MEQ TAB PO ONE (07:36)
[2025-05-28] MEDS: ENOXAPARIN 40 MG/0.4 ML SQ SCH (07:36)
--- NOTE | 2025-05-28 11:54 | P.PN ---
Date of Service: 05/28/25 Subjective: Physical Exam: Gen: Alert, Oriented, NAD CV: Regular rate and rhythm, no edema Pulm: Nonlabored respirations on room air, clear bilaterally Abdomen: Soft, mild RLQ and periumbilical tenderness Neuro: Normal strength, normal affect Problem List: Recurrent acute diverticulitis Leukopenia Ascending Thoracic aortic aneurysm - 4.6 cm, stable since 05/15/2018 Hypertension Hyperlipidemia Chronic back pain History of prostate cancer Recurrent acute diverticulitis Leukopenia on admission, presented with worsening abdominal pain for 3-[address] abdomen/pelvis on admission noted pronounced inflammatory changes at the hepatic flexure with enlarged diverticula which could reflect diverticulitis with possible tiny microperforation. Dr. Scruggs recommended medical management with bowel rest, pain control, antibiotics. Continue IV zosyn (05/25-) Blood cx - NGTD Diet per surgery; on soft diet IV protonix, pain control Daily labs. monitor CBC. repeat CT abd/pelvis ordered to re-eval Ascending Thoracic aortic aneurysm - 4.6 cm, stable since 05/15/2018 CT chest on admission noted an ascending thoracic aortic aneurysm measuring 4.6 cm which is not simply changed compared 05/15/2018. Consider repeat CT in ~2 years to reassess aneurysm and ensure stability. Hypertension Hyperlipidemia Chronic back pain History of prostate cancer confirm home meds, restart as appropriate VTE: Lovenox Code: Full Dispo: Home
[2025-05-28 12:25] VITALS: BP 127/66; TEMP 97.9
--- NOTE | 2025-05-28 14:20 | RAD REPORT ---
EXAMINATION: CT Abdomen Pelvis Wo Contrast CLINICAL INDICATION: Male, 69 years old. f/u eval diverticulitis, r/o abscess TECHNIQUE: CT abdomen and pelvis was performed, without IV contrast, as per department protocol. Axia l, sagittal and coronal reconstructions were obtained. One or more of the following dose reduction techniques were used: Automated exposure control, adjustment of the mA and kV according to the patien t size, and iterative reconstruction. Unless otherwise specified, incidental findings do not require dedicated imaging follow-up. COMPARISON: 05/23/2025 FINDINGS: The lack of intravenous contrast limits the sensitivity of this exam for evaluation of solid visceral organs, vascular structures, and retroperitoneum. LOWER CHEST: The visualized lung bases are clear. LIVER: Normal in size and contour. No focal lesion. BILIARY SYSTEM: No suspicious abnormalities. SPLEEN: Normal size. No focal lesion. PANCREAS: No mass, ductal dilation, or dong-pancreatic fluid. ADRENALS: Normal; no mass. KIDNEYS AND URETERS: Normal size and contour. No hydronephrosis. URINARY BLADDER: Suboptimally distended limiting evaluation. GASTROINTESTINAL TRACT: Diffuse colonic diverticulosis. Anteriorly projecting distal ascending colon diverticulitis, with partial improvement of adjacent fat stranding relative to the prior exam. No evidence of bowel obstruction, significant free fluid, free air or abscess. Sequelae of distal colect tyler with anastomotic suture line. APPENDIX: Normal appendix. LYMPH NODES: No lymphadenopathy. MUSCULOSKELETAL: No acute or suspicious osseous abnormality. ADDITIONAL FINDINGS: Supraumbilical ventral hernias, multiloculated, containing fat, as well as a por tion of the transverse colon wall. Small left inguinal hernia containing fat. IMPRESSION: Partial improvement of sequelae of acute diverticulitis along the distal ascending colon. No evidence of complications Other stable incidental findings as above.
--- NOTE | 2025-05-29 06:43 | P.DS ---
Admission Date: 05/23/25 Discharge Date: 05/28/25 Disposition: ROUTINE DISCHARGE Discharge Condition: GOOD Reason for Admission: Diverticulitis Consultations: General surgery - Dr. Scruggs Brief History of Present Illness: 69 yo M, PMH: hypertension, hyperlipidemia, history of diverticulosis, history of prostate cancer, who was brought to ER with abdominal pain which has been going on for the last 3 to 4 days and has been progressively getting worse and was brought to ER. Patient denies any fever or chills. No nausea vomiting or diarrhea. Pain is located in right upper quadrant and lower quadrant , sharp, intermittent 8 out of 10 in severity. No radiation. Denies any chest pain or shortness of breath. Patient was assessed in the ER and had a CT which was consistent with diverticulitis with microperforation at the hepatic flexure and surgery was consulted and was admitted for further management. Hospital Course: Problem List: Recurrent acute diverticulitis Leukopenia Ascending Thoracic aortic aneurysm - 4.6 cm, stable since 05/15/2018 Hypertension Hyperlipidemia Chronic back pain History of prostate cancer Physician discharge instructions: Patient presented with worsening abdominal pain for 3-4 days secondary to recurrent diverticulitis with posibble tiny microperforation. CT abdomen/pelvis on admission noted pronounced inflammatory changes at the hepatic flexure with enlarged diverticula which could reflect diverticulitis with possible tiny microperforation. Dr. Scruggs, general surgeon was consulted and recommended medical management with bowel rest, pain control, antibiotics. Patient received IV zosyn in addition to IV protonix while hospitalized and had improvement of his symptoms. His diet was slowly advanced as pain improved. Patient was feeling better, abdominal pain improved, tolerating regular diet without issues, and was deemed stable for discharge. Patient completed ~4 days of IV zosyn while hospitalized and is to complete cipro and flagyl for 10 days to complete 2 week total antibiotic course Repeat CT done on 05/28 showed some partial improvement of inflammation. no definitive perforation/abscess. Cleared for discharge home. CT chest on admission noted an ascending thoracic aortic aneurysm measuring 4.6 cm which is not simply changed compared 05/15/2018. Consider repeat CT in ~2 years to reassess aneurysm and ensure stability. Medications: cipro and flagyl for 10 days to complete 2 week total antibiotic course Follow up: PCP 3-[address] Scruggs in office in 1-2 weeks Please call to schedule / confirm appointments Physical Exam: Gen: Alert, Oriented, NAD CV: Regular rate and rhythm, no edema Pulm: Nonlabored respirations on room air, clear bilaterally Abdomen: Soft, nontender, nondistended Neuro: Normal strength, normal affect Vital Signs/Physical Exam: Temp Pulse Resp BP Pulse Ox 97.9 F 78 16 127/66 95 05/28/25 12:00 05/28/25 12:00 05/28/25 12:00 05/28/25 12:00 05/28/25 12:00 Laboratory Data at Discharge: WBC 2.80 thou/uL (4.3-10.9) L 05/28/25 04:06 Hgb 11.1 g/dL (13.6-17.9) L 05/28/25 04:06 Hct 33.3 % (39.6-49.0) L 05/28/25 04:06 Plt Count 189 thou/uL (152-406) 05/28/25 04:06 Sodium 143 mEq/L (136-145) 05/28/25 04:06 Potassium 3.5 mEq/L (3.5-5.1) 05/28/25 04:06 BUN 6 mg/dL (7-18) L 05/28/25 04:06 Creatinine 0.81 mg/dL (0.70-1.30) 05/28/25 04:06 Glucose 87 mg/dL (74-106) 05/28/25 04:06 Phosphorus 2.9 mg/dL (2.5-4.9) 05/28/25 04:06 Magnesium 2.1 mg/dL (1.6-2.4) 05/27/25 04:06 Total Bilirubin 2.8 mg/dL (0.2-1.0) H 05/24/25 05:42 AST 20 U/L (15-37) 05/24/25 05:42 ALT 22 U/L (16-61) 05/24/25 05:42 Alkaline Phosphatase 53 U/L (45-117) 05/24/25 05:42 Lipase 9 U/L (13-75) L 05/23/25 20:21 Home Medications: Amlodipine Besylate 5 mg PO DAILY 05/25/25 Aspirin 81 mg PO DAILY 05/25/25 Cholecalciferol (Vitamin D3) [Vitamin D3] 25 mcg PO DAILY 05/25/25 Irbesartan/Hydrochlorothiazide [Avalide 300-12.5 mg Tablet] 1 tab PO DAILY 05/25/25 Mv-Min/Folic/K1/Lycopen/Lutein [Centrum Silver Men Tablet] 1 tab PO DAILY 05/25/25 Rosuvastatin Calcium 10 mg PO DAILY 05/25/25 Tamsulosin HCl 0.4 mg PO BEDTIME 05/25/25 Ciprofloxacin HCl 500 mg PO BID 10 Days #20 tab 05/28/25 Codeine/APAP [Tylenol W/Codeine #3 tab] 1 tab PO Q6HP PRN #10 tab 05/28/25 metroNIDAZOLE [Flagyl] 500 mg PO Q8H 10 Days #30 tab 05/28/25 New Medications: Codeine/APAP [Tylenol W/Codeine #3 tab] 1 tab PO Q6HP PRN #10 tab PRN Reason: Pain Ciprofloxacin HCl 500 mg PO BID 10 Days #20 tab metroNIDAZOLE [Flagyl] 500 mg PO Q8H 10 Days #30 tab Physician Discharge Instructions: Physician discharge instructions: Patient presented with worsening abdominal pain for 3-4 days secondary to recurrent diverticulitis with posibble tiny microperforation. CT abdomen/pelvis on admission noted pronounced inflammatory changes at the hepatic flexure with enlarged diverticula which could reflect diverticulitis with possible tiny microperforation. Dr. Scruggs, general surgeon was consulted and recommended medical management with bowel rest, pain control, antibiotics. Patient received IV zosyn in addition to IV protonix while hospitalized and had improvement of his symptoms. His diet was slowly advanced as pain improved. Patient was feeling better, abdominal pain improved, tolerating regular diet without issues, and was deemed stable for discharge. Patient completed ~4 days of IV zosyn while hospitalized and is to complete cipro and flagyl for 10 days to complete 2 week total antibiotic course Repeat CT done on 05/28 showed some partial improvement of inflammation. no definitive perforation/abscess. Cleared for discharge home. CT chest on admission noted an ascending thoracic aortic aneurysm measuring 4.6 cm which is not simply changed compared 05/15/2018. Consider repeat CT in ~2 years to reassess aneurysm and ensure stability. Medications: cipro and flagyl for 10 days to complete 2 week total antibiotic course Follow up: PCP 3-[address] Scruggs in office in 1-2 weeks Please call to schedule / confirm appointments Followup: Adrian Scruggs MD [ACTIVE - CAN ADMIT] - Time spent managing pt's care (in minutes): 45
== END 2025-05-28 16:00 | disposition home or self-care (01) | DRG 392 ==
LOC: ER 19:18 → ERHOLD 23:39 → 2ND 05-24 00:42
PROVIDERS: ADMIT Family Medicine; ATTEND Hospitalist
DX: K57.20 Diverticulitis of large intestine with perforation and abscess without bleeding (principal); I10 Essential (primary) hypertension; E78.5 Hyperlipidemia, unspecified; G89.29 Other chronic pain; M54.9 Dorsalgia, unspecified; D72.819 Decreased white blood cell count, unspecified; I71.21 Aneurysm of the ascending aorta, without rupture; Z85.46 Personal history of malignant neoplasm of prostate; Z91.041 Radiographic dye allergy status; Z79.899 Other long term (current) drug therapy
CPT/HCPCS: 36415; 71045; 71250; 74176; 76705; 80048; 80053; 81001; 83605; 83690; 83735; 84100; 84484; 85025; 87040; 93005; 96361; 96365; 96366; 96375; 99284; J1650; J2270; J2405; J2470; J2543; J3010; J3480; J7030; J7040